=== PATIENT | male | born 1945 | race Caucasian/White ===

== ENCOUNTER 2016-12-03 14:37 | Emergency (ER) | payer MEDICARE, OTHER ==
[~2016-12-03] VITALS: Ht 170.2 cm; Wt 102.0 kg
[~2016-12-03 14:37] MED LIST: CARV25TA PO; LIPI20TA PO; LITH300 PO; LORTA5 PO; PERI8.6T PO; PROT40TA PO; PROZ40CA PO; TAMS0.4C67 PO
[2016-12-03 14:38] VITALS: BP 159/78; PULSE 75; RESP 20; TEMP 98.1; O2SAT 99
--- NOTE | 2016-12-03 15:00 | PD ---
HPI Chief Complaint: Diabetic Time Seen by Provider: 15:00 Travel History International Travel<30 days: No Contact w/Intl Traveler<30days: No Traveled to known affect area: No History of Present Illness HPI 71 YO M with PMH of HTN, bipolar presents to the ED for evaluation 2 week history of intermittent nausea and vomiting. He can identify no exacerbating or alleviating factors. Asymptomatic on presentation. He states that he had a near syncopal episode 2 weeks ago in [facility]. EMS was called to the scene and rehydrated the patient with Gatorade. Patient refused transport to the hospital. He also complains of intermittent dizziness over the same 2 weeks. Denies fevers, chills, chest pain, palpitations, shortness of breath, abdominal pain, melena, hematochezia, hematemesis, dysuria, back pain, neuro deficits. His BGL was 434 at [facility] today. He is followed by Dr. Taveras, last visit~ 6 months ago. PFSH Past Medical History Hx Anticoagulant Therapy: Yes (ASA 2X81) Arthritis: Yes (BOTH KNEE) Asthma: No Bipolar Disorder: Yes Anxiety: No Depression: Yes Heart Rhythm Problems: No Cancer: No Cardiovascular Problems: Yes (HTN) High Cholesterol: No Chest Pain: No Congestive Heart Failure: No COPD: No Diminished Hearing: No Endocrine: No GERD: Yes Genitourinary: Yes Hiatal Hernia: No Hypertension: Yes Immune Disorder: No Kidney Stones: No Musculoskeletal: Yes Neurologic: No Psychiatric: Yes Respiratory: Yes (ASTHMA) Renal Failure: No Sleep Apnea: No Ulcer: No Past Surgical History Abdominal Surgery: No Cardiac Surgery: No Ear Surgery: No Endocrine Surgery: No Eye Surgery: No Genitourinary Surgery: No Gynecologic Surgery: No Oral Surgery: No Pacemaker: No Thoracic Surgery: No Social History Alcohol Use: No Tobacco Use: No Substance Use: No Allergies-Medications (Allergen,Severity, Reaction): Coded Allergies: Codeine (Verified Allergy, Severe, MUSCULOSKELETAL ISSUES, 12/03/16) Reported Meds & Prescriptions Reported Meds & Active Scripts Active Reported Carvedilol 25 Mg Tab 25 Mg PO HS Flovent Hfa 12 GM Inh (Fluticasone Propionate) Unknown Strength Inh Unknown Dose INH DAILY PRN Atorvastatin (Atorvastatin Calcium) 20 Mg Tab 20 Mg PO HS Fluoxetine (Fluoxetine HCl) 40 Mg Cap 40 Cap PO HS Pantoprazole (Pantoprazole Sodium) 40 Mg Tab 40 Mg PO HS Flomax (Tamsulosin HCl) 0.4 Mg Cap 0.4 Mg PO HS [place] Carbonate 600 Mg Cap 600 Mg PO HS Verapamil ER (Verapamil HCl) 120 Mg Tab 120 Mg PO HS Aspir-81 (Aspirin) 81 Mg Tabdr 162 Mg PO HS Review of Systems Except as stated in HPI: all other systems reviewed are Neg Physical Exam Narrative GENERAL: Well-nourished, well-developed male in NAD. SKIN: Focused skin assessment warm/dry. HEAD: Normocephalic. EYES: No scleral icterus. No injection or drainage. NECK: Supple, trachea midline. No JVD or lymphadenopathy. CARDIOVASCULAR: Regular rate and rhythm without murmurs, gallops, or rubs. RESPIRATORY: Breath sounds clear and equal bilaterally. No accessory muscle use. GASTROINTESTINAL: Abdomen protuberant, soft, non-tender, nondistended. Active bowel sounds. MUSCULOSKELETAL: No cyanosis, or edema. NEUROLOGICAL: Awake and alert. Cranial nerves II through XII intact. Motor and sensory grossly within normal limits. 5/5 muscle strength in all muscle groups. Normal speech. BACK: Nontender without obvious deformity. No CVA tenderness. Data Data Last Documented VS Vital Signs Date Time Temp Pulse Resp B/P Pulse Ox O2 Delivery O2 Flow Rate FiO2 12/03/16 15:50 98 Room Air 12/03/16 14:38 98.1 75 20 159/78 Orders Electrocardiogram (12/03/16 15:01) Complete Blood Count With Diff (12/03/16 15:01) Comprehensive Metabolic Panel (12/03/16 15:01) Magnesium (Mg) (12/03/16 15:01) Ckmb (Isoenzyme) Profile (12/03/16 15:01) Troponin I (12/03/16 15:01) Act Partial Throm Time (Ptt) (12/03/16 15:01) Prothrombin Time / Inr (Pt) (12/03/16 15:01) Urinalysis - C+S If Indicated (12/03/16 15:01) Chest, Single Ap (12/03/16 15:01) Ct Brain W/O Iv Contrast(Rout) (12/03/16 15:01) Ecg Monitoring (12/03/16 15:01) Iv Access Insert/Monitor (12/03/16 15:01) Oximetry (12/03/16 15:01) Sodium Chloride 0.9% Flush (Ns Flush) (12/03/16 15:15) Labs Laboratory Tests Test 12/03/16 12/03/16 15:30 16:51 White Blood Count 7.0 TH/MM3 Red Blood Count 4.30 MIL/MM3 Hemoglobin 13.6 GM/DL Hematocrit 39.9 % Mean Corpuscular Volume 92.7 FL Mean Corpuscular Hemoglobin 31.6 PG Mean Corpuscular Hemoglobin 34.0 % Concent Red Cell Distribution Width 14.0 % Platelet Count 252 TH/MM3 Mean Platelet Volume 8.4 FL Neutrophils (%) (Auto) 53.6 % Lymphocytes (%) (Auto) 35.1 % Monocytes (%) (Auto) 8.6 % Eosinophils (%) (Auto) 2.0 % Basophils (%) (Auto) 0.7 % Neutrophils # (Auto) 3.8 TH/MM3 Lymphocytes # (Auto) 2.5 TH/MM3 Monocytes # (Auto) 0.6 TH/MM3 Eosinophils # (Auto) 0.1 TH/MM3 Basophils # (Auto) 0.0 TH/MM3 CBC Comment DIFF FINAL Differential Comment Prothrombin Time 10.8 SEC Prothromb Time International 1.0 RATIO Ratio Activated Partial 26.8 SEC Thromboplast Time Sodium Level 135 MEQ/L Potassium Level 4.2 MEQ/L Chloride Level 102 MEQ/L Carbon Dioxide Level 25.4 MEQ/L Anion Gap 8 MEQ/L Blood Urea Nitrogen 14 MG/DL Creatinine 1.56 MG/DL Estimat Glomerular Filtration 44 ML/MIN Rate Random Glucose 378 MG/DL Calcium Level 9.0 MG/DL Magnesium Level 1.8 MG/DL Total Bilirubin 0.8 MG/DL Aspartate Amino Transf 54 U/L (AST/SGOT) Alanine Aminotransferase 75 U/L (ALT/SGPT) Alkaline Phosphatase 110 U/L Total Creatine Kinase 95 U/L Troponin I LESS THAN 0.02 NG/ML Total Protein 6.9 GM/DL Albumin 3.2 GM/DL Urine Color YELLOW Urine Turbidity CLEAR Urine pH 5.5 Urine Specific [place] 1.031 Urine Protein NEG mg/dL Urine Glucose (UA) 1000 mg/dL Urine Ketones NEG mg/dL Urine Occult Blood NEG Urine Nitrite NEG Urine Bilirubin NEG Urine Urobilinogen LESS THAN 2.0 MG/DL Urine Leukocyte Esterase NEG Urine RBC 1 /hpf Urine WBC LESS THAN 1 /hpf Microscopic Urinalysis Comment CULT NOT INDICATED MDM Medical Decision Making Medical Screen Exam Complete: Yes Emergency Medical Condition: Yes Differential Diagnosis hyperglycemia versus DKA versus TIA versus CVA versus ACS versus anemia versus electrolyte abnormality versus other Narrative Course 71 YO M with PMH of HTN, bipolar presents to the ED for evaluation 2 week history of intermittent nausea and vomiting. He also complains of intermittent dizziness over the same 2 weeks. He can identify no exacerbating or alleviating factors. Asymptomatic on presentation. He states that he had a near syncopal episode 2 weeks ago in [facility]. EMS was called to the scene, refused transport to the hospital. His BGL was 434 at [facility] today. He is followed by Dr. Taveras, last visit~ 6 months ago. Vitals reviewed. Physical exam reveals a well-appearing male in no acute distress. Chest CTAB, abdomen soft, nontender. No CVA tenderness. No lower extremity edema. No focal neuro deficits. EKG rate 67, sinus rhythm, first-degree AV block, NE interval 231, QRS 167, QTc 460. Left bundle branch block. Changes. Reviewed by Dr. Whitlock. CXR: Mild cardiomegaly, no focal infiltrates, thoracic spinal changes. Cardiac enzymes negative 1. CMP: WBC 7.0, hemoglobin 13.6. INR 1.0. CMP: BUN 14, creatinine 1.56, glucose 378 UA: Glucose 1000 CT brain: No acute infarct, hemorrhage, mass effect or extra-axial fluid collections per radiology read. I discussed the results of the workup at length with the patient. He does not want to be admitted to the hospital. Patient's daughter is at bedside, states that she is a nurse practitioner, will help her father to set up follow-up with the primary care for evaluation of hyperglycemia. He is stable and discharged home. Diagnosis Primary Impression: Near syncope Additional Impression: Hyperglycemia Referrals: Primary Care Physician Patient Instructions: Diabetic Hyperglycemia (ED), General Instructions, Near Syncope (ED) Additional Instructions: Rest, hydrate. Reduce your sweets intake. Follow up with your primary care provider for further evaluation and Hemoglobin A1c check this week. Return to the ED for any urgent or emergent medical condition. Disposition: DISCHARGE HOME Condition: Stable Monica Mathias Dec 03, 2016 15:00
[2016-12-03] MEDS ORDERED: SODIUM CHLORIDE 0.9% FLUSH 10 ML FLUSH IVF PRN (15:15)
[2016-12-03 15:50] VITALS: O2SAT 98
[2016-12-03 16:05] LABS: AUTOMATED NEUTROPHIL # 3.8 TH/MM3 (1.8-7.7); BASOPHIL % 0.7 % (0.0-2.0); EOSINOPHIL # 0.1 TH/MM3 (0-0.4); HEMATOCRIT 39.9 % (39.0-51.0); HEMO FLAGS DIFF FINAL; LYMPH % 35.1 % (9.0-44.0); LYMPHOCYTE # 2.5 TH/MM3 (1.0-4.8); MEAN CELL VOLUME 92.7 FL (80.0-100.0); MEAN CORPUSCULAR HEMOGLOBIN 31.6 PG (27.0-34.0); MONO % 8.6 % (0.0-8.0); NEUT % 53.6 % (16.0-70.0); PLATELET COUNT 252 TH/MM3 (150-450)
--- NOTE | 2016-12-03 16:06 | RADRPT ---
EXAM DATE/TIME: 12/03/2016 15:00 [facility] COMPARISON: CHEST SINGLE AP, January 13, 2014, 17:20. INDICATIONS : Syncope. Lightheaded. MEDICAL HISTORY : Hypertension. Hyperglycemic. SURGICAL HISTORY : None. ENCOUNTER: Initial ACUITY: 2 weeks PAIN SCORE: 0/10 LOCATION: Bilateral chest FINDINGS: The heart is mildly enlarged. The pulmonary vascular pattern is normal. The lungs are clear. Degen erative changes are noted throughout the thoracic spine. CONCLUSION: 1. Mild cardiomegaly. 2. No acute focal pulmonary infiltrate or pulmonary vascular congestion. 3. Degenerative changes throughout the thoracic spine. Isacc Jamil MD on December 03, 2016 at 15:50 Board Certified Radiologist. This report was verified electronically.
[2016-12-03 16:20] LABS: APTT (PATIENT) 26.8 SEC (24.3-30.1); PROTHROMBIN TIME - PATIENT 10.8 SEC (9.8-11.6)
[2016-12-03 16:23] LABS: ALT (GPT) 75 U/L (12-78); ANION GAP 8 MEQ/L (5-15); AST (GOT) 54 U/L (15-37); BICARBONATE 25.4 MEQ/L (21.0-32.0); BLOOD UREA NITROGEN 14 MG/DL (7-18); CHLORIDE 102 MEQ/L (98-107); GLOMERULAR FILTRATION RATE 44 ML/MIN (>89); MAGNESIUM 1.8 MG/DL (1.5-2.5); POTASSIUM 4.2 MEQ/L (3.5-5.1); SODIUM (NA) 135 MEQ/L (136-145)
[2016-12-03 16:27] LABS: ALKALINE PHOSPHATASE 110 U/L (45-117); TOTAL BILIRUBIN ADULT 0.8 MG/DL (0.2-1.0)
[2016-12-03 16:28] LABS: CREATINE KINASE 95 U/L (39-308)
[2016-12-03] MEDS ORDERED: PANT40TA3 PO (16:40)
[2016-12-03] MEDS ORDERED: FLUO40CA PO (16:40)
[2016-12-03] MEDS ORDERED: VERA1TAB9 PO (16:40)
[2016-12-03] MEDS ORDERED: TAMS5CAP PO (16:40)
[2016-12-03] MEDS ORDERED: ASPI81TA81 PO (16:40)
[2016-12-03] MEDS ORDERED: LITH600C PO (16:40)
[2016-12-03] MEDS ORDERED: ATOR20TA15 PO (16:53)
[2016-12-03] MEDS ORDERED: FLUTI110I INH (16:54)
[2016-12-03] MEDS ORDERED: CARV25TA PO (16:55)
--- NOTE | 2016-12-03 17:19 | RADRPT ---
EXAM DATE/TIME: 12/03/2016 15:58 [facility] COMPARISON: No previous studies available for comparison. INDICATIONS : Syncopal episode, dizziness, nausea vomiting RADIATION DOSE: 41.68 CTDIvol (mGy) MEDICAL HISTORY : Cardiovascular disease. Hypertension. SURGICAL HISTORY : None. ENCOUNTER: Initial ACUITY: 3 days PAIN SCALE: 0/10 LOCATION: Cranial TECHNIQUE: Multiple contiguous axial images were obtained of the head. Using automated exposure control and adj ustment of the mA and/or kV according to patient size, radiation dose was kept as low as reasonably a chievable to obtain optimal diagnostic quality images. DICOM format image data is available electro nically for review and comparison. FINDINGS: Mild periventricular white matter small vessel ischemic changes are noted bilaterally. There is no acute infarct, acute hemorrhage, mass effect or extra-axial fluid collections. The ventr icles, sulci and cisterns are normal for the patient's age. CONCLUSION: 1. Mild periventricular white matter small vessel ischemic changes bilaterally. 2. No acute infarct, acute hemorrhage, mass effect or extra-axial fluid collections. Isacc Jamil MD on December 03, 2016 at 16:06 Board Certified Radiologist. This report was verified electronically.
[2016-12-03 17:22] LABS: BLOOD, URINE NEG (NEG); GLUCOSE,URINE 1000 mg/dL (NEG); KETONE, URINE NEG (NEG); NITRITE,URINE NEG (NEG); PH, URINE 5.5 (5.0-8.5); URINE COLOR YELLOW (YELLW/STRAW)
[2016-12-03 17:25] LABS: COMMENT (UR) CULT NOT INDICATED; CULTURE IF INDICATED CULT NOT INDICATED
--- NOTE | 2016-12-03 18:04 | PD ---
Physical Exam Exam Limitations: Poor Historian Narrative GENERAL: Well-nourished, well-developed patient. SKIN: Warm and dry. HEAD: Normocephalic and atraumatic. EYES: No injection or drainage. ENT: No nasal drainage noted. NECK: Supple, trachea midline. CARDIOVASCULAR: Regular rate and rhythm RESPIRATORY: no increased effort. No accessory muscle use. NEUROLOGICAL: Awake and alert. Motor and sensory grossly within normal limits. Normal speech. Data Data Last Documented VS Vital Signs Date Time Temp Pulse Resp B/P Pulse Ox O2 Delivery O2 Flow Rate FiO2 12/03/16 15:50 98 Room Air 12/03/16 14:38 98.1 75 20 159/78 Orders Electrocardiogram (12/03/16 15:01) Complete Blood Count With Diff (12/03/16 15:01) Comprehensive Metabolic Panel (12/03/16 15:01) Magnesium (Mg) (12/03/16 15:01) Ckmb (Isoenzyme) Profile (12/03/16 15:01) Troponin I (12/03/16 15:01) Act Partial Throm Time (Ptt) (12/03/16 15:01) Prothrombin Time / Inr (Pt) (12/03/16 15:01) Urinalysis - C+S If Indicated (12/03/16 15:01) Chest, Single Ap (12/03/16 15:01) Ct Brain W/O Iv Contrast(Rout) (12/03/16 15:01) Ecg Monitoring (12/03/16 15:01) Iv Access Insert/Monitor (12/03/16 15:01) Oximetry (12/03/16 15:01) Sodium Chloride 0.9% Flush (Ns Flush) (12/03/16 15:15) Labs Laboratory Tests Test 12/03/16 12/03/16 15:30 16:51 White Blood Count 7.0 TH/MM3 Red Blood Count 4.30 MIL/MM3 Hemoglobin 13.6 GM/DL Hematocrit 39.9 % Mean Corpuscular Volume 92.7 FL Mean Corpuscular Hemoglobin 31.6 PG Mean Corpuscular Hemoglobin 34.0 % Concent Red Cell Distribution Width 14.0 % Platelet Count 252 TH/MM3 Mean Platelet Volume 8.4 FL Neutrophils (%) (Auto) 53.6 % Lymphocytes (%) (Auto) 35.1 % Monocytes (%) (Auto) 8.6 % Eosinophils (%) (Auto) 2.0 % Basophils (%) (Auto) 0.7 % Neutrophils # (Auto) 3.8 TH/MM3 Lymphocytes # (Auto) 2.5 TH/MM3 Monocytes # (Auto) 0.6 TH/MM3 Eosinophils # (Auto) 0.1 TH/MM3 Basophils # (Auto) 0.0 TH/MM3 CBC Comment DIFF FINAL Differential Comment Prothrombin Time 10.8 SEC Prothromb Time International 1.0 RATIO Ratio Activated Partial 26.8 SEC Thromboplast Time Sodium Level 135 MEQ/L Potassium Level 4.2 MEQ/L Chloride Level 102 MEQ/L Carbon Dioxide Level 25.4 MEQ/L Anion Gap 8 MEQ/L Blood Urea Nitrogen 14 MG/DL Creatinine 1.56 MG/DL Estimat Glomerular Filtration 44 ML/MIN Rate Random Glucose 378 MG/DL Calcium Level 9.0 MG/DL Magnesium Level 1.8 MG/DL Total Bilirubin 0.8 MG/DL Aspartate Amino Transf 54 U/L (AST/SGOT) Alanine Aminotransferase 75 U/L (ALT/SGPT) Alkaline Phosphatase 110 U/L Total Creatine Kinase 95 U/L Troponin I LESS THAN 0.02 NG/ML Total Protein 6.9 GM/DL Albumin 3.2 GM/DL Urine Color YELLOW Urine Turbidity CLEAR Urine pH 5.5 Urine Specific [place] 1.031 Urine Protein NEG mg/dL Urine Glucose (UA) 1000 mg/dL Urine Ketones NEG mg/dL Urine Occult Blood NEG Urine Nitrite NEG Urine Bilirubin NEG Urine Urobilinogen LESS THAN 2.0 MG/DL Urine Leukocyte Esterase NEG Urine RBC 1 /hpf Urine WBC LESS THAN 1 /hpf Microscopic Urinalysis Comment CULT NOT INDICATED [facility] Supervised Visit with REYES: Yes Interpretation(s) CBC & BMP Diagram 12/03/16 15:30 Last [address] 12/03/16 1501 Signed Impressions: Service Date/Time: Saturday, December 03, 2016 15:58 - CONCLUSION: 1. Mild periventricular white matter small vessel ischemic changes bilaterally. 2. No acute infarct, acute hemorrhage, mass effect or extra-axial fluid collections. Isacc Jamil MD Chest X-Ray 12/03/16 1501 Signed Impressions: Service Date/Time: Saturday, December 03, 2016 15:00 - CONCLUSION: 1. Mild cardiomegaly. 2. No acute focal pulmonary infiltrate or pulmonary vascular congestion. 3. Degenerative changes throughout the thoracic spine. Isacc Jamil MD Narrative Course I, Dr. gupta, have reviewed the advance practice practitioner's documentation and am in agreement, met with the patient face to face, made the diagnosis, and the medical decision making was done by me. *My assessment and Findings: 71-year-old male with no onset diabetes had a near syncopal event about 3 weeks ago per his daughter who is now in town and wanted him to get checked out. Patient states he never lost consciousness and had no chest pain or shortness of breath. Labs show elevated glucose without DKA. Lengthy discussion with patient and daughter and offered observation but not wanting to stay. His daughter states that she will help him with his diabetes education and set up close follow-up Diagnosis Primary Impression: Hyperglycemia Additional Impression: Near syncope Patient Instructions: General Instructions Additional Instruction: return as needed, follow with primary this week, limit sugar intake Med/Other Pt SpecificInfo: No Change to Meds Disposition: 01 DISCHARGE HOME Condition: Stable Leslie Gupta MD Dec 03, 2016 18:04
--- NOTE | 2016-12-04 14:15 | EKG ---
Date Performed: 12/03/2016 Time Performed: 16:22:43 PTAGE: 71 years EKG: Sinus rhythm WITH FIRST DEGREE AV BLOCK LEFT BUNDLE BRANCH BLOCK ABNORMAL ECG Compared to prior tracing no signif icant change PREVIOUS TRACING : 01/13/2014 17.08 DOCTOR: Brian Malave Interpretating Date/Time 12/04/2016 14:12:34
== END 2016-12-03 18:22 | disposition home or self-care (01) ==
LOC: NEPE 14:37
DX: E11.65 Type 2 diabetes mellitus with hyperglycemia (principal); I10 Essential (primary) hypertension; Z79.899 Other long term (current) drug therapy
CPT/HCPCS: 70450; 71010; 80053; 81001; 82550; 83735; 84484; 85025; 85610; 85730; 93005

== ENCOUNTER 2017-06-29 23:45 | Observation (INO) | payer MEDICARE, OTHER ==
[~2017-06-29] VITALS: Ht 170.2 cm; Wt 96.5 kg
[~2017-06-29 23:45] MED LIST changes: +ASPI-516 CHEW; +ASPI81TA81 PO; +ATOR20TA15 PO; +CARV3.125 PO; +FLUO40CA PO; +FLUTI110I INH; -LIPI20TA PO; -LITH300 PO; +LITH300C2 PO; +LITH600C PO; -LORTA5 PO; +METF500T PO; +PANT40TA3 PO; -PERI8.6T PO; -PROT40TA PO; +PROZ20CA11 PO; -PROZ40CA PO; +TAMS0.4C4 PO; -TAMS0.4C67 PO; +TAMS5CAP PO; +VERA1TAB9 PO
[2017-06-29] MEDS ORDERED: CARV12.5 PO (23:58)
[2017-06-30] VITALS (7 sets, daily range): BP systolic 146–163; BP diastolic 69–101; PULSE 82–104; RESP 16–20; TEMP 97.4–98.4; O2SAT 95–98
[2017-06-30] MEDS ORDERED: PANTOPRAZOLE INJ 80 MG in SODIUM CHLORIDE 0.9% INJ 100 ML IV SCH (00:15)
[2017-06-30] MEDS ORDERED: PANTOPRAZOLE SODIUM 40 MG VIAL IV PUSH ONE (00:15)
[2017-06-30] MEDS ORDERED: SODIUM CHLOR 0.9% 1000 ML INJ 1,000 ML IV ONE (00:30)
[2017-06-30 00:37] LABS: AUTOMATED NEUTROPHIL # 11.2 TH/MM3 (1.8-7.7); BASOPHIL # 0.1 TH/MM3 (0-0.2); BASOPHIL % 0.7 % (0.0-2.0); EOSINOPHIL # 0.2 TH/MM3 (0-0.4); EOSINOPHIL % 1.2 % (0.0-4.0); HEMATOCRIT 37.4 % (39.0-51.0); HEMOGLOBIN 12.9 GM/DL (13.0-17.0); LYMPH % 20.7 % (9.0-44.0); LYMPHOCYTE # 3.2 TH/MM3 (1.0-4.8); MEAN CELL VOLUME 92.7 FL (80.0-100.0); MEAN CORPUSCULAR HEMOGLOBIN 31.9 PG (27.0-34.0); MEAN CORPUSCULAR HGB CONC 34.4 % (32.0-36.0); MEAN PLATELET VOLUME 7.9 FL (7.0-11.0); MONO % 5.5 % (0.0-8.0); MONOCYTE # 0.9 TH/MM3 (0-0.9); NEUT % 71.9 % (16.0-70.0); PLATELET COUNT 364 TH/MM3 (150-450); RED BLOOD COUNT 4.03 MIL/MM3 (4.50-5.90); RED CELL DISTRIBUTION WIDTH 13.8 % (11.6-17.2); WHITE BLOOD COUNT 15.6 TH/MM3 (4.0-11.0)
[2017-06-30 00:46] LABS: INTERNATIONAL NORMALIZED RATIO 1.1 RATIO; PROTHROMBIN TIME - PATIENT 10.9 SEC (9.8-11.6)
[2017-06-30 00:56] LABS: ALBUMIN 2.9 GM/DL (3.4-5.0); AST (GOT) 25 U/L (15-37); BICARBONATE 27.7 MEQ/L (21.0-32.0); BLOOD UREA NITROGEN 25 MG/DL (7-18); CALCIUM 9.3 MG/DL (8.5-10.1); CHLORIDE 106 MEQ/L (98-107); CREATININE 1.31 MG/DL (0.60-1.30); GLOMERULAR FILTRATION RATE 54 ML/MIN (>89); GLUCOSE,RANDOM 182 MG/DL (74-106); SODIUM (NA) 140 MEQ/L (136-145)
[2017-06-30 01:00] LABS: ALKALINE PHOSPHATASE 63 U/L (45-117); ALT (GPT) 31 U/L (12-78); TOTAL BILIRUBIN ADULT 1.1 MG/DL (0.2-1.0); TOTAL PROTEIN 6.9 GM/DL (6.4-8.2)
--- NOTE | 2017-06-30 01:36 | RADRPT ---
EXAM DATE/TIME: 06/30/2017 01:04 [facility] COMPARISON: No previous studies available for comparison. INDICATIONS : Hematemesis and blood loss. MEDICAL HISTORY : Diabetes mellitus type II. Hypertension SURGICAL HISTORY : None. ENCOUNTER: Initial ACUITY: 1 day PAIN SCORE: 0/10 LOCATION: abdomen FINDINGS: Supine and upright views of the abdomen were performed. The abdominal bowel gas pattern is normal. No air fluid levels are seen. No abnormal masses, calcifications, or organomegaly is seen. The visu alized lower lungs are clear. No evidence of free intraperitoneal gas. The osseous structures are u nremarkable. CONCLUSION: Benign-appearing abdomen. Harsi Pretty MD on June 30, 2017 at 1:35 Board Certified Radiologist. This report was verified electronically.
--- NOTE | 2017-06-30 01:36 | RADRPT ---
EXAM DATE/TIME: 06/30/2017 01:02 [facility] COMPARISON: CHEST SINGLE AP, May 24, 2017, 8:13. INDICATIONS : Cough and hematemesis MEDICAL HISTORY : Diabetes mellitus type II. Hypertension SURGICAL HISTORY : None. ENCOUNTER: Initial ACUITY: 1 day PAIN SCORE: 0/10 LOCATION: Bilateral chest FINDINGS: A single view of the chest demonstrates the lungs to be symmetrically aerated without evidence of mas s, infiltrate or effusion. The cardiomediastinal contours are unremarkable. Osseous structures are intact. CONCLUSION: No acute disease demonstrated. Haris Pretty MD on June 30, 2017 at 1:34 Board Certified Radiologist. This report was verified electronically.
--- NOTE | 2017-06-30 02:32 | PD ---
HPI Chief Complaint: GI Complaint Time Seen by Provider: 23:54 Travel History International Travel<30 days: No Contact w/Intl Traveler<30days: No Traveled to known affect area: No History of Present Illness HPI Patient is a 71-year-old male who has a history of GI bleed from a bleeding ulcer year ago. He had endoscopy and treatment. That was from too much NSAIDs back then. Now he said a year with no problems however tonight he reports going out eating a cheese steak and then afterwards feeling nauseous and vomiting up but she steak and then bright red blood. He denies epigastric pain denies any trauma denies any NSAID use since a year ago he is in the ER he has obvious red blood on his snyder from vomiting he is not actively bleeding here in the ER. His vitals are within normal limits he is mildly hypertensive not hypotensive and he will be treated with Protonix IV and drip and admitted for GI consult in the a.m. with endoscopy. Patient denies black stool. Denies abdominal pain PFSH Past Medical History Hx Anticoagulant Therapy: Yes (ASA [id number]) Arthritis: Yes Asthma: Yes (stress induced) Bipolar Disorder: Yes Anxiety: No Depression: Yes Heart Rhythm Problems: No Cancer: No Cardiovascular Problems: Yes High Cholesterol: No Chest Pain: No Congestive Heart Failure: No COPD: No Diabetes: Yes Patient Takes Glucophage: Yes Diminished Hearing: No Endocrine: Yes Gastrointestinal Disorders: Yes GERD: No Genitourinary: No Hiatal Hernia: No Hypertension: Yes Immune Disorder: No Implanted Vascular Access Dvce: No Kidney Stones: No Musculoskeletal: Yes Neurologic: No Psychiatric: No Reproductive: No Respiratory: Yes Renal Failure: No Sleep Apnea: No Thyroid Disease: No Ulcer: Yes Influenza Vaccination: Yes Past Surgical History Abdominal Surgery: No Cardiac Surgery: No Ear Surgery: No Endocrine Surgery: No Eye Surgery: No Genitourinary Surgery: No Gynecologic Surgery: No Neurologic Surgery: No Oral Surgery: No Pacemaker: No Thoracic Surgery: No Other Surgery: Yes Social History Alcohol Use: No Tobacco Use: No Substance Use: No Allergies-Medications (Allergen,Severity, Reaction): Coded Allergies: codeine (Unverified Allergy, Severe, MUSCULOSKELETAL ISSUES, 06/29/17) Reported Meds & Prescriptions Reported Meds & Active Scripts Active Reported Coreg (Carvedilol) 12.5 Mg Tab 12.5 Mg PO DAILY Metformin (Metformin HCl) 500 Mg Tab 500 Mg PO BIDPC Flovent Hfa 12 GM Inh (Fluticasone Propionate) Unknown Strength Inh Unknown Dose INH DAILY PRN Fluoxetine (Fluoxetine HCl) 40 Mg Cap 40 Cap PO HS Flomax (Tamsulosin HCl) 0.4 Mg Cap 0.4 Mg PO HS [place] Carbonate 600 Mg Cap 600 Mg PO HS Review of Systems Except as stated in HPI: all other systems reviewed are Neg Gastrointestinal: Positive: Hematemesis Physical Exam Narrative GENERAL: Patient has obvious red blood down his chin and lower lip SKIN: Warm and dry. HEAD: Atraumatic. Normocephalic. EYES: Pupils equal and round. No scleral icterus. No injection or drainage. ENT: No nasal bleeding or discharge. Mucous membranes pink and moist. Patient has bright red blood on his lower lip and chin from vomiting blood NECK: Trachea midline. No JVD. CARDIOVASCULAR: Regular rate and rhythm. RESPIRATORY: No accessory muscle use. Clear to auscultation. Breath sounds equal bilaterally. GASTROINTESTINAL: Abdomen patient denies abdominal pain with percussion and palpation of all quadrants , non-tender, nondistended. Hepatic and splenic margins not palpable. MUSCULOSKELETAL: Extremities without clubbing, cyanosis, or edema. No obvious deformities. NEUROLOGICAL: Awake and alert. No obvious cranial nerve deficits. Motor grossly within normal limits. Five out of 5 muscle strength in the arms and legs. Normal speech. PSYCHIATRIC: Appropriate mood and affect; insight and judgment normal. Data Data Last Documented VS Vital Signs Date Time Temp Pulse Resp B/P (MAP) Pulse Ox O2 Delivery O2 Flow Rate FiO2 06/30/17 00:00 97.4 104 16 152/101 (118) 98 Room Air Orders Orders Pantoprazole Inj (Protonix Inj) (06/30/17 00:15) Pantoprazole Inj (Protonix Inj) (06/30/17 00:15) Complete Blood Count With Diff (06/30/17 00:16) Type And Screen (06/30/17 00:16) Comprehensive Metabolic Panel (06/30/17 00:16) Prothrombin Time / Inr (Pt) (06/30/17 00:16) Lipase (06/30/17 00:16) Sodium Chlor 0.9% 1000 Ml Inj (Ns 1000 M (06/30/17 00:30) Abdomen, Flat & Upright (06/30/17 ) Chest, Single Ap (06/30/17 ) Consult Gastroenterology (06/30/17 ) Bedside Glucose PRASANTH.CSUGAR (06/30/17 02:51) Blood Glucose Goal (Criteria) (06/30/17 02:51) Hypoglycemia 70 Mg/Dl Or < (06/30/17 02:51) Notify Dr: Other (06/30/17 02:51) Dextrose 50% In Hdoa (Vial) Inj (D50w (Vi (06/30/17 03:00) Place In Observation (06/30/17 ) Vital Signs (Adult) Q4H (06/30/17 02:51) Activity Oob Ad Kamala (06/30/17 02:51) Intake + Output PRASANTH.QSHIFT (06/30/17 02:51) Diet Clear Liquid (06/30/17 Breakfast) Sodium Chlor 0.9% 1000 Ml Inj (Ns 1000 M (06/30/17 02:51) Sodium Chloride 0.9% Flush (Ns Flush) (06/30/17 03:00) Sodium Chloride 0.9% Flush (Ns Flush) (06/30/17 09:00) Ondansetron Inj (Zofran Inj) (06/30/17 03:00) Comprehensive Metabolic Panel (07/01/17 06:00) Complete Blood Count With Diff (07/01/17 06:00) Pharmacologic Contraindication (06/30/17 02:51) Acetaminophen (Tylenol) (06/30/17 03:00) Morphine Inj (Morphine Inj) (06/30/17 03:00) Docusate Sodium-Senna (Alisha-Colace) (06/30/17 09:00) Magnesium Hydroxide Liq (Milk Of Magnesi (06/30/17 03:00) Sennosides (Senokot) (06/30/17 03:00) Bisacodyl Supp (Dulcolax Supp) (06/30/17 03:00) Lactulose Liq (Lactulose Liq) (06/30/17 03:00) Hgb & Hct (06/30/17 10:00) Carvedilol (Coreg) (06/30/17 09:00) Fluoxetine (Prozac) (06/30/17 21:00) [place] Carbonate ([place] Carbonate) (06/30/17 21:00) Tamsulosin (Flomax) (06/30/17 21:00) Glucagon Inj (Glucagon Inj) (06/30/17 03:00) Insulin Aspart Supplemtl Scale (Novolog (06/30/17 08:00) Admit Order (Ed Use Only) (06/30/17 02:57) Labs Laboratory Tests Test 06/30/17 00:25 White Blood Count 15.6 TH/MM3 Red Blood Count 4.03 MIL/MM3 Hemoglobin 12.9 GM/DL Hematocrit 37.4 % Mean Corpuscular Volume 92.7 FL Mean Corpuscular Hemoglobin 31.9 PG Mean Corpuscular Hemoglobin Concent 34.4 % Red Cell Distribution Width 13.8 % Platelet Count 364 TH/MM3 Mean Platelet Volume 7.9 FL Neutrophils (%) (Auto) 71.9 % Lymphocytes (%) (Auto) 20.7 % Monocytes (%) (Auto) 5.5 % Eosinophils (%) (Auto) 1.2 % Basophils (%) (Auto) 0.7 % Neutrophils # (Auto) 11.2 TH/MM3 Lymphocytes # (Auto) 3.2 TH/MM3 Monocytes # (Auto) 0.9 TH/MM3 Eosinophils # (Auto) 0.2 TH/MM3 Basophils # (Auto) 0.1 TH/MM3 CBC Comment DIFF FINAL Differential Comment Prothrombin Time 10.9 SEC Prothromb Time International Ratio 1.1 RATIO Blood Urea Nitrogen 25 MG/DL Creatinine 1.31 MG/DL Random Glucose 182 MG/DL Total Protein 6.9 GM/DL Albumin 2.9 GM/DL Calcium Level 9.3 MG/DL Alkaline Phosphatase 63 U/L Aspartate Amino Transf (AST/SGOT) 25 U/L Alanine Aminotransferase (ALT/SGPT) 31 U/L Total Bilirubin 1.1 MG/DL Sodium Level 140 MEQ/L Potassium Level 4.0 MEQ/L Chloride Level 106 MEQ/L Carbon Dioxide Level 27.7 MEQ/L Anion Gap 6 MEQ/L Estimat Glomerular Filtration Rate 54 ML/MIN Lipase 114 U/L [facility] Medical Decision Making Medical Screen Exam Complete: Yes Emergency Medical Condition: Yes Differential Diagnosis Differential diagnosis is bleeding ulcer versus vomiting up red colored food versus esophageal bleed with varices versus portal hypertension and his varices Narrative Course Patient has Protonix drip 8 mg an hour and Protonix push 80 mg pushed and he is admitted to liters of fluid type and screen ordered and GI consult admitted to [facility] Diagnosis Primary Impression: GI hemorrhage Qualified Codes: K92.2 - Gastrointestinal hemorrhage, unspecified Admitting Information Admitting Physician Requests: Admit Scripts Pantoprazole (Protonix) 40 Mg Tab 40 MG PO DAILY for Ulcer Prevention, #90 TAB 3 Refills Prov: Alyx Finley DO 07/02/17 Micky Bernstein MD Jun 30, 2017 02:32
[2017-06-30] MEDS ORDERED: MAGNESIUM HYDROXIDE SUSP 30 ML CUP PO PRN (03:00)
[2017-06-30] MEDS ORDERED: BISACODYL 10 MG SUPP RECTAL PRN (03:00)
[2017-06-30] MEDS ORDERED: ACETAMINOPHEN 325 MG TAB PO PRN (03:00)
[2017-06-30] MEDS ORDERED: DEXTROSE 50% IN WATER 50 ML VIAL(D50) IV PUSH PRN (03:00)
[2017-06-30] MEDS ORDERED: LACTULOSE SYRUP 20 GM/30 ML CUP PO PRN (03:00)
[2017-06-30] MEDS ORDERED: SODIUM CHLORIDE 0.9% FLUSH 10 ML FLUSH IV FLUSH PRN (03:00)
[2017-06-30] MEDS ORDERED: GLUCAGON 1 MG/ML VIAL OTHER PRN (03:00)
[2017-06-30] MEDS ORDERED: MORPHINE SULFATE 2 MG/ML INJ IV PUSH PRN (03:00)
[2017-06-30] MEDS ORDERED: SENNOSIDES 8.6 MG TAB PO PRN (03:00)
--- NOTE | 2017-06-30 03:28 | HHI.HP ---
[facility]ician Haris Taveras MD Admission Diagnosis GI hemorrhage Diagnoses: (1) GI bleed Diagnosis: Principal (2) Renal insufficiency Diagnosis: Principal (3) Leukocytosis Diagnosis: Principal (4) DM (diabetes mellitus) Diagnosis: Principal Travel History International Travel<30 Days: No Contact w/Intl Traveler <30 Da: No Traveled to Known Affected Are: No History of Present Illness This is a 71-year-old male with a PMH of Bipolar Disorder, HTN, DM and h/o GI Bleed who presented to the ER w/ episode of hematemesis. States he had a cheese steak sandwich for dinner, was watching TV and had sudden onset of nausea followed by episode of hematemesis. Denies abdominal pain, fever, chills or diarrhea. Reports similar episode in 2016 however states he was told he had an ulcer from taking too much Ibuprofen for knee pain, no EGD or intervention at that time per pt. On arrival, BP 152/101, HR 104, O2 sat 98% on RA, Afebrile. WBC 15.6. Hemoglobin 12.9, previously 15.1 on 05/24/17. Creatinine 1.31, previously 1.4 701-1918. INR 1.1. CXR with no acute findings. Abdominal X-ray benign. Started on Protonix gtt in ER, no further episodes of hematemesis. Review of Systems Except as stated in HPI: all other systems reviewed are Neg ROS: 14 point review of systems otherwise negative. Past Family Social History Past Medical History PMH: Bipolar Disorder, HTN, DM and h/o GI Bleed Past Surgical History PAST SURGICAL HISTORY: None Allergies: Coded Allergies: codeine (Unverified Allergy, Severe, MUSCULOSKELETAL ISSUES, 06/29/17) Family History PAST FAMILY HISTORY: Reviewed. No h/o DM or CAD Social History PAST SOCIAL HISTORY: Negative for alcohol, tobacco or drugs. Physical Exam Vital Signs Vital Signs Date Time Temp Pulse Resp B/P (MAP) Pulse Ox O2 Delivery O2 Flow Rate FiO2 06/30/17 00:00 97.4 104 16 152/101 (118) 98 Room Air Physical Exam PE: GENERAL: Elderly male in no acute distress. HEENT: PERRLA, EOMI. No scleral icterus or conjunctival pallor. No lid lag or facial droop. Blood stained snyder CARDIOVASCULAR: Regular rate and rhythm. No obvious murmurs to auscultation. No chest tenderness to palpation. RESPIRATORY: No obvious rhonchi or wheezing. Clear to auscultation. Breath sounds equal bilaterally. GASTROINTESTINAL: Abdomen soft, non-tender, nondistended. BS normal. MUSCULOSKELETAL: Extremities without clubbing, cyanosis, or edema. No obvious deformities. NEUROLOGICAL: Awake, alert and oriented x4. No focal neurologic deficits. Moving both upper and lower extremities spontaneously. Laboratory Laboratory Tests Test 06/30/17 00:25 White Blood Count 15.6 Red Blood Count 4.03 Hemoglobin 12.9 Hematocrit 37.4 Mean Corpuscular Volume 92.7 Mean Corpuscular Hemoglobin 31.9 Mean Corpuscular Hemoglobin Concent 34.4 Red Cell Distribution Width 13.8 Platelet Count 364 Mean Platelet Volume 7.9 Neutrophils (%) (Auto) 71.9 Lymphocytes (%) (Auto) 20.7 Monocytes (%) (Auto) 5.5 Eosinophils (%) (Auto) 1.2 Basophils (%) (Auto) 0.7 Neutrophils # (Auto) 11.2 Lymphocytes # (Auto) 3.2 Monocytes # (Auto) 0.9 Eosinophils # (Auto) 0.2 Basophils # (Auto) 0.1 CBC Comment DIFF FINAL Differential Comment Prothrombin Time 10.9 Prothromb Time International Ratio 1.1 Blood Urea Nitrogen 25 Creatinine 1.31 Random Glucose 182 Total Protein 6.9 Albumin 2.9 Calcium Level 9.3 Alkaline Phosphatase 63 Aspartate Amino Transf (AST/SGOT) 25 Alanine Aminotransferase (ALT/SGPT) 31 Total Bilirubin 1.1 Sodium Level 140 Potassium Level 4.0 Chloride Level 106 Carbon Dioxide Level 27.7 Anion Gap 6 Estimat Glomerular Filtration Rate 54 Lipase 114 Result Diagram: 06/30/172406/30/1724 Caprini VTE Risk Assessment Caprini VTE Risk Assessment: No/Low Risk (score <= 1) Caprini Risk Assessment Model Point Value = 1 Point Value = 2 Point Value = 3 Point Value = 5 Age 41-60 Minor surgery BMI > 25 kg/m2 Swollen legs Varicose veins or History of unexplained or recurrent spontaneous Oral contraceptives or hormone replacement Sepsis (< 1 month) Serious lung disease, including pneumonia (< 1 month) Abnormal pulmonary function Acute myocardial infarction Congestive heart failure (< 1 month) History of inflammatory bowel disease Medical patient at bed rest Age 61-74 Arthroscopic surgery Major open surgery (> 45 min) Laparoscopic surgery (> 45 min) Malignancy Confined to bed (> 72 hours) Immobilizing plaster cast Central venous access Age >= 75 History of VTE Family history of VTE Factor V Leiden Prothrombin [id number] Lupus anticoagulant Anticardiolipin antibodies Elevated serum homocysteine Heparin-induced thrombocytopenia Other congenital or acquired thrombophilia Stroke (< 1 month) Elective arthroplasty Hip, pelvis, or leg fracture Acute spinal cord injury (< 1 month) Prophylaxis Regimen Total Risk Factor Score Risk Level Prophylaxis Regimen 0-1 Low Early ambulation 2 Moderate Order ONE of the following: *Sequential Compression Device (SCD) *Heparin 5000 units SQ BID 3-4 Higher Order ONE of the following medications: *Heparin 5000 units SQ TID *Enoxaparin/Lovenox 40 mg SQ daily (WT < 150 kg, CrCl > 30 mL/min) *Enoxaparin/Lovenox 30 mg SQ daily (WT < 150 kg, CrCl > 10-29 mL/min) *Enoxaparin/Lovenox 30 mg SQ BID (WT < 150 kg, CrCl > 30 mL/min) AND/OR *Sequential Compression Device (SCD) 5 or more Highest Order ONE of the following medications: *Heparin 5000 units SQ TID (Preferred with Epidurals) *Enoxaparin/Lovenox 40 mg SQ daily (WT < 150 kg, CrCl > 30 mL/min) *Enoxaparin/Lovenox 30 mg SQ daily (WT < 150 kg, CrCl > 10-29 mL/min) *Enoxaparin/Lovenox 30 mg SQ BID (WT < 150 kg, CrCl > 30 mL/min) AND *Sequential Compression Device (SCD) Assessment and Plan Problem List: (1) GI bleed ICD Code: K92.2 - Gastrointestinal hemorrhage, unspecified (2) Renal insufficiency ICD Code: N28.9 - Disorder of kidney and ureter, unspecified (3) Leukocytosis ICD Code: D72.829 - Elevated white blood cell count, unspecified (4) DM (diabetes mellitus) ICD Code: E11.9 - Type 2 diabetes mellitus without complications Assessment and Plan A/P: 1. GI Bleed: acute onset of nausea w/ hematemesis, h/o NSAID-Induced GI Bleed in the past, denies NSAID use at this time. Vitals stable. Hgb 12.9, previously 15.1 on 05/24/17. Monitor Hgb/Hct closely, will repeat labs in am for trend. Type & Screen, transfuse as needed for Hgb <8 or if hemodynamically unstable. Consult GI for further eval/intervention. Hold NSAIDs. Continue Protonix gtt 2. Leukocytosis: WBC 15.6, likely reactive. CXR w/ no acute findings, Abd X- ray benign, images reviewed by me. Repeat labs in am for trend. 3. Renal Insufficiency: Creatinine 1.31, previously 1.47 on 05/25/17. IVF for hydration, repeat labs in a.m. 4. DM: Sliding scale with Accu-Cheks. Hold Metformin for now. 5. DVT Prophylaxis: Pharmacologic contraindications secondary to acute GI bleed. 6. Social work for DC planning as needed. 7. Discussed at length with ER physician, lap/records/imaging reviewed by me. Kaci Genao MD Jun 30, 2017 03:28
[2017-06-30] MEDS: SODIUM CHLOR 0.9% 1000 ML INJ 1,000 ML IV SCH ×3 (03:31→22:51)
[2017-06-30] MEDS: INSULIN ASPART SUPPLEMENTAL SCALE SQ SCH ×4 (08:00→21:00)
[2017-06-30] MEDS: SODIUM CHLORIDE 0.9% FLUSH 10 ML FLUSH IV FLUSH SCH ×2 (09:00→21:48)
[2017-06-30] MEDS: DOCUSATE SODIUM 50 MG/SENNA 8.6 MG TAB PO SCH ×2 (09:19→21:49)
[2017-06-30] MEDS: CARVEDILOL 12.5 MG TAB PO SCH (09:19)
--- NOTE | 2017-06-30 10:38 | HHI.PR ---
Subjective Remarks Follow-up for GI bleed. Patient is currently doing well. No acute concerns. No fever or chills. GI evaluated him today. Objective Vitals Vital Signs Date Time Temp Pulse Resp B/P (MAP) Pulse Ox O2 Delivery O2 Flow Rate FiO2 06/30/17 08:00 98.2 99 20 153/78 (103) 96 06/30/17 04:00 97.5 101 18 149/90 (109) 97 06/30/17 03:38 100 18 163/69 (100) 97 06/30/17 00:00 97.4 104 16 152/101 (118) 98 Room Air I/O 06/29/17 06/29/17 06/29/17 06/30/17 06/30/17 06/30/17 07:00 15:00 23:00 07:00 15:00 23:00 Intake Total 200 ml Output Total 0 ml Balance 200 ml Intake Oral 200 ml Output Urine Total 0 ml Result Diagram: 06/30/17 0025 06/30/17 0025 Imaging Last Impressions Chest X-Ray 06/30/17 0000 Signed Impressions: Service Date/Time: Friday, June 30, 2017 01:02 - CONCLUSION: No acute disease demonstrated. Haris Pretty MD Abdomen X-Ray 06/30/17 0000 Signed Impressions: Service Date/Time: Friday, June 30, 2017 01:04 - CONCLUSION: Benign-appearing abdomen. Haris Pretty MD Objective Remarks GENERAL: Alert, oriented 3, NAD. SKIN: Warm and dry. HEAD: Normocephalic. EYES: No scleral icterus. No injection or drainage. NECK: Supple, trachea midline. No JVD or lymphadenopathy. CARDIOVASCULAR: Regular rate and rhythm without murmurs, gallops, or rubs. RESPIRATORY: Breath sounds equal bilaterally. No accessory muscle use. GASTROINTESTINAL: Abdomen soft, non-tender, nondistended. MUSCULOSKELETAL: No cyanosis, or edema. BACK: Nontender without obvious deformity. No CVA tenderness. Procedures None A/P Problem List: (1) GI bleed ICD Code: K92.2 - Gastrointestinal hemorrhage, unspecified (2) Renal insufficiency ICD Code: N28.9 - Disorder of kidney and ureter, unspecified (3) Leukocytosis ICD Code: D72.829 - Elevated white blood cell count, unspecified (4) DM (diabetes mellitus) ICD Code: E11.9 - Type 2 diabetes mellitus without complications Assessment and Plan This is a 71-year-old male with a PMH of Bipolar Disorder, HTN, DM and h/o GI Bleed who presented to the ER w/ episode of hematemesis. On arrival, BP 152/101 , HR 104, O2 sat 98% on RA, Afebrile. WBC 15.6. Hemoglobin 12.9, previously 15.1 on 05/24/17. Creatinine 1.31, previously 1.4 701-1918. INR 1.1. CXR with no acute findings. Abdominal X-ray benign. Started on Protonix gtt in ER, no further episodes of hematemesis. - Acute GI bleed - Acute onset of nausea and hematemesis. No further episodes. - History of NSAID induced GI bleed in the past. - Hgb 12.9 on admission --> 10.6 today. Previously, Hgb 15.6. - GI to evaluate patient. He will likely need endoscopic studies. - will continue to monitor H&H. - Continue Protonix 40 mg by mouth every 12 hours. - Diabetes mellitus - Takes metformin at home. We'll hold metformin for now. Continue sliding scale insulin. Blood glucose is well controlled in the hospital. - Bipolar disorder - Depression - Continue lithium carbonate 600 mg by mouth daily at bedtime, fluoxetine 40 mg by mouth daily at bedtime. - BPH - continue tamsulosin 0.4 mg by mouth daily at bedtime. Full code. SCDs. Pharmacological DVT prophylaxis not given due to GI bleed. Alyx Finley DO Jun 30, 2017 10:38 am
--- NOTE | 2017-06-30 11:12 | PD.CONS ---
HPI History of Present Illness This is a 71 year old obese male who was in his usual state of health up to . He was sitting on his couch eating dinner which consisted of thomas cheesesteak sandwich and had sudden onset of nausea vomiting and hematemesis. He states he had a similar episode back in 2015 but has never had any upper endoscopy done. Last colonoscopy was 5 years ago in [place] with Dr. Temple which patient states was normal. He's currently on IV fluids at 100 cc an hour , initially had Protonix drip in the ER which has been DC'd. Patient is alert oriented in a fairly good historian. He currently denies any further nausea vomiting, diarrhea or constipation. He denies any bloody stools states his last BM was brown and normal consistency. She denies any fevers, no dysphasia. According to the record patient has been taken ibuprofen for chronic knee pain. (Deisi Escalona) PFSH Past Medical History Bipolar Disorder, HTN, DM h/o GI Bleed 2015 Past Surgical History Colonoscopy 5 years ago in [place], Patient states normal exam without complications (Deisi Escalona) Coded Allergies: codeine (Unverified Allergy, Severe, MUSCULOSKELETAL ISSUES, 06/29/17) Medications Last Impressions Chest X-Ray 06/30/17 0000 Signed Impressions: Service Date/Time: Friday, June 30, 2017 01:02 - CONCLUSION: No acute disease demonstrated. Haris Pretty MD Abdomen X-Ray 06/30/17 0000 Signed Impressions: Service Date/Time: Friday, June 30, 2017 01:04 - CONCLUSION: Benign-appearing abdomen. Haris Pretty MD Family History PAST FAMILY HISTORY: Reviewed. No h/o DM or CAD Social History PAST SOCIAL HISTORY: Negative for alcohol, tobacco or drugs. Quit drinking and smoking in 1964 since 2011 and lives alone (Deisi Escalona) Review of Systems Gastrointestinal: COMPLAINS OF: Vomiting, Hematemesis (on admission now resolved) (Deisi Escalona) GI Exam Vitals I&O Vital Signs Date Time Temp Pulse Resp B/P (MAP) Pulse Ox O2 Delivery O2 Flow Rate FiO2 06/30/17 08:45 Room Air 06/30/17 08:00 98.2 99 20 153/78 (103) 96 06/30/17 04:00 97.5 101 18 149/90 (109) 97 06/30/17 03:38 100 18 163/69 (100) 97 06/30/17 00:00 97.4 104 16 152/101 (118) 98 Room Air I/O 06/29/17 06/29/17 06/29/17 06/30/17 06/30/17 06/30/17 07:00 15:00 23:00 07:00 15:00 23:00 Intake Total 200 ml Output Total 0 ml Balance 200 ml Intake Oral 200 ml Output Urine Total 0 ml Imaging Last Impressions Chest X-Ray 06/30/17 0000 Signed Impressions: Service Date/Time: Friday, June 30, 2017 01:02 - CONCLUSION: No acute disease demonstrated. Haris Pretty MD Abdomen X-Ray 06/30/17 0000 Signed Impressions: Service Date/Time: Friday, June 30, 2017 01:04 - CONCLUSION: Benign-appearing abdomen. Haris Pretty MD Laboratory Test 06/30/17 00:25 White Blood Count 15.6 TH/MM3 Red Blood Count 4.03 MIL/MM3 Hemoglobin 12.9 GM/DL Hematocrit 37.4 % Mean Corpuscular Volume 92.7 FL Mean Corpuscular Hemoglobin 31.9 PG Mean Corpuscular Hemoglobin Concent 34.4 % Red Cell Distribution Width 13.8 % Platelet Count 364 TH/MM3 Mean Platelet Volume 7.9 FL Neutrophils (%) (Auto) 71.9 % Lymphocytes (%) (Auto) 20.7 % Monocytes (%) (Auto) 5.5 % Eosinophils (%) (Auto) 1.2 % Basophils (%) (Auto) 0.7 % Neutrophils # (Auto) 11.2 TH/MM3 Lymphocytes # (Auto) 3.2 TH/MM3 Monocytes # (Auto) 0.9 TH/MM3 Eosinophils # (Auto) 0.2 TH/MM3 Basophils # (Auto) 0.1 TH/MM3 CBC Comment DIFF FINAL Differential Comment Prothrombin Time 10.9 SEC Prothromb Time International Ratio 1.1 RATIO Blood Urea Nitrogen 25 MG/DL Creatinine 1.31 MG/DL Random Glucose 182 MG/DL Total Protein 6.9 GM/DL Albumin 2.9 GM/DL Calcium Level 9.3 MG/DL Alkaline Phosphatase 63 U/L Aspartate Amino Transf (AST/SGOT) 25 U/L Alanine Aminotransferase (ALT/SGPT) 31 U/L Total Bilirubin 1.1 MG/DL Sodium Level 140 MEQ/L Potassium Level 4.0 MEQ/L Chloride Level 106 MEQ/L Carbon Dioxide Level 27.7 MEQ/L Anion Gap 6 MEQ/L Estimat Glomerular Filtration Rate 54 ML/MIN Lipase 114 U/L Physical Examination HEENT: Pupils round and reactive to light; normocephalic; atraumatic; no jaundice, oral cavity clean NECK: Neck is supple, obese, no JVD, no lymphadenopathy. CHEST: Chest is clear to auscultation and percussion. CARDIAC: Regular rate and rhythm ABDOMEN: Large, round, Soft, nondistended, nontender; no hepatosplenomegaly; bowel sounds are present in all four quadrants. EXTREMITIES: No clubbing, cyanosis, or edema. SKIN: Normal; no rash; no jaundice. 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 (Deisi Escalona) Assessment and Plan Plan Hematemesis, one episode before admission on 06/29/17 after eating Thomas cheese steak sandwich. Current hemoglobin is stable at 12.9. Had one similar episode in 2016, but has never had EGD Last colonoscopy 5 years ago in [place] with Dr. Temple. States his test results were normal. She denies any diarrhea or constipation. No obvious rectal bleeding Salma patient denies any nausea or abdominal pain Anemia, current hemoglobin 12.9. No further obvious bleeding noted Medical comorbidities such as bipolar, hypertension, managed as per attending Plan EGD Sunday a.m., consent Nothing by mouth at midnight Sunday night 07/02/17 Procedure explained to patient, he is nervous over sedation, supportive care and explanation of procedure given. Monitor labs PPI by mouth twice a day for now Bowel regimen as needed All for any acute bleeding episodes Supportive care This patient was seen by myself and , written on his behalf (Deisi Escalona) Plan patient was seen and examined, agree with above-noted, plan on doing upper endoscopy tomorrow, meanwhile continue supportive care and monitoring H&H with packed RBC if needed (Marielle Villareal MD) Deisi Escalona Jun 30, 2017 11:12 Marielle Villareal MD Jun 30, 2017 15:34
[2017-06-30 11:50] LABS: HEMATOCRIT 30.4 % (39.0-51.0); HEMOGLOBIN 10.6 GM/DL (13.0-17.0)
[2017-06-30] MEDS: FLUoxetine HCL 20 MG CAP PO SCH (21:00)
[2017-06-30] MEDS: LITHIUM CARBONATE 300 MG CAP PO SCH (21:49)
[2017-06-30] MEDS: TAMSULOSIN HCL 0.4 MG CAP PO SCH (21:49)
[2017-06-30] MEDS: PANTOPRAZOLE SOD 40 MG DELAYED RELEASE TAB PO SCH (21:49)
[2017-07-01] VITALS: BP 159/93; PULSE 90; RESP 16; TEMP 97.7; O2SAT 98
[2017-07-01 04:00] VITALS: BP 126/91; PULSE 98; RESP 18; TEMP 97.4; O2SAT 97
[2017-07-01 07:04] LABS: AUTOMATED NEUTROPHIL # 4.8 TH/MM3 (1.8-7.7); BASOPHIL # 0.1 TH/MM3 (0-0.2); BASOPHIL % 0.6 % (0.0-2.0); EOSINOPHIL # 0.2 TH/MM3 (0-0.4); EOSINOPHIL % 2.3 % (0.0-4.0); HEMATOCRIT 28.3 % (39.0-51.0); HEMOGLOBIN 9.8 GM/DL (13.0-17.0); LYMPH % 36.8 % (9.0-44.0); LYMPHOCYTE # 3.4 TH/MM3 (1.0-4.8); MEAN CELL VOLUME 93.5 FL (80.0-100.0); MEAN CORPUSCULAR HEMOGLOBIN 32.6 PG (27.0-34.0); MEAN CORPUSCULAR HGB CONC 34.8 % (32.0-36.0); MEAN PLATELET VOLUME 7.5 FL (7.0-11.0); MONO % 8.3 % (0.0-8.0); MONOCYTE # 0.8 TH/MM3 (0-0.9); PLATELET COUNT 287 TH/MM3 (150-450); RED BLOOD COUNT 3.02 MIL/MM3 (4.50-5.90); RED CELL DISTRIBUTION WIDTH 13.8 % (11.6-17.2); WHITE BLOOD COUNT 9.2 TH/MM3 (4.0-11.0)
[2017-07-01 07:25] LABS: ALBUMIN 2.8 GM/DL (3.4-5.0); AST (GOT) 17 U/L (15-37); BICARBONATE 28.4 MEQ/L (21.0-32.0); BLOOD UREA NITROGEN 17 MG/DL (7-18); CALCIUM 9.3 MG/DL (8.5-10.1); CHLORIDE 110 MEQ/L (98-107); CREATININE 1.31 MG/DL (0.60-1.30); GLOMERULAR FILTRATION RATE 54 ML/MIN (>89); GLUCOSE,RANDOM 104 MG/DL (74-106); SODIUM (NA) 143 MEQ/L (136-145)
[2017-07-01 07:26] LABS: ALT (GPT) 23 U/L (12-78)
[2017-07-01 07:29] LABS: ALKALINE PHOSPHATASE 53 U/L (45-117); TOTAL PROTEIN 5.9 GM/DL (6.4-8.2)
[2017-07-01] MEDS: INSULIN ASPART SUPPLEMENTAL SCALE SQ SCH ×4 (07:58→20:57)
[2017-07-01 08:00] VITALS: BP 140/92; PULSE 84; RESP 20; TEMP 97.6; O2SAT 95
[2017-07-01] MEDS: DOCUSATE SODIUM 50 MG/SENNA 8.6 MG TAB PO SCH ×2 (08:58→20:57)
[2017-07-01] MEDS: SODIUM CHLORIDE 0.9% FLUSH 10 ML FLUSH IV FLUSH SCH ×2 (08:58→20:55)
[2017-07-01] MEDS: CARVEDILOL 12.5 MG TAB PO SCH (08:59)
[2017-07-01] MEDS: PANTOPRAZOLE SOD 40 MG DELAYED RELEASE TAB PO SCH ×2 (08:59→20:56)
[2017-07-01 12:00] VITALS: BP 117/72; PULSE 77; RESP 20; TEMP 98.2; O2SAT 97
--- NOTE | 2017-07-01 14:16 | HHI.PR ---
Subjective Remarks Follow-up for GI bleed. Patient is doing well. no acute concerns. EGD in the AM. Objective Vitals Vital Signs Date Time Temp Pulse Resp B/P (MAP) Pulse Ox O2 Delivery O2 Flow Rate FiO2 07/01/17 08:00 97.6 84 20 140/92 (108) 95 07/01/17 04:00 97.4 98 18 126/91 (103) 97 07/01/17 04:00 Room Air 07/01/17 00:17 Room Air 07/01/17 00:00 97.7 90 16 159/93 (115) 98 06/30/17 20:00 98.2 97 18 151/87 (108) 96 06/30/17 20:00 Room Air 06/30/17 16:00 98.4 103 20 146/80 (102) 97 I/O 06/30/17 06/30/17 06/30/17 07/01/17 07/01/17 07/01/17 07:00 15:00 23:00 07:00 15:00 23:00 Intake Total 200 ml 1100 ml 840 ml 1181 ml Output Total 0 ml 575 ml Balance 200 ml 1100 ml 265 ml 1181 ml Intake Oral 200 ml 840 ml 480 ml IV Total 1100 ml 701 ml Output Urine Total 0 ml 575 ml # Voids 1 # Bowel Movements 0 0 Result Diagram: 07/01/1735 07/01/17 06 Objective Remarks GENERAL: Alert, oriented 3, NAD. SKIN: Warm and dry. HEAD: Normocephalic. EYES: No scleral icterus. No injection or drainage. NECK: Supple, trachea midline. No JVD or lymphadenopathy. CARDIOVASCULAR: Regular rate and rhythm without murmurs, gallops, or rubs. RESPIRATORY: Breath sounds equal bilaterally. No accessory muscle use. GASTROINTESTINAL: Abdomen soft, non-tender, nondistended. MUSCULOSKELETAL: No cyanosis, or edema. BACK: Nontender without obvious deformity. No CVA tenderness. Procedures None A/P Problem List: (1) GI bleed ICD Code: K92.2 - Gastrointestinal hemorrhage, unspecified (2) Renal insufficiency ICD Code: N28.9 - Disorder of kidney and ureter, unspecified (3) Leukocytosis ICD Code: D72.829 - Elevated white blood cell count, unspecified (4) DM (diabetes mellitus) ICD Code: E11.9 - Type 2 diabetes mellitus without complications Assessment and Plan This is a 71-year-old male with a PMH of Bipolar Disorder, HTN, DM and h/o GI Bleed who presented to the ER w/ episode of hematemesis. On arrival, BP 152/101 , HR 104, O2 sat 98% on RA, Afebrile. WBC 15.6. Hemoglobin 12.9, previously 15.1 on 05/24/17. Creatinine 1.31, previously 1.4 701-1918. INR 1.1. CXR with no acute findings. Abdominal X-ray benign. Started on Protonix gtt in ER, no further episodes of hematemesis. - Acute GI bleed - Acute onset of nausea and hematemesis. No further episodes. - History of NSAID induced GI bleed in the past. - Hgb 12.9 on admission --> 10.6 --> 9.8 today. Previously, Hgb 15.6. - GI to evaluate patient. He will likely need endoscopic studies. EGD is planned for tomorrow AM. - NPO midnight. - Continue Protonix 40 mg by mouth every 12 hours. - Diabetes mellitus - Takes metformin at home. We'll hold metformin for now. Continue sliding scale insulin. Blood glucose is well controlled in the hospital. - Bipolar disorder - Depression - Continue lithium carbonate 600 mg by mouth daily at bedtime, fluoxetine 40 mg by mouth daily at bedtime. - BPH - continue tamsulosin 0.4 mg by mouth daily at bedtime. Full code. SCDs. Pharmacological DVT prophylaxis not given due to GI bleed. Alyx Finley DO Jul 01, 2017 14:16
[2017-07-01 16:00] VITALS: BP 139/84; PULSE 77; RESP 19; TEMP 97.7; O2SAT 98
--- NOTE | 2017-07-01 17:55 | HHI.GIFU ---
Subjective Remarks Patient was sitting in bed, no complain, no more active bleeding apparently he ate today so we'll not able to have an endoscopy Objective Vitals I&O Vital Signs Date Time Temp Pulse Resp B/P (MAP) Pulse Ox O2 Delivery O2 Flow Rate FiO2 07/01/17 16:00 97.7 77 19 139/84 (102) 98 07/01/17 08:00 97.6 84 20 140/92 (108) 95 07/01/17 04:00 97.4 98 18 126/91 (103) 97 07/01/17 04:00 Room Air 07/01/17 00:17 Room Air 07/01/17 00:00 97.7 90 16 159/93 (115) 98 06/30/17 20:00 98.2 97 18 151/87 (108) 96 06/30/17 20:00 Room Air I/O 06/30/17 06/30/17 06/30/17 07/01/17 07/01/17 07/01/17 07:00 15:00 23:00 07:00 15:00 23:00 Intake Total 200 ml 1100 ml 840 ml 1181 ml Output Total 0 ml 575 ml Balance 200 ml 1100 ml 265 ml 1181 ml Intake Oral 200 ml 840 ml 480 ml IV Total 1100 ml 701 ml Output Urine Total 0 ml 575 ml # Voids 1 # Bowel Movements 0 0 Laboratory Laboratory Tests Test 07/01/17 06:35 White Blood Count 9.2 Red Blood Count 3.02 Hemoglobin 9.8 Hematocrit 28.3 Mean Corpuscular Volume 93.5 Mean Corpuscular Hemoglobin 32.6 Mean Corpuscular Hemoglobin Concent 34.8 Red Cell Distribution Width 13.8 Platelet Count 287 Mean Platelet Volume 7.5 Neutrophils (%) (Auto) 52.0 Lymphocytes (%) (Auto) 36.8 Monocytes (%) (Auto) 8.3 Eosinophils (%) (Auto) 2.3 Basophils (%) (Auto) 0.6 Neutrophils # (Auto) 4.8 Lymphocytes # (Auto) 3.4 Monocytes # (Auto) 0.8 Eosinophils # (Auto) 0.2 Basophils # (Auto) 0.1 CBC Comment DIFF FINAL Differential Comment Blood Urea Nitrogen 17 Creatinine 1.31 Random Glucose 104 Total Protein 5.9 Albumin 2.8 Calcium Level 9.3 Alkaline Phosphatase 53 Aspartate Amino Transf (AST/SGOT) 17 Alanine Aminotransferase (ALT/SGPT) 23 Total Bilirubin 1.0 Sodium Level 143 Potassium Level 4.0 Chloride Level 110 Carbon Dioxide Level 28.4 Anion Gap 5 Estimat Glomerular Filtration Rate 54 Physical Exam HEENT: Pupils round and reactive to light; normocephalic; atraumatic; no jaundice. Throat is clear. NECK: Neck is supple, no JVD, no lymphadenopathy. CHEST: Chest is clear to auscultation and percussion. CARDIAC: Regular rate and rhythm with no murmur gallop or rubs. ABDOMEN: Soft, nondistended, nontender; no hepatosplenomegaly; bowel sounds are present in all four quadrants. EXTREMITIES: No clubbing, cyanosis, or edema. SKIN: Normal; no rash; no jaundice. 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 Assessment and Plan Plan Patient presented with upper GI bleed, he will need upper endoscopy we'll plan on doing that tomorrow Hemoglobin stable at this time we'll continue monitoring Marielle Villareal MD Jul 01, 2017 17:55
[2017-07-01 20:00] VITALS: BP 159/77; PULSE 84; RESP 19; TEMP 98.2; O2SAT 95
[2017-07-01] MEDS: FLUoxetine HCL 20 MG CAP PO SCH (20:56)
[2017-07-01] MEDS: TAMSULOSIN HCL 0.4 MG CAP PO SCH (20:56)
[2017-07-01] MEDS: LITHIUM CARBONATE 300 MG CAP PO SCH (20:56)
[2017-07-01] MEDS: ONDANSETRON HCL 4 MG/2 ML VIAL IVP PRN (22:22)
[2017-07-02 00:08] VITALS: BP 133/66; PULSE 83; RESP 19; TEMP 98.5; O2SAT 96
[2017-07-02 04:00] VITALS: BP 114/65; PULSE 84; RESP 17; TEMP 98.1; O2SAT 94
[2017-07-02] MEDS: SODIUM CHLOR 0.9% 1000 ML INJ 1,000 ML IV SCH (06:05)
[2017-07-02] MEDS: ONDANSETRON HCL 4 MG/2 ML VIAL IVP PRN (06:24)
[2017-07-02] MEDS: INSULIN ASPART SUPPLEMENTAL SCALE SQ SCH ×2 (08:00→11:50)
[2017-07-02 08:07] VITALS: BP 136/74; PULSE 72; RESP 16; TEMP 98.7; O2SAT 98
[2017-07-02] MEDS: PANTOPRAZOLE SOD 40 MG DELAYED RELEASE TAB PO SCH (08:07)
[2017-07-02] MEDS: DOCUSATE SODIUM 50 MG/SENNA 8.6 MG TAB PO SCH (08:08)
[2017-07-02] MEDS: CARVEDILOL 12.5 MG TAB PO SCH (08:08)
[2017-07-02] MEDS: SODIUM CHLORIDE 0.9% FLUSH 10 ML FLUSH IV FLUSH SCH (08:10)
[2017-07-02] MEDS ORDERED: DO NOT ADM ANY ANTICOAGULANT DRUGS PRN (10:01)
--- NOTE | 2017-07-02 10:53 | PD.PROCEDR ---
GI Procedure PROCEDURE PERFORMED Upper endoscopy with biopsy INDICATION FOR PROCEDURE Anemia coffee-ground emesis PROCEDURE: The procedure, risks and benefits were discussed with Mr. Quezada and informed consent was obtained. Anesthesia sedated him with Diprivan. He was placed in the left lateral decubitus position. EGD: The Pentax videoscope was introduced through the oropharynx and advanced to the second portion of the duodenum under direct visualization. Retroflexion was performed in the stomach. Biopsy from the antrum from a large ulcer ESTIMATED BLOOD LOSS: None SPECIMENS REMOVED: Antrum from an ulcer COMPLICATIONS: None IMPRESSION: Gastric ulcer in the antrum most likely the source of bleeding biopsy was done PLAN: No NSAIDs Protonix 40 mg daily Follow-up biopsy Okay to feed patient diabetic diet If hemoglobin stable patient can go home with follow-up in 2-3 weeks EGD in two-month If H. pylori positive patient will need treatment Marielle Villareal MD Jul 02, 2017 10:53
--- NOTE | 2017-07-02 10:54 | HHI.GIFU ---
Subjective Remarks Patient laying in bed comfortable, no sign of active bleeding, slight drop of his hemoglobin had upper endoscopy today Objective Vitals I&O Vital Signs Date Time Temp Pulse Resp B/P (MAP) Pulse Ox O2 Delivery O2 Flow Rate FiO2 07/02/17 10:21 97.7 63 16 137/82 (100) 100 Room Air 07/02/17 10:08 97.7 69 16 136/79 (98) 100 Room Air 07/02/17 08:07 98.7 72 16 136/74 (94) 98 07/02/17 08:00 Room Air 07/02/17 04:00 98.1 84 17 114/65 (81) 94 07/02/17 00:08 98.5 83 19 133/66 (88) 96 07/01/17 20:00 Room Air 07/01/17 20:00 98.2 84 19 159/77 (104) 95 07/01/17 16:00 97.7 77 19 139/84 (102) 98 07/01/17 12:00 98.2 77 20 117/72 (87) 97 I/O 07/01/17 07/01/17 07/01/17 07/02/17 07/02/17 07/02/17 07:00 15:00 23:00 07:00 15:00 23:00 Intake Total 1181 ml 900 ml 300 ml 100 ml Output Total 150 ml Balance 1181 ml 900 ml 300 ml -50 ml Intake Oral 480 ml 900 ml 300 ml IV Total 701 ml 0 ml Other 100 ml Output Urine Total 150 ml # Voids 1 4 5 # Bowel Movements 0 Physical Exam HEENT: Pupils round and reactive to light; normocephalic; atraumatic; no jaundice. Throat is clear. Poor inpatient NECK: Neck is supple, no JVD, no lymphadenopathy. CHEST: Chest is clear to auscultation and percussion. CARDIAC: Regular rate and rhythm with no murmur gallop or rubs. ABDOMEN: Soft, nondistended, nontender; no hepatosplenomegaly; bowel sounds are present in all four quadrants. EXTREMITIES: No clubbing, cyanosis, or edema. SKIN: Normal; no rash; no jaundice. 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 Assessment and Plan Plan Patient presented with upper GI bleed, upper endoscopy was done today IMPRESSION: Gastric ulcer in the antrum most likely the source of bleeding biopsy was done PLAN: No NSAIDs Protonix 40 mg daily Follow-up biopsy Okay to feed patient diabetic diet If hemoglobin stable patient can go home with follow-up in 2-3 weeks EGD in two-month If H. pylori positive patient will need treatment Marielle Villareal MD Jul 02, 2017 10:54
[2017-07-02] MEDS ORDERED: PANTOPRAZOLE SOD 40 MG DELAYED RELEASE TAB PO SCH (11:00)
[2017-07-02] MEDS ORDERED: LIDOCAINE HCL 1% PF 5 ML SYRINGE OTHER ONE (12:00)
[2017-07-02] MEDS ORDERED: PROPOFOL 200 MG/20 ML AMP IV ONE (12:00)
[2017-07-02 12:07] VITALS: BP 144/76; PULSE 80; RESP 16; TEMP 98; O2SAT 95
[2017-07-02] MEDS ORDERED: PROT40TA PO (12:21)
[2017-07-02 13:06] LABS: HEMATOCRIT 28.2 % (39.0-51.0); HEMOGLOBIN 9.8 GM/DL (13.0-17.0)
== END 2017-07-02 15:18 | disposition home or self-care (01) ==
LOC: NEPE 23:45 → NEDA 06-30 02:59 → N04B 06-30 04:33
PROVIDERS: ADMIT Hospitalist; ATTEND Hospitalist
DX: K25.4 Chronic or unspecified gastric ulcer with hemorrhage (principal); I10 Essential (primary) hypertension; E11.9 Type 2 diabetes mellitus without complications; D64.9 Anemia, unspecified; D72.829 Elevated white blood cell count, unspecified; N28.9 Disorder of kidney and ureter, unspecified; J45.909 Unspecified asthma, uncomplicated; F31.9 Bipolar disorder, unspecified; N40.0 Benign prostatic hyperplasia without lower urinary tract symptoms; M25.569 Pain in unspecified knee; G89.29 Other chronic pain; Z79.4 Long term (current) use of insulin; Z79.899 Other long term (current) drug therapy
CPT/HCPCS: 00731; 43239; 71045; 74019; 80053; 82948; 83690; 85014; 85018; 85025; 85610; 86850; 86900; 86901; 88305; 88312; 96361; 96365; 96366; 96375; 96376; 99285; C9113; G0378; J2405; J7030

== ENCOUNTER 2017-07-09 07:41 | Emergency (ER) | payer OTHER ==
[~2017-07-09] VITALS: Ht 170.2 cm; Wt 98.0 kg
[~2017-07-09 07:41] MED LIST changes: -ASPI-516 CHEW; -ASPI81TA81 PO; -ATOR20TA15 PO; +CARV12.5 PO; -CARV25TA PO; -CARV3.125 PO; -LITH300C2 PO; -PANT40TA3 PO; +PROT40TA PO; -PROZ20CA11 PO; -TAMS0.4C4 PO; -VERA1TAB9 PO
[2017-07-09 07:47] VITALS: BP 143/85; PULSE 94; RESP 17; TEMP 97.3; O2SAT 98
--- NOTE | 2017-07-09 08:24 | PD ---
HPI Chief Complaint: Fall Time Seen by Provider: 08:04 Travel History International Travel<30 days: No Contact w/Intl Traveler<30days: No Traveled to known affect area: No History of Present Illness HPI 71-year-old male presents to the emergency department with complaint of left knee pain and abrasion and left shoulder pain after his dog pulled him down today. He reports "smacking the left side of his face" into the dirt. Denies loss of consciousness, neck pain, back pain. Has been ambulatory since after the fall. Denies lightheadedness, dizziness, headache, nausea, vomiting. Denies chest pain, shortness of breath, abdominal pain. Denies paresthesias, loss of sensation, decreased range of motion, decreased strength all extremities. Denies anticoagulant therapy. Does take baby aspirin daily. Unknown tetanus status. Has not taken any medications or try any treatments to alleviate his symptoms. Rates pain knee 310. Describes it as an aching sensation. Pain is aggravated with ambulation. Denies shoulder pain at this time. No known aggravating or relieving factors of the shoulder pain. Primary care provider is Dr. Taveras. Allergies to codeine. History of hypertension, diabetes mellitus, gastric ulcer. Has no other medical complaints. No other modifying factors or associated signs and symptoms. PFSH Past Medical History Hx Anticoagulant Therapy: Yes (ASA 2X81) Arthritis: Yes Asthma: Yes (stress induced) Bipolar Disorder: Yes Anxiety: No Depression: Yes Heart Rhythm Problems: No Cancer: No Cardiovascular Problems: Yes High Cholesterol: No Chest Pain: No Congestive Heart Failure: No COPD: No Diabetes: Yes Diminished Hearing: No Endocrine: Yes (DM II) Gastrointestinal Disorders: Yes GERD: Yes Genitourinary: No Hiatal Hernia: No Hypertension: Yes Immune Disorder: No Implanted Vascular Access Dvce: No Kidney Stones: No Musculoskeletal: Yes Neurologic: No Psychiatric: Yes (BIPOLAR) Reproductive: No Respiratory: Yes Renal Failure: No Sleep Apnea: No Thyroid Disease: No Ulcer: Yes Past Surgical History Abdominal Surgery: No Cardiac Surgery: No Ear Surgery: No Endocrine Surgery: No Eye Surgery: No Genitourinary Surgery: No Gynecologic Surgery: No Neurologic Surgery: No Oral Surgery: No Pacemaker: No Thoracic Surgery: No Other Surgery: Yes Social History Alcohol Use: No Tobacco Use: No Substance Use: No Allergies-Medications (Allergen,Severity, Reaction): Coded Allergies: codeine (Unverified Allergy, Severe, MUSCULOSKELETAL ISSUES, 07/09/17) Reported Meds & Prescriptions Reported Meds & Active Scripts Active Protonix (Pantoprazole Sodium) 40 Mg Tab 40 Mg PO DAILY Reported Coreg (Carvedilol) 12.5 Mg Tab 12.5 Mg PO DAILY Metformin (Metformin HCl) 500 Mg Tab 500 Mg PO BIDPC Fluoxetine (Fluoxetine HCl) 40 Mg Cap 40 Cap PO HS Flomax (Tamsulosin HCl) 0.4 Mg Cap 0.4 Mg PO HS [place] Carbonate 600 Mg Cap 600 Mg PO HS Review of Systems Except as stated in HPI: all other systems reviewed are Neg Physical Exam Narrative GENERAL: Well-nourished, well-developed patient, in no acute distress SKIN: Warm and dry. Abrasion noted to left knee just over the patellar; without erythema, edema, drainage. No signs of infection. HEAD: Atraumatic. Normocephalic. No facial droop noted. Tongue midline. Shoulder shrug equal. Finger to nose test normal. EYES: Pupils equal and round at 3 mm with brisk reaction. No scleral icterus. No injection or drainage. PERRLA. EOMI. ENT: Mucosa pink and moist. Airway patent. NECK: No midline tenderness on palpation of the cervical spine. Active rotation greater than 45 of the neck to the left and right. Trachea midline. No lymphadenopathy. CARDIOVASCULAR: Regular rate and rhythm. No murmur appreciated. RESPIRATORY: No accessory muscle use. Clear to auscultation. Breath sounds equal bilaterally. GASTROINTESTINAL: Abdomen soft, non-tender, nondistended. Hepatic and splenic margins not palpable. Bowel sounds are active 4 quadrants. MUSCULOSKELETAL: Left knee with full range of motion and greater than 90 flexion; without erythema, edema, ecchymosis; abrasion noted to the patellar aspect; with tenderness on palpation to the patellar aspect; joint stable with negative drawer test. Left shoulder with full range of motion and greater than 90 abduction; without erythema, edema, ecchymosis; without tenderness on palpation; joint stable. Left upper and lower extremity with 2+ pulses and sensory intact without erythema or edema. No obvious deformities. No clubbing. No cyanosis. No edema. NEUROLOGICAL: Awake and alert. Oriented 4. No obvious cranial nerve deficits. Motor grossly within normal limits. Normal speech. No ataxia. No mid -line drift. No upper or lower extremity drift. Moves all extremities. 5/5 strength to all extremities. PSYCHIATRIC: Appropriate mood and affect; insight and judgment normal. Data Data Last Documented VS Vital Signs Date Time Temp Pulse Resp B/P (MAP) Pulse Ox O2 Delivery O2 Flow Rate FiO2 07/09/17 07:47 97.3 94 17 143/85 (104) 98 Orders Orders Knee, Complete (4vws) (07/09/17 08:24) Acetaminophen (Tylenol) (07/09/17 08:30) Tetanus/Diphtheria Tox Adult (Tetanus/Di (07/09/17 08:30) Ed Discharge Order (07/09/17 09:28) [facility] Medical Decision Making Medical Screen Exam Complete: Yes Emergency Medical Condition: Yes Medical Record Reviewed: Yes Differential Diagnosis Fall, patellar fracture, knee abrasion, shoulder strain, shoulder pain, shoulder injury Narrative Course 71-year-old male with left shoulder pain and left knee pain after mechanical fall. He says he hit the side of his left face in door. Denies loss of consciousness. Denies anticoagulant therapy. The patient admits to hitting their head, but denies loss of consciousness. Denies nausea, vomiting. On physical exam the patient is without raccoon eyes, craft signs, rhinorrhea, or hemotympanum. I do not suspect open or depressed skull fracture, and the patient has no signs of basilar skull fracture. [place] CT Head Injury Rule suggests a head CT is not necessary for this patient and clears the patient for head injury without imaging. Denies neck pain. [place] C-Spine Rule suggests the C-Spine can be cleared clinically of fracture, and imaging is not required. There is no midline point tenderness on palpation of the cervical spine. The patient is able to actively rotate the neck 45 left and right. The patient is sitting up in bed at 90. The patient is ambulatory. Patient denies shoulder pain at this time and his shoulder exam is unremarkable. I do not suspect fracture, dislocation, joint separation and feel that imaging is not necessary at this time and the patient agrees. Tetanus updated in the ER. Left knee x-ray and Tylenol ordered. Left knee x-ray concludes: Knee X-Ray 07/09/17 0824 Signed Impressions: Service Date/Time: Sunday, July 09, 2017 08:37 - CONCLUSION: Degenerative changes, negative for fracture Sarbjit Owens MD FACR X-ray findings discussed with the patient. I offered the patient crutches/ walker for support and he declined. He says he can walk just fine and has no difficulty ambulating. Patient ambulated out of the emergency department on his own. Instructed patient to follow up with primary care provider. Patient verbalizes understanding and agreement with treatment plan. Patient is medically cleared and stable for discharge. Discussed reasons to return to the emergency department. Patient agrees with treatment plan. The patients vital signs are stable and the patient is stable for outpatient follow-up and treatment. Patient discharged home, stable and in no acute distress. Diagnosis Primary Impression: Fall Qualified Codes: W19.XXXA - Unspecified fall, initial encounter Additional Impressions: Abrasion of left knee Qualified Codes: S80.212A - Abrasion, left knee, initial encounter Left shoulder pain Qualified Codes: M25.512 - Pain in left shoulder Referrals: Primary Care Physician Patient Instructions: Abrasion (ED), Contusion in Adults (ED), Fall Prevention (ED), General Instructions, Knee Pain (ED), Shoulder Sprain (ED) Additional Instructions: Tylenol as directed and as needed for pain Ice to affected areas to decrease pain inflammation Avoid aggravating activity; increase activity as tolerated Walker's need for support [id number] antibiotic ointment to abrasion as directed and as needed for wound care Follow up with primary care provider Return to the emergency department immediately with worsening of symptoms Med/Other Pt SpecificInfo: No Change to Meds, No Meds Exist/No RX given Disposition: 01 DISCHARGE HOME Condition: Stable Portia Amanda Jul 09, 2017 08:24
[2017-07-09] MEDS ORDERED: TETANUS/DIPHTHERIA TOXOID ADULT 0.5 ML VIAL IM ONE (08:30)
[2017-07-09] MEDS ORDERED: ACETAMINOPHEN 325 MG TAB PO ONE (08:30)
--- NOTE | 2017-07-09 09:14 | RADRPT ---
EXAM DATE/TIME: 07/09/2017 08:37 [place] COMPARISON: No previous studies available for comparison. INDICATIONS : Patient states fell this morning, left knee abrasion. MEDICAL HISTORY : None. SURGICAL HISTORY : None. ENCOUNTER: Initial ACUITY: 1 day PAIN SCORE: 7/10 LOCATION: Left Knee FINDINGS: Four view examination of the left knee demonstrates no evidence of fracture or dislocation. Degenera tive changes are evident with loss of articular cartilage in the medial compartment. There is no naseem nt effusion. Moderate vascular calcifications are evident.. CONCLUSION: Degenerative changes, negative for fracture Sarbjit Owens MD FACR on July 09, 2017 at 9:08 Board Certified Radiologist. This report was verified electronically.
== END 2017-07-09 11:00 | disposition home or self-care (01) ==
LOC: NEPD 07:41
DX: S80.212A Abrasion, left knee, initial encounter (principal); M25.512 Pain in left shoulder; I10 Essential (primary) hypertension; E11.9 Type 2 diabetes mellitus without complications; J45.909 Unspecified asthma, uncomplicated; F31.9 Bipolar disorder, unspecified; W19.XXXA Unspecified fall, initial encounter; W22.8XXA Striking against or struck by other objects, initial encounter; Y93.K9 Activity, other involving animal care; Z23 Encounter for immunization; Z88.5 Allergy status to narcotic agent; Z79.84 Long term (current) use of oral hypoglycemic drugs; Z79.899 Other long term (current) drug therapy
CPT/HCPCS: 73564; 90471; 90714; 96372

== ENCOUNTER 2017-07-11 08:37 | Observation (INO) | payer OTHER ==
[~2017-07-11] VITALS: Ht 170.2 cm; Wt 97.5 kg
[2017-07-11] VITALS (8 sets, daily range): BP systolic 159–208; BP diastolic 76–123; PULSE 78–100; RESP 16–22; TEMP 97.9–98.8; O2SAT 94–99
[~2017-07-11 08:37] MED LIST changes: -FLUTI110I INH
[2017-07-11 09:23] LABS: AUTOMATED NEUTROPHIL # 5.4 TH/MM3 (1.8-7.7); BASOPHIL # 0.1 TH/MM3 (0-0.2); BASOPHIL % 0.6 % (0.0-2.0); EOSINOPHIL # 0.2 TH/MM3 (0-0.4); EOSINOPHIL % 2.1 % (0.0-4.0); HEMATOCRIT 31.3 % (39.0-51.0); HEMOGLOBIN 10.8 GM/DL (13.0-17.0); LYMPH % 32.2 % (9.0-44.0); MEAN CELL VOLUME 93.7 FL (80.0-100.0); MEAN CORPUSCULAR HEMOGLOBIN 32.3 PG (27.0-34.0); MEAN CORPUSCULAR HGB CONC 34.5 % (32.0-36.0); MEAN PLATELET VOLUME 6.7 FL (7.0-11.0); MONO % 7.4 % (0.0-8.0); MONOCYTE # 0.7 TH/MM3 (0-0.9); NEUT % 57.7 % (16.0-70.0); PLATELET COUNT 441 TH/MM3 (150-450); RED BLOOD COUNT 3.35 MIL/MM3 (4.50-5.90); RED CELL DISTRIBUTION WIDTH 14.4 % (11.6-17.2); WHITE BLOOD COUNT 9.4 TH/MM3 (4.0-11.0)
[2017-07-11 09:29] LABS: PROTHROMBIN TIME - PATIENT 10.2 SEC (9.8-11.6)
[2017-07-11 09:41] LABS: ALBUMIN 3.5 GM/DL (3.4-5.0); ALT (GPT) 28 U/L (12-78); AST (GOT) 21 U/L (15-37); BICARBONATE 27.2 MEQ/L (21.0-32.0); BLOOD UREA NITROGEN 8 MG/DL (7-18); CALCIUM 9.1 MG/DL (8.5-10.1); CHLORIDE 108 MEQ/L (98-107); CREATININE 1.41 MG/DL (0.60-1.30); GLOMERULAR FILTRATION RATE 49 ML/MIN (>89); GLUCOSE,RANDOM 145 MG/DL (74-106); SODIUM (NA) 142 MEQ/L (136-145)
[2017-07-11 09:44] LABS: ALKALINE PHOSPHATASE 73 U/L (45-117); TOTAL BILIRUBIN ADULT 0.6 MG/DL (0.2-1.0); TOTAL PROTEIN 7.6 GM/DL (6.4-8.2)
[2017-07-11 11:10] LABS: BILIRUBIN, URINE NEG (NEG); BLOOD, URINE NEG (NEG); GLUCOSE,URINE NEG (NEG); HYALINE CAST, URINE 6 /lpf (RARE); KETONE, URINE NEG (NEG); MUCUS URINE FEW /lpf (OCC); NITRITE,URINE NEG (NEG); URINE COLOR YELLOW (YELLW/STRAW); URINE LEUKOCYTE ESTERASE TRACE (NEG)
[2017-07-11] MEDS ORDERED: CARV3.12 PO (11:39)
[2017-07-11] MEDS ORDERED: SODIUM CHLORIDE 0.9% FLUSH 10 ML FLUSH IV FLUSH PRN ×3 (11:45→21:45)
[2017-07-11] MEDS ORDERED: ALBUAER3 INH (11:45)
--- NOTE | 2017-07-11 11:52 | PD ---
HPI Chief Complaint: Altered Mental Status Time Seen by Provider: 11:31 Travel History International Travel<30 days: No Contact w/Intl Traveler<30days: No Traveled to known affect area: No History of Present Illness HPI 71 year old male presents to the emergency department with his daughter at bedside for evaluation of increased confusion, weakness, incontinence. Patient has a PMH of Bipolar Disorder, HTN, DM and h/o GI Bleed. Patient was admitted April 29, 2018 for GI bleed. His daughter bedside states his stools are back to normal, no hematemesis. Daughter states he has had multiple close falls the past 2 days, either catching himself on a walker she is able to catch him. He did have a fall on Sunday where he did have a head injury. Patient is alert and oriented to person, place, time, has difficulty other questions like his past medical history which daughter states is unusual for him. Patient denies any headache. He denies any chest pain. He states that he has been wheezing recently complaints of shortness of breath. He denies any abdominal pain. No nausea, vomiting, diarrhea. He has no pain at this time. Past exacerbating or alleviating factors. Moderate severity. PFSH Past Medical History Hx Anticoagulant Therapy: Yes (ASA 2X81) Arthritis: Yes Asthma: Yes (stress induced) Bipolar Disorder: Yes Anxiety: No Depression: Yes Heart Rhythm Problems: No Cancer: No Cardiovascular Problems: Yes High Cholesterol: No Chest Pain: No Congestive Heart Failure: No COPD: No Diabetes: Yes Patient Takes Glucophage: No Diminished Hearing: No Endocrine: Yes (DM II) Gastrointestinal Disorders: Yes GERD: Yes Genitourinary: No Hiatal Hernia: No Hypertension: Yes Immune Disorder: No Implanted Vascular Access Dvce: No Kidney Stones: No Musculoskeletal: Yes Neurologic: No Psychiatric: Yes (BIPOLAR) Reproductive: No Respiratory: Yes Renal Failure: No Sleep Apnea: No Thyroid Disease: No Ulcer: Yes Tetanus Vaccination: < 5 Years Influenza Vaccination: Yes Past Surgical History Abdominal Surgery: No Cardiac Surgery: No Ear Surgery: No Endocrine Surgery: No Eye Surgery: No Genitourinary Surgery: No Gynecologic Surgery: No Neurologic Surgery: No Oral Surgery: No Pacemaker: No Thoracic Surgery: No Other Surgery: Yes Social History Alcohol Use: No Tobacco Use: No Substance Use: No Allergies-Medications (Allergen,Severity, Reaction): Coded Allergies: codeine (Unverified Allergy, Severe, MUSCULOSKELETAL ISSUES, 07/11/17) Reported Meds & Prescriptions Reported Meds & Active Scripts Active Protonix (Pantoprazole Sodium) 40 Mg Tab 40 Mg PO DAILY Reported Proair Hfa 8.5 GM Inh (Albuterol Sulfate) 90 Mcg/Act Aer 2 Puff INH Q4-6H PRN 108 mcg/actuation Carvedilol 3.125 Mg Tab 3.125 Mg PO DAILY Metformin (Metformin HCl) 500 Mg Tab 500 Mg PO BIDPC Fluoxetine (Fluoxetine HCl) 40 Mg Cap 40 Cap PO HS Flomax (Tamsulosin HCl) 0.4 Mg Cap 0.4 Mg PO HS [place] Carbonate 600 Mg Cap 600 Mg PO HS Review of Systems Except as stated in HPI: all other systems reviewed are Neg Physical Exam Narrative GENERAL: Well-nourished, well-developed male patient, afebrile. SKIN: Focused skin assessment warm/dry. HEAD: Normocephalic. Atraumatic. EYES: No scleral icterus. No injection or drainage. ENT: Mucosa pink and moist. No erythema or exudates. No uvular edema. No uvular , palatal, or tonsillar deviation. Airway patent. Nasal turbinates appear normal without nasal blood, purulent drainage or septal hematoma. Bilateral tympanic membranes are clear without erythema or perforation. NECK: Supple, trachea midline. No JVD or lymphadenopathy. CARDIOVASCULAR: Regular rate and rhythm without murmurs, gallops, or rubs. RESPIRATORY: Breath sounds equal bilaterally. No accessory muscle use. Lungs sounds are clear to auscultation. GASTROINTESTINAL: Abdomen soft, non-tender, nondistended. MUSCULOSKELETAL: No cyanosis, or edema. Bilateral upper and lower extremity strength 5/5. All extremities are neurovascularly intact. BACK: Nontender without obvious deformity. No CVA tenderness. NEUROLOGICAL: Awake and alert. Cranial nerves II through XII intact. Motor and sensory grossly within normal limits. Five out of 5 muscle strength in all muscle groups. Normal speech. Finger to nose is normal bilaterally. Heel-to- lemus is normal bilaterally. Data Data Last Documented VS Vital Signs Date Time Temp Pulse Resp B/P (MAP) Pulse Ox O2 Delivery O2 Flow Rate FiO2 07/11/17 13:00 78 16 159/102 (121) 98 Room Air 07/11/17 08:50 98.8 Orders Orders Blood Glucose (07/11/17 08:56) Oximetry (07/11/17 08:56) Iv Access Insert/Monitor (07/11/17 08:56) Ecg Monitoring (07/11/17 08:56) Oxygen Administration (07/11/17 08:56) Complete Blood Count With Diff (07/11/17 08:59) Comprehensive Metabolic Panel (07/11/17 08:59) Urinalysis - C+S If Indicated (07/11/17 08:59) Coag Profile (07/11/17 08:59) Ammonia (07/11/17 11:44) Creatine Kinase (Cpk) (07/11/17 11:44) Troponin I (07/11/17 11:44) Thyroid Stimulating Hormone (07/11/17 11:44) Chest, Single Ap (07/11/17 11:44) Ct Brain W/O Iv Contrast(Rout) (07/11/17 11:44) Sodium Chloride 0.9% Flush (Ns Flush) (07/11/17 11:45) [place] (Li) (07/11/17 11:44) Magnesium (Mg) (07/11/17 11:44) Mri Brain W/O Contrast (07/11/17 ) Labs Laboratory Tests Test 07/11/17 09:10 07/11/17 10:57 07/11/17 12:10 White Blood Count 9.4 TH/MM3 Red Blood Count 3.35 MIL/MM3 Hemoglobin 10.8 GM/DL Hematocrit 31.3 % Mean Corpuscular Volume 93.7 FL Mean Corpuscular Hemoglobin 32.3 PG Mean Corpuscular Hemoglobin Concent 34.5 % Red Cell Distribution Width 14.4 % Platelet Count 441 TH/MM3 Mean Platelet Volume 6.7 FL Neutrophils (%) (Auto) 57.7 % Lymphocytes (%) (Auto) 32.2 % Monocytes (%) (Auto) 7.4 % Eosinophils (%) (Auto) 2.1 % Basophils (%) (Auto) 0.6 % Neutrophils # (Auto) 5.4 TH/MM3 Lymphocytes # (Auto) 3.0 TH/MM3 Monocytes # (Auto) 0.7 TH/MM3 Eosinophils # (Auto) 0.2 TH/MM3 Basophils # (Auto) 0.1 TH/MM3 CBC Comment DIFF FINAL Differential Comment Prothrombin Time 10.2 SEC Prothromb Time International Ratio 1.0 RATIO Activated Partial Thromboplast Time 24.8 SEC Blood Urea Nitrogen 8 MG/DL Creatinine 1.41 MG/DL Random Glucose 145 MG/DL Total Protein 7.6 GM/DL Albumin 3.5 GM/DL Calcium Level 9.1 MG/DL Alkaline Phosphatase 73 U/L Aspartate Amino Transf (AST/SGOT) 21 U/L Alanine Aminotransferase (ALT/SGPT) 28 U/L Total Bilirubin 0.6 MG/DL Sodium Level 142 MEQ/L Potassium Level 3.9 MEQ/L Chloride Level 108 MEQ/L Carbon Dioxide Level 27.2 MEQ/L Anion Gap 7 MEQ/L Estimat Glomerular Filtration Rate 49 ML/MIN Urine Color YELLOW Urine Turbidity CLEAR Urine pH 6.0 Urine Specific [place] 1.021 Urine Protein 30 mg/dL Urine Glucose (UA) NEG mg/dL Urine Ketones NEG mg/dL Urine Occult Blood NEG Urine Nitrite NEG Urine Bilirubin NEG Urine Urobilinogen LESS THAN 2.0 MG/DL Urine Leukocyte Esterase TRACE Urine RBC LESS THAN 1 /hpf Urine WBC 2 /hpf Urine Hyaline Casts 6 /lpf Urine Mucus FEW /lpf Microscopic Urinalysis Comment CULT NOT INDICATED Magnesium Level 2.0 MG/DL Ammonia LESS THAN 10 MCMOL/L Total Creatine Kinase 53 U/L Troponin I LESS THAN 0.02 NG/ML Thyroid Stimulating Hormone 3rd Gen 1.470 uIU/ML [place] Level 0.5 MEQ/L [facility] Medical Decision Making Medical Screen Exam Complete: Yes Emergency Medical Condition: Yes Medical Record Reviewed: Yes Interpretation(s) chest x-ray - CONCLUSION: 1. No acute cardiopulmonary findings. CT brain - CONCLUSION: Right-sided lacunar infarcts. MRI may be warranted to evaluate acuity. Differential Diagnosis Electrolyte abnormality versus ACS versus thyroid disorder versus UTI versus dehydration versus intracranial abnormality versus pneumonia Narrative Course 77-year-old male presents to the emergency department his daughter bedside for evaluation of increased weakness, confusion, incontinence of urine for the past 2 days. Patient is alert and oriented to person, place, time, but has difficulty with other questions including his past medical history. EKG shows sinus rhythm, heart rate 86, left bundle branch block. CBC, CMP, magnesium level, CK, troponin, TSH, ammonia level, PTT, PT/INR, UA are ordered and pending. Chest x-ray and CT of the brain are ordered and pending. CBC shows slight anemia hemoglobin 10.8, hematocrit 31.3. CMP shows creatinine of 1.41. Glucose is 145. CK 63. Troponin is less than 0.02. Magnesium is 2.0. TSH is 1.470. Ammonia is less than 10. Coags are unremarkable. UA is negative for acute infection. Chest x-ray shows no acute cardiopulmonary findings. CT of the brain shows right-sided lacunar infarcts. MRI may be warranted to evaluate acuity. Hospitalist was paged for admission. Patient denies any history of CVA. Dr. Finley accepted admission. Diagnosis Primary Impression: Altered mental status, unspecified Qualified Codes: R41.82 - Altered mental status, unspecified Additional Impression: Generalized weakness Admitting Information Admitting Physician Requests: Observation Ana Watson Jul 11, 2017 11:52
--- NOTE | 2017-07-11 12:02 | RADRPT ---
EXAM DATE/TIME: 07/11/2017 11:55 [facility] COMPARISON: KNEE LEFT COMPLETE (4VWS), July 09, 2017, 8:37. INDICATIONS : Shortness of breath. MEDICAL HISTORY : Diabetes mellitus type II. Hypertension SURGICAL HISTORY : None. ENCOUNTER: Initial ACUITY: 1 day PAIN SCORE: 0/10 LOCATION: Bilateral chest FINDINGS: A single view of the chest demonstrates the lungs to be symmetrically aerated without evidence of mas s, infiltrate or effusion. The cardiomediastinal contours are unremarkable. Osseous structures are intact. CONCLUSION: 1. No acute cardiopulmonary findings. Matt Owens MD on July 11, 2017 at 12:00 Board Certified Radiologist. This report was verified electronically.
--- NOTE | 2017-07-11 12:17 | RADRPT ---
EXAM DATE/TIME: 07/11/2017 12:00 [facility] COMPARISON: CT BRAIN W/O CONTRAST, May 24, 2017, 8:35. INDICATIONS : Weakness, altered mental status RADIATION DOSE: 56.35 CTDIvol (mGy) MEDICAL HISTORY : Cardiovascular disease. Hypertension. Diabetes mellitus type 2. SURGICAL HISTORY : None. ENCOUNTER: Initial ACUITY: 1 day PAIN SCALE: 0/10 LOCATION: cranial TECHNIQUE: Multiple contiguous axial images were obtained of the head. Using automated exposure control and adj ustment of the mA and/or kV according to patient size, radiation dose was kept as low as reasonably a chievable to obtain optimal diagnostic quality images. DICOM format image data is available electro nically for review and comparison. FINDINGS: CEREBRUM: Lacunar infarct right basal ganglia. There is low-density in the periventricular white matter frontal lobe on the right. There is low-density throughout the white matter. The ventricles are normal for a ge. No evidence of midline shift, mass lesion, or hemorrhage. No extra-axial fluid collections are seen. POSTERIOR FOSSA: The cerebellum and brainstem are intact. The 4th ventricle is midline. The cerebellopontine angle i s unremarkable. EXTRACRANIAL: The visualized portion of the orbits is intact. SKULL: The calvaria is intact. No evidence of skull fracture. CONCLUSION: Right-sided lacunar infarcts. MRI may be warranted to evaluate acuity. Phil Crawford MD on July 11, 2017 at 12:12 Board Certified Radiologist. This report was verified electronically.
[2017-07-11 12:50] LABS: TROPONIN I LESS THAN 0.02 NG/ML (0.02-0.05)
[2017-07-11] MEDS ORDERED: BISACODYL 10 MG SUPP RECTAL PRN (13:30)
[2017-07-11] MEDS ORDERED: NALOXONE HCL 0.4 MG/ML AMP IV PUSH PRN (13:30)
[2017-07-11] MEDS ORDERED: LACTULOSE SYRUP 20 GM/30 ML CUP PO PRN (13:30)
[2017-07-11] MEDS ORDERED: ONDANSETRON HCL 4 MG/2 ML VIAL IVP PRN (13:30)
[2017-07-11] MEDS ORDERED: SENNOSIDES 8.6 MG TAB PO PRN (13:30)
[2017-07-11] MEDS ORDERED: ACETAMINOPHEN 325 MG TAB PO PRN (13:30)
[2017-07-11] MEDS ORDERED: MAGNESIUM HYDROXIDE SUSP 30 ML CUP PO PRN (13:30)
--- NOTE | 2017-07-11 13:33 | HHI.HP ---
HPI Service [facility] Primary Care Physician Haris Taveras MD Admission Diagnosis generalized weakness, confusion Diagnoses: Chief Complaint: Increased confusion, weakness. Travel History International Travel<30 Days: No Contact w/Intl Traveler <30 Da: No Traveled to Known Affected Are: No History of Present Illness Mr. Quezada is a 71-year-old male with a history of bipolar disorder, hypertension, diabetes mellitus and recent GI bleed who presents to the emergency department today 07/11/2017 due to increased confusion, weakness and incontinence. Patient was recently admitted to the hospital for GI bleed. He underwent EGD study during previous hospitalization. At the time of this interview, patient is resting well in bed. He reports that he has been experiencing balance issues for the last 2 weeks especially when he gets out of chair. He fell or almost fell frequently. He denies any chest pain, shortness of breath, fever or chills. He denies any speech difficulty or unilateral upper or lower extremity weakness. Denies any changes in bowel or bladder habits. ED workup indicated CT brain evidence of lacunar infarcts on the right side. Review of Systems Except as stated in HPI: all other systems reviewed are Neg Past Family Social History Past Medical History Bipolar disorder, diabetes mellitus, hypertension Past Surgical History Left hand crush injury related surgery. Reported Medications Protonix (Pantoprazole Sodium) 40 Mg Tab 40 Mg PO DAILY Reported Proair Hfa 8.5 GM Inh (Albuterol Sulfate) 90 Mcg/Act Aer 2 Puff INH Q4-6H PRN 108 mcg/actuation Carvedilol 3.125 Mg Tab 3.125 Mg PO DAILY Metformin (Metformin HCl) 500 Mg Tab 500 Mg PO BIDPC Fluoxetine (Fluoxetine HCl) 40 Mg Cap 40 Cap PO HS Flomax (Tamsulosin HCl) 0.4 Mg Cap 0.4 Mg PO HS [place] Carbonate 600 Mg Cap 600 Mg PO HS Allergies: Coded Allergies: codeine (Unverified Allergy, Severe, MUSCULOSKELETAL ISSUES, 07/11/17) Family History No family history of Alzheimer's or Parkinson's. Mother had esophageal cancer. Social History Denies using tobacco, alcohol, illicit drugs. Physical Exam Vital Signs Vital Signs Date Time Temp Pulse Resp B/P (MAP) Pulse Ox O2 Delivery O2 Flow Rate FiO2 07/11/17 13:00 78 16 159/102 (121) 98 Room Air 07/11/17 12:00 82 16 176/110 (132) 97 Room Air 07/11/17 11:40 16 99 Room Air 07/11/17 08:50 98.8 100 22 208/76 (120) 96 Physical Exam GENERAL: This is a well-nourished, well-developed patient, in no apparent distress. Right-handed. SKIN: No rashes, ecchymoses or lesions. Warm and dry. HEAD: Atraumatic. Normocephalic. No temporal or scalp tenderness. EYES: Pupils equal round and reactive. No injection or drainage. ENT: Nose without bleeding, purulent drainage or septal hematoma. Airway patent. NECK: Trachea midline. No lymphadenopathy. Supple, nontender, no meningeal signs. CARDIOVASCULAR: Regular rate and rhythm without murmurs, gallops, or rubs. No JVD. RESPIRATORY: Clear to auscultation. Breath sounds equal bilaterally. No wheezes , rales, or rhonchi. GASTROINTESTINAL: Abdomen soft, non-tender, nondistended. No guarding. MUSCULOSKELETAL: Extremities without clubbing, cyanosis, or edema. NEUROLOGICAL: Awake and alert. Cranial nerves II through XII intact. No focal neurological deficits. I could not appreciate any strength asymmetry. Normal speech similar to his speech pattern in the previous hospitalization. Laboratory Laboratory Tests Test 07/11/17 09:10 07/11/17 10:57 07/11/17 12:10 White Blood Count 9.4 Red Blood Count 3.35 Hemoglobin 10.8 Hematocrit 31.3 Mean Corpuscular Volume 93.7 Mean Corpuscular Hemoglobin 32.3 Mean Corpuscular Hemoglobin Concent 34.5 Red Cell Distribution Width 14.4 Platelet Count 441 Mean Platelet Volume 6.7 Neutrophils (%) (Auto) 57.7 Lymphocytes (%) (Auto) 32.2 Monocytes (%) (Auto) 7.4 Eosinophils (%) (Auto) 2.1 Basophils (%) (Auto) 0.6 Neutrophils # (Auto) 5.4 Lymphocytes # (Auto) 3.0 Monocytes # (Auto) 0.7 Eosinophils # (Auto) 0.2 Basophils # (Auto) 0.1 CBC Comment DIFF FINAL Differential Comment Prothrombin Time 10.2 Prothromb Time International Ratio 1.0 Activated Partial Thromboplast Time 24.8 Blood Urea Nitrogen 8 Creatinine 1.41 Random Glucose 145 Total Protein 7.6 Albumin 3.5 Calcium Level 9.1 Alkaline Phosphatase 73 Aspartate Amino Transf (AST/SGOT) 21 Alanine Aminotransferase (ALT/SGPT) 28 Total Bilirubin 0.6 Sodium Level 142 Potassium Level 3.9 Chloride Level 108 Carbon Dioxide Level 27.2 Anion Gap 7 Estimat Glomerular Filtration Rate 49 Urine Color YELLOW Urine Turbidity CLEAR Urine pH 6.0 Urine Specific [place] 1.021 Urine Protein 30 Urine Glucose (UA) NEG Urine Ketones NEG Urine Occult Blood NEG Urine Nitrite NEG Urine Bilirubin NEG Urine Urobilinogen LESS THAN 2.0 Urine Leukocyte Esterase TRACE Urine RBC LESS THAN 1 Urine WBC 2 Urine Hyaline Casts 6 Urine Mucus FEW Microscopic Urinalysis Comment CULT NOT INDICATED Magnesium Level 2.0 Ammonia LESS THAN 10 Total Creatine Kinase 53 Troponin I LESS THAN 0.02 Thyroid Stimulating Hormone 3rd Gen 1.470 [place] Level 0.5 Result Diagram: 07/11/17 0910 07/11/17 09 Imaging Last Impressions Head CT [id number]/11/[id number] Signed Impressions: Service Date/Time: Tuesday, July 11, 2017 12:00 - CONCLUSION: Right-sided lacunar infarcts. MRI may be warranted to evaluate acuity. Phil Crawford MD Chest X-Ray [id number]/11/171143 Signed Impressions: Service Date/Time: Tuesday, July 11, 2017 11:55 - CONCLUSION: 1. No acute cardiopulmonary findings. Matt Owens MD Caprini VTE Risk Assessment Caprini VTE Risk Assessment: Mod/High Risk (score >= 2) Caprini Risk Assessment Model Point Value = 1 Point Value = 2 Point Value = 3 Point Value = 5 Age 41-60 Minor surgery BMI > 25 kg/m2 Swollen legs Varicose veins or History of unexplained or recurrent spontaneous Oral contraceptives or hormone replacement Sepsis (< 1 month) Serious lung disease, including pneumonia (< 1 month) Abnormal pulmonary function Acute myocardial infarction Congestive heart failure (< 1 month) History of inflammatory bowel disease Medical patient at bed rest Age 61-74 Arthroscopic surgery Major open surgery (> 45 min) Laparoscopic surgery (> 45 min) Malignancy Confined to bed (> 72 hours) Immobilizing plaster cast Central venous access Age >= 75 History of VTE Family history of VTE Factor V Leiden Prothrombin [id number] Lupus anticoagulant Anticardiolipin antibodies Elevated serum homocysteine Heparin-induced thrombocytopenia Other congenital or acquired thrombophilia Stroke (< 1 month) Elective arthroplasty Hip, pelvis, or leg fracture Acute spinal cord injury (< 1 month) Prophylaxis Regimen Total Risk Factor Score Risk Level Prophylaxis Regimen 0-1 Low Early ambulation 2 Moderate Order ONE of the following: *Sequential Compression Device (SCD) *Heparin 5000 units SQ BID 3-4 Higher Order ONE of the following medications: *Heparin 5000 units SQ TID *Enoxaparin/Lovenox 40 mg SQ daily (WT < 150 kg, CrCl > 30 mL/min) *Enoxaparin/Lovenox 30 mg SQ daily (WT < 150 kg, CrCl > 10-29 mL/min) *Enoxaparin/Lovenox 30 mg SQ BID (WT < 150 kg, CrCl > 30 mL/min) AND/OR *Sequential Compression Device (SCD) 5 or more Highest Order ONE of the following medications: *Heparin 5000 units SQ TID (Preferred with Epidurals) *Enoxaparin/Lovenox 40 mg SQ daily (WT < 150 kg, CrCl > 30 mL/min) *Enoxaparin/Lovenox 30 mg SQ daily (WT < 150 kg, CrCl > 10-29 mL/min) *Enoxaparin/Lovenox 30 mg SQ BID (WT < 150 kg, CrCl > 30 mL/min) AND *Sequential Compression Device (SCD) Assessment and Plan Problem List: (1) Lacunar infarct, acute ICD Code: I63.9 - Cerebral infarction, unspecified (2) DM (diabetes mellitus) ICD Code: E11.9 - Type 2 diabetes mellitus without complications Assessment and Plan Mr. Quezada is a 71-year-old male with a history of hypertension, diabetes mellitus, bipolar disorder who presents to the emergency department due to increased confusion and weakness. CT head indicates lacunar infarction. Patient's symptoms started 2 days prior to this admission apparently her family members. However patient reports 2 week duration of balance issues. -Acute lacunar infarction -CT indicates acute lacunar infarcts. Images reviewed by me. No hemorrhage. -We will obtain MRI of the brain. -Patient underwent carotid ultrasound on 05/24/2017 -shows no hemodynamically significant carotid artery disease. -Start aspirin 81 mg daily as well as Lipitor 40mg QHS. -We will request a neurology evaluation. - Hypertension - Patient's symptoms started two days ago. Since his symptoms started at least 2 days ago possibly 2 weeks ago, we will initiate blood pressure control to keep blood pressure below 160/90. - Start nifedipine 30 mg daily. - Diabetes mellitus - Takes metformin at home. Hold for now - Sliding scale insulin. If needed, we will consider Levemir. -Gastroesophageal ulcer -H pylori negative on biopsy. Continue Protonix. Full code. SCDs. Alyx Finley DO Jul 11, 2017 1:33 pm
[2017-07-11] MEDS ORDERED: ASPIRIN 81 MG CHEW TAB CHEW ONE (13:45)
[2017-07-11] MEDS ORDERED: NIFEdipine 30 MG SUSTAINED RELEASE TAB PO ONE (13:45)
[2017-07-11] MEDS ORDERED: DEXTROSE 50% IN WATER 50 ML VIAL(D50) IV PUSH PRN ×2 (14:30→21:45)
[2017-07-11] MEDS ORDERED: GLUCAGON 1 MG/ML VIAL OTHER PRN ×2 (14:30→21:45)
--- NOTE | 2017-07-11 15:35 | RADRPT ---
EXAM DATE/TIME: 07/11/2017 14:51 [facility] COMPARISON: No previous studies available for comparison. INDICATIONS : Confusion. Weakness. CVA. MEDICAL HISTORY : Hypertension. Diabetes mellitus type 2. Gastroesophageal reflux disease. SURGICAL HISTORY : Hand surgery. ENCOUNTER: Subsequent ACUITY: 1 day PAIN SCORE: 0/10 LOCATION: head. TECHNIQUE: Multiplanar, multisequence MRI of the brain was performed without contrast. FINDINGS: The diffusion restriction images demonstrate a band of abnormal signal extending along the brain pare nchyma just superior to the right lateral ventricle suggesting an anterior cerebral artery infarct on the right. There is involvement of both the anterior and posterior horn of the corpus callosum. Ther e is no evidence of hemorrhage within this. The ventricles are normal in size and configuration. No abnormal extra-axial fluid collections are se en. No mass lesion is identified. There are scattered areas of increased T2 signal in the white matter most consistent with moderate mi crovascular ischemic demyelinative change. The appearance of the posterior fossa is unremarkable. The visualized portion of orbit and sinus are intact. CONCLUSION: 1. Abnormal restricted diffusion signal involving the right anterior cerebral distribution. This is s een involving both the anterior and posterior horn of the corpus callosum as well as the pericallosal white matter. Findings would be consistent with acute cortical infarction. 2. Scattered areas of increased T2 signal in the white matter most consistent with moderate microvasc ular ischemic demyelinative change. Matt Owens MD on July 11, 2017 at 15:31 Board Certified Radiologist. This report was verified electronically.
[2017-07-11] MEDS: INSULIN ASPART SUPPLEMENTAL SCALE SQ SCH ×2 (17:00→21:00)
[2017-07-11] MEDS: SODIUM CHLORIDE 0.9% FLUSH 10 ML FLUSH IV FLUSH SCH (20:55)
[2017-07-11] MEDS: ATORVASTATIN 40 MG TAB PO SCH (20:56)
[2017-07-11] MEDS: TAMSULOSIN HCL 0.4 MG CAP PO SCH (20:56)
[2017-07-11] MEDS: FLUoxetine HCL 20 MG CAP PO SCH (20:56)
[2017-07-11] MEDS ORDERED: RESP: ALBUTEROL 2.5 MG/3 ML NEB (PRN) NEB (21:45)
[2017-07-11] MEDS ORDERED: cloNIDine HCL 0.1 MG TAB PO ONE (21:45)
[2017-07-11] MEDS: LITHIUM CARBONATE 300 MG CAP PO SCH (22:23)
--- NOTE | 2017-07-11 22:50 | MB ---
cc: Adolfo Lord MD, PhD DATE OF CONSULT: REASON FOR CONSULTATION: Balance difficulty. HISTORY OF PRESENT ILLNESS: Mr. Quezada is a 71-year-old man who has developed over the past several days, increasing confusion and difficulty with his balance. His significant other states he has done inappropriate things as well. Denies any focal weakness or headaches. PAST MEDICAL HISTORY: History of GI bleed. He had a recent GI bleed a week ago due to peptic ulcer disease but no recent GI bleed. History of bipolar disorder, hypertension, diabetes. MEDICATIONS: Currently are aspirin 81 mg daily, Protonix 40 mg daily, Coreg 3.125 mg daily, nifedipine XL 30 mg daily, Prozac 40 mg daily, lithium 600 mg daily, Flomax 0.4 mg at bedtime, Lipitor 40 mg daily. NEUROLOGICAL EXAMINATION: VITAL SIGNS: Blood pressure 179/87, pulse 95, respiratory rate is 20, temperature 98 degrees. HIGH ____ FUNCTION: Alert oriented x 3, speech is slightly dysarthric. He follows commands well. Cranial nerves: Pupils equal and reactive. Extraocular movements intact. There is a mild left facial weakness. On motor exam he has 5/5 strength in all major groups in the upper extremities. He does appear weak in the left leg at 4/5. He has a pronator drift left hand and mild decreased fine skills left hand. Reflexes are symmetric. MRI of the brain shows restricted diffusion abnormality in the right anterior cerebral artery distribution. No hemorrhage is identified. CT brain old lacunar infarctions on the right. LABORATORY DATA: White count 9400, hemoglobin 10.8, hematocrit 31%, platelet count 441,000. PT 10.6, INR 1, APPT 24.8. Sodium is 142, potassium 3.9, chloride 108, CO2 27.2, BUN is 8, creatinine 1.41, GFR is 49, glucose 145. AST 21, ALT is 28. Tox screen lithium level 0.5. Urinalysis the pH is 6, specific gravity 1.021, protein 30. EKG sinus rhythm, left bundle branch block. IMPRESSION: Right anterior cerebral artery distribution stroke. RECOMMENDATIONS: Continue low dose aspirin. Will obtain an echocardiogram, carotid ultrasound, physical therapy consult. Also recommend lipid panel. Monitor cardiac telemetry, rule out atrial fibrillation. Adolfo Lord MD, PhD KUSUM/ , 09:36 PM , 10:48 PM
[2017-07-12] VITALS (10 sets, daily range): BP systolic 128–182; BP diastolic 77–88; PULSE 71–98; RESP 16–20; TEMP 97.4–98.2; O2SAT 95–99
[2017-07-12 07:11] LABS: AUTOMATED NEUTROPHIL # 5.7 TH/MM3 (1.8-7.7); BASOPHIL # 0.1 TH/MM3 (0-0.2); BASOPHIL % 0.7 % (0.0-2.0); EOSINOPHIL # 0.2 TH/MM3 (0-0.4); EOSINOPHIL % 2.3 % (0.0-4.0); HEMATOCRIT 29.7 % (39.0-51.0); HEMOGLOBIN 10.2 GM/DL (13.0-17.0); LYMPH % 29.1 % (9.0-44.0); LYMPHOCYTE # 2.8 TH/MM3 (1.0-4.8); MEAN CELL VOLUME 93.5 FL (80.0-100.0); MEAN CORPUSCULAR HGB CONC 34.3 % (32.0-36.0); MEAN PLATELET VOLUME 7.1 FL (7.0-11.0); MONO % 8.3 % (0.0-8.0); MONOCYTE # 0.8 TH/MM3 (0-0.9); NEUT % 59.6 % (16.0-70.0); PLATELET COUNT 390 TH/MM3 (150-450); RED BLOOD COUNT 3.17 MIL/MM3 (4.50-5.90); RED CELL DISTRIBUTION WIDTH 14.8 % (11.6-17.2); WHITE BLOOD COUNT 9.6 TH/MM3 (4.0-11.0)
[2017-07-12 07:36] LABS: CHOLESTEROL 164 MG/DL (120-200)
[2017-07-12 07:39] LABS: CHOLESTEROL/ HDL RATIO 4.38 RATIO; HDL CHOLESTEROL 37.4 MG/DL (40.0-60.0); LDL CHOLESTEROL 102 MG/DL (0-99); TRIGLYCERIDES 122 MG/DL (42-150)
[2017-07-12 07:49] LABS: BICARBONATE 27.9 MEQ/L (21.0-32.0); BLOOD UREA NITROGEN 9 MG/DL (7-18); CALCIUM 9.4 MG/DL (8.5-10.1); CHLORIDE 106 MEQ/L (98-107); CREATININE 1.29 MG/DL (0.60-1.30); GLOMERULAR FILTRATION RATE 55 ML/MIN (>89); GLUCOSE,RANDOM 108 MG/DL (74-106); SODIUM (NA) 141 MEQ/L (136-145)
[2017-07-12] MEDS: INSULIN ASPART SUPPLEMENTAL SCALE SQ SCH ×4 (08:00→21:00)
[2017-07-12] MEDS: NIFEdipine 30 MG SUSTAINED RELEASE TAB PO SCH (08:49)
[2017-07-12] MEDS: PANTOPRAZOLE SOD 40 MG DELAYED RELEASE TAB PO SCH (08:49)
[2017-07-12] MEDS: CARVEDILOL 3.125 MG TAB PO SCH (08:50)
[2017-07-12] MEDS: SODIUM CHLORIDE 0.9% FLUSH 10 ML FLUSH IV FLUSH SCH ×2 (08:52→21:20)
[2017-07-12] MEDS ORDERED: ASPIRIN 81 MG CHEW TAB CHEW SCH (09:00)
[2017-07-12] MEDS ORDERED: SODIUM CHLORIDE 0.9% FLUSH 10 ML FLUSH IV FLUSH SCH (09:00)
[2017-07-12] MEDS ORDERED: PLAV75TA29 PO (10:16)
[2017-07-12] MEDS ORDERED: ATOR40TA16 PO (10:19)
--- NOTE | 2017-07-12 12:06 | ECHRPT ---
Indication: ef assessment CONCLUSIONS Moderately dilated left ventricle. Mild concentric left ventricular hypertrophy. The left ventricular systolic function is evznybhf-qw-hxwknxx reduced with an estimated ejection fra ction in the range of 35-40%. There is global left ventricular dysfunction. There is abnormal septal motion consistent with an intraventricular conduction delay. The left atrial size is jieq-ps-yfgirzjirk dilated. The pulmonary valve is not well visualized. BP: 182 / 88 HR: 72 Rhythm: Sinus MEASUREMENTS (Male / Female) Normal Values Technical Quality:Fair 2D ECHO LV Diastolic Diameter PLAX 5.6 cm 4.2 - 5.9 / 3.9 - 5.3 cm LV Systolic Diameter PLAX 4.0 cm IVS Diastolic Thickness 1.2 cm 0.6 - 1.0 / 0.6 - 0.9 cm LVPW Diastolic Thickness 1.2 cm 0.6 - 1.0 / 0.6 - 0.9 cm LV Relative Wall Thickness 0.4 LA Systolic Diameter LX 4.0 cm 3.0 - 4.0 / 2.7 - 3.8 cm LV Ejection Fraction MOD 4C 61.9 % LV Cardiac Index MOD 4C 4728.4 cm/minm LV Ejection Fraction 4C AL 62.9 % LV Cardiac Index 4C AL 5073.6 cm/minm M-MODE LV Diastolic Diameter MM 5.4 cm 4.2 - 5.9 / 3.9 - 5.3 cm LV Systolic Diameter MM 3.9 cm LV Ejection Fraction MM Teich 55.0 % LV Cardiac Index MM Teich 2613.2 cm/minm IVS Diastolic Thickness MM 1.2 cm 0.6 - 1.0 / 0.6 - 0.9 cm LVPW Diastolic Thickness MM 1.2 cm 0.6 - 1.0 / 0.6 - 0.9 cm LV Relative Wall Thickness MM 0.4 0.24 - 0.42 / 0.22 - 0.42 LV Mass Index MM 126.4 g/m 49 - 115 / 43 - 95 g/m FINDINGS LEFT VENTRICLE Moderately dilated left ventricle. Mild concentric left ventricular hypertrophy. The left ventricular systolic function is aehzmnby-oq-hputjgw reduced with an estimated ejection fra ction in the range of 35-40%. There is global left ventricular dysfunction. There is abnormal septal motion consistent with an intraventricular conduction delay. RIGHT VENTRICLE Normal right ventricular size and systolic function. LEFT ATRIUM The left atrial size is xxuq-ao-tuptfdgikt dilated. RIGHT ATRIUM The right atrial size is normal. ATRIAL SEPTUM Normal atrial septal thickness without atrial level shunting by limited color doppler interrogation. AORTA The aortic root and proximal ascending aorta are normal in size on limited imaging. MITRAL VALVE Structurally normal mitral valve. No mitral valve stenosis or regurgitation. AORTIC VALVE Trileaflet aortic valve. No aortic valve stenosis or regurgitation. TRICUSPID VALVE Structurally normal tricuspid valve. No tricuspid valve stenosis or regurgitation. PULMONARY VALVE The pulmonary valve is not well visualized. VESSELS The inferior vena cava is normal in size. PERICARDIUM No pericardial effusion. Jarrett Emerson MD, FACC (Electronically Signed) Final Date:12 July 2017 12:05
--- NOTE | 2017-07-12 20:37 | HHI.PR ---
Review/Management Diagnosis right AMARA stroke Plan continue plavix cardiology consult regarding abnormal echo---? need for anticoagulation if is risk of cardioembolic source. 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 Diagnosis/Plan: Subjective Subjective Comments No acute events reported Left hand clumsiness and left leg weakness stable Active Medications Current Medications Medications (Trade) Dose Ordered Sig/[place] Route Start Time Stop Time Status Last Admin (NS Flush) 2 ml UNSCH PRN IV FLUSH 07/11/17 13:30 (NS Flush) 2 ml BID IV FLUSH 07/11/17 21:00 07/12/17 08:52 (Tylenol) 650 mg Q4H PRN PO 07/11/17 13:30 (Zofran Inj) 4 mg Q6H PRN IVP 07/11/17 13:30 (Narcan Inj) 0.4 mg UNSCH PRN IV PUSH 07/11/17 13:30 (Milk Of Magnesia Liq) 30 ml Q12H PRN PO 07/11/17 13:30 (Senokot) 17.2 mg Q12H PRN PO 07/11/17 13:30 (Dulcolax Supp) 10 mg DAILY PRN RECTAL 07/11/17 13:30 (Lactulose Liq) 30 ml DAILY PRN PO 07/11/17 13:30 (Coreg) 3.125 mg DAILY PO 07/12/17 09:00 07/12/17 08:50 (PROzac) 40 mg HS PO 07/11/17 21:00 07/11/17 20:56 ([place] Carbonate) 600 mg HS PO 07/11/17 21:00 07/11/17 22:23 (Protonix) 40 mg DAILY PO 07/12/17 09:00 07/12/17 08:49 (Flomax) 0.4 mg HS PO 07/11/17 21:00 07/11/17 20:56 (Procardia Xl) 30 mg DAILY PO 07/12/17 09:00 07/12/17 08:49 (Lipitor) 40 mg HS PO 07/11/17 21:00 07/11/17 20:56 (NovoLOG SUPPLEMENTAL SCALE) 1 ACHS SQ 07/12/17 08:00 (D50w (Vial) Inj) 50 ml UNSCH PRN IV PUSH 07/11/17 21:45 (Glucagon Inj) 1 mg UNSCH PRN OTHER 07/11/17 21:45 (Albuterol Neb) 2.5 mg Q4HR NEB PRN NEB 07/11/17 21:45 07/11/17 22:25 (Plavix) 75 mg DAILY PO 07/13/17 09:00 Allergies Allergies Coded Allergies codeine (Unverified Allergy, Severe, MUSCULOSKELETAL ISSUES, 07/11/17) insulin,pork (Verified Allergy, Severe, Anaphylaxis, 07/12/17) Exam I&O / VS 07/12/17 07/12/17 07/13/17 15:00 23:00 07:00 Intake Total 275 ml 825 ml Balance 275 ml 825 ml Intake Oral 275 ml 825 ml # Voids 2 6 Vital Signs Date Time Temp Pulse Resp B/P (MAP) Pulse Ox O2 Delivery O2 Flow Rate FiO2 07/12/17 15:14 97.5 84 18 128/81 (97) 99 07/12/17 12:01 97.4 71 20 148/80 (102) 95 07/12/17 08:00 71 07/12/17 07:43 97.8 72 18 182/88 (119) 97 07/12/17 03:56 98.0 74 16 165/79 (107) 96 07/12/17 00:12 97.6 98 16 138/84 (102) 96 07/11/17 22:28 94 21 07/11/17 20:47 98.0 95 20 179/87 (117) 95 Manual Cuff/Auscultation Exam Comments alert, speech normal CN intact MOTOR 5/5 RUE , 4+/5 LUE 5/5 RLE, 4/5 LLE Objective Micro and Labs Laboratory Tests Test 07/12/17 06:05 07/12/17 06:25 White Blood Count 9.6 Red Blood Count 3.17 Hemoglobin 10.2 Hematocrit 29.7 Mean Corpuscular Volume 93.5 Mean Corpuscular Hemoglobin 32.0 Mean Corpuscular Hemoglobin Concent 34.3 Red Cell Distribution Width 14.8 Platelet Count 390 Mean Platelet Volume 7.1 Neutrophils (%) (Auto) 59.6 Lymphocytes (%) (Auto) 29.1 Monocytes (%) (Auto) 8.3 Eosinophils (%) (Auto) 2.3 Basophils (%) (Auto) 0.7 Neutrophils # (Auto) 5.7 Lymphocytes # (Auto) 2.8 Monocytes # (Auto) 0.8 Eosinophils # (Auto) 0.2 Basophils # (Auto) 0.1 CBC Comment DIFF FINAL Differential Comment Blood Urea Nitrogen 9 Creatinine 1.29 Random Glucose 108 Calcium Level 9.4 Sodium Level 141 Potassium Level 4.2 Chloride Level 106 Carbon Dioxide Level 27.9 Anion Gap 7 Estimat Glomerular Filtration Rate 55 Hemoglobin A1c 6.0 Triglycerides Level 122 Cholesterol Level 164 LDL Cholesterol 102 HDL Cholesterol 37.4 Cholesterol/HDL Ratio 4.38 Diagnostic Tests ECHO--dilated LV. EF 35-40% Adolfo Lord MD PhD Jul 12, 2017 20:37
[2017-07-12] MEDS: LITHIUM CARBONATE 300 MG CAP PO SCH (21:20)
[2017-07-12] MEDS: ATORVASTATIN 40 MG TAB PO SCH (21:21)
[2017-07-12] MEDS: TAMSULOSIN HCL 0.4 MG CAP PO SCH (21:21)
[2017-07-12] MEDS: FLUoxetine HCL 20 MG CAP PO SCH (21:24)
--- NOTE | 2017-07-12 21:52 | EKG ---
Date Performed: 07/11/2017 Time Performed: 10:07:54 PTAGE: 71 years EKG: Sinus rhythm LEFT BUNDLE BRANCH BLOCK ABNORMAL ECG NO PREVIOUS TRACING DOCTOR: Issac Jackson Interpretating Date/Time 07/12/2017 21:51:45
--- NOTE | 2017-07-12 22:38 | HHI.PR ---
Subjective Remarks Patient was seen around 10:00 this morning. Follow-up for acute stroke. Patient is currently doing well. No acute concerns. No fever or chills. Objective Vitals Vital Signs Date Time Temp Pulse Resp B/P (MAP) Pulse Ox O2 Delivery O2 Flow Rate FiO2 07/12/17 22:13 96 07/12/17 20:56 98.2 92 18 137/77 (97) 96 07/12/17 15:14 97.5 84 18 128/81 (97) 99 07/12/17 12:01 97.4 71 20 148/80 (102) 95 07/12/17 08:00 71 07/12/17 07:43 97.8 72 18 182/88 (119) 97 07/12/17 03:56 98.0 74 16 165/79 (107) 96 07/12/17 00:12 97.6 98 16 138/84 (102) 96 I/O 07/11/17 07/11/17 07/11/17 07/12/17 07/12/17 07/12/17 07:00 15:00 23:00 07:00 15:00 23:00 Intake Total 275 ml 825 ml Balance 275 ml 825 ml Intake Oral 275 ml 825 ml # Voids 2 2 6 Result Diagram: 07/12/17 0605 07/12/17 0625 Imaging Last Impressions Head CT 07/11/17 114 Signed Impressions: Service Date/Time: Tuesday, July 11, 2017 12:00 - CONCLUSION: Right-sided lacunar infarcts. MRI may be warranted to evaluate acuity. Phil Crawford MD Chest X-Ray 07/11/17 114 Signed Impressions: Service Date/Time: Tuesday, July 11, 2017 11:55 - CONCLUSION: 1. No acute cardiopulmonary findings. Matt Owens MD Brain MRI 07/11/17 0000 Signed Impressions: Service Date/Time: Tuesday, July 11, 2017 14:51 - CONCLUSION: 1. Abnormal restricted diffusion signal involving the right anterior cerebral distribution. This is seen involving both the anterior and posterior horn of the corpus callosum as well as the pericallosal white matter. Findings would be consistent with acute cortical infarction. 2. Scattered areas of increased T2 signal in the white matter most consistent with moderate microvascular ischemic demyelinative change. Matt Owens MD Objective Remarks GENERAL: Alert, oriented 3, NAD. SKIN: Warm and dry. HEAD: Normocephalic. EYES: No scleral icterus. No injection or drainage. NECK: Supple, trachea midline. No JVD or lymphadenopathy. CARDIOVASCULAR: Regular rate and rhythm without murmurs, gallops, or rubs. RESPIRATORY: Breath sounds equal bilaterally. No accessory muscle use. GASTROINTESTINAL: Abdomen soft, non-tender, nondistended. MUSCULOSKELETAL: No cyanosis, or edema. BACK: Nontender without obvious deformity. No CVA tenderness. Procedures Echo 07/12/2017 Moderately dilated left ventricle. Mild concentric left ventricular hypertrophy. The left ventricular systolic function is sbsxsprg-lt-nrrhysp reduced with an estimated ejection fraction in the range of 35-40%. There is global left ventricular dysfunction. There is abnormal septal motion consistent with an intraventricular conduction delay. The left atrial size is uosu-mt-ctmknxjexs dilated. The pulmonary valve is not well visualized. A/P Problem List: (1) Lacunar infarct, acute ICD Code: I63.9 - Cerebral infarction, unspecified (2) DM (diabetes mellitus) ICD Code: E11.9 - Type 2 diabetes mellitus without complications Assessment and Plan Mr. Quezada is a 71-year-old male with a history of hypertension, diabetes mellitus, bipolar disorder who presents to the emergency department due to increased confusion and weakness. CT head indicates lacunar infarction. Patient's symptoms started 2 days prior to this admission apparently her family members. However patient reports 2 week duration of balance issues. -Acute lacunar infarction -CT indicates acute lacunar infarcts. Images reviewed by me. No hemorrhage. -MRI of the brain confirms acute stroke. -Patient underwent carotid ultrasound on 05/24/2017 -shows no hemodynamically significant carotid artery disease. -After discussing with neurology, we stopped aspirin and started patient on Plavix 75 mg daily. -Continue Lipitor 40 mg nightly -May need a loop recorder to detect atrial fibrillation -Cardiomyopathy -Echo from 07/12/2017 shows ejection fraction 35-40% -Given this episode of acute stroke, patient may benefit from anticoagulation. -Neurology requested a cardiology consult. Will wait for further cardiology input -IF we start apixaban, will DC Plavix - Hypertension -Continue nifedipine 30 mg daily. - Diabetes mellitus - Takes metformin at home. Hold for now - Sliding scale insulin. If needed, we will consider Levemir. -Gastroesophageal ulcer -H pylori negative on biopsy. Continue Protonix. Full code. SCDs. lAyx Finley DO Jul 12, 2017 22:38
[2017-07-13] VITALS (11 sets, daily range): BP systolic 136–175; BP diastolic 70–86; PULSE 66–97; RESP 18–20; TEMP 97.9–99; O2SAT 95–98
[2017-07-13] MEDS: INSULIN ASPART SUPPLEMENTAL SCALE SQ SCH ×3 (08:00→21:00)
[2017-07-13] MEDS: CLOPIDOGREL 75 MG TAB PO SCH (08:13)
[2017-07-13] MEDS: NIFEdipine 30 MG SUSTAINED RELEASE TAB PO SCH (08:13)
[2017-07-13] MEDS: CARVEDILOL 3.125 MG TAB PO SCH (08:13)
[2017-07-13] MEDS: SODIUM CHLORIDE 0.9% FLUSH 10 ML FLUSH IV FLUSH SCH ×2 (08:13→21:37)
[2017-07-13] MEDS: PANTOPRAZOLE SOD 40 MG DELAYED RELEASE TAB PO SCH (08:13)
--- NOTE | 2017-07-13 09:53 | HHI.PR ---
Subjective Remarks Follow-up for acute stroke. Patient is currently doing well. No acute concerns. No chest pain, SOB, fever, chills. Objective Vitals Vital Signs Date Time Temp Pulse Resp B/P (MAP) Pulse Ox O2 Delivery O2 Flow Rate FiO2 07/13/17 08:17 97.9 70 18 175/86 (115) 98 07/13/17 06:05 98.3 74 18 141/76 (97) 98 07/13/17 05:10 66 07/13/17 00:41 98.7 84 18 157/84 (108) 97 07/13/17 00:30 90 07/12/17 22:13 96 07/12/17 20:56 98.2 92 18 137/77 (97) 96 07/12/17 18:35 80 07/12/17 15:14 97.5 84 18 128/81 (97) 99 07/12/17 12:01 97.4 71 20 148/80 (102) 95 I/O 07/12/17 07/12/17 07/12/17 07/13/17 07/13/17 07/13/17 07:00 15:00 23:00 07:00 15:00 23:00 Intake Total 275 ml 825 ml Balance 275 ml 825 ml Intake Oral 275 ml 825 ml # Voids 2 6 Result Diagram: 07/12/1760407/12/17 0625 Imaging Last Impressions Head CT 07/11/17 114 Signed Impressions: Service Date/Time: Tuesday, July 11, 2017 12:00 - CONCLUSION: Right-sided lacunar infarcts. MRI may be warranted to evaluate acuity. Phil Crawford MD Chest X-Ray 07/11/17 1144 Signed Impressions: Service Date/Time: Tuesday, July 11, 2017 11:55 - CONCLUSION: 1. No acute cardiopulmonary findings. Matt Owens MD Brain MRI 07/11/17 0000 Signed Impressions: Service Date/Time: Tuesday, July 11, 2017 14:51 - CONCLUSION: 1. Abnormal restricted diffusion signal involving the right anterior cerebral distribution. This is seen involving both the anterior and posterior horn of the corpus callosum as well as the pericallosal white matter. Findings would be consistent with acute cortical infarction. 2. Scattered areas of increased T2 signal in the white matter most consistent with moderate microvascular ischemic demyelinative change. Matt Owens MD Objective Remarks GENERAL: Alert, oriented 3, NAD. SKIN: Warm and dry. HEAD: Normocephalic. EYES: No scleral icterus. No injection or drainage. NECK: Supple, trachea midline. No JVD or lymphadenopathy. CARDIOVASCULAR: Regular rate and rhythm without murmurs, gallops, or rubs. RESPIRATORY: Breath sounds equal bilaterally. No accessory muscle use. GASTROINTESTINAL: Abdomen soft, non-tender, nondistended. MUSCULOSKELETAL: No cyanosis, or edema. BACK: Nontender without obvious deformity. No CVA tenderness. Procedures Echo 07/12/2017 Moderately dilated left ventricle. Mild concentric left ventricular hypertrophy. The left ventricular systolic function is tvwnpaud-we-tzhbkhm reduced with an estimated ejection fraction in the range of 35-40%. There is global left ventricular dysfunction. There is abnormal septal motion consistent with an intraventricular conduction delay. The left atrial size is pwmt-ec-nordxkntiw dilated. The pulmonary valve is not well visualized. A/P Problem List: (1) Lacunar infarct, acute ICD Code: I63.9 - Cerebral infarction, unspecified (2) DM (diabetes mellitus) ICD Code: E11.9 - Type 2 diabetes mellitus without complications Assessment and Plan Mr. Quezada is a 71-year-old male with a history of hypertension, diabetes mellitus, bipolar disorder who presents to the emergency department due to increased confusion and weakness. CT head indicates lacunar infarction. Patient's symptoms started 2 days prior to this admission apparently her family members. However patient reports 2 week duration of balance issues. -Acute lacunar infarction -CT indicates acute lacunar infarcts. Images reviewed by me. No hemorrhage. -MRI of the brain confirms acute stroke. -Patient underwent carotid ultrasound on 05/24/2017 -shows no hemodynamically significant carotid artery disease. -After discussing with neurology, we stopped aspirin and started patient on Plavix 75 mg daily. -Continue Lipitor 40 mg nightly -May need a loop recorder to detect atrial fibrillation -Cardiomyopathy -Echo from 07/12/2017 shows ejection fraction 35-40% -Neurology requested a Cardiology consult. I discussed with Dr. Summers ( Cardiology). Dr. Summers recommended that we continue Plavix for now. -Dr. Summers will follow this patient in the office for future need for anti- coagulation and also for loop recorder. - Hypertension -Continue nifedipine 30 mg daily. - Diabetes mellitus - Takes metformin at home. Hold for now - Sliding scale insulin. If needed, we will consider Levemir. -Gastroesophageal ulcer -H pylori negative on biopsy. Continue Protonix. Full code. SCDs. Will discharge patient today. Alyx Finley DO Jul 13, 2017 9:53 am
--- NOTE | 2017-07-13 13:07 | HHI.PR ---
Review/Management Diagnosis right AMARA stroke Plan continue plavix I agree with Dr Summers recommendation He had carotid US recently and it showed no significant stenosis Ok to dc from neuro standpoint and follow up with me in office in 3 weeks Diagnosis/Plan: Subjective Subjective Comments No acute events reported I reviewed notes and discussion and recommendation of Dr Summers to continue plavix at this time and arrange outpatient follow up to consider loop recorder Active Medications Current Medications Medications (Trade) Dose Ordered Sig/[place] Route Start Time Stop Time Status Last Admin (NS Flush) 2 ml UNSCH PRN IV FLUSH 07/11/17 13:30 (NS Flush) 2 ml BID IV FLUSH 07/11/17 21:00 07/13/17 08:13 (Tylenol) 650 mg Q4H PRN PO 07/11/17 13:30 (Zofran Inj) 4 mg Q6H PRN IVP 07/11/17 13:30 (Narcan Inj) 0.4 mg UNSCH PRN IV PUSH 07/11/17 13:30 (Milk Of Magnesia Liq) 30 ml Q12H PRN PO 07/11/17 13:30 (Senokot) 17.2 mg Q12H PRN PO 07/11/17 13:30 (Dulcolax Supp) 10 mg DAILY PRN RECTAL 07/11/17 13:30 (Lactulose Liq) 30 ml DAILY PRN PO 07/11/17 13:30 (Coreg) 3.125 mg DAILY PO 07/12/17 09:00 07/13/17 08:13 (PROzac) 40 mg HS PO 07/11/17 21:00 07/12/17 21:24 ([place] Carbonate) 600 mg HS PO 07/11/17 21:00 07/12/17 21:20 (Protonix) 40 mg DAILY PO 07/12/17 09:00 07/13/17 08:13 (Flomax) 0.4 mg HS PO 07/11/17 21:00 07/12/17 21:21 (Lipitor) 40 mg HS PO 07/11/17 21:00 07/12/17 21:21 (NovoLOG SUPPLEMENTAL SCALE) 1 ACHS SQ 07/12/17 08:00 (D50w (Vial) Inj) 50 ml UNSCH PRN IV PUSH 07/11/17 21:45 (Glucagon Inj) 1 mg UNSCH PRN OTHER 07/11/17 21:45 (Albuterol Neb) 2.5 mg Q4HR NEB PRN NEB 07/11/17 21:45 07/11/17 22:25 (Plavix) 75 mg DAILY PO 07/13/17 09:00 07/13/17 08:13 (Procardia Xl) 60 mg DAILY PO 07/13/17 09:00 (Prinivil) 10 mg DAILY PO 07/13/17 09:00 Allergies Allergies Coded Allergies codeine (Unverified Allergy, Severe, MUSCULOSKELETAL ISSUES, 07/11/17) insulin,pork (Verified Allergy, Severe, Anaphylaxis, 07/12/17) Exam I&O / VS Vital Signs Date Time Temp Pulse Resp B/P (MAP) Pulse Ox O2 Delivery O2 Flow Rate FiO2 07/13/17 08:17 97.9 70 18 175/86 (115) 98 07/13/17 06:05 98.3 74 18 141/76 (97) 98 07/13/17 05:10 66 07/13/17 00:41 98.7 84 18 157/84 (108) 97 07/13/17 00:30 90 07/12/17 22:13 96 07/12/17 20:56 98.2 92 18 137/77 (97) 96 07/12/17 18:35 80 07/12/17 15:14 97.5 84 18 128/81 (97) 99 Exam Comments alert, speech normal CN intact MOTOR 5/5 RUE , 4+/5 LUE 5/5 RLE, 4/5 LLE Adolfo Lord MD PhD Jul 13, 2017 13:07
[2017-07-13] MEDS: FLUoxetine HCL 20 MG CAP PO SCH (21:36)
[2017-07-13] MEDS: ATORVASTATIN 40 MG TAB PO SCH (21:36)
[2017-07-13] MEDS: TAMSULOSIN HCL 0.4 MG CAP PO SCH (21:36)
[2017-07-13] MEDS: LITHIUM CARBONATE 300 MG CAP PO SCH (21:37)
[2017-07-14] VITALS (8 sets, daily range): BP systolic 124–154; BP diastolic 64–84; PULSE 72–103; RESP 18–20; TEMP 97.3–98.6; O2SAT 90–98
--- NOTE | 2017-07-14 07:54 | HHI.PR ---
Subjective Remarks F/U CVA and cardiomyopathy. Patient has no complaints awaiting placement discussed with nursing and case management. Objective Vitals Vital Signs Date Time Temp Pulse Resp B/P (MAP) Pulse Ox O2 Delivery O2 Flow Rate FiO2 07/14/17 03:01 98.4 87 18 135/82 (99) 94 07/14/17 00:00 84 07/13/17 23:55 98.0 92 18 136/80 (98) 96 07/13/17 20:44 99.0 97 18 141/82 (101) 95 07/13/17 16:56 91 07/13/17 16:30 98.2 68 20 152/70 (97) 96 07/13/17 12:00 76 07/13/17 08:17 97.9 70 18 175/86 (115) 98 07/13/17 08:15 70 I/O 07/13/17 07/13/17 07/13/17 07/14/17 07/14/17 07/14/17 07:00 15:00 23:00 07:00 15:00 23:00 Intake Total 960 ml Output Total 300 ml Balance 660 ml Intake Oral 960 ml Output Urine Total 300 ml # Voids 2 Result Diagram: 07/12/17 0605 07/12/17 0625 Imaging Last Impressions Head CT 07/11/17 1144 Signed Impressions: Service Date/Time: Tuesday, July 11, 2017 12:00 - CONCLUSION: Right-sided lacunar infarcts. MRI may be warranted to evaluate acuity. Phil Crawford MD Chest X-Ray 07/11/17 1144 Signed Impressions: Service Date/Time: Tuesday, July 11, 2017 11:55 - CONCLUSION: 1. No acute cardiopulmonary findings. Matt Owens MD Brain MRI 07/11/17 0000 Signed Impressions: Service Date/Time: Tuesday, July 11, 2017 14:51 - CONCLUSION: 1. Abnormal restricted diffusion signal involving the right anterior cerebral distribution. This is seen involving both the anterior and posterior horn of the corpus callosum as well as the pericallosal white matter. Findings would be consistent with acute cortical infarction. 2. Scattered areas of increased T2 signal in the white matter most consistent with moderate microvascular ischemic demyelinative change. Matt Owens MD Objective Remarks GENERAL: Alert, oriented 3, NAD. SKIN: Warm and dry. CARDIOVASCULAR: Regular rate and rhythm without murmurs, gallops, or rubs. RESPIRATORY: Breath sounds equal bilaterally. No accessory muscle use. GASTROINTESTINAL: Abdomen soft, non-tender, nondistended. MUSCULOSKELETAL: No cyanosis, or edema. BACK: Nontender without obvious deformity. No CVA tenderness. Procedures Echo 07/12/2017 Moderately dilated left ventricle. Mild concentric left ventricular hypertrophy. The left ventricular systolic function is dgvgdjnc-nz-zyipigs reduced with an estimated ejection fraction in the range of 35-40%. There is global left ventricular dysfunction. There is abnormal septal motion consistent with an intraventricular conduction delay. The left atrial size is upmh-xe-uevldhwfqt dilated. The pulmonary valve is not well visualized. A/P Problem List: (1) Lacunar infarct, acute ICD Code: I63.9 - Cerebral infarction, unspecified (2) DM (diabetes mellitus) ICD Code: E11.9 - Type 2 diabetes mellitus without complications Assessment and Plan Mr. Quezada is a 71-year-old male with a history of hypertension, diabetes mellitus, bipolar disorder who presents to the emergency department due to increased confusion and weakness. CT head indicates lacunar infarction. Patient's symptoms started 2 days prior to this admission apparently her family members. However patient reports 2 week duration of balance issues. -Acute lacunar infarction -CT indicates acute lacunar infarcts. Images reviewed by me. No hemorrhage. -MRI of the brain confirms acute stroke. -Patient underwent carotid ultrasound on 05/24/2017 -shows no hemodynamically significant carotid artery disease. -After discussing with neurology, we stopped aspirin and started patient on Plavix 75 mg daily. -Continue Lipitor 40 mg nightly -May need a loop recorder to detect atrial fibrillation -Cardiomyopathy -Echo from 07/12/2017 shows ejection fraction 35-40%. Uptitrate MCKAY and BB if tolerated -Neurology requested a Cardiology consult. I discussed with Dr. Summers ( Cardiology). Dr. Summers recommended that we continue Plavix for now. -Dr. Summers will follow this patient in the office for future need for anti- coagulation and also for loop recorder. May need AICD - Hypertension -Continue nifedipine 60 mg daily. - Diabetes mellitus - Takes metformin at home. Hold for now - Sliding scale insulin. If needed, we will consider Levemir. - Gastroesophageal ulcer -H pylori negative on biopsy. Continue Protonix. - Chronic anemia. Op F/u Full code. SCDs. Discharge Planning Discharge when SNF arranged Herb Galvan MD Jul 14, 2017 07:54
[2017-07-14] MEDS: INSULIN ASPART SUPPLEMENTAL SCALE SQ SCH ×4 (08:00→21:00)
[2017-07-14] MEDS: CLOPIDOGREL 75 MG TAB PO SCH (08:56)
[2017-07-14] MEDS: LISINOPRIL 10 MG TAB PO SCH ×2 (08:56→09:00)
[2017-07-14] MEDS: PANTOPRAZOLE SOD 40 MG DELAYED RELEASE TAB PO SCH (08:56)
[2017-07-14] MEDS: CARVEDILOL 3.125 MG TAB PO SCH (08:56)
[2017-07-14] MEDS: SODIUM CHLORIDE 0.9% FLUSH 10 ML FLUSH IV FLUSH SCH ×2 (08:56→21:19)
[2017-07-14] MEDS: NIFEdipine 30 MG SUSTAINED RELEASE TAB PO SCH ×2 (08:56→09:00)
[2017-07-14] MEDS: ATORVASTATIN 40 MG TAB PO SCH (21:17)
[2017-07-14] MEDS: TAMSULOSIN HCL 0.4 MG CAP PO SCH (21:17)
[2017-07-14] MEDS: LITHIUM CARBONATE 300 MG CAP PO SCH (21:18)
[2017-07-14] MEDS: FLUoxetine HCL 20 MG CAP PO SCH (21:18)
[2017-07-15] VITALS (7 sets, daily range): BP systolic 90–138; BP diastolic 65–95; PULSE 78–102; RESP 16–18; TEMP 96.1–98; O2SAT 91–97
--- NOTE | 2017-07-15 07:22 | HHI.PR ---
Subjective Remarks Follow-up CVA and cardiomyopathy. Patient has no complaints. Single episode of low BP asymptomatic. Discussed with nursing Objective Vitals Vital Signs Date Time Temp Pulse Resp B/P (MAP) Pulse Ox O2 Delivery O2 Flow Rate FiO2 07/15/17 04:17 96.1 78 18 115/69 (84) 92 07/15/17 04:00 86 07/15/17 00:13 96.9 101 18 90/65 (73) 95 07/14/17 20:01 97.8 103 18 124/84 (97) 97 07/14/17 16:30 97.3 89 20 128/66 (86) 91 07/14/17 16:16 90 07/14/17 11:00 98.0 85 18 138/64 (88) 90 07/14/17 08:31 98.1 87 18 154/71 (98) 93 I/O 07/14/17 07/14/17 07/14/17 07/15/17 07/15/17 07/15/17 07:00 15:00 23:00 07:00 15:00 23:00 Intake Total 960 ml Output Total 300 ml 800 ml Balance 660 ml -800 ml Intake Oral 960 ml Output Urine Total 300 ml 800 ml # Voids 2 # Bowel Movements 0 Result Diagram: 07/12/17 0605 07/12/17 0625 Imaging Last Impressions Head CT 07/11/17 1144 Signed Impressions: Service Date/Time: Tuesday, July 11, 2017 12:00 - CONCLUSION: Right-sided lacunar infarcts. MRI may be warranted to evaluate acuity. Phil Crawford MD Chest X-Ray 07/11/17 1144 Signed Impressions: Service Date/Time: Tuesday, July 11, 2017 11:55 - CONCLUSION: 1. No acute cardiopulmonary findings. Matt Owens MD Brain MRI 07/11/17 0000 Signed Impressions: Service Date/Time: Tuesday, July 11, 2017 14:51 - CONCLUSION: 1. Abnormal restricted diffusion signal involving the right anterior cerebral distribution. This is seen involving both the anterior and posterior horn of the corpus callosum as well as the pericallosal white matter. Findings would be consistent with acute cortical infarction. 2. Scattered areas of increased T2 signal in the white matter most consistent with moderate microvascular ischemic demyelinative change. Matt Owens MD Objective Remarks GENERAL: Alert, oriented 3, NAD. SKIN: Warm and dry. CARDIOVASCULAR: Regular rate and rhythm without murmurs, gallops, or rubs. RESPIRATORY: Breath sounds equal bilaterally. No accessory muscle use. GASTROINTESTINAL: Abdomen soft, non-tender, nondistended. MUSCULOSKELETAL: No cyanosis, or edema. BACK: Nontender without obvious deformity. No CVA tenderness. Procedures Echo 07/12/2017 Moderately dilated left ventricle. Mild concentric left ventricular hypertrophy. The left ventricular systolic function is wuzdvfsq-yc-cixwurp reduced with an estimated ejection fraction in the range of 35-40%. There is global left ventricular dysfunction. There is abnormal septal motion consistent with an intraventricular conduction delay. The left atrial size is szes-ox-ausopthhom dilated. The pulmonary valve is not well visualized. A/P Problem List: (1) Lacunar infarct, acute ICD Code: I63.9 - Cerebral infarction, unspecified (2) DM (diabetes mellitus) ICD Code: E11.9 - Type 2 diabetes mellitus without complications Assessment and Plan Mr. Quezada is a 71-year-old male with a history of hypertension, diabetes mellitus, bipolar disorder who presents to the emergency department due to increased confusion and weakness. CT head indicates lacunar infarction. Patient's symptoms started 2 days prior to this admission apparently her family members. However patient reports 2 week duration of balance issues. -Acute lacunar infarction -CT indicates acute lacunar infarcts. Images reviewed by me. No hemorrhage. -MRI of the brain confirms acute stroke. -Patient underwent carotid ultrasound on 05/24/2017 -shows no hemodynamically significant carotid artery disease. -After discussing with neurology, we stopped aspirin and started patient on Plavix 75 mg daily. -Continue Lipitor 40 mg nightly -May need a loop recorder to detect atrial fibrillation -Cardiomyopathy -Echo from 07/12/2017 shows ejection fraction 35-40%. Uptitrate MCKAY and BB if tolerated with hold parameter -Neurology requested a Cardiology consult. I discussed with Dr. Summers ( Cardiology). Dr. Summers recommended that we continue Plavix for now. -Dr. Summers will follow this patient in the office for future need for anti- coagulation and also for loop recorder. May need AICD - Hypertension -BP was low currently improved discontinue nifedipine. Patient started on MCKAY and beta-dulce - Diabetes mellitus - Takes metformin at home. Hold for now. A1c 6 - Sliding scale insulin. - Gastroesophageal ulcer -H pylori negative on biopsy. Continue Protonix. - Chronic anemia. Op F/u Full code. SCDs. Discharge Planning Discharge when SNF arranged. Several SNF declined secondary to psychiatry history Herb Galvan MD Jul 15, 2017 07:22
[2017-07-15] MEDS: INSULIN ASPART SUPPLEMENTAL SCALE SQ SCH ×4 (07:55→21:29)
[2017-07-15] MEDS: SODIUM CHLORIDE 0.9% FLUSH 10 ML FLUSH IV FLUSH SCH ×2 (08:29→20:38)
[2017-07-15] MEDS: CARVEDILOL 3.125 MG TAB PO SCH (09:00)
[2017-07-15] MEDS: PANTOPRAZOLE SOD 40 MG DELAYED RELEASE TAB PO SCH (09:00)
[2017-07-15] MEDS: CLOPIDOGREL 75 MG TAB PO SCH (09:00)
[2017-07-15] MEDS: LISINOPRIL 10 MG TAB PO SCH (09:00)
[2017-07-15] MEDS: LITHIUM CARBONATE 300 MG CAP PO SCH (20:37)
[2017-07-15] MEDS: ATORVASTATIN 40 MG TAB PO SCH (20:37)
[2017-07-15] MEDS: TAMSULOSIN HCL 0.4 MG CAP PO SCH (20:37)
[2017-07-15] MEDS: FLUoxetine HCL 20 MG CAP PO SCH (20:38)
[2017-07-16 01:51] VITALS: BP 108/61; PULSE 93; RESP 17; TEMP 98.1; O2SAT 93
[2017-07-16 04:00] VITALS: PULSE 77
[2017-07-16 04:46] VITALS: BP 120/73; PULSE 81; RESP 15; TEMP 97.9; O2SAT 94
[2017-07-16] MEDS: INSULIN ASPART SUPPLEMENTAL SCALE SQ SCH ×2 (08:00→12:36)
[2017-07-16 08:47] VITALS: BP 127/69; PULSE 85; RESP 16; TEMP 97.7; O2SAT 95
[2017-07-16] MEDS: CLOPIDOGREL 75 MG TAB PO SCH (09:16)
[2017-07-16] MEDS: CARVEDILOL 3.125 MG TAB PO SCH (09:16)
[2017-07-16] MEDS: SODIUM CHLORIDE 0.9% FLUSH 10 ML FLUSH IV FLUSH SCH (09:16)
[2017-07-16] MEDS: PANTOPRAZOLE SOD 40 MG DELAYED RELEASE TAB PO SCH (09:16)
[2017-07-16] MEDS: LISINOPRIL 10 MG TAB PO SCH (09:17)
--- NOTE | 2017-07-16 11:17 | HHI.DS ---
Discharge Summary Admission Date Jul 11, 2017 at 13:21 Discharge Date: Jul 16, 2017 Admitting Diagnosis generalized weakness, confusion (1) Lacunar infarct, acute ICD Code: I63.9 - Cerebral infarction, unspecified (2) DM (diabetes mellitus) ICD Code: E11.9 - Type 2 diabetes mellitus without complications Procedures Echo 07/12/2017 Moderately dilated left ventricle. Mild concentric left ventricular hypertrophy. The left ventricular systolic function is kiytbitn-bh-evdwsli reduced with an estimated ejection fraction in the range of 35-40%. There is global left ventricular dysfunction. There is abnormal septal motion consistent with an intraventricular conduction delay. The left atrial size is nwng-oo-eroajzavfj dilated. The pulmonary valve is not well visualized. Brief History - From Admission Mr. Quezada is a 71-year-old male with a history of bipolar disorder, hypertension, diabetes mellitus and recent GI bleed who presents to the emergency department today 07/11/2017 due to increased confusion, weakness and incontinence. Patient was recently admitted to the hospital for GI bleed. He underwent EGD study during previous hospitalization. At the time of this interview, patient is resting well in bed. He reports that he has been experiencing balance issues for the last 2 weeks especially when he gets out of chair. He fell or almost fell frequently. He denies any chest pain, shortness of breath, fever or chills. He denies any speech difficulty or unilateral upper or lower extremity weakness. Denies any changes in bowel or bladder habits. ED workup indicated CT brain evidence of lacunar infarcts on the right side. CBC/BMP: 07/12/17 0605 07/12/17 0625 Imaging Last Impressions Head CT 07/11/17 114 Signed Impressions: Service Date/Time: Tuesday, July 11, 2017 12:00 - CONCLUSION: Right-sided lacunar infarcts. MRI may be warranted to evaluate acuity. Phil Crawford MD Chest X-Ray 07/11/17 114 Signed Impressions: Service Date/Time: Tuesday, July 11, 2017 11:55 - CONCLUSION: 1. No acute cardiopulmonary findings. Matt Owens MD Brain MRI 07/11/17 0000 Signed Impressions: Service Date/Time: Tuesday, July 11, 2017 14:51 - CONCLUSION: 1. Abnormal restricted diffusion signal involving the right anterior cerebral distribution. This is seen involving both the anterior and posterior horn of the corpus callosum as well as the pericallosal white matter. Findings would be consistent with acute cortical infarction. 2. Scattered areas of increased T2 signal in the white matter most consistent with moderate microvascular ischemic demyelinative change. Matt Owens MD PE at Discharge GENERAL: Alert, oriented 3, NAD. SKIN: Warm and dry. CARDIOVASCULAR: Regular rate and rhythm without murmurs, gallops, or rubs. RESPIRATORY: Breath sounds equal bilaterally. No accessory muscle use. GASTROINTESTINAL: Abdomen soft, non-tender, nondistended. MUSCULOSKELETAL: No cyanosis, or edema. BACK: Nontender without obvious deformity. No CVA tenderness. Pt update on day of discharge In bed. Does not appear in distress. No new motor deficit. No chest pain or shortness of breath nausea or vomiting. No complaints at this time. Hospital Course Mr. Quezada is a 71-year-old male with a history of hypertension, diabetes mellitus, bipolar disorder who presents to the emergency department due to increased confusion and weakness. CT head indicates lacunar infarction. Patient's symptoms started 2 days prior to this admission apparently her family members. However patient reports 2 week duration of balance issues. -Acute lacunar infarction -CT indicates acute lacunar infarcts. Images reviewed by me. No hemorrhage. -MRI of the brain confirms acute stroke. -Patient underwent carotid ultrasound on 05/24/2017 -shows no hemodynamically significant carotid artery disease. -After discussing with neurology, we stopped aspirin and started patient on Plavix 75 mg daily. -Continue Lipitor 40 mg nightly -May need a loop recorder to detect atrial fibrillation -Cardiomyopathy -Echo from 07/12/2017 shows ejection fraction 35-40%. Uptitrate MCKAY and BB if tolerated with hold parameter -Neurology requested a Cardiology consult. I discussed with Dr. Summers ( Cardiology). Dr. Summers recommended that we continue Plavix for now. -Dr. Summers will follow this patient in the office for future need for anti- coagulation and also for loop recorder. May need AICD - Hypertension -BP was low currently improved discontinue nifedipine. Patient started on MCKAY and beta-dulce - Diabetes mellitus - Takes metformin at home. Hold for now. A1c 6 - Sliding scale insulin. - Gastroesophageal ulcer -H pylori negative on biopsy. Continue Protonix. - Chronic anemia. Op F/u Full code. SCDs. Discharge Planning Discharge when SNF arranged. Several SNF declined secondary to psychiatry history Pt Condition on Discharge: Good Discharge Disposition: Discharge to SNF Discharge Time: > 30 minutes Discharge Instructions DIET: Follow Instructions for: Diabetic Diet Activities you can perform: Regular-No Restrictions Follow up Referrals: Cardiology - 1 Week with Chevy Summers MD Neurology - 3 Weeks with Adolfo Lord MD PhD PCP Follow-up - 2 Weeks New Medications: Clopidogrel (Plavix) 75 Mg Tab 75 MG PO DAILY for Blood Clot Prevention, #30 TAB 11 Refills Atorvastatin (Atorvastatin) 40 Mg Tab 40 MG PO HS for Cholesterol Management, #90 TAB 3 Refills Continued Medications: Albuterol 8.5 GM Inh (Proair Hfa 8.5 GM Inh) 90 Mcg/Act Aer 2 PUFF INH Q4-6H PRN for SHORTNESS OF BREATH, #1 INHALER 0 Refills 108 mcg/actuation Carvedilol (Carvedilol) 3.125 Mg Tab 3.125 MG PO DAILY, #60 TAB 0 Refills Fluoxetine (Fluoxetine) 40 Mg Cap 40 CAP PO HS, #30 CAP 0 Refills [place] Carbonate ([place] Carbonate) 600 Mg Cap 600 MG PO HS, CAP 0 Refills Metformin (Metformin) 500 Mg Tab 500 MG PO BIDPC for Blood Sugar Management, #60 TAB 0 Refills Pantoprazole (Protonix) 40 Mg Tab 40 MG PO DAILY for Ulcer Prevention, #90 TAB 3 Refills Tamsulosin (Flomax) 0.4 Mg Cap 0.4 MG PO HS for Manage Prostate Problems, #30 CAP 0 Refills Sonal Ruiz MD Jul 16, 2017 11:17
[2017-07-16 11:46] VITALS: BP 125/67; PULSE 85; RESP 24; TEMP 98.1; O2SAT 95
[2017-07-16 16:28] VITALS: BP 137/83; PULSE 90; RESP 16; TEMP 98.5; O2SAT 94
== END 2017-07-16 17:32 ==
LOC: NEPC 08:37 → NEDH 13:21 → NEPHCDU 15:35
PROVIDERS: ADMIT Hospitalist; ATTEND Hospitalist
DX: I63.521 Cerebral infarction due to unspecified occlusion or stenosis of right anterior cerebral artery (principal); R06.02 Shortness of breath; R06.2 Wheezing; I44.7 Left bundle-branch block, unspecified; R94.31 Abnormal electrocardiogram [ECG] [EKG]; I10 Essential (primary) hypertension; E11.9 Type 2 diabetes mellitus without complications; J45.909 Unspecified asthma, uncomplicated; D64.9 Anemia, unspecified; K21.9 Gastro-esophageal reflux disease without esophagitis; F31.9 Bipolar disorder, unspecified; R32 Unspecified urinary incontinence; M19.90 Unspecified osteoarthritis, unspecified site; Z79.899 Other long term (current) drug therapy; Z79.84 Long term (current) use of oral hypoglycemic drugs; Z79.02 Long term (current) use of antithrombotics/antiplatelets
CPT/HCPCS: 70450; 70551; 71045; 80048; 80053; 80061; 80178; 81001; 82140; 82550; 82948; 83036; 83735; 84443; 84484; 85025; 85610; 85730; 93005; 93308; 94664; 97162; 99285; G0378; G8987; G8988; J1815; J7613

== ENCOUNTER 2017-07-20 17:48 | Inpatient (IN) | payer OTHER, MEDICARE ==
[~2017-07-20] VITALS: Ht 182.9 cm; Wt 91.0 kg
[2017-07-20] VITALS (7 sets, daily range): BP systolic 121–181; BP diastolic 79–91; PULSE 79–110; RESP 16–18; TEMP 97.7–99.6; O2SAT 91–99
[~2017-07-20 17:48] MED LIST changes: +ALBUAER3 INH; +ATOR40TA16 PO; -CARV12.5 PO; +CARV3.12 PO; +PLAV75TA29 PO
[2017-07-20 19:55] LABS: AUTOMATED NEUTROPHIL # 20.5 TH/MM3 (1.8-7.7); BASOPHIL # 0.1 TH/MM3 (0-0.2); BASOPHIL % 0.3 % (0.0-2.0); HEMATOCRIT 37.9 % (39.0-51.0); HEMOGLOBIN 12.5 GM/DL (13.0-17.0); LYMPH % 9.2 % (9.0-44.0); LYMPHOCYTE # 2.3 TH/MM3 (1.0-4.8); MEAN CELL VOLUME 93.9 FL (80.0-100.0); MEAN CORPUSCULAR HEMOGLOBIN 30.9 PG (27.0-34.0); MEAN CORPUSCULAR HGB CONC 32.9 % (32.0-36.0); MEAN PLATELET VOLUME 7.4 FL (7.0-11.0); MONO % 7.9 % (0.0-8.0); NEUT % 82.6 % (16.0-70.0); PLATELET COUNT 411 TH/MM3 (150-450); RED BLOOD COUNT 4.03 MIL/MM3 (4.50-5.90); RED CELL DISTRIBUTION WIDTH 14.4 % (11.6-17.2); WHITE BLOOD COUNT 24.9 TH/MM3 (4.0-11.0)
[2017-07-20] MEDS ORDERED: VANCOMYCIN INJ 1,250 MG in SODIUM CHLOR 0.9% 250 ML INJ 250 ML IV ONE (20:00)
[2017-07-20] MEDS ORDERED: SODIUM CHLOR 0.9% 1000 ML INJ 1,000 ML IV ONE (20:00)
[2017-07-20] MEDS ORDERED: PIPERACIL-TAZO 3.375 GM PREMIX 50 ML IV ONE (20:00)
[2017-07-20 20:01] LABS: BACTERIA, URINE MOD /hpf; BILIRUBIN, URINE NEG (NEG); BLOOD, URINE MOD (NEG); GLUCOSE,URINE NEG (NEG); HYALINE CAST, URINE 3 /lpf (RARE); KETONE, URINE NEG (NEG); MUCUS URINE FEW /lpf (OCC); NITRITE,URINE NEG (NEG); PH, URINE 5.5 (5.0-8.5); SQUAMOUS EPITHELIAL CELL URINE 1 /hpf (0-5); TRANSITIONAL EPI CELLS, URINE 1 /hpf; URINE COLOR YELLOW (YELLW/STRAW); URINE LEUKOCYTE ESTERASE LARGE (NEG); WHITE BLOOD CELL CLUMPS OCC
[2017-07-20 20:09] LABS: ALT (GPT) 34 U/L (12-78)
[2017-07-20 20:12] LABS: ALKALINE PHOSPHATASE 77 U/L (45-117); TOTAL PROTEIN 8.2 GM/DL (6.4-8.2); TROPONIN I LESS THAN 0.02 NG/ML (0.02-0.05)
[2017-07-20 20:19] LABS: INTERNATIONAL NORMALIZED RATIO 1.1 RATIO; PROTHROMBIN TIME - PATIENT 10.8 SEC (9.8-11.6)
[2017-07-20 20:27] LABS: ALBUMIN 3.6 GM/DL (3.4-5.0); AST (GOT) 31 U/L (15-37); BICARBONATE 26.5 MEQ/L (21.0-32.0); BLOOD UREA NITROGEN 29 MG/DL (7-18); CALCIUM 11.1 MG/DL (8.5-10.1); CHLORIDE 106 MEQ/L (98-107); CREATININE 1.81 MG/DL (0.60-1.30); GLOMERULAR FILTRATION RATE 37 ML/MIN (>89); GLUCOSE,RANDOM 151 MG/DL (74-106); SODIUM (NA) 138 MEQ/L (136-145)
--- NOTE | 2017-07-20 20:28 | RADRPT ---
EXAM DATE/TIME: 07/20/2017 19:56 [facility] COMPARISON: MRI BRAIN W/O CONTRAST, July 11, 2017, 14:51. CT BRAIN W/O CONTRAST, July 11, 2017, 12:00. INDICATIONS : Altered mental status. RADIATION DOSE: 39.93 CTDIvol (mGy) MEDICAL HISTORY : Stroke. Cardiovascular disease Hypertension. SURGICAL HISTORY : None. ENCOUNTER: Initial ACUITY: 1 day PAIN SCALE: Non-responsive LOCATION: cranial TECHNIQUE: Multiple contiguous axial images were obtained of the head. Using automated exposure control and adj ustment of the mA and/or kV according to patient size, radiation dose was kept as low as reasonably a chievable to obtain optimal diagnostic quality images. DICOM format image data is available electro nically for review and comparison. FINDINGS: CEREBRUM: The ventricles are normal for age. No evidence of midline shift, mass lesion, hemorrhage or acute in farction. No extra-axial fluid collections are seen. Chronic low attenuation seen in the periventric ular white matter. There are old lacunar infarcts of the right basal ganglia again seen. There is an evolving pericallosal subacute infarct on the right. POSTERIOR FOSSA: The cerebellum and brainstem are intact. The 4th ventricle is midline. The cerebellopontine angle i s unremarkable. EXTRACRANIAL: The visualized portion of the orbits is intact. SKULL: The calvaria is intact. No evidence of skull fracture. CONCLUSION: No acute abnormality demonstrated. Atrophy and chronic white matter changes are again seen. Evolving right pericallosal subacute infarct. No evidence of a large ischemic event. Haris Pretty MD on July 20, 2017 at 20:24 Board Certified Radiologist. This report was verified electronically.
--- NOTE | 2017-07-20 20:34 | RADRPT ---
EXAM DATE/TIME: 07/20/2017 20:02 [facility] COMPARISON: CHEST SINGLE AP, July 11, 2017, 11:55. INDICATIONS : Cough and shortness of breath. MEDICAL HISTORY : Diabetes mellitus type II. Hypertension SURGICAL HISTORY : None. ENCOUNTER: Initial ACUITY: 1 day PAIN SCORE: Non-responsive. LOCATION: Bilateral chest FINDINGS: Trace left base atelectasis. No large effusion seen. No pneumothorax. Heart size stable, upper limits of normal. CONCLUSION: Mild left base atelectasis. Haris Pretty MD on July 20, 2017 at 20:32 Board Certified Radiologist. This report was verified electronically.
--- NOTE | 2017-07-20 20:45 | PD ---
HPI Chief Complaint: Altered Mental Status Time Seen by Provider: 19:21 Travel History International Travel<30 days: No Contact w/Intl Traveler<30days: No Traveled to known affect area: No History of Present Illness HPI Patient is a 71-year-old male sent from altered mental status. Per paperwork, patient usually has a GCS of 14, however now he is not able to answer any questions. He was here in the past for CVA. He is unable to provide any history. PFSH Past Medical History Hx Anticoagulant Therapy: Yes (ASA 2X81) Arthritis: Yes Asthma: Yes (stress induced) Bipolar Disorder: Yes Anxiety: No Depression: Yes Heart Rhythm Problems: No Cancer: No Cardiovascular Problems: Yes High Cholesterol: No Chest Pain: No Congestive Heart Failure: No COPD: No Cerebrovascular Accident: Yes Diabetes: Yes Patient Takes Glucophage: No Diminished Hearing: No Endocrine: Yes (DM II) Gastrointestinal Disorders: Yes (GERD) GERD: Yes Genitourinary: Yes (BPH) Hiatal Hernia: No Hypertension: Yes Immune Disorder: No Implanted Vascular Access Dvce: No Kidney Stones: No Musculoskeletal: Yes (BALANCE IS OFF) Neurologic: Yes (CURRENT ADMISSION WITH CONFUSION POSSIBLE CVA) Psychiatric: Yes (BIPOLAR) Reproductive: No Respiratory: Yes Renal Failure: No Sleep Apnea: No Thyroid Disease: No Ulcer: Yes Tetanus Vaccination: < 5 Years Past Surgical History Abdominal Surgery: No Cardiac Surgery: No Ear Surgery: No Endocrine Surgery: No Eye Surgery: No Genitourinary Surgery: No Gynecologic Surgery: No Neurologic Surgery: No Oral Surgery: No Pacemaker: No Thoracic Surgery: No Social History Alcohol Use: No Tobacco Use: No Substance Use: No Allergies-Medications (Allergen,Severity, Reaction): Coded Allergies: codeine (Unverified Allergy, Severe, MUSCULOSKELETAL ISSUES, 07/11/17) insulin,pork (Verified Allergy, Severe, Anaphylaxis, 07/12/17) Reported Meds & Prescriptions Reported Meds & Active Scripts Active Atorvastatin (Atorvastatin Calcium) 40 Mg Tab 40 Mg PO HS Plavix (Clopidogrel Bisulfate) 75 Mg Tab 75 Mg PO DAILY Protonix (Pantoprazole Sodium) 40 Mg Tab 40 Mg PO DAILY Reported Proair Hfa 8.5 GM Inh (Albuterol Sulfate) 90 Mcg/Act Aer 2 Puff INH Q4-6H PRN 108 mcg/actuation Carvedilol 3.125 Mg Tab 3.125 Mg PO DAILY Metformin (Metformin HCl) 500 Mg Tab 500 Mg PO BIDPC Fluoxetine (Fluoxetine HCl) 40 Mg Cap 40 Cap PO HS Flomax (Tamsulosin HCl) 0.4 Mg Cap 0.4 Mg PO HS [place] Carbonate 600 Mg Cap 600 Mg PO HS Review of Systems ROS Limitations: Altered Mental Status Physical Exam Narrative GENERAL: Awake, but confused. He does respond to verbal stimuli, but does not converse. SKIN: Focused skin assessment warm/dry. No wounds or signs of infection. HEAD: Atraumatic. Normocephalic. EYES: Pupils equal and round and reactive. No scleral icterus. Extraocular movements intact. ENT: Mucous membranes pink and moist. NECK: Trachea midline. No JVD. CARDIOVASCULAR: Regular rate and rhythm. No murmur appreciated. RESPIRATORY: No accessory muscle use. Clear to auscultation. Breath sounds equal bilaterally. GASTROINTESTINAL: Abdomen soft, non-tender, nondistended. MUSCULOSKELETAL: No obvious deformities. No clubbing. No cyanosis. No edema. NEUROLOGICAL: Awake and alert, but confused. No obvious cranial nerve deficits. Does not seem to want to move his left arm or leg. It is unclear if this is new or old. Data Data Last Documented VS Vital Signs Date Time Temp Pulse Resp B/P (MAP) Pulse Ox O2 Delivery O2 Flow Rate FiO2 07/20/17 20:22 103 16 181/91 (121) 98 Room Air 07/20/17 18:45 2.00 07/20/17 18:26 99.6 Orders Orders Sepsis Workup Initiated (07/20/17 ) Complete Blood Count With Diff (07/20/17 19:16) Comprehensive Metabolic Panel (07/20/17 19:16) Urinalysis - C+S If Indicated (07/20/17 19:16) Lactic Acid Sepsis Protocol (07/20/17 19:16) Blood Culture (07/20/17 19:16) Iv Access Insert/Monitor (07/20/17 19:16) Oxygen Administration (07/20/17 19:16) Oximetry (07/20/17 19:16) Blood Glucose (07/20/17 19:16) Electrocardiogram (07/20/17 ) Ct Brain W/O Iv Contrast(Rout) (07/20/17 ) Urinary Catheter Insert/Apply (07/20/17 19:22) Chest, Single Ap (07/20/17 ) Prothrombin Time / Inr (Pt) (07/20/17 19:42) Act Partial Throm Time (Ptt) (07/20/17 19:42) Troponin I (07/20/17 19:35) Sodium Chlor 0.9% 1000 Ml Inj (Ns 1000 M (07/20/17 20:00) Piperacil-Tazo 3.375 Gm Premix (Zosyn 3. (07/20/17 20:00) Vancomycin Inj (Vancomycin Inj) (07/20/17 20:00) Urine Culture (07/20/17 19:15) Us Abdomen Gallbladder (07/20/17 ) Labs Laboratory Tests Test 07/20/17 19:15 07/20/17 19:35 Urine Color YELLOW Urine Turbidity HAZY Urine pH 5.5 Urine Specific [place] 1.025 Urine Protein 30 mg/dL Urine Glucose (UA) NEG mg/dL Urine Ketones NEG mg/dL Urine Occult Blood MOD Urine Nitrite NEG Urine Bilirubin NEG Urine Urobilinogen LESS THAN 2.0 MG/DL Urine Leukocyte Esterase LARGE Urine RBC 11 /hpf Urine WBC 45 /hpf Urine WBC Clumps OCC Urine Squamous Epithelial Cells 1 /hpf Urine Transitional Epithelial Cells 1 /hpf Urine Bacteria MOD /hpf Urine Hyaline Casts 3 /lpf Urine Mucus FEW /lpf Microscopic Urinalysis Comment CATH-CULTURE IND White Blood Count 24.9 TH/MM3 Red Blood Count 4.03 MIL/MM3 Hemoglobin 12.5 GM/DL Hematocrit 37.9 % Mean Corpuscular Volume 93.9 FL Mean Corpuscular Hemoglobin 30.9 PG Mean Corpuscular Hemoglobin Concent 32.9 % Red Cell Distribution Width 14.4 % Platelet Count 411 TH/MM3 Mean Platelet Volume 7.4 FL Neutrophils (%) (Auto) 82.6 % Lymphocytes (%) (Auto) 9.2 % Monocytes (%) (Auto) 7.9 % Eosinophils (%) (Auto) 0.0 % Basophils (%) (Auto) 0.3 % Neutrophils # (Auto) 20.5 TH/MM3 Lymphocytes # (Auto) 2.3 TH/MM3 Monocytes # (Auto) 2.0 TH/MM3 Eosinophils # (Auto) 0.0 TH/MM3 Basophils # (Auto) 0.1 TH/MM3 CBC Comment DIFF FINAL Differential Comment Prothrombin Time 10.8 SEC Prothromb Time International Ratio 1.1 RATIO Activated Partial Thromboplast Time 26.3 SEC Blood Urea Nitrogen 29 MG/DL Creatinine 1.81 MG/DL Random Glucose 151 MG/DL Total Protein 8.2 GM/DL Albumin 3.6 GM/DL Calcium Level 11.1 MG/DL Alkaline Phosphatase 77 U/L Aspartate Amino Transf (AST/SGOT) 31 U/L Alanine Aminotransferase (ALT/SGPT) 34 U/L Total Bilirubin 2.0 MG/DL Sodium Level 138 MEQ/L Potassium Level 4.7 MEQ/L Chloride Level 106 MEQ/L Carbon Dioxide Level 26.5 MEQ/L Anion Gap 6 MEQ/L Estimat Glomerular Filtration Rate 37 ML/MIN Lactic Acid Level 1.7 mmol/L Troponin I LESS THAN 0.02 NG/ML MDM Medical Decision Making Medical Screen Exam Complete: Yes Emergency Medical Condition: Yes Medical Record Reviewed: Yes Interpretation(s) ECG shows sinus tachycardia with a left bundle branch block. Left bundle branch block is old. Differential Diagnosis Sepsis versus dehydration versus ICH versus electrolyte abnormality versus pneumonia versus UTI Narrative Course Patient is a 71-year-old male who comes in from the long term due to altered mental status. Patient is awake, but is unable to answer questions or provide any history. IV established, labs sent. Labs concerning for a white blood cell count of 25. BUN and creatinine are elevated, likely dehydration. Urinalysis is positive for UTI. CT head performed shows no acute abnormalities. Chest x-ray shows no acute abnormalities. Last [address] 07/20/17 0000 Signed Impressions: Service Date/Time: Thursday, July 20, 2017 19:56 - CONCLUSION: No acute abnormality demonstrated. Atrophy and chronic white matter changes are again seen. Evolving right pericallosal subacute infarct. No evidence of a large ischemic event. Haris Pretty MD Patient given IV fluids, vancomycin and Zosyn. He will be admitted for further management. Diagnosis Primary Impression: Renal insufficiency Additional Impressions: Sepsis Qualified Codes: A41.9 - Sepsis, unspecified organism UTI (urinary tract infection) Qualified Codes: N30.00 - Acute cystitis without hematuria Admitting Information Admitting Physician Requests: Admit Ladi Perez MD Jul 20, 2017 20:45
--- NOTE | 2017-07-20 21:00 | RADRPT ---
EXAM DATE/TIME: 07/20/2017 20:36 [facility] COMPARISON: No previous studies available for comparison. INDICATIONS : Right upper quadrant pain. MEDICAL HISTORY : Benign prostatic hyperplasia, (BPH) Hypertension. Dilopia. Blurred vision. Tinnitis. Diabetes. SURGICAL HISTORY : None. ENCOUNTER: Initial ACUITY: 1 day PAIN SCORE: 3/10 LOCATION: Right upper quadrant MEASUREMENTS: LIVER: 16.7 cm length COMMON DUCT: 7 mm RIGHT KIDNEY: 11.4 x 4.5 x 4.1 cm FINDINGS: LIVER: Diffuse increased echotexture without focal lesion or ductal dilatation. Normal flow velocity and dir ection in the main portal vein. COMMON DUCT: No intraluminal mass or stone visualized. GALLBLADDER: Contains no stones, demonstrates no wall thickening or pericholecystic fluid. PANCREAS: The visualized portions are within normal limits. RIGHT KIDNEY: 4 mm mid zone stone without hydronephrosis. CONCLUSION: Fatty liver and a tiny nonobstructing right renal stone. Otherwise negative. Haris Pretty MD on July 20, 2017 at 20:57 Board Certified Radiologist. This report was verified electronically.
[2017-07-20] MEDS ORDERED: Vancomycin Consult Pharmacy 1 EA OTHER SCH (21:45)
[2017-07-20] MEDS ORDERED: NALOXONE HCL 0.4 MG/ML AMP IV PUSH PRN (21:45)
[2017-07-20] MEDS ORDERED: SODIUM CHLORIDE 0.9% FLUSH 10 ML FLUSH IV FLUSH PRN (21:45)
[2017-07-20] MEDS ORDERED: VANCOMYCIN 1,000 MG/NS 250 ML IV ONE ×2 (22:00)
[2017-07-20] MEDS: SODIUM CHLOR 0.9% 1000 ML INJ 1,000 ML IV SCH (22:00)
[2017-07-20] MEDS ORDERED: RESP: ALBUTEROL 2.5 MG/IPRATROPIUM 0.5 MG NEB (PRN) NEB (22:15)
--- NOTE | 2017-07-20 22:34 | HHI.HP ---
[facility] Unknown Admission Diagnosis UTI, sepsis, dehydration, JADEN Diagnoses: Travel History International Travel<30 Days: No Contact w/Intl Traveler <30 Da: No Traveled to Known Affected Are: No History of Present Illness 71-year-old male with a past medical history significant for bipolar disorder, hypertension, diabetes mellitus, history of GI bleed and recent CVA presents to the emergency department from his rehabilitation facility for altered mental status. Per ED documentation, the patient usually has a GCS of 14. At the time of her interview the patient is able to answer some questions with yes or no however he is unable to provide any detail. The daughter is bedside and states that usually her father is able to speak in complete sentences. She states his speech is slower than prior to his stroke. The patient denies being in any pain. He states that he needs to urinate. He denies fever/chills. Has residual left-sided weakness although moves both upper and lower left extremities spontaneously. Denies chest pain/shortness of breath. No nausea/ vomiting/diarrhea. Review of Systems ROS Limitations: Clinical Condition Except as stated in HPI: all other systems reviewed are Neg Past Family Social History Past Medical History Bipolar disorder Hypertension Diabetes mellitus History of GI bleed History of recent CVA Past Surgical History Left hand crush injury related surgery Reported Medications Reported Meds & Active Scripts Active Atorvastatin (Atorvastatin Calcium) 40 Mg Tab 40 Mg PO HS Plavix (Clopidogrel Bisulfate) 75 Mg Tab 75 Mg PO DAILY Protonix (Pantoprazole Sodium) 40 Mg Tab 40 Mg PO DAILY Reported Proair Hfa 8.5 GM Inh (Albuterol Sulfate) 90 Mcg/Act Aer 2 Puff INH Q4-6H PRN 108 mcg/actuation Carvedilol 3.125 Mg Tab 3.125 Mg PO DAILY Metformin (Metformin HCl) 500 Mg Tab 500 Mg PO BIDPC Fluoxetine (Fluoxetine HCl) 40 Mg Cap 40 Cap PO HS Flomax (Tamsulosin HCl) 0.4 Mg Cap 0.4 Mg PO HS Hershey Carbonate 600 Mg Cap 600 Mg PO HS Allergies: Coded Allergies: codeine (Unverified Allergy, Severe, MUSCULOSKELETAL ISSUES, 07/11/17) insulin,pork (Verified Allergy, Severe, Anaphylaxis, 07/12/17) Family History No family history of CAD/DM. Mother with esophageal cancer Social History Denies alcohol, tobacco and illicit drugs Physical Exam Vital Signs Vital Signs Date Time Temp Pulse Resp B/P (MAP) Pulse Ox O2 Delivery O2 Flow Rate FiO2 07/20/17 20:40 110 16 174/91 (118) 99 Room Air 07/20/17 20:22 103 16 181/91 (121) 98 Room Air 07/20/17 19:53 98 Room Air 07/20/17 18:45 100 18 99 Nasal Cannula 2.00 07/20/17 18:45 100 18 144/80 (101) 99 Nasal Cannula 2.00 07/20/17 18:26 99.6 79 16 157/79 (105) 95 Physical Exam GENERAL: male lying in bed SKIN: No rashes, ecchymoses or lesions. Cool and dry. HEAD: Atraumatic. Normocephalic. No temporal or scalp tenderness. EYES: Pupils equal round and reactive. Extraocular motions intact. No scleral icterus. No injection or drainage. ENT: Nose without bleeding, purulent drainage or septal hematoma. Throat without erythema, tonsillar hypertrophy or exudate. Uvula midline. Airway patent. NECK: Trachea midline. No JVD or lymphadenopathy. Supple, nontender, no meningeal signs. CARDIOVASCULAR: Regular rate and rhythm without murmurs, gallops, or rubs. RESPIRATORY: Clear to auscultation. Breath sounds equal bilaterally. No wheezes , rales, or rhonchi. GASTROINTESTINAL: Abdomen soft, non-tender, nondistended. No hepato-splenomegaly , or palpable masses. No guarding. MUSCULOSKELETAL: Extremities without clubbing, cyanosis, or edema. No joint tenderness, effusion, or edema noted. No calf tenderness. Negative Homans sign bilaterally. NEUROLOGICAL: Awake and alert. Cranial nerves II through XII intact. Moves all 4 extremities spontaneously. Dysarthric. 3/5 hand supervisor dehydrogenation and left upper extremity strength. 3/5 lower extremity strength. Laboratory Laboratory Tests Test 07/20/17 19:15 07/20/17 19:35 Urine Color YELLOW Urine Turbidity HAZY Urine pH 5.5 Urine Specific [place] 1.025 Urine Protein 30 Urine Glucose (UA) NEG Urine Ketones NEG Urine Occult Blood MOD Urine Nitrite NEG Urine Bilirubin NEG Urine Urobilinogen LESS THAN 2.0 Urine Leukocyte Esterase LARGE Urine RBC 11 Urine WBC 45 Urine WBC Clumps OCC Urine Squamous Epithelial Cells 1 Urine Transitional Epithelial Cells 1 Urine Bacteria MOD Urine Hyaline Casts 3 Urine Mucus FEW Microscopic Urinalysis Comment CATH-CULTURE IND White Blood Count 24.9 Red Blood Count 4.03 Hemoglobin 12.5 Hematocrit 37.9 Mean Corpuscular Volume 93.9 Mean Corpuscular Hemoglobin 30.9 Mean Corpuscular Hemoglobin Concent 32.9 Red Cell Distribution Width 14.4 Platelet Count 411 Mean Platelet Volume 7.4 Neutrophils (%) (Auto) 82.6 Lymphocytes (%) (Auto) 9.2 Monocytes (%) (Auto) 7.9 Eosinophils (%) (Auto) 0.0 Basophils (%) (Auto) 0.3 Neutrophils # (Auto) 20.5 Lymphocytes # (Auto) 2.3 Monocytes # (Auto) 2.0 Eosinophils # (Auto) 0.0 Basophils # (Auto) 0.1 CBC Comment DIFF FINAL Differential Comment Prothrombin Time 10.8 Prothromb Time International Ratio 1.1 Activated Partial Thromboplast Time 26.3 Blood Urea Nitrogen 29 Creatinine 1.81 Random Glucose 151 Total Protein 8.2 Albumin 3.6 Calcium Level 11.1 Alkaline Phosphatase 77 Aspartate Amino Transf (AST/SGOT) 31 Alanine Aminotransferase (ALT/SGPT) 34 Total Bilirubin 2.0 Sodium Level 138 Potassium Level 4.7 Chloride Level 106 Carbon Dioxide Level 26.5 Anion Gap 6 Estimat Glomerular Filtration Rate 37 Lactic Acid Level 1.7 Troponin I LESS THAN 0.02 Date/Time Source Procedure Growth Status 07/20/17 19:35 Blood Peripheral Aerobic Blood Culture Pending Received 07/20/17 19:35 Blood Peripheral Anaerobic Blood Culture Pending Received 07/20/17 19:15 Urine Catheterized Urine Urine Culture Pending Received Result Diagram: 07/20/17193407/20/171934 Caprini VTE Risk Assessment Caprini VTE Risk Assessment: Mod/High Risk (score >= 2) Caprini Risk Assessment Model Point Value = 1 Point Value = 2 Point Value = 3 Point Value = 5 Age 41-60 Minor surgery BMI > 25 kg/m2 Swollen legs Varicose veins or History of unexplained or recurrent spontaneous Oral contraceptives or hormone replacement Sepsis (< 1 month) Serious lung disease, including pneumonia (< 1 month) Abnormal pulmonary function Acute myocardial infarction Congestive heart failure (< 1 month) History of inflammatory bowel disease Medical patient at bed rest Age 61-74 Arthroscopic surgery Major open surgery (> 45 min) Laparoscopic surgery (> 45 min) Malignancy Confined to bed (> 72 hours) Immobilizing plaster cast Central venous access Age >= 75 History of VTE Family history of VTE Factor V Leiden Prothrombin [id number] Lupus anticoagulant Anticardiolipin antibodies Elevated serum homocysteine Heparin-induced thrombocytopenia Other congenital or acquired thrombophilia Stroke (< 1 month) Elective arthroplasty Hip, pelvis, or leg fracture Acute spinal cord injury (< 1 month) Prophylaxis Regimen Total Risk Factor Score Risk Level Prophylaxis Regimen 0-1 Low Early ambulation 2 Moderate Order ONE of the following: *Sequential Compression Device (SCD) *Heparin 5000 units SQ BID 3-4 Higher Order ONE of the following medications: *Heparin 5000 units SQ TID *Enoxaparin/Lovenox 40 mg SQ daily (WT < 150 kg, CrCl > 30 mL/min) *Enoxaparin/Lovenox 30 mg SQ daily (WT < 150 kg, CrCl > 10-29 mL/min) *Enoxaparin/Lovenox 30 mg SQ BID (WT < 150 kg, CrCl > 30 mL/min) AND/OR *Sequential Compression Device (SCD) 5 or more Highest Order ONE of the following medications: *Heparin 5000 units SQ TID (Preferred with Epidurals) *Enoxaparin/Lovenox 40 mg SQ daily (WT < 150 kg, CrCl > 30 mL/min) *Enoxaparin/Lovenox 30 mg SQ daily (WT < 150 kg, CrCl > 10-29 mL/min) *Enoxaparin/Lovenox 30 mg SQ BID (WT < 150 kg, CrCl > 30 mL/min) AND *Sequential Compression Device (SCD) Assessment and Plan Assessment and Plan Assessment/plan: 1. Urosepsis Leukocytosis, tachycardia UA consistent with UTI Urine culture pending Blood culture pending Zosyn 2. Altered mental status Likely secondary to above Head CT negative for acute abnormality with evolving right pericallosal subacute infarct Monitor If mental status does not improve with treatment, consider repeat MRI and neurology consult 2. Elevated bilirubin Gallbladder ultrasound significant for fatty liver No obvious source of elevated bilirubin Continue to monitor 3. History of recent CVA Head CT as above Continue Plavix/statin 4. Hypertension/bipolar/GERD Continue home medications 5. Diabetes mellitus Sliding scale insulin Holding home metformin Monitor blood glucose 6. JADEN Creatinine 1.81, baseline 1.2 IV fluid hydration Monitor renal function FEN NPO pending swallow eval - speech therapy consulted Electrolytes: Monitor during sleep when necessary NS at 100 cc/hr Heparin Physician Certification 2 Midnight Certification Type: Admission for Inpatient Services Order for Inpatient Services The services are ordered in accordance with Medicare regulations or non- Medicare payer requirements, as applicable. In the case of services not specified as inpatient-only, they are appropriately provided as inpatient services in accordance with the 2-midnight benchmark. Estimated LOS (days): 2 2 days is the estimated time the patient will need to remain in the hospital, assuming treatment plan goals are met and no additional complications. Post-Hospital Plan: Not yet determined Siria Aaron MD Jul 20, 2017 22:34
[2017-07-20] MEDS: HEPARIN SODIUM - SQ 10,000 UNITS/ML VIAL SQ SCH (23:11)
[2017-07-21] VITALS (9 sets, daily range): BP systolic 136–176; BP diastolic 73–91; PULSE 67–106; RESP 16–20; TEMP 96.6–97.8; O2SAT 94–98
[2017-07-21] MEDS ORDERED: DEXTROSE 50% IN WATER 50 ML VIAL(D50) IV PUSH PRN (00:15)
[2017-07-21] MEDS ORDERED: GLUCAGON 1 MG/ML VIAL OTHER PRN (00:15)
[2017-07-21] MEDS: PIPERACIL-TAZO 3.375 GM PREMIX 50 ML IV SCH ×4 (03:30→20:14)
[2017-07-21] MEDS: HEPARIN SODIUM - SQ 10,000 UNITS/ML VIAL SQ SCH ×3 (05:33→20:25)
[2017-07-21 07:33] LABS: AUTOMATED NEUTROPHIL # 18.6 TH/MM3 (1.8-7.7); BASOPHIL % 0.2 % (0.0-2.0); EOSINOPHIL % 0.1 % (0.0-4.0); HEMATOCRIT 33.2 % (39.0-51.0); LYMPH % 8.9 % (9.0-44.0); MEAN CELL VOLUME 94.9 FL (80.0-100.0); MEAN CORPUSCULAR HEMOGLOBIN 31.4 PG (27.0-34.0); MEAN CORPUSCULAR HGB CONC 33.1 % (32.0-36.0); MEAN PLATELET VOLUME 7.7 FL (7.0-11.0); MONO % 6.8 % (0.0-8.0); MONOCYTE # 1.5 TH/MM3 (0-0.9); PLATELET COUNT 334 TH/MM3 (150-450); WHITE BLOOD COUNT 22.1 TH/MM3 (4.0-11.0)
[2017-07-21] MEDS ORDERED: INSULIN ASPART SUPPLEMENTAL SCALE SQ SCH (08:00)
[2017-07-21 08:02] LABS: ALBUMIN 2.9 GM/DL (3.4-5.0); ALKALINE PHOSPHATASE 83 U/L (45-117); ALT (GPT) 24 U/L (12-78); AST (GOT) 16 U/L (15-37); BICARBONATE 26.5 MEQ/L (21.0-32.0); BLOOD UREA NITROGEN 23 MG/DL (7-18); CALCIUM 10.3 MG/DL (8.5-10.1); CHLORIDE 109 MEQ/L (98-107); CREATININE 1.58 MG/DL (0.60-1.30); GLOMERULAR FILTRATION RATE 43 ML/MIN (>89); GLUCOSE,RANDOM 128 MG/DL (74-106); SODIUM (NA) 142 MEQ/L (136-145); TOTAL BILIRUBIN ADULT 1.6 MG/DL (0.2-1.0)
[2017-07-21] MEDS: CARVEDILOL 3.125 MG TAB PO SCH ×2 (08:22→10:06)
[2017-07-21] MEDS: SODIUM CHLORIDE 0.9% FLUSH 10 ML FLUSH IV FLUSH SCH ×2 (08:22→20:29)
[2017-07-21] MEDS: SODIUM CHLOR 0.9% 1000 ML INJ 1,000 ML IV SCH ×3 (08:22→20:25)
[2017-07-21] MEDS: CLOPIDOGREL 75 MG TAB PO SCH ×2 (08:23→10:06)
[2017-07-21] MEDS: PANTOPRAZOLE SOD 40 MG DELAYED RELEASE TAB PO SCH ×2 (08:23→10:07)
--- NOTE | 2017-07-21 15:01 | HHI.PR ---
Subjective Remarks Follow-up sepsis and UTI. Improving mental status uncertain questions and following commands. Denies abdominal pain seen with nursing Objective Vitals Vital Signs Date Time Temp Pulse Resp B/P (MAP) Pulse Ox O2 Delivery O2 Flow Rate FiO2 07/21/17 12:00 96.6 72 16 148/77 (100) 95 07/21/17 08:00 97.5 90 17 176/91 (119) 96 07/21/17 05:00 96.6 102 18 136/80 (98) 94 07/21/17 04:07 90 07/21/17 00:14 105 07/21/17 00:00 97.8 106 18 152/88 (109) 95 07/20/17 22:31 97.7 106 18 121/79 (93) 91 07/20/17 22:30 99 07/20/17 20:40 110 16 174/91 (118) 99 Room Air 07/20/17 20:22 103 16 181/91 (121) 98 Room Air 07/20/17 19:53 98 Room Air 07/20/17 18:45 100 18 99 Nasal Cannula 2.00 07/20/17 18:45 100 18 144/80 (101) 99 Nasal Cannula 2.00 07/20/17 18:26 99.6 79 16 157/79 (105) 95 I/O 07/20/17 07/20/17 07/20/17 07/21/17 07/21/17 07/21/17 07:00 15:00 23:00 07:00 15:00 23:00 Intake Total 1312.5 ml 290 ml 1050 ml Balance 1312.5 ml 290 ml 1050 ml Intake Oral 240 ml IV Total 1312.5 ml 50 ml 1050 ml # Voids 3 Result Diagram: 07/21/17 0608 07/21/17 0608 Imaging Last Impressions Head CT 07/20/17 0000 Signed Impressions: Service Date/Time: Thursday, July 20, 2017 19:56 - CONCLUSION: No acute abnormality demonstrated. Atrophy and chronic white matter changes are again seen. Evolving right pericallosal subacute infarct. No evidence of a large ischemic event. Haris Pretty MD Gall Bladder Ultrasound 07/20/17 0000 Signed Impressions: Service Date/Time: Thursday, July 20, 2017 20:36 - CONCLUSION: Fatty liver and a tiny nonobstructing right renal stone. Otherwise negative. Haris Pretty MD Chest X-Ray 07/20/17 0000 Signed Impressions: Service Date/Time: Thursday, July 20, 2017 20:02 - CONCLUSION: Mild left base atelectasis. Haris Pretty MD Objective Remarks GENERAL: male lying in bed SKIN: No rashes, ecchymoses or lesions. Cool and dry. CARDIOVASCULAR: Regular rate and rhythm without murmurs, gallops, or rubs. RESPIRATORY: Clear to auscultation. Breath sounds equal bilaterally. No wheezes , rales, or rhonchi. GASTROINTESTINAL: Abdomen soft, non-tender, nondistended. No guarding. MUSCULOSKELETAL: Extremities without clubbing, cyanosis, or edema. No joint tenderness, effusion, or edema noted. No calf tenderness. Negative Homans sign bilaterally. NEUROLOGICAL: Awake and alert. Left facial droop. Dysarthric. Generalized weakness weaker on the left side Procedures none A/P Problem List: (1) Sepsis ICD Code: A41.9 - Sepsis, unspecified organism Status: Acute (2) UTI (urinary tract infection) ICD Code: N39.0 - Urinary tract infection, site not specified Status: Acute Assessment and Plan 1. Sepsis secondary to UTI Leukocytosis, tachycardia UA consistent with UTI Urine culture pending Blood culture pending Zosyn 2. Encephalopathy Likely secondary to above Head CT negative for acute abnormality with evolving right pericallosal subacute infarct Monitor If mental status does not improve with treatment, consider repeat MRI and neurology consult 2. Elevated bilirubin Gallbladder ultrasound significant for fatty liver No obvious source of elevated bilirubin Continue to monitor 3. History of recent CVA Head CT as above Continue Plavix/statin 4. Hypertension/bipolar/GERD Continue home medications 5. Diabetes mellitus Sliding scale insulin Holding home metformin Monitor blood glucose 6. JADEN. CK within normal limits. Improving. Creatinine 1.81, baseline 1.2 IV fluid hydration Monitor renal function avoid nephrotoxins FEN Heart healthy Electrolytes: Monitor during sleep when necessary NS at 100 cc/hr Heparin Problem Qualifiers (1) Sepsis: Qualified Codes: A41.9 - Sepsis, unspecified organism (2) UTI (urinary tract infection): Qualified Codes: N30.00 - Acute cystitis without hematuria Herb Galvan MD Jul 21, 2017 15:01
--- NOTE | 2017-07-21 16:44 | EKG ---
Date Performed: 07/20/2017 Time Performed: 19:13:22 PTAGE: 71 years EKG: SINUS TACHYCARDIA MARKED LEFT AXIS DEVIATION LEFT BUNDLE BRANCH BLOCK ABNORMAL ECG Since PREVIOUS TRACING , no significant change noted PREVIOUS TRACIN07/11/2017 10.07 DOCTOR: Roberto Cagle Interpretating Date/Time 07/21/2017 16:42:58
[2017-07-21] MEDS: LITHIUM CARBONATE 300 MG CAP PO SCH (20:14)
[2017-07-21] MEDS: FLUoxetine HCL 20 MG CAP PO SCH (20:14)
[2017-07-21] MEDS: ATORVASTATIN 40 MG TAB PO SCH (20:15)
[2017-07-21] MEDS: TAMSULOSIN HCL 0.4 MG CAP PO SCH (20:15)
[2017-07-22] VITALS (13 sets, daily range): BP systolic 64–186; BP diastolic 58–90; PULSE 62–117; RESP 15–21; TEMP 95.3–99.1; O2SAT 96–100
[2017-07-22] MEDS: PIPERACIL-TAZO 3.375 GM PREMIX 50 ML IV SCH ×3 (03:04→14:15)
[2017-07-22] MEDS: HEPARIN SODIUM - SQ 10,000 UNITS/ML VIAL SQ SCH ×2 (05:02→14:15)
[2017-07-22] MEDS: SODIUM CHLOR 0.9% 1000 ML INJ 1,000 ML IV SCH ×2 (06:39→17:45)
[2017-07-22] MEDS: CLOPIDOGREL 75 MG TAB PO SCH (07:46)
[2017-07-22] MEDS: PANTOPRAZOLE SOD 40 MG DELAYED RELEASE TAB PO SCH (07:46)
[2017-07-22] MEDS: CARVEDILOL 3.125 MG TAB PO SCH (07:46)
[2017-07-22] MEDS: SODIUM CHLORIDE 0.9% FLUSH 10 ML FLUSH IV FLUSH SCH ×2 (07:46→22:27)
[2017-07-22 09:33] LABS: AUTOMATED NEUTROPHIL # 11.1 TH/MM3 (1.8-7.7); BASOPHIL # 0.1 TH/MM3 (0-0.2); BASOPHIL % 0.4 % (0.0-2.0); EOSINOPHIL # 0.1 TH/MM3 (0-0.4); EOSINOPHIL % 0.8 % (0.0-4.0); HEMATOCRIT 30.9 % (39.0-51.0); HEMOGLOBIN 10.3 GM/DL (13.0-17.0); LYMPHOCYTE # 1.8 TH/MM3 (1.0-4.8); MEAN CORPUSCULAR HEMOGLOBIN 31.6 PG (27.0-34.0); MEAN CORPUSCULAR HGB CONC 33.3 % (32.0-36.0); MEAN PLATELET VOLUME 7.8 FL (7.0-11.0); MONO % 6.8 % (0.0-8.0); PLATELET COUNT 331 TH/MM3 (150-450); RED BLOOD COUNT 3.25 MIL/MM3 (4.50-5.90); RED CELL DISTRIBUTION WIDTH 14.6 % (11.6-17.2)
[2017-07-22 10:01] LABS: BICARBONATE 24.2 MEQ/L (21.0-32.0); CALCIUM 10.2 MG/DL (8.5-10.1); CREATININE 1.28 MG/DL (0.60-1.30); MAGNESIUM 2.1 MG/DL (1.5-2.5)
--- NOTE | 2017-07-22 15:01 | HHI.PR ---
Subjective Remarks F/U UTI and encephalopathy. MS back to baseline no complaints dw RN , stable for dc Objective Vitals Vital Signs Date Time Temp Pulse Resp B/P (MAP) Pulse Ox O2 Delivery O2 Flow Rate FiO2 07/22/17 12:00 97.0 70 17 152/71 (98) 97 07/22/17 08:00 97.9 83 19 181/89 (119) 98 07/22/17 04:56 96.8 68 17 132/64 (86) 96 07/22/17 04:30 62 07/22/17 00:00 98.7 79 20 140/68 (92) 96 07/22/17 00:00 75 07/21/17 20:00 97.4 80 17 158/73 (101) 98 07/21/17 19:20 67 07/21/17 16:00 97.0 94 20 137/77 (97) 97 I/O 07/21/17 07/21/17 07/21/17 07/22/17 07/22/17 07/22/17 07:00 15:00 23:00 07:00 15:00 23:00 Intake Total 290 ml 1050 ml 50 ml 380 ml Balance 290 ml 1050 ml 50 ml 380 ml Intake Oral 240 ml 380 ml IV Total 50 ml 1050 ml 50 ml # Voids 3 4 8 # Bowel Movements 4 Result Diagram: 07/22/17 0830 07/22/17 0830 Imaging Last Impressions Head CT 07/20/17 0000 Signed Impressions: Service Date/Time: Thursday, July 20, 2017 19:56 - CONCLUSION: No acute abnormality demonstrated. Atrophy and chronic white matter changes are again seen. Evolving right pericallosal subacute infarct. No evidence of a large ischemic event. Haris Pretty MD Gall Bladder Ultrasound 07/20/17 0000 Signed Impressions: Service Date/Time: Thursday, July 20, 2017 20:36 - CONCLUSION: Fatty liver and a tiny nonobstructing right renal stone. Otherwise negative. Haris Pretty MD Chest X-Ray 07/20/17 0000 Signed Impressions: Service Date/Time: Thursday, July 20, 2017 20:02 - CONCLUSION: Mild left base atelectasis. Haris Pretty MD Objective Remarks GENERAL: male lying in bed SKIN: No rashes, ecchymoses or lesions. Cool and dry. CARDIOVASCULAR: Regular rate and rhythm without murmurs, gallops, or rubs. RESPIRATORY: Clear to auscultation. Breath sounds equal bilaterally. No wheezes , rales, or rhonchi. GASTROINTESTINAL: Abdomen soft, non-tender, nondistended. No guarding. MUSCULOSKELETAL: Extremities without clubbing, cyanosis, or edema. No joint tenderness, effusion, or edema noted. No calf tenderness. Negative Homans sign bilaterally. NEUROLOGICAL: Awake and alert. Left facial droop. Dysarthric. Generalized weakness weaker on the left side Procedures none A/P Problem List: (1) Sepsis ICD Code: A41.9 - Sepsis, unspecified organism Status: Acute (2) UTI (urinary tract infection) ICD Code: N39.0 - Urinary tract infection, site not specified Status: Acute Assessment and Plan 1. Sepsis secondary to UTI Cx E coli. Improved blood cultures negative to date 2. Encephalopathy secondary to sepsis. Resolved. 2. Elevated bilirubin. Gallbladder ultrasound significant for fatty liver. Continue to monitor 3. History of recent CVA. Stable continue Plavix/statin 4. Hypertension/bipolar/GERD. Continue home medications 5. Diabetes mellitus. Stable 6. JADEN. CK within normal limits. Improved discontinue IV fluids FEN Heart healthy Electrolytes: Monitor during sleep when necessary Heparin Discharge Planning Discharge patient to rehab Condition on discharge: Improved Regular Diet as tolerated Ad Kamala activity no driving Rx written: Ceftin Follow-up with primary care physician Problem Qualifiers (1) Sepsis: Qualified Codes: A41.9 - Sepsis, unspecified organism (2) UTI (urinary tract infection): Qualified Codes: N30.00 - Acute cystitis without hematuria Herb Galvan MD Jul 22, 2017 15:01
--- NOTE | 2017-07-22 15:08 | HHI.DCPOC ---
Discharge Care Plan Diagnosis: (1) Sepsis (2) UTI (urinary tract infection) Your Health Problems Are: Difficulty with ADL Exercise Tolerance Goals to Promote Your Health * To prevent worsening of your condition and complications * To maintain your health at the optimal level Directions to Meet Your Goals Take your medications as prescribed Follow your dietary instruction Follow activity as directed Keep your appointments as scheduled Take your immunizations and boosters as scheduled If your symptoms worsen call your PCP, if no PCP go to Urgent Care Center or Emergency Room Smoking is Dangerous to Your Health. Avoid second hand smoke Call the 24-hour hour crisis hotline for domestic abuse at Herb Galvan MD Jul 22, 2017 15:08
[2017-07-22] MEDS: PANTOPRAZOLE INJ 80 MG in SODIUM CHLORIDE 0.9% INJ 100 ML IV SCH (18:40)
[2017-07-22 19:08] LABS: HEMATOCRIT 30.3 % (39.0-51.0)
[2017-07-22] MEDS ORDERED: SODIUM CHLORID 0.9% 500 ML INJ 500 ML IV ONE ×2 (19:30→20:00)
--- NOTE | 2017-07-22 19:44 | HHI.PR ---
Addendum to Inpatient Note Addendum Reason: Additional Documentation Additional Information S: Residents paged to bedside for Nhanicat. Patient with change in mental status after two episodes of hematemesis of bright red blood and clots. Patient denies any pain, shortness of breath, light-headedness or dizziness. He endorses significant fatigue. O: Vitals: BP: 100/66, HR: 122, O2 sat 97% on 4L NC GENERAL: Well-nourished, well-developed male patient who appears fatigued and pale. Responds to questions but is otherwise sleeping. SKIN: Warm and dry. Pallor. ENT: Dried blood around mouth. GI: About 200mL of bright red blood and several bright red clots present on clothing. CARDIOVASCULAR: Tachycardic rate and regular rhythm without murmurs, gallops, or rubs. CHEST: Symmetric chest expansion with respiration. RESPIRATORY: Breath sounds clear to auscultation bilaterally. No accessory muscle use. No wheezes, rhonchi or rales. A/P: Acute blood loss secondary to hematemesis with acute change in mental status. GI already consulted and recommends Protonix drip and transfer to critical care. Will continue to monitor. Will obtain stat CBC and transfuse if indicated. Will give 1L NS bolus. Currently protecting airway, however concern that his altered mental status could worsen and he may require further respiratory assistance. Case discussed with special systems technician. Julissa Soriano MD, R3 Jul 22, 2017 19:44
[2017-07-22 20:37] LABS: BASOPHIL # 0.1 TH/MM3 (0-0.2); BASOPHIL % 0.5 % (0.0-2.0); EOSINOPHIL # 0.2 TH/MM3 (0-0.4); EOSINOPHIL % 1.4 % (0.0-4.0); HEMATOCRIT 30.1 % (39.0-51.0); HEMOGLOBIN 9.9 GM/DL (13.0-17.0); LYMPH % 17.6 % (9.0-44.0); LYMPHOCYTE # 2.4 TH/MM3 (1.0-4.8); MEAN CELL VOLUME 95.1 FL (80.0-100.0); MEAN CORPUSCULAR HEMOGLOBIN 31.3 PG (27.0-34.0); MEAN CORPUSCULAR HGB CONC 32.9 % (32.0-36.0); MONO % 7.1 % (0.0-8.0); NEUT % 73.4 % (16.0-70.0); PLATELET COUNT 415 TH/MM3 (150-450); RED BLOOD COUNT 3.17 MIL/MM3 (4.50-5.90); RED CELL DISTRIBUTION WIDTH 14.6 % (11.6-17.2); WHITE BLOOD COUNT 13.7 TH/MM3 (4.0-11.0)
[2017-07-22] MEDS: FLUoxetine HCL 20 MG CAP PO SCH (21:00)
[2017-07-22] MEDS: ATORVASTATIN 40 MG TAB PO SCH (21:00)
[2017-07-22] MEDS: LITHIUM CARBONATE 300 MG CAP PO SCH (21:00)
[2017-07-22] MEDS: TAMSULOSIN HCL 0.4 MG CAP PO SCH (21:00)
[2017-07-22] MEDS: CEFUROXIME AXETIL 250 MG TAB PO SCH (21:00)
[2017-07-22 21:51] LABS: HEMOGLOBIN 8.1 GM/DL (13.0-17.0)
[2017-07-22] MEDS ORDERED: SODIUM CHLOR 0.9% 1000 ML INJ 1,000 ML IV ONE (22:15)
[2017-07-22] MEDS ORDERED: SODIUM CHLOR 0.9% 250 ML INJ 250 ML IV ONE (22:15)
[2017-07-23] VITALS: BP 149/84; PULSE 105; RESP 21; TEMP 98.7; O2SAT 100
[2017-07-23] MEDS: SODIUM CHLOR 0.9% 1000 ML INJ 1,000 ML IV SCH ×2 (03:45→09:03)
[2017-07-23 04:00] VITALS: BP 142/81; PULSE 93; RESP 19; TEMP 98; O2SAT 100
[2017-07-23 04:37] LABS: AUTOMATED NEUTROPHIL # 9.5 TH/MM3 (1.8-7.7); BASOPHIL # 0.1 TH/MM3 (0-0.2); BASOPHIL % 0.5 % (0.0-2.0); EOSINOPHIL % 0.3 % (0.0-4.0); HEMATOCRIT 26.5 % (39.0-51.0); LYMPH % 16.1 % (9.0-44.0); LYMPHOCYTE # 2.1 TH/MM3 (1.0-4.8); MEAN CELL VOLUME 91.7 FL (80.0-100.0); MEAN CORPUSCULAR HEMOGLOBIN 30.9 PG (27.0-34.0); MEAN CORPUSCULAR HGB CONC 33.7 % (32.0-36.0); MEAN PLATELET VOLUME 7.5 FL (7.0-11.0); MONO % 8.4 % (0.0-8.0); MONOCYTE # 1.1 TH/MM3 (0-0.9); NEUT % 74.7 % (16.0-70.0); PLATELET COUNT 329 TH/MM3 (150-450); RED BLOOD COUNT 2.89 MIL/MM3 (4.50-5.90); RED CELL DISTRIBUTION WIDTH 16.4 % (11.6-17.2); WHITE BLOOD COUNT 12.8 TH/MM3 (4.0-11.0)
[2017-07-23] MEDS: PANTOPRAZOLE INJ 80 MG in SODIUM CHLORIDE 0.9% INJ 100 ML IV SCH ×2 (04:57→14:19)
[2017-07-23 04:59] LABS: CALCIUM 9.4 MG/DL (8.5-10.1); CREATININE 1.24 MG/DL (0.60-1.30); MAGNESIUM 1.9 MG/DL (1.5-2.5)
[2017-07-23 08:00] VITALS: BP 150/68; PULSE 78; RESP 18; TEMP 98.8; O2SAT 100
--- NOTE | 2017-07-23 08:56 | PD.CONS ---
HPI History of Present Illness This is a 71 year old male with recent hx CVA and gastric ulcer who presented with AMS from rehab facility. GI has been consulted for GIB. Yesterday josé was called after he had multiple episodes bright red hematemesis, per EMR. Today he has had multiple large melanotic stools. No vomiting today. He was on plavix, which is held and he last had yesterday. He denies abd pain. He had EGD by Dr Paulino 07/02/17 with finding of gastric ulcer that was likely source of bleeding at that time. Pt relatively noncontributory as he is lethargic. Hx obtained from EMR. (Umm Weber) PFSH Past Medical History Bipolar disorder Hypertension Diabetes mellitus History of GI bleed History of recent CVA Past Surgical History Left hand crush injury related surgery (Umm Weber) Coded Allergies: codeine (Unverified Allergy, Severe, MUSCULOSKELETAL ISSUES, 07/11/17) insulin,pork (Verified Allergy, Severe, Anaphylaxis, 07/12/17) Family History No family history of CAD/DM. Mother with esophageal cancer Social History Denies alcohol, tobacco and illicit drugs (Umm Weber) Review of Systems Gastrointestinal: DENIES: Abdominal pain otherwise noncontributory (Umm Weber) GI Exam Vitals I&O Vital Signs Date Time Temp Pulse Resp B/P (MAP) Pulse Ox O2 Delivery O2 Flow Rate FiO2 07/23/17 04:00 98.0 93 19 142/81 (101) 100 07/23/17 00:00 98.7 105 21 149/84 (105) 100 07/22/17 22:53 98.2 105 21 136/76 100 07/22/17 21:15 98.2 116 19 98/58 (71) 100 07/22/17 20:48 95.3 117 15 109/74 (86) 100 07/22/17 20:00 96.2 111 16 109/73 (85) 100 07/22/17 19:08 100 4.00 07/22/17 17:45 99.1 88 19 168/89 (115) 96 07/22/17 16:30 176/83 (114) 07/22/17 16:00 96.6 72 19 186/90 (122) 97 07/22/17 12:00 97.0 70 17 152/71 (98) 97 I/O 07/22/17 07/22/17 07/22/17 07/23/17 07/23/17 07/23/17 07:00 15:00 23:00 07:00 15:00 23:00 Intake Total 380 ml 2310 ml 1000 ml Output Total 600 ml 100 ml Balance 380 ml 1710 ml 900 ml Intake Oral 380 ml 300 ml IV Total 2000 ml 250 ml Packed Cells 250 ml Blood Product IV Normal Saline Flush 10 ml 500 ml Output Urine Total 600 ml 100 ml # Voids 8 1 3 # Bowel Movements 4 2 2 Imaging Last Impressions Head CT 07/20/17 0000 Signed Impressions: Service Date/Time: Thursday, July 20, 2017 19:56 - CONCLUSION: No acute abnormality demonstrated. Atrophy and chronic white matter changes are again seen. Evolving right pericallosal subacute infarct. No evidence of a large ischemic event. Haris Pretty MD Gall Bladder Ultrasound 07/20/17 0000 Signed Impressions: Service Date/Time: Thursday, July 20, 2017 20:36 - CONCLUSION: Fatty liver and a tiny nonobstructing right renal stone. Otherwise negative. Haris Pretty MD Chest X-Ray 07/20/17 0000 Signed Impressions: Service Date/Time: Thursday, July 20, 2017 20:02 - CONCLUSION: Mild left base atelectasis. Haris Pretty MD Laboratory Test 07/22/17 18:23 07/22/17 21:30 07/23/17 04:18 White Blood Count 13.7 TH/MM3 12.8 TH/MM3 Red Blood Count 3.17 MIL/MM3 2.89 MIL/MM3 Hemoglobin 9.9 GM/DL 8.1 GM/DL 9.0 GM/DL Hematocrit 30.1 % 25.0 % 26.5 % Mean Corpuscular Volume 95.1 FL 91.7 FL Mean Corpuscular Hemoglobin 31.3 PG 30.9 PG Mean Corpuscular Hemoglobin Concent 32.9 % 33.7 % Red Cell Distribution Width 14.6 % 16.4 % Platelet Count 415 TH/MM3 329 TH/MM3 Mean Platelet Volume 8.0 FL 7.5 FL Neutrophils (%) (Auto) 73.4 % 74.7 % Lymphocytes (%) (Auto) 17.6 % 16.1 % Monocytes (%) (Auto) 7.1 % 8.4 % Eosinophils (%) (Auto) 1.4 % 0.3 % Basophils (%) (Auto) 0.5 % 0.5 % Neutrophils # (Auto) 10.0 TH/MM3 9.5 TH/MM3 Lymphocytes # (Auto) 2.4 TH/MM3 2.1 TH/MM3 Monocytes # (Auto) 1.0 TH/MM3 1.1 TH/MM3 Eosinophils # (Auto) 0.2 TH/MM3 0.0 TH/MM3 Basophils # (Auto) 0.1 TH/MM3 0.1 TH/MM3 CBC Comment DIFF FINAL DIFF FINAL Differential Comment Nasal Screen MRSA (PCR) MRSA NOT DETECTED Blood Urea Nitrogen 25 MG/DL Creatinine 1.24 MG/DL Random Glucose 139 MG/DL Calcium Level 9.4 MG/DL Magnesium Level 1.9 MG/DL Sodium Level 149 MEQ/L Potassium Level 4.5 MEQ/L Chloride Level 118 MEQ/L Carbon Dioxide Level 23.0 MEQ/L Anion Gap 8 MEQ/L Estimat Glomerular Filtration Rate 57 ML/MIN Date/Time Source Procedure Growth Status 07/20/17 19:35 Blood Peripheral Aerobic Blood Culture - Preliminary NO GROWTH IN 2 DAYS Resulted 07/20/17 19:35 Blood Peripheral Anaerobic Blood Culture - Preliminary NO GROWTH IN 2 DAYS Resulted 07/20/17 19:15 Urine Catheterized Urine Urine Culture - Final Escherichia Coli Complete Physical Examination HEENT: normocephalic; atraumatic; no jaundice. CHEST: CTA CARDIAC: RRR ABDOMEN: Soft, nondistended, nontender; no hepatosplenomegaly; bowel sounds are present in all four quadrants. EXTREMITIES: No clubbing, cyanosis, or edema. SKIN: Normal; no rash; no jaundice. 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 has prior hx gastric ulcer seen on EGD 07/02/17. was on plavix, this is held. denies abd pain. PLAN - EGD today - obtain consent - NPO - PPI - further recs to follow seen by myself and dr Flores and this note is on her behalf (Umm Weber) Physician Comments seen, examined agree with above (Shahrzad Flores MD) Umm Weber Jul 23, 2017 08:56 Shahrzad Flores MD Jul 23, 2017 12:46
[2017-07-23] MEDS: SODIUM CHLORIDE 0.9% FLUSH 10 ML FLUSH IV FLUSH SCH ×2 (09:00→21:09)
[2017-07-23] MEDS: CARVEDILOL 3.125 MG TAB PO SCH (09:02)
[2017-07-23] MEDS: CEFUROXIME AXETIL 250 MG TAB PO SCH ×2 (09:02→21:10)
--- NOTE | 2017-07-23 10:12 | HHI.PR ---
Subjective Remarks Follow-up GI bleed. No further bleeding awaiting endoscopy. Patient was transferred to ICU secondary to altered mental status. At this time he is awake and oriented with baseline left facial, upper and lower extremity weakness. States he is doing better. He wants to be a DNR, discussed with daughter who will talk to the patient to clarify CODE STATUS. Objective Vitals Vital Signs Date Time Temp Pulse Resp B/P (MAP) Pulse Ox O2 Delivery O2 Flow Rate FiO2 07/23/17 04:00 98.0 93 19 142/81 (101) 100 07/23/17 00:00 98.7 105 21 149/84 (105) 100 07/22/17 22:53 98.2 105 21 136/76 100 07/22/17 21:15 98.2 116 19 98/58 (71) 100 07/22/17 20:48 95.3 117 15 109/74 (86) 100 07/22/17 20:00 96.2 111 16 109/73 (85) 100 07/22/17 19:08 100 4.00 07/22/17 17:45 99.1 88 19 168/89 (115) 96 07/22/17 16:30 176/83 (114) 07/22/17 16:00 96.6 72 19 186/90 (122) 97 07/22/17 12:00 97.0 70 17 152/71 (98) 97 I/O 07/22/17 07/22/17 07/22/17 07/23/17 07/23/17 07/23/17 07:00 15:00 23:00 07:00 15:00 23:00 Intake Total 380 ml 2310 ml 1000 ml Output Total 600 ml 100 ml Balance 380 ml 1710 ml 900 ml Intake Oral 380 ml 300 ml IV Total 2000 ml 250 ml Packed Cells 250 ml Blood Product IV Normal Saline Flush 10 ml 500 ml Output Urine Total 600 ml 100 ml # Voids 8 1 3 # Bowel Movements 4 2 2 Result Diagram: 07/23/17 0418 07/23/17 0418 Imaging Last Impressions Head CT 07/20/17 0000 Signed Impressions: Service Date/Time: Thursday, July 20, 2017 19:56 - CONCLUSION: No acute abnormality demonstrated. Atrophy and chronic white matter changes are again seen. Evolving right pericallosal subacute infarct. No evidence of a large ischemic event. Haris Pretty MD Gall Bladder Ultrasound 07/20/17 0000 Signed Impressions: Service Date/Time: Thursday, July 20, 2017 20:36 - CONCLUSION: Fatty liver and a tiny nonobstructing right renal stone. Otherwise negative. Haris Pretty MD Chest X-Ray 07/20/17 0000 Signed Impressions: Service Date/Time: Thursday, July 20, 2017 20:02 - CONCLUSION: Mild left base atelectasis. Haris Pretty MD Objective Remarks GENERAL: male lying in bed SKIN: No rashes, ecchymoses or lesions. Cool and dry. Pupils reactive to light right slightly larger than left 2 mm versus 1 mm which according to patient is chronic CARDIOVASCULAR: Regular rate and rhythm without murmurs, gallops, or rubs. RESPIRATORY: Clear to auscultation. Breath sounds equal bilaterally. No wheezes , rales, or rhonchi. GASTROINTESTINAL: Abdomen soft, non-tender, nondistended. No guarding. MUSCULOSKELETAL: Extremities without clubbing, cyanosis, or edema. No joint tenderness, effusion, or edema noted. No calf tenderness. Negative Homans sign bilaterally. NEUROLOGICAL: Awake and alert. Left facial droop. Dysarthric. Generalized weakness weak on the left side Procedures none A/P Problem List: (1) Sepsis ICD Code: A41.9 - Sepsis, unspecified organism Status: Acute (2) UTI (urinary tract infection) ICD Code: N39.0 - Urinary tract infection, site not specified Status: Acute Assessment and Plan 1. Sepsis secondary to UTI Cx E coli. Improved blood cultures negative to date 2. Encephalopathy secondary to sepsis. Improved 2. Elevated bilirubin. Gallbladder ultrasound significant for fatty liver. Continue to monitor 3. History of recent CVA. Stable continue statin. Restart Plavix when cleared by GI 4. Hypertension/bipolar/GERD. Continue home medications with hold parameters 5. Diabetes mellitus. Stable 6. JADEN. CK within normal limits. Improved on IV fluids 7. UGI bleed. Hemodynamically stable. History of gastric ulcer in June 2017. N.p.o., IV hydration, Protonix drip and blood counts to keep hemoglobin at least 8. GI for endoscopy 8. Anemia secondary to acute blood loss status post blood transfusion. Keep hemoglobin at least 8 FEN Heart healthy but currently n.p.o. Electrolytes: Monitor during sleep when necessary Heparin has been discontinued Discharge Planning Not ready for discharge secondary to GI bleed Problem Qualifiers (1) Sepsis: Qualified Codes: A41.9 - Sepsis, unspecified organism (2) UTI (urinary tract infection): Qualified Codes: N30.00 - Acute cystitis without hematuria Herb Galvan MD Jul 23, 2017 10:12
[2017-07-23] MEDS ORDERED: PROPOFOL 200 MG/20 ML AMP IV ONE (12:00)
[2017-07-23] MEDS ORDERED: ONDANSETRON HCL 4 MG/2 ML VIAL IV ONE (12:00)
[2017-07-23] MEDS ORDERED: PHENYLEPH/NS 1000 MCG/10 ML SYR IV ONE (12:00)
[2017-07-23] MEDS ORDERED: LIDOCAINE HCL 1% PF 5 ML SYRINGE OTHER ONE (12:00)
[2017-07-23] MEDS ORDERED: ePHEDrine/NS 25 MG/5 ML SYRINGE IV ONE (12:00)
[2017-07-23] MEDS ORDERED: DEXAMETHASONE SOD PHOS 4 MG/ML VIAL IV ONE (12:00)
[2017-07-23] MEDS ORDERED: EPINEPHrine HCL (1:10,000) 1 MG/10 ML SYRINGE SQ ONE (12:30)
--- NOTE | 2017-07-23 12:43 | GIPROC ---
[facility] [address] [facility], [address] EGD PROCEDURE REPORT EXAM DATE: 07/23/2017 PATIENT NAME: Ryan Quezada MR #: [id number] BIRTHDATE: 1945 ATTENDING: Shahrzad Flores MD ORDER #: [id number] RUCHING MACHINE OPERATOR: Catherine Massey and Dae Weldon STATUS: inpatient INDICATIONS: The patient is a 71 yr old male here for an EGD due to gi bleeding, history of gastric ulcer PROCEDURE PERFORMED: EGD w/ directed submucosal injection(s), any substance EGD w/ ablation egd with clips MEDICATIONS: None and Per Anesthesia. TOPICAL ANESTHETIC: none CONSENT: The patient understands the risks and benefits of the procedure and understands that these risks include, but are not limited to: sedation, allergic reaction, infection, perforation and/or bleeding. Alternative means of evaluation and treatment include, among others: physical exam, x-rays, and/or surgical intervention. The patient elects to proceed with this endoscopic procedure. medical equipment was checked for proper function. Hand hygiene and appropriate measures for infection prevention was taken. After the risks, benefits and alternatives of the procedure were thoroughly explained, Informed consent was verified, confirmed and timeout was successfully executed by the treatment team. The patient was anesthetized with topical anesthesia and the Pentax EG-[id number] endoscope was introduced through the mouth and advanced to the second portion of the duodenum. Retroflexed views revealed a hiatal hernia The gastroscope was then slowly withdrawn and removed. Ulcer antrum-8 mm , vissible vessel-s/p epinephrine 1:10, 000 -4 cc, cautery /gold probe , 3 clips applied NGT trauma. ADVERSE EVENTS: There were no complications. IMPRESSIONS: 1. Ulcer antrum-8 mm , vissible vessel-s/p epinephrine 1:10, 000 -4 cc, cautery /gold probe , 3 clips applied NGT trauma 2. Retroflexed views revealed a hiatal hernia RECOMMENDATIONS: 1. Anti-reflux regimen 2. Continue PPI 3. Avoid NSAIDS 4. Clear liquid, speech eval first carafate 1 gm pot bid transfuse prn if further bleeding -consult IR for angiogram PATIENT CONDITION: stable DISPOSITION: Inpatient REPEAT EXAM: Return 8 weeks EGD Shahrzad Flores MD eSigned: Shahrzad Flores MD 07/23/2017 12:43 PM cc: PATIENT NAME: Ryan Quezada MR#: [id number]
[2017-07-23] MEDS ORDERED: DO NOT ADM ANY ANTICOAGULANT DRUGS PRN (12:50)
[2017-07-23 14:00] VITALS: BP 179/83; PULSE 88; RESP 19; TEMP 98.6; O2SAT 100
[2017-07-23 16:00] VITALS: BP 148/80; PULSE 82; RESP 19; TEMP 98; O2SAT 100
[2017-07-23 16:25] LABS: HEMATOCRIT 25.3 % (39.0-51.0); HEMOGLOBIN 8.4 GM/DL (13.0-17.0)
[2017-07-23 20:00] VITALS: BP 178/80; PULSE 80; RESP 17; TEMP 98.6; O2SAT 98
[2017-07-23] MEDS: ENALAPRILAT 1.25 MG/ML VIAL IV PUSH PRN (20:31)
[2017-07-23] MEDS: TAMSULOSIN HCL 0.4 MG CAP PO SCH (21:00)
[2017-07-23] MEDS: LITHIUM CARBONATE 300 MG CAP PO SCH (21:09)
[2017-07-23] MEDS: FLUoxetine HCL 20 MG CAP PO SCH (21:09)
[2017-07-23] MEDS: ATORVASTATIN 40 MG TAB PO SCH (21:10)
--- NOTE | 2017-07-23 21:24 | EKG ---
Date Performed: 07/22/2017 Time Performed: 21:38:42 PTAGE: 71 years EKG: Sinus tachycardia with PVC(s). Left axis deviation IV conduction defect Extensive infarct - age undetermined Since previous tracing, no significant change noted Abnormal ECG PREVIOUS TRACING : 07/20/2017 19.13 DOCTOR: Sherlyn Busch Interpretating Date/Time 07/23/2017 21:23:24
[2017-07-24] VITALS (8 sets, daily range): BP systolic 133–189; BP diastolic 70–93; PULSE 62–90; RESP 12–21; TEMP 97.4–99; O2SAT 95–100
[2017-07-24] MEDS: PANTOPRAZOLE INJ 80 MG in SODIUM CHLORIDE 0.9% INJ 100 ML IV SCH (01:10)
[2017-07-24] MEDS: ENALAPRILAT 1.25 MG/ML VIAL IV PUSH PRN ×3 (02:15→16:15)
[2017-07-24] MEDS: SODIUM CHLOR 0.9% 1000 ML INJ 1,000 ML IV SCH ×3 (04:19→22:55)
[2017-07-24 05:37] LABS: AUTOMATED NEUTROPHIL # 7.7 TH/MM3 (1.8-7.7); BASOPHIL # 0.1 TH/MM3 (0-0.2); BASOPHIL % 0.5 % (0.0-2.0); EOSINOPHIL % 0.2 % (0.0-4.0); HEMATOCRIT 23.8 % (39.0-51.0); HEMOGLOBIN 7.9 GM/DL (13.0-17.0); LYMPH % 18.6 % (9.0-44.0); MEAN CELL VOLUME 91.9 FL (80.0-100.0); MEAN CORPUSCULAR HEMOGLOBIN 30.6 PG (27.0-34.0); MEAN CORPUSCULAR HGB CONC 33.3 % (32.0-36.0); MEAN PLATELET VOLUME 7.7 FL (7.0-11.0); MONO % 8.2 % (0.0-8.0); MONOCYTE # 0.9 TH/MM3 (0-0.9); NEUT % 72.5 % (16.0-70.0); PLATELET COUNT 331 TH/MM3 (150-450); RED BLOOD COUNT 2.59 MIL/MM3 (4.50-5.90); WHITE BLOOD COUNT 10.6 TH/MM3 (4.0-11.0)
[2017-07-24 05:55] LABS: CALCIUM 10.1 MG/DL (8.5-10.1); CREATININE 1.07 MG/DL (0.60-1.30); MAGNESIUM 1.8 MG/DL (1.5-2.5)
[2017-07-24] MEDS ORDERED: SODIUM CHLOR 0.9% 250 ML INJ 250 ML IV ONE (07:45)
[2017-07-24] MEDS: SUCRALFATE 1 GM TAB PO SCH ×2 (07:45→16:00)
[2017-07-24] MEDS: CEFUROXIME AXETIL 250 MG TAB PO SCH ×2 (08:17→20:35)
[2017-07-24] MEDS: CARVEDILOL 3.125 MG TAB PO SCH (08:17)
[2017-07-24] MEDS: PANTOPRAZOLE SODIUM 40 MG VIAL IV PUSH SCH ×2 (08:18→20:35)
[2017-07-24] MEDS: SODIUM CHLORIDE 0.9% FLUSH 10 ML FLUSH IV FLUSH SCH ×2 (09:00→20:37)
--- NOTE | 2017-07-24 10:30 | HHI.PR ---
Subjective Remarks F/u GIB. No further bleeding states hes ok. Admits being depressed but wants to get better dw RN and daughter, depressed for some time. He is a full code at this time Objective Vitals Vital Signs Date Time Temp Pulse Resp B/P (MAP) Pulse Ox O2 Delivery O2 Flow Rate FiO2 07/24/17 09:37 97.4 74 12 148/70 95 07/24/17 09:15 98.4 62 18 154/71 100 07/24/17 08:00 98.7 68 12 181/85 (117) 100 07/24/17 04:00 98.7 78 16 188/80 (116) 100 07/24/17 00:00 98.8 70 17 175/89 (117) 99 07/23/17 20:00 98.6 80 17 178/80 (112) 98 07/23/17 16:00 98.0 82 19 148/80 (102) 100 07/23/17 14:00 98.6 88 19 179/83 (115) 100 07/23/17 13:30 98.0 97 16 148/76 (100) 96 Nasal Cannula 2 07/23/17 13:15 96 16 146/74 (98) 96 Nasal Cannula 2 07/23/17 13:00 109 16 148/78 (101) 97 Nasal Cannula 2 07/23/17 12:51 98.0 109 16 134/65 (88) 100 Nasal Cannula 2 07/23/17 11:35 83 10 170/82 (111) 100 I/O 07/23/17 07/23/17 07/23/17 07/24/17 07/24/17 07/24/17 07:00 15:00 23:00 07:00 15:00 23:00 Intake Total 1000 ml 1650 ml 1000 ml 156 ml Output Total 100 ml 1250 ml Balance 900 ml 1650 ml -1250 ml 1000 ml 156 ml IV Total 250 ml 1100 ml 1000 ml 126 ml Packed Cells 250 ml Blood Product IV Normal Saline Flush 500 ml 30 ml Other 550 ml Output Urine Total 100 ml 1250 ml # Voids 3 3 # Bowel Movements 2 1 1 Result Diagram: 07/24/17 0446 07/24/17 0446 Imaging Last Impressions Head CT 07/20/17 0000 Signed Impressions: Service Date/Time: Thursday, July 20, 2017 19:56 - CONCLUSION: No acute abnormality demonstrated. Atrophy and chronic white matter changes are again seen. Evolving right pericallosal subacute infarct. No evidence of a large ischemic event. Haris Pretty MD Gall Bladder Ultrasound 07/20/17 0000 Signed Impressions: Service Date/Time: Thursday, July 20, 2017 20:36 - CONCLUSION: Fatty liver and a tiny nonobstructing right renal stone. Otherwise negative. Haris Pretty MD Chest X-Ray 07/20/17 0000 Signed Impressions: Service Date/Time: Thursday, July 20, 2017 20:02 - CONCLUSION: Mild left base atelectasis. Haris Pretty MD Objective Remarks GENERAL: male lying in bed SKIN: No rashes, ecchymoses or lesions. Cool and dry. Pupils reactive to light right slightly larger than left 2 mm versus 1 mm which according to patient is chronic CARDIOVASCULAR: Regular rate and rhythm without murmurs, gallops, or rubs. RESPIRATORY: Clear to auscultation. Breath sounds equal bilaterally. No wheezes , rales, or rhonchi. GASTROINTESTINAL: Abdomen soft, non-tender, nondistended. No guarding. MUSCULOSKELETAL: Extremities without clubbing, cyanosis, or edema. No joint tenderness, effusion, or edema noted. No calf tenderness. Negative Homans sign bilaterally. NEUROLOGICAL: Awake and alert. Left facial droop. Dysarthric. Generalized weakness weak on the left side Procedures none A/P Problem List: (1) Sepsis ICD Code: A41.9 - Sepsis, unspecified organism Status: Acute (2) UTI (urinary tract infection) ICD Code: N39.0 - Urinary tract infection, site not specified Status: Acute Assessment and Plan 1. Sepsis secondary to UTI Cx E coli. Improved blood cultures negative to date dc ceftin in am 2. Encephalopathy secondary to sepsis. Improved 2. Elevated bilirubin. Gallbladder ultrasound significant for fatty liver. Continue to monitor 3. History of recent CVA. Stable continue statin. Restart Plavix when cleared by GI 4. Hypertension/bipolar/GERD. Continue home medications with hold parameters 5. Diabetes mellitus. Stable 6. JADEN. CK within normal limits. Improved on IV fluids 7. UGI bleed. History of gastric ulcer in June 2017. 07/24/17 s/p EGD found ulcer with visible vessel, s/p epi inj, cautery, clips x 3. Ct clear liquids, PPI, carafate, EGD 2 months. If bleeds again, IR consult for embolization 8. Anemia secondary to acute blood loss status post blood transfusion. Keep hemoglobin at least 8 Hb 7.9 will transfuse one unit PRBC today FEN Heart healthy liquid diet Electrolytes: Monitor during sleep when necessary Heparin has been discontinued Discharge Planning 1500 BP uncontrolled SBP > 170 despite Norvasc and prn IV Vasotec and Hydralazine. Increase Norvasc 5 mg BID , hydralazine to 20 mg IV prn and cardene drip if all else fails. Hold transfer out of ICU Problem Qualifiers (1) Sepsis: Qualified Codes: A41.9 - Sepsis, unspecified organism (2) UTI (urinary tract infection): Qualified Codes: N30.00 - Acute cystitis without hematuria Herb Galvan MD Jul 24, 2017 10:30
[2017-07-24] MEDS ORDERED: hydrALAZINE HCL 20 MG/ML VIAL IV PUSH PRN ×2 (11:15→17:15)
[2017-07-24] MEDS ORDERED: amLODIPine BESYLATE 5 MG TAB PO SCH (12:00)
--- NOTE | 2017-07-24 13:36 | HHI.GIFU ---
Subjective Remarks Pt resting in bed in NAD. No obvious bleeding. Denies pain. (Umm Weber) Objective Vitals I&O Vital Signs Date Time Temp Pulse Resp B/P (MAP) Pulse Ox O2 Delivery O2 Flow Rate FiO2 07/24/17 09:37 97.4 74 12 148/70 95 07/24/17 09:15 98.4 62 18 154/71 100 07/24/17 08:00 98.7 68 12 181/85 (117) 100 07/24/17 04:00 98.7 78 16 188/80 (116) 100 07/24/17 00:00 98.8 70 17 175/89 (117) 99 07/23/17 20:00 98.6 80 17 178/80 (112) 98 07/23/17 16:00 98.0 82 19 148/80 (102) 100 07/23/17 14:00 98.6 88 19 179/83 (115) 100 I/O 07/23/17 07/23/17 07/23/17 07/24/17 07/24/17 07/24/17 07:00 15:00 23:00 07:00 15:00 23:00 Intake Total 1000 ml 1650 ml 1000 ml 156 ml Output Total 100 ml 1250 ml Balance 900 ml 1650 ml -1250 ml 1000 ml 156 ml IV Total 250 ml 1100 ml 1000 ml 126 ml Packed Cells 250 ml Blood Product IV Normal Saline Flush 500 ml 30 ml Other 550 ml Output Urine Total 100 ml 1250 ml # Voids 3 3 # Bowel Movements 2 1 1 Laboratory Laboratory Tests Test 07/23/17 16:09 07/24/17 04:46 Hemoglobin 8.4 7.9 Hematocrit 25.3 23.8 White Blood Count 10.6 Red Blood Count 2.59 Mean Corpuscular Volume 91.9 Mean Corpuscular Hemoglobin 30.6 Mean Corpuscular Hemoglobin Concent 33.3 Red Cell Distribution Width 16.0 Platelet Count 331 Mean Platelet Volume 7.7 Neutrophils (%) (Auto) 72.5 Lymphocytes (%) (Auto) 18.6 Monocytes (%) (Auto) 8.2 Eosinophils (%) (Auto) 0.2 Basophils (%) (Auto) 0.5 Neutrophils # (Auto) 7.7 Lymphocytes # (Auto) 2.0 Monocytes # (Auto) 0.9 Eosinophils # (Auto) 0.0 Basophils # (Auto) 0.1 CBC Comment DIFF FINAL Differential Comment Blood Urea Nitrogen 16 Creatinine 1.07 Random Glucose 126 Calcium Level 10.1 Magnesium Level 1.8 Sodium Level 148 Potassium Level 4.4 Chloride Level 116 Carbon Dioxide Level 24.0 Anion Gap 8 Estimat Glomerular Filtration Rate 68 Date/Time Source Procedure Growth Status 07/20/17 19:35 Blood Peripheral Aerobic Blood Culture - Preliminary NO GROWTH IN 4 DAYS Resulted 07/20/17 19:35 Blood Peripheral Anaerobic Blood Culture - Preliminary NO GROWTH IN 4 DAYS Resulted 07/20/17 19:15 Urine Catheterized Urine Urine Culture - Final Escherichia Coli Complete Imaging Last Impressions Head CT 07/20/17 0000 Signed Impressions: Service Date/Time: Thursday, July 20, 2017 19:56 - CONCLUSION: No acute abnormality demonstrated. Atrophy and chronic white matter changes are again seen. Evolving right pericallosal subacute infarct. No evidence of a large ischemic event. Haris Pretty MD Gall Bladder Ultrasound 07/20/17 0000 Signed Impressions: Service Date/Time: Thursday, July 20, 2017 20:36 - CONCLUSION: Fatty liver and a tiny nonobstructing right renal stone. Otherwise negative. Haris Pretty MD Chest X-Ray 07/20/17 0000 Signed Impressions: Service Date/Time: Thursday, July 20, 2017 20:02 - CONCLUSION: Mild left base atelectasis. Haris Pretty MD Physical Exam HEENT: PERRL; normocephalic; atraumatic; no jaundice. CHEST: diminished CARDIAC: RRR ABDOMEN: Soft, mildly distended, nontender; bowel sounds are present in all four quadrants. EXTREMITIES: No clubbing, cyanosis, or edema. SKIN: Normal; no rash; no jaundice. 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 has prior hx gastric ulcer seen on EGD 07/02/17. was on plavix, this is held. denies abd pain. 07/24/17 s/p EGD found ulcer with visible vessel, s/p epi inj, cautery, clips x 3. mild decrease HH. PLAN - clear liquids - PPI - carafate - EGD 2 months - if bleeds again, IR consult for embolization - monitor labs - supportive care seen by myself and dr Flores and this note is on her behalf (Umm Weber) Physician Comments ok to restart anticoagulation from gi point gi will sign off call us as needed (Shahrzad Flores MD) Umm Weber Jul 24, 2017 13:36 Shahrzad Flores MD Jul 24, 2017 16:19
[2017-07-24] MEDS ORDERED: niCARdipine INJ 25 MG in SODIUM CHLOR 0.9% 250 ML INJ 240 ML IV PRN (15:00)
[2017-07-24] MEDS ORDERED: FUROSEMIDE 40 MG/4 ML VIAL IV PUSH ONE (15:30)
[2017-07-24] MEDS: ATORVASTATIN 40 MG TAB PO SCH (20:36)
[2017-07-24] MEDS: amLODIPine BESYLATE 5 MG TAB PO SCH (20:36)
[2017-07-24] MEDS: FLUoxetine HCL 20 MG CAP PO SCH (20:36)
[2017-07-24] MEDS: TAMSULOSIN HCL 0.4 MG CAP PO SCH (20:36)
[2017-07-24] MEDS: LITHIUM CARBONATE 300 MG CAP PO SCH (20:37)
[2017-07-24] MEDS: ONDANSETRON HCL 4 MG/2 ML VIAL IVP PRN (23:00)
[2017-07-25] VITALS: BP 95/52; PULSE 104; RESP 21; TEMP 98.1; O2SAT 98
[2017-07-25 04:00] VITALS: BP 122/64; PULSE 78; RESP 18; TEMP 98.4; O2SAT 99
[2017-07-25 06:03] LABS: AUTOMATED NEUTROPHIL # 8.9 TH/MM3 (1.8-7.7); BASOPHIL # 0.1 TH/MM3 (0-0.2); BASOPHIL % 0.4 % (0.0-2.0); EOSINOPHIL # 0.1 TH/MM3 (0-0.4); EOSINOPHIL % 0.9 % (0.0-4.0); HEMATOCRIT 29.2 % (39.0-51.0); LYMPH % 22.3 % (9.0-44.0); MEAN CELL VOLUME 90.3 FL (80.0-100.0); MEAN CORPUSCULAR HGB CONC 34.3 % (32.0-36.0); MEAN PLATELET VOLUME 7.5 FL (7.0-11.0); MONO % 10.3 % (0.0-8.0); MONOCYTE # 1.4 TH/MM3 (0-0.9); NEUT % 66.1 % (16.0-70.0); PLATELET COUNT 339 TH/MM3 (150-450); RED BLOOD COUNT 3.23 MIL/MM3 (4.50-5.90); RED CELL DISTRIBUTION WIDTH 15.5 % (11.6-17.2); WHITE BLOOD COUNT 13.5 TH/MM3 (4.0-11.0)
[2017-07-25] MEDS: SUCRALFATE 1 GM TAB PO SCH ×2 (06:31→16:00)
[2017-07-25 06:39] LABS: BICARBONATE 26.9 MEQ/L (21.0-32.0); CALCIUM 9.9 MG/DL (8.5-10.1); CREATININE 1.23 MG/DL (0.60-1.30); MAGNESIUM 1.8 MG/DL (1.5-2.5)
[2017-07-25 08:00] VITALS: BP 158/74; PULSE 82; RESP 19; TEMP 98; O2SAT 99
[2017-07-25] MEDS: PANTOPRAZOLE SODIUM 40 MG VIAL IV PUSH SCH (09:54)
[2017-07-25] MEDS: SODIUM CHLORIDE 0.9% FLUSH 10 ML FLUSH IV FLUSH SCH ×2 (09:54→20:24)
[2017-07-25] MEDS: CLOPIDOGREL 75 MG TAB PO SCH (09:55)
[2017-07-25] MEDS: HEPARIN SODIUM - SQ 10,000 UNITS/ML VIAL SQ SCH ×2 (09:55→20:22)
[2017-07-25] MEDS: CEFUROXIME AXETIL 250 MG TAB PO SCH (09:55)
[2017-07-25] MEDS: amLODIPine BESYLATE 5 MG TAB PO SCH ×2 (09:55→20:23)
[2017-07-25] MEDS: CARVEDILOL 3.125 MG TAB PO SCH (09:56)
[2017-07-25 12:00] VITALS: BP 157/72; PULSE 65; RESP 19; TEMP 98.3; O2SAT 100
--- NOTE | 2017-07-25 14:52 | HHI.GIFU ---
Subjective Remarks Resting in the bed, random conversation Currently denies any abdominal pain Afebrile Hemoglobin 10. Objective Vitals I&O Vital Signs Date Time Temp Pulse Resp B/P (MAP) Pulse Ox O2 Delivery O2 Flow Rate FiO2 07/25/17 12:00 98.3 65 19 157/72 (100) 100 07/25/17 08:00 98.0 82 19 158/74 (102) 99 07/25/17 04:00 98.4 78 18 122/64 (83) 99 07/25/17 00:00 98.1 104 21 95/52 (66) 98 07/24/17 20:00 97.9 90 13 133/71 (91) 97 07/24/17 16:28 103 197/88 07/24/17 16:00 99.0 74 21 189/93 (125) 99 I/O 07/24/17 07/24/17 07/24/17 07/25/17 07/25/17 07/25/17 07:00 15:00 23:00 07:00 15:00 23:00 Intake Total 1000 ml 156 ml 2600 ml 480 ml Output Total 1500 ml 1750 ml Balance 1000 ml 156 ml 1100 ml -1270 ml Intake Oral 240 ml 480 ml IV Total 1000 ml 126 ml 2360 ml Blood Product IV Normal Saline Flush 30 ml Output Urine Total 1500 ml 1750 ml # Voids 3 5 # Bowel Movements 1 0 0 Laboratory Laboratory Tests Test 07/25/17 04:48 White Blood Count 13.5 Red Blood Count 3.23 Hemoglobin 10.0 Hematocrit 29.2 Mean Corpuscular Volume 90.3 Mean Corpuscular Hemoglobin 31.0 Mean Corpuscular Hemoglobin Concent 34.3 Red Cell Distribution Width 15.5 Platelet Count 339 Mean Platelet Volume 7.5 Neutrophils (%) (Auto) 66.1 Lymphocytes (%) (Auto) 22.3 Monocytes (%) (Auto) 10.3 Eosinophils (%) (Auto) 0.9 Basophils (%) (Auto) 0.4 Neutrophils # (Auto) 8.9 Lymphocytes # (Auto) 3.0 Monocytes # (Auto) 1.4 Eosinophils # (Auto) 0.1 Basophils # (Auto) 0.1 CBC Comment DIFF FINAL Differential Comment Blood Urea Nitrogen 17 Creatinine 1.23 Random Glucose 114 Calcium Level 9.9 Magnesium Level 1.8 Sodium Level 146 Potassium Level 3.6 Chloride Level 111 Carbon Dioxide Level 26.9 Anion Gap 8 Estimat Glomerular Filtration Rate 58 Date/Time Source Procedure Growth Status 07/20/17 19:35 Blood Peripheral Aerobic Blood Culture - Final NO GROWTH IN 5 DAYS Complete 07/20/17 19:35 Blood Peripheral Anaerobic Blood Culture - Final NO GROWTH IN 5 DAYS Complete 07/20/17 19:15 Urine Catheterized Urine Urine Culture - Final Escherichia Coli Complete Imaging Last Impressions Head CT 07/20/17 0000 Signed Impressions: Service Date/Time: Thursday, July 20, 2017 19:56 - CONCLUSION: No acute abnormality demonstrated. Atrophy and chronic white matter changes are again seen. Evolving right pericallosal subacute infarct. No evidence of a large ischemic event. Haris Pretty MD Gall Bladder Ultrasound 07/20/17 0000 Signed Impressions: Service Date/Time: Thursday, July 20, 2017 20:36 - CONCLUSION: Fatty liver and a tiny nonobstructing right renal stone. Otherwise negative. Haris Pretty MD Chest X-Ray 07/20/17 0000 Signed Impressions: Service Date/Time: Thursday, July 20, 2017 20:02 - CONCLUSION: Mild left base atelectasis. Haris Pretty MD Physical Exam HEENT: PERRL; normocephalic; atraumatic; no jaundice. CHEST: No audible rhonchi or wheezing, no shortness of breath CARDIAC: RRR ABDOMEN: Large, soft, positive bowel sounds noted mildly distended, nontender EXTREMITIES: No clubbing, cyanosis, or edema. SKIN: Pale, Normal; no rash; no jaundice. 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 has prior hx gastric ulcer seen on EGD 07/02/17. was on plavix, this is held. denies abd pain. 07/24/17 s/p EGD found ulcer with visible vessel, s/p epi inj, cautery, clips x 3. mild decrease HH. 07/25/17 fatty liver noted on 07/20/17 gallbladder ultrasound, nonobstructing stone. Patient randomly talking, altered mental status. Currently denies any abdominal pain. Tolerating pured and thin liquids. PLAN - Diet change , Pured and thin liquids recommended per speech therapy. - PPI - carafate - EGD 2 months - if bleeds again, IR consult for embolization - monitor labs - supportive care - G I will sign off for now please call if any further needs seen by myself and dr Flores and this note is on her behalf Deisi Escalona Jul 25, 2017 14:52
[2017-07-25] MEDS: SODIUM CHLOR 0.9% 1000 ML INJ 1,000 ML IV SCH (15:35)
[2017-07-25 16:00] VITALS: BP 189/86; PULSE 78; RESP 18; TEMP 97.9; O2SAT 99
--- NOTE | 2017-07-25 17:02 | HHI.PR ---
Subjective Remarks Follow-up GI bleed and hypertension. No further GI bleed. BP much improved. Cardene drip off all day today. Discussed with nursing. Objective Vitals Vital Signs Date Time Temp Pulse Resp B/P (MAP) Pulse Ox O2 Delivery O2 Flow Rate FiO2 07/25/17 12:00 98.3 65 19 157/72 (100) 100 07/25/17 08:00 98.0 82 19 158/74 (102) 99 07/25/17 04:00 98.4 78 18 122/64 (83) 99 07/25/17 00:00 98.1 104 21 95/52 (66) 98 07/24/17 20:00 97.9 90 13 133/71 (91) 97 I/O 07/24/17 07/24/17 07/24/17 07/25/17 07/25/17 07/25/17 07:00 15:00 23:00 07:00 15:00 23:00 Intake Total 1000 ml 156 ml 2600 ml 480 ml Output Total 1500 ml 1750 ml Balance 1000 ml 156 ml 1100 ml -1270 ml Intake Oral 240 ml 480 ml IV Total 1000 ml 126 ml 2360 ml Blood Product IV Normal Saline Flush 30 ml Output Urine Total 1500 ml 1750 ml # Voids 3 5 # Bowel Movements 1 0 0 Result Diagram: 07/25/178 07/25/178 Imaging Last Impressions Head CT 07/20/17 0000 Signed Impressions: Service Date/Time: Thursday, July 20, 2017 19:56 - CONCLUSION: No acute abnormality demonstrated. Atrophy and chronic white matter changes are again seen. Evolving right pericallosal subacute infarct. No evidence of a large ischemic event. Haris Pretty MD Gall Bladder Ultrasound 07/20/17 0000 Signed Impressions: Service Date/Time: Thursday, July 20, 2017 20:36 - CONCLUSION: Fatty liver and a tiny nonobstructing right renal stone. Otherwise negative. Haris Pretty MD Chest X-Ray 07/20/17 0000 Signed Impressions: Service Date/Time: Thursday, July 20, 2017 20:02 - CONCLUSION: Mild left base atelectasis. Haris Pretty MD Objective Remarks GENERAL: male lying in bed SKIN: No rashes, ecchymoses or lesions. Cool and dry. Pupils reactive to light right slightly larger than left 2 mm versus 1 mm which according to patient is chronic CARDIOVASCULAR: Regular rate and rhythm without murmurs, gallops, or rubs. RESPIRATORY: Clear to auscultation. Breath sounds equal bilaterally. No wheezes , rales, or rhonchi. GASTROINTESTINAL: Abdomen soft, non-tender, nondistended. No guarding. MUSCULOSKELETAL: Extremities without clubbing, cyanosis, or edema. No joint tenderness, effusion, or edema noted. No calf tenderness. Negative Homans sign bilaterally. NEUROLOGICAL: Awake and alert. Left facial droop. Dysarthric. Generalized weakness weak on the left side Procedures none A/P Problem List: (1) Sepsis ICD Code: A41.9 - Sepsis, unspecified organism Status: Acute (2) UTI (urinary tract infection) ICD Code: N39.0 - Urinary tract infection, site not specified Status: Acute Assessment and Plan 1. Sepsis secondary to UTI Cx E coli. Blood cultures negative to date status post Ceftin however leukocytosis noted today. No fever and patient has no new complaints. Will repeat CBC in the morning 2. Encephalopathy secondary to sepsis. Improved 2. Elevated bilirubin. Gallbladder ultrasound significant for fatty liver. Continue to monitor 3. History of recent CVA. Stable continue statin. Restart Plavix cleared by GI 4. Hypertension/bipolar/GERD. BP much improved status post Cardene drip and IV Lasix. Norvasc has been increased to 5 minutes twice a day continue Coreg and Flomax and IV as needed Vasotec and hydralazine continue to monitor. 5. Diabetes mellitus. Fingersticks stable 6. JADEN. CK within normal limits. Improved on IV fluids 7. UGI bleed. History of gastric ulcer in June 2017. 07/24/17 s/p EGD found ulcer with visible vessel, s/p epi inj, cautery, clips x 3. Diet advanced to heart healthy. Ct PPI, carafate, EGD 2 months. If bleeds again, IR consult for embolization. Upper GI okay to restart antiplatelets/ anticoagulation 8. Anemia secondary to acute blood loss status post blood transfusion. Improved after 1 unit packed RBC transfusion keep hemoglobin at least 8 FEN Heart healthy Electrolytes: Monitor during sleep when necessary Heparin has been restarted Discharge Planning We will transfer patient to the floor and discharge to rehab tomorrow Problem Qualifiers (1) Sepsis: Qualified Codes: A41.9 - Sepsis, unspecified organism (2) UTI (urinary tract infection): Qualified Codes: N30.00 - Acute cystitis without hematuria Herb Galvan MD Jul 25, 2017 17:02
[2017-07-25] MEDS ORDERED: PROT40TA PO (17:34)
[2017-07-25] MEDS ORDERED: AMLO5 PO (17:34)
[2017-07-25] MEDS ORDERED: CARA1TAB6 PO (17:34)
[2017-07-25 20:00] VITALS: BP 165/82; PULSE 98; RESP 20; TEMP 98.2; O2SAT 100
[2017-07-25] MEDS: ONDANSETRON HCL 4 MG/2 ML VIAL IVP PRN (20:22)
[2017-07-25] MEDS: ATORVASTATIN 40 MG TAB PO SCH (20:23)
[2017-07-25] MEDS: FLUoxetine HCL 20 MG CAP PO SCH (20:23)
[2017-07-25] MEDS: TAMSULOSIN HCL 0.4 MG CAP PO SCH (20:23)
[2017-07-25] MEDS: PANTOPRAZOLE SOD 40 MG DELAYED RELEASE TAB PO SCH (20:23)
[2017-07-25] MEDS: LITHIUM CARBONATE 300 MG CAP PO SCH (20:23)
--- NOTE | 2017-07-25 20:38 | EKG ---
Date Performed: 07/24/2017 Time Performed: 19:26:08 PTAGE: 71 years EKG: Sinus tachycardia. Left bundle branch block Possible lateral infarct - age undetermined Abn ormal ECG PREVIOUS TRACING : 07/22/2017 21.38 Since the previous tracing, no significant change noted DOCTOR: Enzo Arevalo Interpretating Date/Time 07/25/2017 20:37:25
[2017-07-26] VITALS: BP 131/63; PULSE 92; RESP 19; TEMP 98.3; O2SAT 96
[2017-07-26 04:00] VITALS: BP 122/62; PULSE 95; RESP 18; TEMP 98.2; O2SAT 96
[2017-07-26] MEDS: SUCRALFATE 1 GM TAB PO SCH ×2 (05:59→18:22)
[2017-07-26 06:32] LABS: BASOPHIL # 0.1 TH/MM3 (0-0.2); BASOPHIL % 0.6 % (0.0-2.0); EOSINOPHIL # 0.4 TH/MM3 (0-0.4); EOSINOPHIL % 3.2 % (0.0-4.0); HEMATOCRIT 27.2 % (39.0-51.0); HEMOGLOBIN 9.4 GM/DL (13.0-17.0); LYMPH % 13.2 % (9.0-44.0); LYMPHOCYTE # 1.6 TH/MM3 (1.0-4.8); MEAN CORPUSCULAR HGB CONC 34.5 % (32.0-36.0); MEAN PLATELET VOLUME 7.5 FL (7.0-11.0); MONO % 8.5 % (0.0-8.0); NEUT % 74.5 % (16.0-70.0); PLATELET COUNT 382 TH/MM3 (150-450); RED BLOOD COUNT 3.02 MIL/MM3 (4.50-5.90); RED CELL DISTRIBUTION WIDTH 15.3 % (11.6-17.2); WHITE BLOOD COUNT 12.1 TH/MM3 (4.0-11.0)
[2017-07-26 06:46] LABS: CALCIUM 9.8 MG/DL (8.5-10.1); CREATININE 1.3 MG/DL (0.60-1.30); MAGNESIUM 1.7 MG/DL (1.5-2.5)
[2017-07-26 08:00] VITALS: BP 112/61; PULSE 92; RESP 20; TEMP 99.6; O2SAT 95
[2017-07-26] MEDS: amLODIPine BESYLATE 5 MG TAB PO SCH ×2 (10:20→20:11)
[2017-07-26] MEDS: PANTOPRAZOLE SOD 40 MG DELAYED RELEASE TAB PO SCH ×2 (10:21→20:11)
[2017-07-26] MEDS: HEPARIN SODIUM - SQ 10,000 UNITS/ML VIAL SQ SCH ×2 (10:21→20:12)
[2017-07-26] MEDS: CLOPIDOGREL 75 MG TAB PO SCH (10:21)
[2017-07-26] MEDS: SODIUM CHLORIDE 0.9% FLUSH 10 ML FLUSH IV FLUSH SCH ×2 (10:21→20:12)
[2017-07-26] MEDS: CARVEDILOL 3.125 MG TAB PO SCH (10:21)
--- NOTE | 2017-07-26 11:18 | HHI.PR ---
Subjective Remarks Follow-up hypertension. BP much improved. He does not have any complaints except he is not happy because his missed breakfast. Patient already discharge pending SNF authorization. Discussed with nursing Objective Vitals Vital Signs Date Time Temp Pulse Resp B/P (MAP) Pulse Ox O2 Delivery O2 Flow Rate FiO2 07/26/17 08:00 99.6 92 20 112/61 (78) 95 07/26/17 04:00 98.2 95 18 122/62 (82) 96 07/26/17 00:00 98.3 92 19 131/63 (85) 96 07/25/17 20:00 98.2 98 20 165/82 (109) 100 07/25/17 16:00 97.9 78 18 189/86 (120) 99 07/25/17 12:00 98.3 65 19 157/72 (100) 100 I/O 07/25/17 07/25/17 07/25/17 07/26/17 07/26/17 07/26/17 07:00 15:00 23:00 07:00 15:00 23:00 Intake Total 480 ml 360 ml 480 ml Output Total 1750 ml 1200 ml Balance -1270 ml 360 ml -720 ml Intake Oral 480 ml 360 ml 480 ml Output Urine Total 1750 ml 1200 ml # Voids 4 # Bowel Movements 0 0 Result Diagram: 07/26/17 0521 07/26/17 0521 Imaging Last Impressions Head CT 07/20/17 0000 Signed Impressions: Service Date/Time: Thursday, July 20, 2017 19:56 - CONCLUSION: No acute abnormality demonstrated. Atrophy and chronic white matter changes are again seen. Evolving right pericallosal subacute infarct. No evidence of a large ischemic event. Haris Pretty MD Gall Bladder Ultrasound 07/20/17 0000 Signed Impressions: Service Date/Time: Thursday, July 20, 2017 20:36 - CONCLUSION: Fatty liver and a tiny nonobstructing right renal stone. Otherwise negative. Haris Pretty MD Chest X-Ray 07/20/17 0000 Signed Impressions: Service Date/Time: Thursday, July 20, 2017 20:02 - CONCLUSION: Mild left base atelectasis. Haris Pretty MD Objective Remarks GENERAL: male lying in bed SKIN: No rashes, ecchymoses or lesions. Cool and dry. Pupils reactive to light right slightly larger than left 2 mm versus 1 mm which according to patient is chronic CARDIOVASCULAR: Regular rate and rhythm without murmurs, gallops, or rubs. RESPIRATORY: Clear to auscultation. Breath sounds equal bilaterally. No wheezes , rales, or rhonchi. GASTROINTESTINAL: Abdomen soft, non-tender, nondistended. No guarding. MUSCULOSKELETAL: Extremities without clubbing, cyanosis, or edema. No joint tenderness, effusion, or edema noted. No calf tenderness. Negative Homans sign bilaterally. NEUROLOGICAL: Awake and alert. Left facial droop. Dysarthric. Generalized weakness weak on the left side Procedures none A/P Problem List: (1) Sepsis ICD Code: A41.9 - Sepsis, unspecified organism Status: Acute (2) UTI (urinary tract infection) ICD Code: N39.0 - Urinary tract infection, site not specified Status: Acute Assessment and Plan 1. Sepsis secondary to UTI Cx E coli. Blood cultures negative to date status post Ceftin. Clinically stable. No fever and patient has no new complaints. Improved leukocytosis 2. Encephalopathy secondary to sepsis. Improved 2. Elevated bilirubin. Gallbladder ultrasound significant for fatty liver. Continue to monitor 3. History of recent CVA. Stable continue statin. Restart Plavix cleared by GI 4. Hypertension/bipolar/GERD. BP much improved status post Cardene drip and IV Lasix. Norvasc has been increased to 5 minutes twice a day continue Coreg and Flomax and IV as needed Vasotec and hydralazine continue to monitor. 5. Diabetes mellitus. Fingersticks stable 6. JADEN. CK within normal limits. Improved on IV fluids 7. UGI bleed. History of gastric ulcer in June 2017. 07/24/17 s/p EGD found ulcer with visible vessel, s/p epi inj, cautery, clips x 3. Diet advanced to heart healthy. Ct PPI, carafate, EGD 2 months. If bleeds again, IR consult for embolization. Upper GI okay to restart antiplatelets/ anticoagulation 8. Anemia secondary to acute blood loss status post blood transfusion. Improved after 1 unit packed RBC transfusion keep hemoglobin at least 8 FEN Heart healthy Electrolytes: Monitor during sleep when necessary Heparin has been restarted Discharge Planning Discharge to rehab when authorized. Problem Qualifiers (1) Sepsis: Qualified Codes: A41.9 - Sepsis, unspecified organism (2) UTI (urinary tract infection): Qualified Codes: N30.00 - Acute cystitis without hematuria Herb Galvan MD Jul 26, 2017 11:18
[2017-07-26 12:00] VITALS: BP 111/59; PULSE 71; RESP 20; TEMP 98.7; O2SAT 93
[2017-07-26] MEDS ORDERED: POTASSIUM CHLORIDE 10 MEQ CAP PO ONE (15:45)
--- NOTE | 2017-07-26 15:48 | MB ---
cc: Saeid López MD DATE: 07/26/2017 REQUESTING PHYSICIAN: Dr. Galvan. REASON FOR CONSULTATION: Pulmonary management. HISTORY OF PRESENT ILLNESS: Mr. Qeuzada is a pleasant 71-year-old male with a history of hypertension, bipolar disorder. He recently was admitted to the hospital with a GI bleed, also had a syncopal episode, which were attributed to heart block secondary to blood pressure medication. Then, a few weeks ago he was admitted with CVA and left-sided weakness. The patient was discharged to custodial. He was brought from the custodial with altered mental status. He was found to be in urosepsis, treated with antibiotic and feels significantly better. The patient's daughter is at the bedside who provided most of the information. The patient before this acute event a few weeks ago, he was on his own, living in his own apartment. LABORATORY DATA: WBC count 12.1, hemoglobin 9.4, hematocrit 27.2, MCV 90, platelet count 382. Sodium 145, potassium 3.4, chloride 111, CO2 28, BUN 15, creatinine 1.30. INR is 1.1. His chest x-ray shows basal atelectasis. Urine culture shows E coli. PAST MEDICAL HISTORY: Significant for history of hypertension, GI bleed, cerebrovascular accident with left-sided weakness, history of left hand surgery. MEDICATIONS: He is currently taking Protonix 40 mg a day, Plavix 75 mg a day, heparin 5000 q. 12 hour, amlodipine 5 mg twice a day, hydralazine 20 mg p.r.n., Carafate 1 gram twice a day, lithium carbonate 600 mg at nighttime, Prozac 40 mg a day, Lipitor 40 mg a day, Coreg 3.125 mg twice a day. ALLERGIES: LISTED TO CODEINE, INSULIN, PORK. SOCIAL HISTORY: He is a . He was living alone until his recent stroke. 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 No history of smoking or alcohol abuse. FAMILY HISTORY: He has 1 daughter who lives in [facility]. REVIEW OF SYSTEMS: The patient is now in the bed, able to talk, sometimes he has coughing spells when he eats. Prior to this episode, he did not have any seizure, stroke, DVT, pulmonary embolism, no malignancy. PHYSICAL EXAMINATION: GENERAL: Well-built, well-nourished, not in acute distress. VITAL SIGNS: Blood pressure 111/59, heart rate 71, respirations 20, temperature 98.7. HEENT: Pupils are equal and reactive to light. Oral mucosa and nasal mucosa normal. NECK: Supple. JVP not raised. CHEST: Equal bilateral air entry. No rhonchi. CARDIOVASCULAR: S1, S2 normal. ABDOMEN: Benign. EXTREMITIES: No edema. CENTRAL NERVOUS SYSTEM: He is alert, oriented x 3. He has left-sided weakness. IMPRESSION: 1. History of bronchial asthma. 2. Coughing spells, possible aspiration. 3. CVA with left-sided weakness. 4. Hypertension. 5. History of gastrointestinal bleed. 6. Bipolar disorder. PLAN: I discussed with the patient and his daughter, will give him aerosol treatment as needed. He is stable on room air. Speech therapy is evaluating the patient. Continue Plavix and heparin. Further treatment plan will depend on his course in the hospital. Thank you Dr. Galvan for this consult. MD MARIMAR Hitchcock/CHRIS , 03:00 PM , 03:46 PM
[2017-07-26 16:00] VITALS: BP 133/65; PULSE 90; RESP 20; TEMP 99.8; O2SAT 95
[2017-07-26] MEDS: ONDANSETRON HCL 4 MG/2 ML VIAL IVP PRN (18:27)
[2017-07-26 20:00] VITALS: BP 148/71; PULSE 98; RESP 18; TEMP 97.8; O2SAT 92
[2017-07-26] MEDS: FLUoxetine HCL 20 MG CAP PO SCH (20:10)
[2017-07-26] MEDS: ATORVASTATIN 40 MG TAB PO SCH (20:11)
[2017-07-26] MEDS: TAMSULOSIN HCL 0.4 MG CAP PO SCH (20:11)
[2017-07-26] MEDS: LITHIUM CARBONATE 300 MG CAP PO SCH (20:12)
[2017-07-27 00:22] VITALS: BP 157/74; PULSE 92; RESP 18; TEMP 96.8; O2SAT 97
[2017-07-27 04:00] VITALS: BP 164/85; PULSE 95; RESP 18; TEMP 98.6; O2SAT 94
[2017-07-27] MEDS: SUCRALFATE 1 GM TAB PO SCH ×2 (06:16→16:33)
[2017-07-27 06:19] LABS: AUTOMATED NEUTROPHIL # 7.4 TH/MM3 (1.8-7.7); BASOPHIL # 0.1 TH/MM3 (0-0.2); BASOPHIL % 0.4 % (0.0-2.0); EOSINOPHIL # 0.5 TH/MM3 (0-0.4); EOSINOPHIL % 4.6 % (0.0-4.0); HEMATOCRIT 25.3 % (39.0-51.0); HEMOGLOBIN 8.5 GM/DL (13.0-17.0); LYMPH % 19.6 % (9.0-44.0); LYMPHOCYTE # 2.2 TH/MM3 (1.0-4.8); MEAN CELL VOLUME 90.5 FL (80.0-100.0); MEAN CORPUSCULAR HEMOGLOBIN 30.5 PG (27.0-34.0); MEAN CORPUSCULAR HGB CONC 33.7 % (32.0-36.0); MEAN PLATELET VOLUME 7.6 FL (7.0-11.0); MONO % 9.3 % (0.0-8.0); NEUT % 66.1 % (16.0-70.0); PLATELET COUNT 353 TH/MM3 (150-450); RED CELL DISTRIBUTION WIDTH 15.3 % (11.6-17.2); WHITE BLOOD COUNT 11.2 TH/MM3 (4.0-11.0)
[2017-07-27 06:47] LABS: CALCIUM 9.6 MG/DL (8.5-10.1); CREATININE 1.39 MG/DL (0.60-1.30); MAGNESIUM 1.8 MG/DL (1.5-2.5)
[2017-07-27 08:00] VITALS: BP 166/76; PULSE 80; RESP 17; TEMP 98; O2SAT 93
[2017-07-27] MEDS: amLODIPine BESYLATE 5 MG TAB PO SCH ×2 (09:54→20:39)
[2017-07-27] MEDS: CLOPIDOGREL 75 MG TAB PO SCH (09:54)
[2017-07-27] MEDS: PANTOPRAZOLE SOD 40 MG DELAYED RELEASE TAB PO SCH ×2 (09:54→20:38)
[2017-07-27] MEDS: CARVEDILOL 3.125 MG TAB PO SCH (09:54)
[2017-07-27] MEDS: HEPARIN SODIUM - SQ 10,000 UNITS/ML VIAL SQ SCH ×2 (09:54→20:43)
[2017-07-27] MEDS: SODIUM CHLORIDE 0.9% FLUSH 10 ML FLUSH IV FLUSH SCH ×2 (09:55→20:43)
--- NOTE | 2017-07-27 10:20 | HHI.PR ---
Subjective Remarks f/u for sepsis and UTI Per patient nurse at baseline patient has expressive aphasia. patient has no complaints. He follows [facility]. no fevers overnight. Objective Vitals Vital Signs Date Time Temp Pulse Resp B/P (MAP) Pulse Ox O2 Delivery O2 Flow Rate FiO2 07/27/17 08:00 98.0 80 17 166/76 (106) 93 07/27/17 04:00 98.6 95 18 164/85 (111) 94 07/27/17 00:22 96.8 92 18 157/74 (101) 97 07/26/17 20:00 97.8 98 18 148/71 (96) 92 07/26/17 16:00 99.8 90 20 133/65 (87) 95 07/26/17 12:00 98.7 71 20 111/59 (76) 93 I/O 07/26/17 07/26/17 07/26/17 07/27/17 07/27/17 07/27/17 06:59 14:59 22:59 06:59 14:59 22:59 Intake Total 480 ml 1640 ml 760 ml Output Total 1200 ml 250 ml 1200 ml Balance -720 ml 1390 ml -440 ml Intake Oral 480 ml 1640 ml 760 ml Output Urine Total 1200 ml 250 ml 1200 ml # Bowel Movements 0 0 1 Result Diagram: 07/27/1734407/27/17344 Objective Remarks GENERAL: male lying in bed SKIN: No rashes, ecchymoses or lesions. Cool and dry. CARDIOVASCULAR: Regular rate and rhythm without murmurs, gallops, or rubs. RESPIRATORY: Clear to auscultation. Breath sounds equal bilaterally. No wheezes , rales, or rhonchi. GASTROINTESTINAL: Abdomen soft, non-tender, nondistended. No guarding. MUSCULOSKELETAL: Extremities without clubbing, cyanosis, or edema. No joint tenderness, effusion, or edema noted. No calf tenderness. Negative Homans sign bilaterally. NEUROLOGICAL: Awake and alert. Left facial droop. Dysarthric. Generalized weakness weak on the left side. This has been his baseline. Procedures none A/P Problem List: (1) Sepsis ICD Code: A41.9 - Sepsis, unspecified organism Status: Acute (2) UTI (urinary tract infection) ICD Code: N39.0 - Urinary tract infection, site not specified Status: Acute Assessment and Plan 71 y/o F with hx of CVA with expressive aphasia 1. Sepsis secondary to UTI Cx E coli. Blood cultures negative to date status post Ceftin. Clinically stable. No fever and patient has no new complaints. Improved leukocytosis 2. Encephalopathy secondary to sepsis. Improved at baseline with expressive aphasia. 2. Elevated bilirubin. Gallbladder ultrasound significant for fatty liver. Continue to monitor 3. History of recent CVA. Stable continue statin. Restart Plavix cleared by GI 4. Hypertension/bipolar/GERD. BP much improved status post Cardene drip and IV Lasix. on norvasc, Coreg and Flomax and IV as needed Vasotec and hydralazine continue to monitor. 5. Diabetes mellitus. Fingersticks stable 6. JADEN. CK within normal limits. Improved on IV fluids 7. UGI bleed. History of gastric ulcer in June 2017. 07/24/17 s/p EGD found ulcer with visible vessel, s/p epi inj, cautery, clips x 3. Diet advanced to heart healthy. Ct PPI, carafate, EGD 2 months. If bleeds again, IR consult for embolization. Upper GI okay to restart antiplatelets/ anticoagulation 8. Anemia secondary to acute blood loss status post blood transfusion. Improved after 1 unit packed RBC transfusion keep hemoglobin at least 8 FEN Heart healthy Electrolytes: Monitor during sleep when necessary Heparin has been restarted Discharge Planning patient was cleared for discharge yesterday. pending placement. Problem Qualifiers (1) Sepsis: Qualified Codes: A41.9 - Sepsis, unspecified organism (2) UTI (urinary tract infection): Qualified Codes: N30.00 - Acute cystitis without hematuria Jocelyn Nj MD Jul 27, 2017 10:20
[2017-07-27] MEDS: DOCUSATE SODIUM 50 MG/SENNA 8.6 MG TAB PO SCH ×2 (10:40→20:43)
[2017-07-27] MEDS ORDERED: SOD PHOSPHATE/SOD BIPHOSPHATE (ADULT) ENEMA 133ML RECTAL ONE (11:00)
[2017-07-27 12:00] VITALS: BP 183/86; PULSE 84; RESP 17; TEMP 98.7; O2SAT 96
[2017-07-27] MEDS: ENALAPRILAT 1.25 MG/ML VIAL IV PUSH PRN (12:08)
[2017-07-27 16:00] VITALS: BP 135/67; PULSE 76; RESP 18; TEMP 98.3; O2SAT 96
--- NOTE | 2017-07-27 18:28 | HHI.PR ---
Subjective Remarks 71 YO male with Br asthma, Bipolar disorder, CVA Breathing well on RA No SOB Feels tired Objective Vital Signs Vital Signs Date Time Temp Pulse Resp B/P (MAP) Pulse Ox O2 Delivery O2 Flow Rate FiO2 07/27/17 16:00 98.3 76 18 135/67 (89) 96 07/27/17 12:00 98.7 84 17 183/86 (118) 96 07/27/17 08:00 98.0 80 17 166/76 (106) 93 07/27/17 04:00 98.6 95 18 164/85 (111) 94 07/27/17 00:22 96.8 92 18 157/74 (101) 97 07/26/17 20:00 97.8 98 18 148/71 (96) 92 I/O 07/26/17 07/26/17 07/26/17 07/27/17 07/27/17 07/27/17 07:00 15:00 23:00 07:00 15:00 23:00 Intake Total 480 ml 1640 ml 760 ml Output Total 1200 ml 250 ml 1200 ml Balance -720 ml 1390 ml -440 ml Intake Oral 480 ml 1640 ml 760 ml Output Urine Total 1200 ml 250 ml 1200 ml # Bowel Movements 0 0 1 Result Diagram: 07/27/17 0345 07/27/17 034 Objective Remarks GENERAL: MBMN male,NAD SKIN: Warm and dry. HEAD: Normocephalic. EYES: No scleral icterus. No injection or drainage. NECK: Supple, trachea midline. No JVD or lymphadenopathy. CARDIOVASCULAR: Regular rate and rhythm without murmurs, gallops, or rubs. RESPIRATORY: Breath sounds equal bilaterally. No accessory muscle use. GASTROINTESTINAL: Abdomen soft, non-tender, nondistended. MUSCULOSKELETAL: No cyanosis, or edema. Left sided weakness BACK: Nontender without obvious deformity. No CVA tenderness. A/P Assessment and Plan IMPRESSION: 1. History of bronchial asthma. 2. Coughing spells, possible aspiration. 3. CVA with left-sided weakness. 4. Hypertension. 5. History of gastrointestinal bleed. 6. Bipolar disorder. PLAN: Aerosol nebs Cont Other meds Stable on RA Saeid López MD Jul 27, 2017 18:28
[2017-07-27 20:00] VITALS: BP 142/59; PULSE 79; RESP 20; TEMP 99; O2SAT 96
[2017-07-27] MEDS: FLUoxetine HCL 20 MG CAP PO SCH (20:39)
[2017-07-27] MEDS: ATORVASTATIN 40 MG TAB PO SCH (20:39)
[2017-07-27] MEDS: TAMSULOSIN HCL 0.4 MG CAP PO SCH (20:40)
[2017-07-27] MEDS: LITHIUM CARBONATE 300 MG CAP PO SCH (20:40)
[2017-07-28] VITALS: BP 135/65; PULSE 75; RESP 20; TEMP 98.1; O2SAT 96
[2017-07-28] MEDS: SUCRALFATE 1 GM TAB PO SCH ×2 (06:12→16:00)
[2017-07-28 08:00] VITALS: BP 157/72; PULSE 70; RESP 18; TEMP 98.4; O2SAT 97
[2017-07-28] MEDS: CARVEDILOL 3.125 MG TAB PO SCH (08:51)
[2017-07-28] MEDS: PANTOPRAZOLE SOD 40 MG DELAYED RELEASE TAB PO SCH ×2 (08:51→19:56)
[2017-07-28] MEDS: amLODIPine BESYLATE 5 MG TAB PO SCH ×2 (08:51→19:56)
[2017-07-28] MEDS: DOCUSATE SODIUM 50 MG/SENNA 8.6 MG TAB PO SCH ×2 (08:51→19:56)
[2017-07-28] MEDS: CLOPIDOGREL 75 MG TAB PO SCH (08:51)
[2017-07-28] MEDS: SODIUM CHLORIDE 0.9% FLUSH 10 ML FLUSH IV FLUSH SCH ×2 (08:52→19:57)
[2017-07-28] MEDS: HEPARIN SODIUM - SQ 10,000 UNITS/ML VIAL SQ SCH ×2 (08:52→19:57)
--- NOTE | 2017-07-28 09:54 | HHI.PR ---
Subjective Remarks Follow-up for sepsis Patient much more alert and talkative today. He was able to answer questions appropriately. He had a lot of questions for me because I was at the knees and he was in the [place]. He shared his story is with me. He denies any shortness of breathing or pain. He felt like his left-sided weakness is improving. He has no other complaints. Patient stated he had a bowel movement yesterday. Objective Vitals Vital Signs Date Time Temp Pulse Resp B/P (MAP) Pulse Ox O2 Delivery O2 Flow Rate FiO2 07/28/17 08:00 98.4 70 18 157/72 (100) 97 07/28/17 00:00 98.1 75 20 135/65 (88) 96 07/27/17 20:00 99.0 79 20 142/59 (86) 96 07/27/17 16:00 98.3 76 18 135/67 (89) 96 07/27/17 12:00 98.7 84 17 183/86 (118) 96 I/O 07/27/17 07/27/17 07/27/17 07/28/17 07/28/17 07/28/17 07:00 15:00 23:00 07:00 15:00 23:00 Intake Total 760 ml 1360 ml 780 ml Output Total 1200 ml 500 ml 1000 ml Balance -440 ml 860 ml -220 ml Intake Oral 760 ml 960 ml 780 ml Packed Cells 400 ml Output Urine Total 1200 ml 500 ml 1000 ml # Voids 3 # Bowel Movements 1 2 3 Result Diagram: 07/27/17 0345 07/27/17 0345 Objective Remarks GENERAL: male lying in bed SKIN: No rashes, ecchymoses or lesions. Cool and dry. CARDIOVASCULAR: Regular rate and rhythm without murmurs, gallops, or rubs. RESPIRATORY: Clear to auscultation. Breath sounds equal bilaterally. No wheezes , rales, or rhonchi. GASTROINTESTINAL: Abdomen soft, non-tender, nondistended. No guarding. MUSCULOSKELETAL: Extremities without clubbing, cyanosis, or edema. No joint tenderness, effusion, or edema noted. No calf tenderness. Negative Homans sign bilaterally. NEUROLOGICAL: Awake and alert. Left facial droop. Dysarthric. Generalized weakness weak on the left side. This has been his baseline. Procedures none Medications and IVs Current Medications Sodium Chloride 1,000 ml @ 999 mls/hr BOLUS ONCE IV Last administered on 07/20at 20:10; Start 07/20/17 at 20:00; Stop 07/20/17 at 21:00; Status DC Piperacillin Sod/ Tazobactam Sod 50 ml @ 100 mls/hr ONCE ONCE IV Last administered on 07/20/17at 20:10; Start 07/20/17 at 20:00; Stop 07/20/17 at 20:29 ; Status DC Vancomycin HCl 1250 mg/Sodium Chloride 262.5 ml @ 250 mls/hr ONCE ONCE IV Last administered on 07/20/17at 20:42; Start 07/20/17 at 20:00; Stop 07/20/17 at 21:02; Status DC Sodium Chloride 1,000 ml @ 100 mls/hr Q10H IV Last administered on 07/22/17at 06:39; Start 07/20/17 at 21:32; Stop 07/22/17 at 15:06; Status DC Sodium Chloride (NS Flush) 2 ml UNSCH PRN IV FLUSH FLUSH AFTER USING IV ACCESS ; Start 07/20/17 at 21:45 Sodium Chloride (NS Flush) 2 ml BID IV FLUSH Last administered on 07/28/17at 08: 52; Start 07/21/17 at 09:00 Ondansetron HCl (Zofran Inj) 4 mg Q6H PRN IVP NAUSEA OR VOMITING Last administered on 07/26/17at 18:27; Start 07/20/17 at 21:45 Heparin Sodium (Porcine) (Heparin Inj) 5,000 units Q8H SQ Last administered on 07/22/17at 14:15; Start 07/20/17 at 22:00; Stop 07/22/17 at 17:46; Status DC Naloxone HCl (Narcan Inj) 0.4 mg UNSCH PRN IV PUSH SEE LABEL COMMENTS; Start at 21:45 Pharmacy Profile Note 0 ml @ 0 mls/hr UNSCH OTHER ; Start 07/20/17 at 21:45; Stop 07/20/17 at 22:28; Status DC Piperacillin Sod/ Tazobactam Sod 50 ml @ 100 mls/hr Q6H IV Last administered on 07/22/17at 14:15; Start 07/21/17 at 03:00; Stop 07/22/17 at 15:06; Status DC Vancomycin HCl 1000 mg/Sodium Chloride 250 ml @ 250 mls/hr ONCE ONCE IV ; Start 07/20/17 at 22:00; Stop 07/20/17 at 22:28; Status DC Albuterol/ Ipratropium (Duoneb Neb) 1 ampule Q4HR NEB PRN NEB SOB/wheezing; Start 07/20/17 at 22:15 Atorvastatin Calcium (Lipitor) 40 mg HS PO Last administered on 07/27/17at 20:39 ; Start 07/21/17 at 21:00 Carvedilol (Coreg) 3.125 mg DAILY PO Last administered on 07/28/17at 08:51; Start 07/21/17 at 09:00 Clopidogrel Bisulfate (Plavix) 75 mg DAILY PO Last administered on 07/22/17at 07 :46; Start 07/21/17 at 09:00; Stop 07/22/17 at 17:46; Status DC Fluoxetine HCl (PROzac) 40 mg HS PO Last administered on 07/27/17at 20:39; Start 07/21/17 at 21:00 [place] Carbonate ([place] Carbonate) 600 mg HS PO Last administered on at 20:40; Start 07/21/17 at 21:00 Pantoprazole Sodium (Protonix) 40 mg DAILY PO Last administered on 07/22/17at 07 :46; Start 07/21/17 at 09:00; Stop 07/22/17 at 17:46; Status DC Tamsulosin HCl (Flomax) 0.4 mg HS PO Last administered on 07/27/17at 20:40; Start 07/21/17 at 21:00 Dextrose (D50w (Vial) Inj) 50 ml UNSCH PRN IV PUSH HYPOGLYCEMIA-SEE COMMENTS; Start 07/21/17 at 00:15 Glucagon (Glucagon Inj) 1 mg UNSCH PRN OTHER HYPOGLYCEMIA-SEE COMMENTS; Start 07/21/17 at 00:15 Insulin Aspart (NovoLOG SUPPLEMENTAL SCALE) 1 ACHS SLIDING SCALE SQ ; Start at 08:00; Stop 07/21/17 at 10:27; Status DC Cefuroxime Axetil (Ceftin) 250 mg Q12HR PO Last administered on 07/25/17at 09:55 ; Start 07/22/17 at 21:00; Stop 07/25/17 at 09:00; Status DC Enalaprilat (Vasotec Inj) 1.25 mg Q6H PRN IV PUSH SBP> OR = 180, DBP> OR = 100 Last administered on 07/27/17at 12:08; Start 07/22/17 at 17:00 Pantoprazole Sodium 80 mg/ Sodium Chloride 100 ml @ 10 mls/hr Q10H IV Last administered on 07/24/17at 01:10; Start 07/22/17 at 18:38; Stop 07/24/17 at 07:36 ; Status DC Sodium Chloride 1,000 ml @ 60 mls/hr [id number] IV Last administered on at 15:35; Start 07/22/17 at 17:45; Stop 07/25/17 at 17:35; Status DC Sodium Chloride 500 ml @ 2,000 mls/hr Q15M ONCE IV Last administered on at 19:30; Start 07/22/17 at 19:30; Stop 07/22/17 at 19:44; Status DC Sodium Chloride 500 ml @ 500 mls/hr BOLUS ONCE IV Last administered on at 22:28; Start 07/22/17 at 20:00; Stop 07/22/17 at 20:59; Status DC Sodium Chloride 250 ml @ 15 mls/hr ONCE ONCE IV Last administered on at 23:02; Start 07/22/17 at 22:15; Stop 07/23/17 at 14:54; Status DC Sodium Chloride 1,000 ml @ 999 mls/hr BOLUS ONCE IV Last administered on 07/22at 22:27; Start 07/22/17 at 22:15; Stop 07/22/17 at 23:15; Status DC Epinephrine HCl (EPINEPHrine (1:10,000) INJ) 0.04 mg ONCE ONCE SQ Last administered on 07/23/17at 12:40; Start 07/23/17 at 12:30; Stop 07/23/17 at 12:40 ; Status DC Miscellaneous Information ALL NURSING DEPARTME... UNSCH PRN .XX SEE LABEL COMMENTS; Start 07/23/17 at 12:50; Stop 07/24/17 at 12:49; Status DC Pantoprazole Sodium (Protonix Inj) 40 mg Q12HR IV PUSH Last administered on at 09:54; Start 07/24/17 at 09:00; Stop 07/25/17 at 17:35; Status DC Sucralfate (Carafate) 1 gm BIDAC PO Last administered on 07/28/17at 06:12; Start 07/24/17 at 07:45 Sodium Chloride 250 ml @ 15 mls/hr ONCE ONCE IV Last administered on at 07:45; Start 07/24/17 at 07:45; Stop 07/25/17 at 00:24; Status DC Lidocaine HCl (Xylocaine-Mpf 1% Inj) 5 ml STK-MED ONCE OTHER ; Start 07/23/17 at 12:00; Stop 07/24/17 at 07:52; Status DC Phenylephrine HCl (Neosynephrine/ NS 1000 Mcg/10ml Syr) 1,000 mcg STK-MED ONCE IV ; Start 07/23/17 at 12:00; Stop 07/24/17 at 07:52; Status DC Ephedrine Sulfate (ePHEDrine/NS 25 MG/5 ML SYR) 25 mg STK-MED ONCE IV ; Start at 12:00; Stop 07/24/17 at 07:52; Status DC Dexamethasone Sodium Phosphate (Decadron Inj) 4 mg STK-MED ONCE IV ; Start 07/23 at 12:00; Stop 07/24/17 at 07:52; Status DC Ondansetron HCl (Zofran Inj) 4 mg STK-MED ONCE IV ; Start 07/23/17 at 12:00; Stop 07/24/17 at 07:52; Status DC Propofol (Diprivan 200 Mg/20 ml Inj) 200 mg STK-MED ONCE IV ; Start 07/23/17 at 12:00; Stop 07/24/17 at 07:52; Status DC Amlodipine Besylate (Norvasc) 5 mg DAILY PO Last administered on 07/24/17at 12: 00; Start 07/24/17 at 12:00; Stop 07/24/17 at 15:00; Status DC Hydralazine HCl (Apresoline Inj) 10 mg Q6H PRN IV PUSH SBP> OR = 180, DBP> OR = 100 Last administered on 07/24/17 13:46; Start 07/24/17 at 11:15; Stop at 15:00; Status DC Amlodipine Besylate (Norvasc) 5 mg BID PO Last administered on 07/28/17 08:51 ; Start 07/24/17 at 21:00 Hydralazine HCl (Apresoline Inj) 20 mg Q6H PRN IV PUSH SBP> OR = 180, DBP> OR = 100; Start 07/24/17 at 17:15 Furosemide (Lasix Inj) 40 mg ONCE ONCE IV PUSH Last administered on 07/24/17 16:11; Start 07/24/17 at 15:30; Stop 07/24/17 at 15:31; Status DC Nicardipine HCl 25 mg/Sodium Chloride 250 ml @ 50 mls/hr TITRATE PRN IV BP > 200/100 Last administered on 07/24/17 16:28; Start 07/24/17 at 15:00 Clopidogrel Bisulfate (Plavix) 75 mg DAILY PO Last administered on 07/28/17 08 :51; Start 07/25/17 at 09:00 Heparin Sodium (Porcine) (Heparin Inj) 5,000 units Q12HR SQ Last administered on 07/28/17 08:52; Start 07/25/17 at 09:00 Pantoprazole Sodium (Protonix) 40 mg Q12HR PO Last administered on 07/28/17 08 :51; Start 07/25/17 at 21:00 Potassium Chloride (KCl) 20 meq ONCE ONCE PO Last administered on 07/26/17 18 :22; Start 07/26/17 at 15:45; Stop 07/26/17 at 15:46; Status DC Sodium Biphosphate/ Sodium Phosphate (Fleets Enema (Adult)) 133 ml ONCE ONCE RECTAL Last administered on 07/27/17at 10:40; Start 07/27/17 at 11:00; Stop at 11:01; Status DC Senna/Docusate Sodium (Alisha-Colace) 2 tab BID PO Last administered on 08:51; Start 07/27/17 at 11:00 A/P Problem List: (1) Sepsis ICD Code: A41.9 - Sepsis, unspecified organism Status: Acute (2) UTI (urinary tract infection) ICD Code: N39.0 - Urinary tract infection, site not specified Status: Acute Assessment and Plan 71 y/o F with hx of CVA 1. Sepsis secondary to UTI Cx E coli. Blood cultures negative to date status post Ceftin. Clinically stable. No fever and patient has no new complaints. Improved leukocytosis 2. Encephalopathy secondary to sepsis. Improved at baseline with expressive aphasia. 2. Elevated bilirubin. Gallbladder ultrasound significant for fatty liver. Continue to monitor 3. History of recent CVA. Stable continue statin. Restart Plavix cleared by GI 4. Hypertension/bipolar/GERD. BP much improved status post Cardene drip and IV Lasix. on norvasc, Coreg and Flomax and IV as needed Vasotec and hydralazine continue to monitor. 5. Diabetes mellitus. Fingersticks stable 6. JADEN. CK within normal limits. Improved on IV fluids 7. UGI bleed. History of gastric ulcer in June 2017. 07/24/17 s/p EGD found ulcer with visible vessel, s/p epi inj, cautery, clips x 3. Diet advanced to heart healthy. Ct PPI, carafate, EGD 2 months. If bleeds again, IR consult for embolization. Upper GI okay to restart antiplatelets/ anticoagulation 8. Anemia secondary to acute blood loss status post blood transfusion. Improved after 1 unit packed RBC transfusion keep hemoglobin at least 8 FEN Heart healthy Electrolytes: Monitor during sleep when necessary Heparin has been restarted Discharge Planning Pending placement. Problem Qualifiers (1) Sepsis: Qualified Codes: A41.9 - Sepsis, unspecified organism (2) UTI (urinary tract infection): Qualified Codes: N30.00 - Acute cystitis without hematuria Jocelyn Nj MD Jul 28, 2017 09:54
[2017-07-28 12:00] VITALS: BP 119/61; PULSE 80; RESP 18; TEMP 98.1; O2SAT 97
--- NOTE | 2017-07-28 14:56 | HHI.PR ---
Subjective Remarks 71 YO male with Br asthma, Bipolar disorder, CVA Breathing well on RA No SOB Aid feeding him lunch Objective Vital Signs Vital Signs Date Time Temp Pulse Resp B/P (MAP) Pulse Ox O2 Delivery O2 Flow Rate FiO2 07/28/17 12:00 98.1 80 18 119/61 (80) 97 07/28/17 08:00 98.4 70 18 157/72 (100) 97 07/28/17 00:00 98.1 75 20 135/65 (88) 96 07/27/17 20:00 99.0 79 20 142/59 (86) 96 07/27/17 16:00 98.3 76 18 135/67 (89) 96 I/O 07/27/17 07/27/17 07/27/17 07/28/17 07/28/17 07/28/17 07:00 15:00 23:00 07:00 15:00 23:00 Intake Total 760 ml 1360 ml 780 ml Output Total 1200 ml 500 ml 1000 ml Balance -440 ml 860 ml -220 ml Intake Oral 760 ml 960 ml 780 ml Packed Cells 400 ml Output Urine Total 1200 ml 500 ml 1000 ml # Voids 3 # Bowel Movements 1 2 3 Result Diagram: 07/27/17 0345 07/27/17 0345 Objective Remarks GENERAL: MBMN male,NAD SKIN: Warm and dry. HEAD: Normocephalic. EYES: No scleral icterus. No injection or drainage. NECK: Supple, trachea midline. No JVD or lymphadenopathy. CARDIOVASCULAR: Regular rate and rhythm without murmurs, gallops, or rubs. RESPIRATORY: Breath sounds equal bilaterally. No accessory muscle use. GASTROINTESTINAL: Abdomen soft, non-tender, nondistended. MUSCULOSKELETAL: No cyanosis, or edema. Left sided weakness BACK: Nontender without obvious deformity. No CVA tenderness. A/P Assessment and Plan IMPRESSION: 1. History of bronchial asthma. 2. Coughing spells, possible aspiration. 3. CVA with left-sided weakness. 4. Hypertension. 5. History of gastrointestinal bleed. 6. Bipolar disorder. PLAN: Aerosol nebs Cont Other meds Stable on RA Stable from Pulm standpoint. Saeid López MD Jul 28, 2017 14:56
[2017-07-28 16:00] VITALS: BP 133/58; PULSE 78; RESP 18; TEMP 98.6; O2SAT 97
[2017-07-28 16:30] LABS: BICARBONATE 31.3 MEQ/L (21.0-32.0); CALCIUM 9.4 MG/DL (8.5-10.1); CREATININE 1.34 MG/DL (0.60-1.30)
[2017-07-28] MEDS: FLUoxetine HCL 20 MG CAP PO SCH (19:56)
[2017-07-28] MEDS: ATORVASTATIN 40 MG TAB PO SCH (19:56)
[2017-07-28] MEDS: TAMSULOSIN HCL 0.4 MG CAP PO SCH (19:56)
[2017-07-28 20:00] VITALS: BP 152/73; PULSE 88; RESP 17; TEMP 97.7; O2SAT 96
[2017-07-28] MEDS: LITHIUM CARBONATE 300 MG CAP PO SCH (20:01)
[2017-07-29] VITALS: BP 139/82; PULSE 105; RESP 18; TEMP 97.8; O2SAT 92
[2017-07-29] MEDS: SUCRALFATE 1 GM TAB PO SCH (06:13)
[2017-07-29 08:00] VITALS: BP 152/74; PULSE 97; RESP 18; TEMP 98.6; O2SAT 97
[2017-07-29] MEDS: CARVEDILOL 3.125 MG TAB PO SCH (08:00)
[2017-07-29] MEDS: amLODIPine BESYLATE 5 MG TAB PO SCH (08:00)
[2017-07-29] MEDS: DOCUSATE SODIUM 50 MG/SENNA 8.6 MG TAB PO SCH (08:00)
[2017-07-29] MEDS: CLOPIDOGREL 75 MG TAB PO SCH (08:00)
[2017-07-29] MEDS: HEPARIN SODIUM - SQ 10,000 UNITS/ML VIAL SQ SCH (08:00)
[2017-07-29] MEDS: PANTOPRAZOLE SOD 40 MG DELAYED RELEASE TAB PO SCH (08:00)
[2017-07-29] MEDS: SODIUM CHLORIDE 0.9% FLUSH 10 ML FLUSH IV FLUSH SCH (08:03)
[2017-07-29 12:00] VITALS: BP 160/77; PULSE 81; RESP 18; TEMP 97.1; O2SAT 97
--- NOTE | 2017-07-29 15:14 | HHI.DS ---
Discharge Summary Admission Date Jul 20, 2017 at 20:51 Discharge Date: Jul 29, 2017 Admitting Diagnosis UTI, sepsis, dehydration, JADEN (1) Sepsis ICD Code: A41.9 - Sepsis, unspecified organism Diagnosis: Principal Status: Acute (2) UTI (urinary tract infection) ICD Code: N39.0 - Urinary tract infection, site not specified Diagnosis: Principal Status: Acute Procedures none Brief History - From Admission 71-year-old male with a past medical history significant for bipolar disorder, hypertension, diabetes mellitus, history of GI bleed and recent CVA presents to the emergency department from his rehabilitation facility for altered mental status. Per ED documentation, the patient usually has a GCS of 14. At the time of her interview the patient is able to answer some questions with yes or no however he is unable to provide any detail. The daughter is bedside and states that usually her father is able to speak in complete sentences. She states his speech is slower than prior to his stroke. The patient denies being in any pain. He states that he needs to urinate. He denies fever/chills. Has residual left-sided weakness although moves both upper and lower left extremities spontaneously. Denies chest pain/shortness of breath. No nausea/ vomiting/diarrhea. CBC/BMP: 07/27/17 0345 07/28/17 1542 Significant Findings Laboratory Tests Test 07/27/17 03:45 07/28/17 15:42 White Blood Count 11.2 TH/MM3 (4.0-11.0) Red Blood Count 2.80 MIL/MM3 (4.50-5.90) Hemoglobin 8.5 GM/DL (13.0-17.0) Hematocrit 25.3 % (39.0-51.0) Monocytes (%) (Auto) 9.3 % (0.0-8.0) Eosinophils (%) (Auto) 4.6 % (0.0-4.0) Monocytes # (Auto) 1.0 TH/MM3 (0-0.9) Eosinophils # (Auto) 0.5 TH/MM3 (0-0.4) Creatinine 1.39 MG/DL (0.60-1.30) 1.34 MG/DL (0.60-1.30) Potassium Level 3.4 MEQ/L (3.5-5.1) Chloride Level 108 MEQ/L (98-107) Estimat Glomerular Filtration Rate 50 ML/MIN (>89) 52 ML/MIN (>89) Random Glucose 118 MG/DL (74-106) Imaging Last Impressions Head CT 07/20/17 0000 Signed Impressions: Service Date/Time: Thursday, July 20, 2017 19:56 - CONCLUSION: No acute abnormality demonstrated. Atrophy and chronic white matter changes are again seen. Evolving right pericallosal subacute infarct. No evidence of a large ischemic event. Haris Pretty MD Gall Bladder Ultrasound 07/20/17 0000 Signed Impressions: Service Date/Time: Thursday, July 20, 2017 20:36 - CONCLUSION: Fatty liver and a tiny nonobstructing right renal stone. Otherwise negative. Haris Pretty MD Chest X-Ray 07/20/17 0000 Signed Impressions: Service Date/Time: Thursday, July 20, 2017 20:02 - CONCLUSION: Mild left base atelectasis. Haris Pretty MD PE at Discharge GENERAL: male lying in bed SKIN: No rashes, ecchymoses or lesions. Cool and dry. CARDIOVASCULAR: Regular rate and rhythm without murmurs, gallops, or rubs. RESPIRATORY: Clear to auscultation. Breath sounds equal bilaterally. No wheezes , rales, or rhonchi. GASTROINTESTINAL: Abdomen soft, non-tender, nondistended. No guarding. MUSCULOSKELETAL: Extremities without clubbing, cyanosis, or edema. No joint tenderness, effusion, or edema noted. No calf tenderness. Negative Homans sign bilaterally. NEUROLOGICAL: Awake and alert. Left facial droop. Dysarthric. Generalized weakness weak on the left side. This has been his baseline. Pt update on day of discharge Patient stated that 2 days ago he had episode of emesis. He stated that he has not had any episodes sort of emesis since then. He wanted me to ask his nurse about this. I spoke to patient's nurse and patient stated that there was no witnessed of emesis. Otherwise patient has no complaints. No acute events. Hospital Course 71 y/o F with hx of CVA who presented with sepsis secondary to UTI. Cx E coli. Blood cultures negative to date status post Ceftin. Clinically stable. No fever and patient has no new complaints. During his hospital course symptoms continue to improve. Also during sepsis patient had encephalopathy that improved throughout hospital course. Encephalopathy most likely secondary to sepsis. He was found to have elevated bilirubin so a Gallbladder ultrasound significant for fatty liver. Patient also presented with UGI bleed. History of gastric ulcer in June 2017. 07/24/17 s/p EGD found ulcer with visible vessel, s/p epi inj, cautery, clips x 3. Diet advanced to heart healthy. Ct PPI, carafate, EGD 2 months. If bleeds again, IR consult for embolization. Initially his antiplatelets was held but after he had his procedure and hemoglobin is stable medication was restarted. Due to the GI bleed and anemia he was transfused with 1 unit of packed red blood cells in which he responded appropriately. Throughout his hospitalization after the episode. No episode of GI bleed. Pt Condition on Discharge: Stable Discharge Disposition: Discharge to SNF Discharge Time: <= 30 minutes Discharge Instructions DIET: Follow Instructions for: Heart Healthy Diet Speech Therapy-Diet Recommends: Pureed Activities you can perform: Regular-No Restrictions Activities to Avoid: Driving Follow up Referrals: PCP Follow-up - 1 Week New Medications: Amlodipine (Norvasc) 5 Mg Tab 5 MG PO BID for Blood Pressure Management, #60 TAB Sucralfate (Carafate) 1 Gram Tab 1 GM PO BIDAC for GIB, #60 TAB Changed Medications: Pantoprazole (Protonix) 40 Mg Tab 40 MG PO BID for Ulcer Prevention, #60 TAB 3 Refills (Changed from: DAILY; 90) Continued Medications: Albuterol 8.5 GM Inh (Proair Hfa 8.5 GM Inh) 90 Mcg/Act Aer 2 PUFF INH Q4-6H PRN for SHORTNESS OF BREATH, #1 INHALER 0 Refills 108 mcg/actuation Atorvastatin (Atorvastatin) 40 Mg Tab 40 MG PO HS for Cholesterol Management, #90 TAB 3 Refills Carvedilol (Carvedilol) 3.125 Mg Tab 3.125 MG PO DAILY, #60 TAB 0 Refills Clopidogrel (Plavix) 75 Mg Tab 75 MG PO DAILY for Blood Clot Prevention, #30 TAB 11 Refills Fluoxetine (Fluoxetine) 40 Mg Cap 40 CAP PO HS, #30 CAP 0 Refills [place] Carbonate ([place] Carbonate) 600 Mg Cap 600 MG PO HS, CAP 0 Refills Metformin (Metformin) 500 Mg Tab 500 MG PO BIDPC for Blood Sugar Management, #60 TAB 0 Refills Tamsulosin (Flomax) 0.4 Mg Cap 0.4 MG PO HS for Manage Prostate Problems, #30 CAP 0 Refills Jocelyn Nj MD Jul 29, 2017 15:14
== END 2017-07-29 14:58 | DRG 871 ==
LOC: NEPC 17:48 → NEDA 20:51 → N07B 22:20 → N03A 07-22 20:59 → N07A 07-26 05:48
PROVIDERS: ADMIT Family Medicine; ATTEND Family Medicine
PROC: 30233N1 Transfusion of Nonautologous Red Blood Cells into Peripheral Vein, Percutaneous Approach (ICD-10-PCS; principal; 2017-07-22)
PROC: 3E0G8GC Introduction of Other Therapeutic Substance into Upper GI, Via Natural or Artificial Opening Endoscopic (ICD-10-PCS; 2017-07-23)
PROC: 0W3P8ZZ Control Bleeding in Gastrointestinal Tract, Via Natural or Artificial Opening Endoscopic (ICD-10-PCS; 2017-07-23)
DX: A41.51 Sepsis due to Escherichia coli [E. coli] (principal); G93.41 Metabolic encephalopathy; N17.9 Acute kidney failure, unspecified; K92.0 Hematemesis; K25.4 Chronic or unspecified gastric ulcer with hemorrhage; N30.00 Acute cystitis without hematuria; I69.354 Hemiplegia and hemiparesis following cerebral infarction affecting left non-dominant side; K92.1 Melena; D62 Acute posthemorrhagic anemia; E86.0 Dehydration; I69.320 Aphasia following cerebral infarction; E11.9 Type 2 diabetes mellitus without complications; K76.0 Fatty (change of) liver, not elsewhere classified; F31.9 Bipolar disorder, unspecified; R65.20 Severe sepsis without septic shock; I10 Essential (primary) hypertension; R00.0 Tachycardia, unspecified; K21.9 Gastro-esophageal reflux disease without esophagitis; K44.9 Diaphragmatic hernia without obstruction or gangrene; J45.909 Unspecified asthma, uncomplicated; M19.90 Unspecified osteoarthritis, unspecified site; K80.20 Calculus of gallbladder without cholecystitis without obstruction; B96.20 Unspecified Escherichia coli [E. coli] as the cause of diseases classified elsewhere; N40.0 Benign prostatic hyperplasia without lower urinary tract symptoms; Z79.02 Long term (current) use of antithrombotics/antiplatelets; Z79.84 Long term (current) use of oral hypoglycemic drugs; Z87.11 Personal history of peptic ulcer disease
CPT/HCPCS: 36430; 70450; 71045; 76705; 80048; 80053; 81001; 82550; 82948; 83605; 83735; 84484; 85014; 85018; 85025; 85610; 85730; 86850; 86900; 86901; 86920; 87040; 87077; 87086; 87186; 87641; 93005; 96365; 96375; C9113; J0171; J0360; J1100; J1644; J1940; J2370; J2405; J2543; J3370; J7030; J7040; J7050; P9016

== ENCOUNTER 2017-08-02 17:20 | Inpatient (IN) | payer OTHER, MEDICARE ==
[~2017-08-02] VITALS: Ht 171.4 cm; Wt 86.1 kg
[2017-08-02] VITALS (19 sets, daily range): BP systolic 69–141; BP diastolic 47–85; PULSE 83–108; RESP 13–28; TEMP 98–98.6; O2SAT 96–100
[~2017-08-02 17:20] MED LIST changes: +AMLO5 PO; +CARA1TAB6 PO
[2017-08-02] MEDS ORDERED: PANTOPRAZOLE SODIUM 40 MG VIAL IVP ONE (18:00)
[2017-08-02] MEDS ORDERED: SODIUM CHLORIDE 0.9% FLUSH 10 ML FLUSH IVF PRN (18:00)
[2017-08-02] MEDS ORDERED: ONDANSETRON HCL 4 MG/2 ML VIAL IVP ONE (18:00)
[2017-08-02 18:32] LABS: AUTOMATED NEUTROPHIL # 15.7 TH/MM3 (1.8-7.7); BASOPHIL # 0.1 TH/MM3 (0-0.2); BASOPHIL % 0.4 % (0.0-2.0); EOSINOPHIL # 0.2 TH/MM3 (0-0.4); EOSINOPHIL % 1.2 % (0.0-4.0); HEMATOCRIT 31.2 % (39.0-51.0); HEMOGLOBIN 10.3 GM/DL (13.0-17.0); LYMPH % 10.2 % (9.0-44.0); LYMPHOCYTE # 1.9 TH/MM3 (1.0-4.8); MEAN CELL VOLUME 91.4 FL (80.0-100.0); MEAN CORPUSCULAR HEMOGLOBIN 30.1 PG (27.0-34.0); MEAN PLATELET VOLUME 7.5 FL (7.0-11.0); MONO % 6.3 % (0.0-8.0); MONOCYTE # 1.2 TH/MM3 (0-0.9); NEUT % 81.9 % (16.0-70.0); PLATELET COUNT 739 TH/MM3 (150-450); RED BLOOD COUNT 3.41 MIL/MM3 (4.50-5.90); RED CELL DISTRIBUTION WIDTH 15.6 % (11.6-17.2); WHITE BLOOD COUNT 19.1 TH/MM3 (4.0-11.0)
--- NOTE | 2017-08-02 18:34 | RADRPT ---
EXAM DATE/TIME: 08/02/2017 17:59 [facility] COMPARISON: CHEST SINGLE AP, July 20, 2017, 20:02. INDICATIONS : Evaluate for free air. MEDICAL HISTORY : Stroke. Cardiovascular disease Hypertension. SURGICAL HISTORY : None. ENCOUNTER: Initial ACUITY: 1 day PAIN SCORE: 10/10 LOCATION: Bilateral chest FINDINGS: A single view of the chest demonstrates the lungs to be symmetrically aerated without evidence of mas s, infiltrate or effusion. The cardiomediastinal contours are unremarkable. Osseous structures are intact. CONCLUSION: No acute disease. No free air is seen. Haris Gonzalez MD on August 02, 2017 at 18:32 Board Certified Radiologist. This report was verified electronically.
--- NOTE | 2017-08-02 18:38 | PD ---
HPI Chief Complaint: Hematemesis Time Seen by Provider: 17:49 Travel History International Travel<30 days: No Contact w/Intl Traveler<30days: No History of Present Illness HPI 71-year-old male patient from the senior living with previous history of gastric ulcers and GI bleeding, here because he had hematemesis and was nauseous and throwing up at the facility today. He denies any chest pains, shortness of breath, abdominal pains, diarrhea, or any other symptoms. Modifying Factors: None Associated Signs & Symptoms: Vomiting, blood in the vomit Risk Factors: History of GI ulcer and GI bleeding PFSH Past Medical History Hx Anticoagulant Therapy: Yes (ASA 2X81) Arthritis: Yes Asthma: Yes (stress induced) Bipolar Disorder: Yes Anxiety: No Depression: Yes Heart Rhythm Problems: No Cancer: No Cardiovascular Problems: Yes High Cholesterol: No Chest Pain: No Congestive Heart Failure: No COPD: No Cerebrovascular Accident: Yes Diabetes: Yes Diminished Hearing: No Endocrine: Yes (DM II) Gastrointestinal Disorders: Yes (GERD) GERD: Yes Genitourinary: Yes (BPH) Hiatal Hernia: No Hypertension: Yes Immune Disorder: No Implanted Vascular Access Dvce: No Kidney Stones: No Musculoskeletal: Yes (BALANCE IS OFF) Neurologic: Yes (CURRENT ADMISSION WITH CONFUSION POSSIBLE CVA) Psychiatric: Yes (BIPOLAR) Reproductive: No Respiratory: Yes Renal Failure: No Sleep Apnea: No Thyroid Disease: No Ulcer: Yes Past Surgical History Abdominal Surgery: No Cardiac Surgery: No Ear Surgery: No Endocrine Surgery: No Eye Surgery: No Genitourinary Surgery: No Gynecologic Surgery: No Neurologic Surgery: No Oral Surgery: No Pacemaker: No Thoracic Surgery: No Social History Alcohol Use: No Tobacco Use: No Substance Use: No Allergies-Medications (Allergen,Severity, Reaction): Coded Allergies: codeine (Verified Allergy, Severe, MUSCULOSKELETAL ISSUES, 08/02/17) insulin,pork (Verified Allergy, Severe, Anaphylaxis, 08/02/17) insulin aspart (Verified Allergy, Intermediate, 08/02/17) lactose (Verified Allergy, Intermediate, 08/02/17) LACTOSE INTOLERANT Reported Meds & Prescriptions Reported Meds & Active Scripts Active Carafate (Sucralfate) 1 Gram Tab 1 Gm PO BIDAC Norvasc (Amlodipine Besylate) 5 Mg Tab 5 Mg PO BID Protonix (Pantoprazole Sodium) 40 Mg Tab 40 Mg PO BID Atorvastatin (Atorvastatin Calcium) 40 Mg Tab 40 Mg PO HS Plavix (Clopidogrel Bisulfate) 75 Mg Tab 75 Mg PO DAILY Reported Proair Hfa 8.5 GM Inh (Albuterol Sulfate) 90 Mcg/Act Aer 2 Puff INH Q4-6H PRN 108 mcg/actuation Carvedilol 3.125 Mg Tab 3.125 Mg PO DAILY Metformin (Metformin HCl) 500 Mg Tab 500 Mg PO BIDPC Fluoxetine (Fluoxetine HCl) 40 Mg Cap 40 Cap PO HS Flomax (Tamsulosin HCl) 0.4 Mg Cap 0.4 Mg PO HS [place] Carbonate 600 Mg Cap 600 Mg PO HS Review of Systems Except as stated in HPI: all other systems reviewed are Neg Physical Exam Narrative GENERAL: Well-developed elderly male patient currently in mild distress. Awake and alert. SKIN: Focused skin assessment warm/dry. HEAD: Atraumatic. Normocephalic. EYES: Pupils equal and round. No scleral icterus. No injection or drainage. ENT: No nasal bleeding or discharge. Mucous membranes pink and moist. NECK: Trachea midline. No JVD. Supple. CARDIOVASCULAR: Regular rate and rhythm. No murmur appreciated. RESPIRATORY: No accessory muscle use. Clear to auscultation. Breath sounds equal bilaterally. GASTROINTESTINAL: Abdomen soft, non-tender, nondistended. Hepatic and splenic margins not palpable. MUSCULOSKELETAL: No obvious deformities. No clubbing. No cyanosis. No edema. NEUROLOGICAL: Awake and alert. No obvious cranial nerve deficits. Motor grossly within normal limits. Normal speech. PSYCHIATRIC: Appropriate mood and affect; insight and judgment poor. Data Data Last Documented VS Vital Signs Date Time Temp Pulse Resp B/P (MAP) Pulse Ox O2 Delivery O2 Flow Rate FiO2 08/02/17 18:40 98.6 85 16 141/85 (103) 96 Room Air Orders Orders Complete Blood Count With Diff (08/02/17 17:49) Comprehensive Metabolic Panel (08/02/17 17:49) Lipase (08/02/17 17:49) Prothrombin Time / Inr (Pt) (08/02/17 17:49) Act Partial Throm Time (Ptt) (08/02/17 17:49) Type And Screen (08/02/17 17:49) Chest, Single Ap (08/02/17 17:49) Ecg Monitoring (08/02/17 17:49) Iv Access Insert/Monitor (08/02/17 17:49) Oximetry (08/02/17 17:49) Ondansetron Inj (Zofran Inj) (08/02/17 18:00) Pantoprazole Inj (Protonix Inj) (08/02/17 18:00) Sodium Chloride 0.9% Flush (Ns Flush) (08/02/17 18:00) Ct Abd/Pel W/O Iv Contrast (08/02/17 18:51) Urinalysis - C+S If Indicated (08/02/17 18:54) Labs Laboratory Tests Test 08/02/17 18:00 White Blood Count 19.1 TH/MM3 Red Blood Count 3.41 MIL/MM3 Hemoglobin 10.3 GM/DL Hematocrit 31.2 % Mean Corpuscular Volume 91.4 FL Mean Corpuscular Hemoglobin 30.1 PG Mean Corpuscular Hemoglobin Concent 33.0 % Red Cell Distribution Width 15.6 % Platelet Count 739 TH/MM3 Mean Platelet Volume 7.5 FL Neutrophils (%) (Auto) 81.9 % Lymphocytes (%) (Auto) 10.2 % Monocytes (%) (Auto) 6.3 % Eosinophils (%) (Auto) 1.2 % Basophils (%) (Auto) 0.4 % Neutrophils # (Auto) 15.7 TH/MM3 Lymphocytes # (Auto) 1.9 TH/MM3 Monocytes # (Auto) 1.2 TH/MM3 Eosinophils # (Auto) 0.2 TH/MM3 Basophils # (Auto) 0.1 TH/MM3 CBC Comment DIFF FINAL Differential Comment Prothrombin Time 10.5 SEC Prothromb Time International Ratio 1.0 RATIO Activated Partial Thromboplast Time 24.8 SEC Blood Urea Nitrogen 35 MG/DL Creatinine 2.21 MG/DL Random Glucose 94 MG/DL Total Protein 7.7 GM/DL Albumin 3.3 GM/DL Calcium Level 10.6 MG/DL Alkaline Phosphatase 71 U/L Aspartate Amino Transf (AST/SGOT) 33 U/L Alanine Aminotransferase (ALT/SGPT) 34 U/L Total Bilirubin 0.9 MG/DL Sodium Level 140 MEQ/L Potassium Level 4.5 MEQ/L Chloride Level 102 MEQ/L Carbon Dioxide Level 29.9 MEQ/L Anion Gap 8 MEQ/L Estimat Glomerular Filtration Rate 29 ML/MIN Lipase 170 U/L [facility] Medical Decision Making Medical Screen Exam Complete: Yes Emergency Medical Condition: Yes Medical Record Reviewed: Yes Interpretation(s) Laboratory Tests Test 08/02/17 18:00 White Blood Count 19.1 TH/MM3 (4.0-11.0) Red Blood Count 3.41 MIL/MM3 (4.50-5.90) Hemoglobin 10.3 GM/DL (13.0-17.0) Hematocrit 31.2 % (39.0-51.0) Platelet Count 739 TH/MM3 (150-450) Neutrophils (%) (Auto) 81.9 % (16.0-70.0) Neutrophils # (Auto) 15.7 TH/MM3 (1.8-7.7) Monocytes # (Auto) 1.2 TH/MM3 (0-0.9) Blood Urea Nitrogen 35 MG/DL (7-18) Creatinine 2.21 MG/DL (0.60-1.30) Albumin 3.3 GM/DL (3.4-5.0) Calcium Level 10.6 MG/DL (8.5-10.1) Estimat Glomerular Filtration Rate 29 ML/MIN (>89) Differential Diagnosis Gastritis versus GI bleeding versus coagulopathy Narrative Course Chest x-ray did not show any signs of free air. He was given IV Protonix, Zofran, and IV fluids. Lab work shows leukocytosis and BUN and creatinine is elevated, CAT scan without contrast was ordered for further evaluation. Physician Communication Physician Communication Case is discussed with Dr. Bernstein awaiting CAT scan for final disposition. Planning to admit as an observation for GI bleed. Diagnosis Primary Impression: GI bleed Admitting Information Admitting Physician Requests: Admit Lise Martinez MD Aug 02, 2017 18:38
[2017-08-02 18:49] LABS: ALBUMIN 3.3 GM/DL (3.4-5.0); AST (GOT) 33 U/L (15-37); BICARBONATE 29.9 MEQ/L (21.0-32.0); BLOOD UREA NITROGEN 35 MG/DL (7-18); CALCIUM 10.6 MG/DL (8.5-10.1); CHLORIDE 102 MEQ/L (98-107); CREATININE 2.21 MG/DL (0.60-1.30); GLOMERULAR FILTRATION RATE 29 ML/MIN (>89); GLUCOSE,RANDOM 94 MG/DL (74-106); SODIUM (NA) 140 MEQ/L (136-145)
[2017-08-02 18:50] LABS: ALT (GPT) 34 U/L (12-78)
[2017-08-02 18:52] LABS: ALKALINE PHOSPHATASE 71 U/L (45-117); TOTAL BILIRUBIN ADULT 0.9 MG/DL (0.2-1.0); TOTAL PROTEIN 7.7 GM/DL (6.4-8.2)
[2017-08-02 19:00] LABS: PROTHROMBIN TIME - PATIENT 10.5 SEC (9.8-11.6)
[2017-08-02] MEDS ORDERED: SODIUM CHLOR 0.9% 250 ML INJ 250 ML IV ONE ×3 (19:30→20:00)
[2017-08-02] MEDS ORDERED: PANTOPRAZOLE SODIUM 40 MG VIAL IV PUSH ONE (19:30)
[2017-08-02] MEDS ORDERED: PANTOPRAZOLE INJ 80 MG in SODIUM CHLORIDE 0.9% INJ 100 ML IV SCH (19:30)
[2017-08-02] MEDS ORDERED: OCTREOTIDE INJ 50 MCG/ML AMP IV PUSH SCH (19:30)
[2017-08-02] MEDS ORDERED: SODIUM CHLOR 0.9% 1000 ML INJ 1,000 ML IV ONE (19:30)
--- NOTE | 2017-08-02 19:36 | HHI.HP ---
[facility] Service Critical Care Medicine Primary Care Physician Haris Taveras MD Admission Diagnosis Diagnosis: Travel History International Travel<30 Days: No Contact w/Intl Traveler <30 Da: No Traveled to Known Affected Are: No History of Present Illness 71-year-old male patient from the senior care with previous history of gastric ulcers and GI bleeding and the last endoscopy 2 weeks ago, presents today because he had hematemesis and was nauseous and throwing up at the senior care facility. He denies any chest pains, shortness of breath, abdominal pains, diarrhea, or any other symptoms. Review of Systems Constitutional: COMPLAINS OF: Dizziness, DENIES: Diaphoretic episodes, Fatigue , Fever, Weight gain, Weight loss, Chills, Change in appetite, Night Sweats Endocrine: DENIES: Heat/cold intolerance, Polydipsia, Polyuria, Polyphagia Eyes: DENIES: Blurred vision, Diplopia, Eye inflammation, Eye pain, Vision loss , Photosensitivity, Double Vision Ears, nose, mouth, throat: DENIES: Tinnitus, Hearing loss, Vertigo, Nasal discharge, Oral lesions, Throat pain, Hoarseness, Ear Pain, Running Nose, Epistaxis, Sinus Pain, Toothache, Odynophagia Respiratory: DENIES: Apneas, Cough, Snoring, Wheezing, Hemoptysis, Sputum production, Shortness of breath Cardiovascular: DENIES: Chest pain, Palpitations, Syncope, Dyspnea on Exertion , PND, Lower Extremity Edema, Orthopnea, Claudication Gastrointestinal: COMPLAINS OF: Abdominal pain, Nausea, Vomiting, DENIES: Black stools, Bloody stools, Constipation, Diarrhea, Difficulty Swallowing, Anorexia Genitourinary: DENIES: Sexual dysfunction, Urinary frequency, Urinary incontinence, Urgency, Hematuria, Dysuria, Nocturia, Penile Discharge, Testicular Pain, Testicular Swelling Musculoskeletal: DENIES: Joint pain, Muscle aches, Stiffness, Joint Swelling, Back pain, Neck pain Integumentary: DENIES: Abnormal pigmentation, Nail changes, Pruritus, Rash Hematologic/lymphatic: DENIES: Bruising, Lymphadenopathy Immunologic/allergic: DENIES: Eczema, Urticaria Neurologic: COMPLAINS OF: Abnormal gait, Poor Balance, DENIES: Headache, Localized weakness, Paresthesias, Seizures, Speech Problems, Tremor Psychiatric: DENIES: Anxiety, Confusion, Mood changes, Depression, Hallucinations, Agitation, Suicidal Ideation, Homicidal Ideation, Delusions Past Family Social History Allergies: Coded Allergies: codeine (Verified Allergy, Severe, MUSCULOSKELETAL ISSUES, 08/02/17) insulin,pork (Verified Allergy, Severe, Anaphylaxis, 08/02/17) insulin aspart (Verified Allergy, Intermediate, 08/02/17) lactose (Verified Allergy, Intermediate, 08/02/17) LACTOSE INTOLERANT Past Medical History Bipolar disorder Hypertension Diabetes mellitus History of GI bleed History of recent CVA Past Surgical History Left hand crush injury related surgery Reported Medications Reported Meds & Active Scripts Active Carafate (Sucralfate) 1 Gram Tab 1 Gm PO BIDAC Norvasc (Amlodipine Besylate) 5 Mg Tab 5 Mg PO BID Protonix (Pantoprazole Sodium) 40 Mg Tab 40 Mg PO BID Atorvastatin (Atorvastatin Calcium) 40 Mg Tab 40 Mg PO HS Plavix (Clopidogrel Bisulfate) 75 Mg Tab 75 Mg PO DAILY Reported Proair Hfa 8.5 GM Inh (Albuterol Sulfate) 90 Mcg/Act Aer 2 Puff INH Q4-6H PRN 108 mcg/actuation Carvedilol 3.125 Mg Tab 3.125 Mg PO DAILY Metformin (Metformin HCl) 500 Mg Tab 500 Mg PO BIDPC Fluoxetine (Fluoxetine HCl) 40 Mg Cap 40 Cap PO HS Flomax (Tamsulosin HCl) 0.4 Mg Cap 0.4 Mg PO HS [place] Carbonate 600 Mg Cap 600 Mg PO HS Active Ordered Medications Current Medications Medications (Trade) Dose Ordered Sig/[place] Route PRN Reason Start Time Stop Time Status Last Admin Dose Admin Sodium Chloride (NS Flush) 2 ml UNSCH PRN IVF FLUSH AFTER USING IV ACCESS 08/02/17 18:00 Octreotide Acetate (SandoSTATIN INJ) 50 mcg ONCE IV PUSH 08/02/17 19:30 08/02/17 20:23 Sodium Chloride 1,000 ml @ 999 mls/hr BOLUS ONCE IV 08/02/17 19:30 08/02/17 20:30 08/02/17 19:58 Sodium Chloride 250 ml @ 15 mls/hr ONCE ONCE IV 08/02/17 19:30 08/03/17 12:09 Atorvastatin Calcium (Lipitor) 40 mg HS PO 08/02/17 21:00 Fluoxetine HCl (PROzac) 40 mg HS PO 08/02/17 21:00 [place] Carbonate ([place] Carbonate) 600 mg HS PO 08/02/17 21:00 Sucralfate (Carafate) 1 gm BIDAC PO 08/03/17 07:00 UNV Tamsulosin HCl (Flomax) 0.4 mg HS PO 08/02/17 21:00 UNV Dextrose (D50w (Vial) Inj) 50 ml UNSCH PRN IV PUSH HYPOGLYCEMIA-SEE COMMENTS 08/02/17 19:45 Glucagon (Glucagon Inj) 1 mg UNSCH PRN OTHER HYPOGLYCEMIA-SEE COMMENTS 08/02/17 19:45 Insulin Aspart (NovoLOG SUPPLEMENTAL SCALE) 1 ACHS SLIDING SCALE SQ 08/02/17 21:00 Sodium Chloride 1,000 ml @ 124 mls/hr Q8H4M IV 08/02/17 19:33 08/02/17 20:23 Sodium Chloride (NS Flush) 2 ml UNSCH PRN IV FLUSH FLUSH AFTER USING IV ACCESS 08/02/17 19:45 UNV Sodium Chloride (NS Flush) 2 ml BID IV FLUSH 08/02/17 21:00 UNV Acetaminophen (Tylenol) 650 mg Q6H PRN PO PAIN 1-5 AND/OR FEVER >101F 08/02/17 19:45 Pantoprazole Sodium (Protonix Inj) 40 mg Q12H IV PUSH 08/02/17 20:00 Ondansetron HCl (Zofran Inj) 4 mg Q6H PRN IV PUSH NAUSEA OR VOMITING 08/02/17 19:45 Albuterol/ Ipratropium (Duoneb Neb) 1 ampule Q6HR NEB INH 08/02/17 22:00 UNV Albuterol/ Ipratropium (Duoneb Neb) 1 ampule Q2HR NEB PRN INH WHEEZING 08/02/17 19:45 UNV Miscellaneous Information 1 Q361D XX 08/02/17 19:45 Chlorhexidine Gluconate (Chlorhexidine 2% Cloth) 3 pack Taper DAILY@04 TOP 08/03/17 04:00 07/30/18 03:59 Chlorhexidine Gluconate (Chlorhexidine 2% Cloth) 3 pack UNSCH PRN TOP HYGIENIC CARE 08/02/17 19:45 Senna/Docusate Sodium (Alisha-Colace) 1 tab BID PO 08/02/17 21:00 Magnesium Hydroxide (Milk Of Magnesia Liq) 30 ml Q12H PRN PO Mild constipation 08/02/17 19:45 Sennosides (Senokot) 17.2 mg Q12H PRN PO Moderate constipation 08/02/17 19:45 UNV Bisacodyl (Dulcolax Supp) 10 mg DAILY PRN RECTAL SEVERE CONSITIPATION 08/02/17 19:45 Lactulose (Lactulose Liq) 30 ml DAILY PRN PO SEVERE CONSITIPATION 08/02/17 19:45 Pantoprazole Sodium 80 mg/ Sodium Chloride 100 ml @ 10 mls/hr Q10H IV 08/02/17 20:00 08/02/17 20:20 Sodium Chloride 250 ml @ 15 mls/hr ONCE ONCE IV 08/02/17 20:00 08/03/17 12:39 Sodium Chloride 250 ml @ 15 mls/hr ONCE ONCE IV 08/02/17 20:00 08/03/17 12:39 Family History No family history of CAD/DM. Mother with esophageal cancer Social History Denies alcohol, tobacco and illicit drugs Physical Exam Vital Signs Vital Signs Date Time Temp Pulse Resp B/P (MAP) Pulse Ox O2 Delivery O2 Flow Rate FiO2 08/02/17 19:11 105 16 102/67 (79) 100 Nasal Cannula 2.00 08/02/17 18:40 98.6 85 16 141/85 (103) 96 Room Air 08/02/17 18:20 98.6 85 16 141/85 (103) 96 Physical Exam GENERAL: Well-developed elderly male patient currently in mild distress. Awake and alert. Left-sided residual weakness SKIN: Focused skin assessment warm/dry. HEAD: Atraumatic. Normocephalic. EYES: Pupils equal and round. No scleral icterus. No injection or drainage. ENT: No nasal bleeding or discharge. Mucous membranes pink and moist. NECK: Trachea midline. No JVD. Supple. CARDIOVASCULAR: Regular rate and rhythm. No murmur appreciated. RESPIRATORY: No accessory muscle use. Clear to auscultation. Breath sounds equal bilaterally. GASTROINTESTINAL: Abdomen soft, non-tender, nondistended. Hepatic and splenic margins not palpable. MUSCULOSKELETAL: No obvious deformities. No clubbing. No cyanosis. No edema. NEUROLOGICAL: Awake and alert. No obvious cranial nerve deficits. Motor with left-sided residual weakness Laboratory Laboratory Tests Test 08/02/17 18:00 White Blood Count 19.1 Red Blood Count 3.41 Hemoglobin 10.3 Hematocrit 31.2 Mean Corpuscular Volume 91.4 Mean Corpuscular Hemoglobin 30.1 Mean Corpuscular Hemoglobin Concent 33.0 Red Cell Distribution Width 15.6 Platelet Count 739 Mean Platelet Volume 7.5 Neutrophils (%) (Auto) 81.9 Lymphocytes (%) (Auto) 10.2 Monocytes (%) (Auto) 6.3 Eosinophils (%) (Auto) 1.2 Basophils (%) (Auto) 0.4 Neutrophils # (Auto) 15.7 Lymphocytes # (Auto) 1.9 Monocytes # (Auto) 1.2 Eosinophils # (Auto) 0.2 Basophils # (Auto) 0.1 CBC Comment DIFF FINAL Differential Comment Prothrombin Time 10.5 Prothromb Time International Ratio 1.0 Activated Partial Thromboplast Time 24.8 Blood Urea Nitrogen 35 Creatinine 2.21 Random Glucose 94 Total Protein 7.7 Albumin 3.3 Calcium Level 10.6 Alkaline Phosphatase 71 Aspartate Amino Transf (AST/SGOT) 33 Alanine Aminotransferase (ALT/SGPT) 34 Total Bilirubin 0.9 Sodium Level 140 Potassium Level 4.5 Chloride Level 102 Carbon Dioxide Level 29.9 Anion Gap 8 Estimat Glomerular Filtration Rate 29 Lipase 170 Result Diagram: 08/02/17 1800 08/02/17 1800 Imaging Last 24 hours Impressions Chest X-Ray 08/02/17 1749 Signed Impressions: Service Date/Time: July 17:59 - CONCLUSION: No acute disease. No free air is seen. Haris Gonzalez MD Septic Shock Reassessment Septic shock perfusion: reassessment completed Caprini VTE Risk Assessment Caprini VTE Risk Assessment: Mod/High Risk (score >= 2) VTE Pharm Contraindication: Hemorrhage Caprini Risk Assessment Model Point Value = 1 Point Value = 2 Point Value = 3 Point Value = 5 Age 41-60 Minor surgery BMI > 25 kg/m2 Swollen legs Varicose veins or History of unexplained or recurrent spontaneous Oral contraceptives or hormone replacement Sepsis (< 1 month) Serious lung disease, including pneumonia (< 1 month) Abnormal pulmonary function Acute myocardial infarction Congestive heart failure (< 1 month) History of inflammatory bowel disease Medical patient at bed rest Age 61-74 Arthroscopic surgery Major open surgery (> 45 min) Laparoscopic surgery (> 45 min) Malignancy Confined to bed (> 72 hours) Immobilizing plaster cast Central venous access Age >= 75 History of VTE Family history of VTE Factor V Leiden Prothrombin [id number] Lupus anticoagulant Anticardiolipin antibodies Elevated serum homocysteine Heparin-induced thrombocytopenia Other congenital or acquired thrombophilia Stroke (< 1 month) Elective arthroplasty Hip, pelvis, or leg fracture Acute spinal cord injury (< 1 month) Prophylaxis Regimen Total Risk Factor Score Risk Level Prophylaxis Regimen 0-1 Low Early ambulation 2 Moderate Order ONE of the following: *Sequential Compression Device (SCD) *Heparin 5000 units SQ BID 3-4 Higher Order ONE of the following medications: *Heparin 5000 units SQ TID *Enoxaparin/Lovenox 40 mg SQ daily (WT < 150 kg, CrCl > 30 mL/min) *Enoxaparin/Lovenox 30 mg SQ daily (WT < 150 kg, CrCl > 10-29 mL/min) *Enoxaparin/Lovenox 30 mg SQ BID (WT < 150 kg, CrCl > 30 mL/min) AND/OR *Sequential Compression Device (SCD) 5 or more Highest Order ONE of the following medications: *Heparin 5000 units SQ TID (Preferred with Epidurals) *Enoxaparin/Lovenox 40 mg SQ daily (WT < 150 kg, CrCl > 30 mL/min) *Enoxaparin/Lovenox 30 mg SQ daily (WT < 150 kg, CrCl > 10-29 mL/min) *Enoxaparin/Lovenox 30 mg SQ BID (WT < 150 kg, CrCl > 30 mL/min) AND *Sequential Compression Device (SCD) Assessment and Plan Assessment and Plan Hematemesis -Protonix drip initiated in the ED -Continue Protonix IV twice daily -Admit to ICU -Further management per gastroenterology Diabetes mellitus -Hold metformin while in the ICU -Insulin sliding scale Hypertension -Hold antihypertensive meds due to acute GI bleed -Resume when indicated Bipolar disorder -Continue Flomax and lithium DVT GI prophylaxis -Rajinder's and SCDs -No pharmacological DVT prophylaxis due to acute GI bleed -Protonix IV twice daily Critical Care: The total critical care time was 35 minutes. Time to perform other separately billable procedures was not included in the critical care time. Elroy Pike MD Aug 02, 2017 7:36 pm
--- NOTE | 2017-08-02 19:37 | PD ---
Physical Exam Date Seen by Provider: Aug 02, 2017 Time Seen by Provider: 19:00 Narrative 71-year-old male with a past medical history significant for bipolar disorder, hypertension, diabetes mellitus, history of GI bleed 2weeks ago had clips cauderization and now return Bright red blood per vomitus in NH and another episide in ER Data Data Last Documented VS Vital Signs Date Time Temp Pulse Resp B/P (MAP) Pulse Ox O2 Delivery O2 Flow Rate FiO2 08/02/17 19:11 105 16 102/67 (79) 100 Nasal Cannula 2.00 08/02/17 18:40 98.6 Orders Orders Complete Blood Count With Diff (08/02/17 17:49) Comprehensive Metabolic Panel (08/02/17 17:49) Lipase (08/02/17 17:49) Prothrombin Time / Inr (Pt) (08/02/17 17:49) Act Partial Throm Time (Ptt) (08/02/17 17:49) Type And Screen (08/02/17 17:49) Chest, Single Ap (08/02/17 17:49) Ecg Monitoring (08/02/17 17:49) Iv Access Insert/Monitor (08/02/17 17:49) Oximetry (08/02/17 17:49) Ondansetron Inj (Zofran Inj) (08/02/17 18:00) Pantoprazole Inj (Protonix Inj) (08/02/17 18:00) Sodium Chloride 0.9% Flush (Ns Flush) (08/02/17 18:00) Ct Abd/Pel W/O Iv Contrast (08/02/17 18:51) Urinalysis - C+S If Indicated (08/02/17 18:54) Pantoprazole Inj (Protonix Inj) (08/02/17 19:30) Pantoprazole Inj (Protonix Inj) (08/02/17 19:30) Octreotide Inj (Sandostatin Inj) (08/02/17 19:30) Sodium Chlor 0.9% 1000 Ml Inj (Ns 1000 M (08/02/17 19:30) Blood Product Administration (08/02/17 19:27) Sodium Chlor 0.9% 250 Ml Inj (Ns 250 Ml (08/02/17 19:30) Atorvastatin (Lipitor) (08/02/17 21:00) Fluoxetine (Prozac) (08/02/17 21:00) Galax Carbonate (Galax Carbonate) (08/02/17 21:00) Sucralfate (Carafate) (08/03/17 07:00) Tamsulosin (Flomax) (08/02/17 21:00) Blood Glucose Goal (Criteria) (08/02/17 19:32) Hypoglycemia 70 Mg/Dl Or < (08/02/17 19:32) Notify Dr: Other (08/02/17 19:32) Dextrose 50% In Hoda (Vial) Inj (D50w (Vi (08/02/17 19:45) Glucagon Inj (Glucagon Inj) (08/02/17 19:45) Insulin Aspart Supplemtl Scale (Novolog (08/02/17 21:00) Admit To Inpatient (08/02/17 ) Code Status (08/02/17 19:33) Vital Signs (Adult) PRASANTH.Q1H (08/02/17 19:33) Intake + Output Q1H (08/02/17 19:33) Diet Npo (08/03/17 Breakfast) Sodium Chlor 0.9% 1000 Ml Inj (Ns 1000 M (08/02/17 19:33) Sodium Chloride 0.9% Flush (Ns Flush) (08/02/17 19:45) Sodium Chloride 0.9% Flush (Ns Flush) (08/02/17 21:00) Acetaminophen (Tylenol) (08/02/17 19:45) Pantoprazole Inj (Protonix Inj) (08/02/17 20:00) Ondansetron Inj (Zofran Inj) (08/02/17 19:45) Albuterol-Ipratropium Neb (Duoneb Neb) (08/02/17 22:00) Albuterol-Ipratropium Neb (Duoneb Neb) (08/02/17 19:45) Complete Blood Count With Diff (08/03/17 04:00) Comprehensive Metabolic Panel (08/03/17 04:00) Act Partial Throm Time (Ptt) (08/03/17 04:00) Prothrombin Time / Inr (Pt) (08/03/17 04:00) Magnesium (Mg) (08/03/17 04:00) Phosphorus (Po4) (08/03/17 04:00) Lactic Acid (08/03/17 04:00) Hgb & Hct (08/02/17 19:33) Pt Request For Service (08/02/17 19:33) Consult Gastroenterology (08/02/17 ) Raw Stock 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 Machine 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 / Telemetry PRASANTH.Q8H (08/02/17 19:33) Scd Bilateral/Knee High PRASANTH.BID (08/02/17 19:33) Rajinder Bilateral/Knee High PRASANTH.QSHIFT (08/02/17 19:33) Pharmacologic Contraindication (08/02/17 19:33) ^ Initiate Protocol (08/02/17 19:33) Instruction (08/02/17 19:33) Misc Nursing Information (08/02/17 19:45) Chlorhexidine 2% Cloth (Chlorhexidine 2% (08/03/17 04:00) Chlorhexidine 2% Cloth (Chlorhexidine 2% (08/02/17 19:45) Mrsa Pcr Surveillance (08/02/17 19:33) Docusate Sodium-Senna (Alisha-Colace) (08/02/17 21:00) Magnesium Hydroxide Liq (Milk Of Magnesi (08/02/17 19:45) Sennosides (Senokot) (08/02/17 19:45) Bisacodyl Supp (Dulcolax Supp) (08/02/17 19:45) Lactulose Liq (Lactulose Liq) (08/02/17 19:45) Inpatient Certification (08/02/17 ) Admit Order (Ed Use Only) (08/02/17 19:42) Labs Laboratory Tests Test 08/02/17 18:00 White Blood Count 19.1 TH/MM3 Red Blood Count 3.41 MIL/MM3 Hemoglobin 10.3 GM/DL Hematocrit 31.2 % Mean Corpuscular Volume 91.4 FL Mean Corpuscular Hemoglobin 30.1 PG Mean Corpuscular Hemoglobin Concent 33.0 % Red Cell Distribution Width 15.6 % Platelet Count 739 TH/MM3 Mean Platelet Volume 7.5 FL Neutrophils (%) (Auto) 81.9 % Lymphocytes (%) (Auto) 10.2 % Monocytes (%) (Auto) 6.3 % Eosinophils (%) (Auto) 1.2 % Basophils (%) (Auto) 0.4 % Neutrophils # (Auto) 15.7 TH/MM3 Lymphocytes # (Auto) 1.9 TH/MM3 Monocytes # (Auto) 1.2 TH/MM3 Eosinophils # (Auto) 0.2 TH/MM3 Basophils # (Auto) 0.1 TH/MM3 CBC Comment DIFF FINAL Differential Comment Prothrombin Time 10.5 SEC Prothromb Time International Ratio 1.0 RATIO Activated Partial Thromboplast Time 24.8 SEC Blood Urea Nitrogen 35 MG/DL Creatinine 2.21 MG/DL Random Glucose 94 MG/DL Total Protein 7.7 GM/DL Albumin 3.3 GM/DL Calcium Level 10.6 MG/DL Alkaline Phosphatase 71 U/L Aspartate Amino Transf (AST/SGOT) 33 U/L Alanine Aminotransferase (ALT/SGPT) 34 U/L Total Bilirubin 0.9 MG/DL Sodium Level 140 MEQ/L Potassium Level 4.5 MEQ/L Chloride Level 102 MEQ/L Carbon Dioxide Level 29.9 MEQ/L Anion Gap 8 MEQ/L Estimat Glomerular Filtration Rate 29 ML/MIN Lipase 170 U/L MDM Medical Record Reviewed: Yes Supervised Visit with REYES: No Narrative Course pt is signed out to me at 730 PM . I see pt and then pt vomits a large amount of blood onto the floor and bed, It is full of clots and blood and pt needs immediate intervention with Protonix drip and push and PRBC transfusion . I call GI attending and ICU attnding and admit for tranfusion stablilization and GI EGD and re-cauderization , I talk to GI and tell of prior EGD 10 days earlier. Pt repeat CBC is drawn and I see significant drop in HCT to 24 . ICU aware and pt is resusitated with NS and blood in ER . GI will scope in AM from the UNIT I am informed by GI oncall Critical Care Narrative 30 mns crit care time from this MD Physician Communication Physician Communication ICU VODA and GI attending Elaine Diagnosis Primary Impression: GI bleed Qualified Codes: K92.0 - Hematemesis Admitting Information Admitting Physician Requests: Admit Micky Bernstein MD Aug 02, 2017 19:37
[2017-08-02] MEDS ORDERED: BISACODYL 10 MG SUPP RECTAL PRN (19:45)
[2017-08-02] MEDS ORDERED: MAGNESIUM HYDROXIDE SUSP 30 ML CUP PO PRN (19:45)
[2017-08-02] MEDS ORDERED: MISCELLANEOUS NURSING INFORMATION XX SCH (19:45)
[2017-08-02] MEDS ORDERED: SENNOSIDES 8.6 MG TAB PO PRN (19:45)
[2017-08-02] MEDS ORDERED: CHLORHEXIDINE GLUCONATE 2 % 1 PACK (2 CLOTHS) TOP PRN (19:45)
[2017-08-02] MEDS ORDERED: DEXTROSE 50% IN WATER 50 ML VIAL(D50) IV PUSH PRN (19:45)
[2017-08-02] MEDS ORDERED: LACTULOSE SYRUP 20 GM/30 ML CUP PO PRN (19:45)
[2017-08-02] MEDS ORDERED: ACETAMINOPHEN 325 MG TAB PO PRN (19:45)
[2017-08-02] MEDS ORDERED: RESP: ALBUTEROL 2.5 MG/IPRATROPIUM 0.5 MG NEB (PRN) INH (19:45)
[2017-08-02] MEDS ORDERED: SODIUM CHLORIDE 0.9% FLUSH 10 ML FLUSH IV FLUSH PRN (19:45)
[2017-08-02] MEDS ORDERED: GLUCAGON 1 MG/ML VIAL OTHER PRN (19:45)
[2017-08-02] MEDS: PANTOPRAZOLE SODIUM 40 MG VIAL IV PUSH SCH (20:00)
[2017-08-02 20:15] LABS: HEMATOCRIT 24.5 % (39.0-51.0)
[2017-08-02] MEDS: PANTOPRAZOLE INJ 80 MG in SODIUM CHLORIDE 0.9% INJ 100 ML IV SCH (20:20)
[2017-08-02] MEDS: SODIUM CHLOR 0.9% 1000 ML INJ 1,000 ML IV SCH (20:23)
[2017-08-02] MEDS: DOCUSATE SODIUM 50 MG/SENNA 8.6 MG TAB PO SCH (21:00)
[2017-08-02] MEDS: LITHIUM CARBONATE 300 MG CAP PO SCH (21:00)
[2017-08-02] MEDS: INSULIN ASPART SUPPLEMENTAL SCALE SQ SCH (21:00)
[2017-08-02 21:11] LABS: BACTERIA, URINE FEW /hpf; BILIRUBIN, URINE NEG (NEG); BLOOD, URINE MOD (NEG); GLUCOSE,URINE TRACE mg/dL (NEG); HYALINE CAST, URINE 20 /lpf (RARE); KETONE, URINE NEG (NEG); MUCUS URINE FEW /lpf (OCC); NITRITE,URINE NEG (NEG); PH, URINE 5.5 (5.0-8.5); SQUAMOUS EPITHELIAL CELL URINE 2 /hpf (0-5); URINE COLOR YELLOW (YELLW/STRAW); URINE LEUKOCYTE ESTERASE LARGE (NEG); WHITE BLOOD CELL CLUMPS MANY
[2017-08-02] MEDS: CHLORHEXIDINE GLUCONATE 2 % 1 PACK (2 CLOTHS) TOP SCH (21:30)
--- NOTE | 2017-08-02 21:38 | RADRPT ---
EXAM DATE/TIME: 08/02/2017 20:54 [facility] COMPARISON: No previous studies available for comparison. INDICATIONS : Vomiting, post bleeding ulcer scope. ORAL CONTRAST: No oral contrast ingested. RADIATION DOSE: 15.40 CTDIvol (mGy) MEDICAL HISTORY : Stroke. Cardiovascular disease Gastroesophageal reflux disease.BPH. Diabetes. SURGICAL HISTORY : None. ENCOUNTER: Initial ACUITY: 1 day PAIN SCALE: 0/10 LOCATION: abdomen TECHNIQUE: Volumetric scanning of the abdomen and pelvis was performed. Using automated exposure control and ad justment of the mA and/or kV according to patient size, radiation dose was kept as low as reasonably achievable to obtain optimal diagnostic quality images. DICOM format image data is available electro nically for review and comparison. FINDINGS: LOWER LUNGS: The visualized lower lungs are clear. LIVER: Homogeneous density without lesion. There is no dilation of the biliary tree. No calcified gallston es. SPLEEN: Normal size without lesion. PANCREAS: Within normal limits. KIDNEYS: Normal in size and shape. There is no mass, stone, or hydronephrosis. ADRENAL GLANDS: Within normal limits. VASCULAR: There is no aortic aneurysm. Arterial calcifications are seen. BOWEL/MESENTERY: The stomach, small bowel, and colon demonstrate no acute abnormality. There is no free intraperitone al air or fluid. The appendix is normal. There are scattered colonic diverticula. There is a moderate amount stool in the rectum. ABDOMINAL WALL: Within normal limits. RETROPERITONEUM: There is no lymphadenopathy. BLADDER: No wall thickening or mass. REPRODUCTIVE: Within normal limits. INGUINAL: There is no lymphadenopathy or hernia. MUSCULOSKELETAL: Degenerative changes seen in the lumbar spine. CONCLUSION: 1. No acute abnormality seen. 2. Scattered colonic diverticula without inflammatory change. Haris Gonzalez MD on August 02, 2017 at 21:33 Board Certified Radiologist. This report was verified electronically.
[2017-08-02] MEDS: RESP: ALBUTEROL 2.5 MG/IPRATROPIUM 0.5 MG NEB (SCH) INH (21:44)
[2017-08-02] MEDS: SODIUM CHLORIDE 0.9% FLUSH 10 ML FLUSH IV FLUSH SCH (22:10)
[2017-08-02] MEDS: ATORVASTATIN 40 MG TAB PO SCH (22:47)
[2017-08-02] MEDS: TAMSULOSIN HCL 0.4 MG CAP PO SCH (22:47)
[2017-08-02] MEDS: FLUoxetine HCL 20 MG CAP PO SCH (22:47)
[2017-08-03] VITALS (18 sets, daily range): BP systolic 98–152; BP diastolic 53–81; PULSE 66–92; RESP 12–20; TEMP 97.7–98.8; O2SAT 99–100
[2017-08-03] MEDS: SODIUM CHLOR 0.9% 1000 ML INJ 1,000 ML IV SCH ×3 (01:47→22:06)
[2017-08-03 03:23] LABS: AUTOMATED NEUTROPHIL # 9.7 TH/MM3 (1.8-7.7); BASOPHIL % 0.3 % (0.0-2.0); EOSINOPHIL # 0.1 TH/MM3 (0-0.4); EOSINOPHIL % 0.9 % (0.0-4.0); HEMOGLOBIN 9.1 GM/DL (13.0-17.0); LYMPH % 20.6 % (9.0-44.0); LYMPHOCYTE # 2.9 TH/MM3 (1.0-4.8); MEAN CELL VOLUME 89.8 FL (80.0-100.0); MEAN CORPUSCULAR HEMOGLOBIN 30.3 PG (27.0-34.0); MEAN CORPUSCULAR HGB CONC 33.7 % (32.0-36.0); MEAN PLATELET VOLUME 7.1 FL (7.0-11.0); MONO % 8.5 % (0.0-8.0); MONOCYTE # 1.2 TH/MM3 (0-0.9); NEUT % 69.7 % (16.0-70.0); PLATELET COUNT 460 TH/MM3 (150-450); RED BLOOD COUNT 3.01 MIL/MM3 (4.50-5.90); RED CELL DISTRIBUTION WIDTH 15.8 % (11.6-17.2); WHITE BLOOD COUNT 13.9 TH/MM3 (4.0-11.0)
[2017-08-03 03:33] LABS: INTERNATIONAL NORMALIZED RATIO 1.1 RATIO; PROTHROMBIN TIME - PATIENT 11.2 SEC (9.8-11.6)
[2017-08-03] MEDS: RESP: ALBUTEROL 2.5 MG/IPRATROPIUM 0.5 MG NEB (SCH) INH ×3 (03:49→20:29)
[2017-08-03 03:52] LABS: ALBUMIN 2.3 GM/DL (3.4-5.0); ALKALINE PHOSPHATASE 48 U/L (45-117); ALT (GPT) 21 U/L (12-78); AST (GOT) 16 U/L (15-37); BICARBONATE 29.3 MEQ/L (21.0-32.0); BLOOD UREA NITROGEN 40 MG/DL (7-18); CALCIUM 9.1 MG/DL (8.5-10.1); CHLORIDE 110 MEQ/L (98-107); CREATININE 1.99 MG/DL (0.60-1.30); GLOMERULAR FILTRATION RATE 33 ML/MIN (>89); GLUCOSE,RANDOM 115 MG/DL (74-106); PHOSPHORUS 3.4 MG/DL (2.5-4.9); SODIUM (NA) 143 MEQ/L (136-145); TOTAL BILIRUBIN ADULT 1.1 MG/DL (0.2-1.0); TOTAL PROTEIN 5.5 GM/DL (6.4-8.2)
[2017-08-03] MEDS: PANTOPRAZOLE INJ 80 MG in SODIUM CHLORIDE 0.9% INJ 100 ML IV SCH ×2 (04:55→15:03)
[2017-08-03] MEDS: SUCRALFATE 1 GM TAB PO SCH ×2 (07:00→17:02)
[2017-08-03] MEDS: PANTOPRAZOLE SODIUM 40 MG VIAL IV PUSH SCH ×2 (08:00→20:48)
[2017-08-03] MEDS: INSULIN ASPART SUPPLEMENTAL SCALE SQ SCH ×4 (08:00→21:00)
[2017-08-03] MEDS: DOCUSATE SODIUM 50 MG/SENNA 8.6 MG TAB PO SCH ×2 (09:00→21:00)
[2017-08-03] MEDS: SODIUM CHLORIDE 0.9% FLUSH 10 ML FLUSH IV FLUSH SCH ×2 (09:00→20:48)
[2017-08-03] MEDS ORDERED: EPINEPHrine HCL (1:10,000) 1 MG/10 ML SYRINGE OTHER ONE (09:42)
--- NOTE | 2017-08-03 10:28 | PD.PROCEDR ---
GI Procedure PROCEDURE PERFORMED EGD with epinephrine injection and cautery INDICATION FOR PROCEDURE Upper GI bleed PROCEDURE: The procedure, risks and benefits were discussed with Mr. Quezada and informed consent was obtained. Anesthesia sedated him with Diprivan. He was placed in the left lateral decubitus position. EGD: The Pentax videoscope was introduced through the oropharynx and advanced to the second portion of the duodenum under direct visualization. Retroflexion was performed in the stomach. FINDINGS: The esophagus this was normal The stomach this was normal The duodenum in the bulb was a large duodenal ulcer with a visible vessel this was injected with 8 cc of epinephrine and cauterized also noted in this area was a clip from the prior endoscopy the rest of the duodenum was unremarkable ESTIMATED BLOOD LOSS: None SPECIMENS REMOVED: None COMPLICATIONS: None IMPRESSION: Duodenal ulcer with stigmata showing a visible vessel PLAN: Supportive care Continue with Protonix 40 mg twice daily Monitor lab and transfuse as needed EGD in 2 months If any active bleeding patient will need interventional radiology for embolization Shoaib Harris MD Aug 03, 2017 10:28
[2017-08-03] MEDS ORDERED: DO NOT ADM ANY ANTICOAGULANT DRUGS PRN ×2 (11:00→11:15)
[2017-08-03] MEDS ORDERED: PROPOFOL 200 MG/20 ML AMP IV ONE (12:00)
[2017-08-03] MEDS ORDERED: PHENYLEPH/NS 1000 MCG/10 ML SYR IV ONE (12:00)
[2017-08-03] MEDS ORDERED: LIDOCAINE HCL 1% PF 5 ML SYRINGE OTHER ONE (12:00)
--- NOTE | 2017-08-03 13:10 | PD.CONS ---
HPI History of Present Illness This is a 71 year old male with hx CVA on plavix, GIB, gastric ulcer who presented from his NH for hematemesis. Yesterday he was having blood in emesis and black tarry stools. He had EGD 08/02/17 with finding ulcer with visible vessel, s/p epi inj, cautery, clips x 3. Pt is limited historian, just had repeat EGD. (Umm Weber) PFSH Past Medical History Bipolar disorder Hypertension Diabetes mellitus History of GI bleed History of recent CVA Past Surgical History Left hand crush injury related surgery (Umm Weber) Coded Allergies: codeine (Verified Allergy, Severe, MUSCULOSKELETAL ISSUES, 08/02/17) insulin,pork (Verified Allergy, Severe, Anaphylaxis, 08/02/17) insulin aspart (Verified Allergy, Intermediate, 08/02/17) lactose (Verified Allergy, Intermediate, 08/02/17) LACTOSE INTOLERANT Family History No family history of CAD/DM. Mother with esophageal cancer Social History Denies alcohol, tobacco and illicit drugs (Umm Weber) Review of Systems Gastrointestinal: COMPLAINS OF: Black stools, Hematemesis, DENIES: Abdominal pain otherwise noncontributory (Umm Weber) GI Exam Vitals I&O Vital Signs Date Time Temp Pulse Resp B/P (MAP) Pulse Ox O2 Delivery O2 Flow Rate FiO2 08/03/17 10:45 91 18 125/68 (87) 99 Nasal Cannula 3 08/03/17 10:30 99 18 138/65 (89) 99 Nasal Cannula 3 08/03/17 10:10 98.0 106 18 122/64 (83) 97 Nasal Cannula 3 08/03/17 08:00 86 08/03/17 08:00 98.2 86 13 115/60 (78) 100 08/03/17 08:00 100 Nasal Cannula 2.00 08/03/17 07:00 99 Nasal Cannula 3.00 08/03/17 06:00 69 08/03/17 04:00 98.1 90 13 143/72 (95) 100 08/03/17 04:00 75 08/03/17 03:02 89 12 126/67 (86) 100 08/03/17 02:00 79 19 118/66 (83) 100 08/03/17 02:00 79 08/03/17 01:00 81 16 98/53 (68) 100 08/03/17 00:45 84 17 124/65 (84) 100 08/03/17 00:30 85 20 118/65 (82) 100 08/03/17 00:15 84 16 121/67 (85) 100 08/03/17 00:00 80 08/03/17 00:00 98 Nasal Cannula 3.00 08/03/17 00:00 98.0 92 20 117/68 (84) 100 08/02/17 23:45 98.1 89 20 110/64 (79) 100 08/02/17 23:30 98.0 83 25 110/63 (79) 100 08/02/17 23:15 85 13 110/61 (77) 100 08/02/17 23:00 85 17 114/58 (76) 100 08/02/17 22:45 88 20 116/60 (78) 100 08/02/17 22:30 94 28 107/60 (76) 100 08/02/17 22:15 89 18 104/60 (75) 100 08/02/17 22:11 91 16 97/61 (73) 100 08/02/17 22:05 87 17 69/47 (54) 100 08/02/17 22:00 83 08/02/17 22:00 88 17 77/51 (60) 100 08/02/17 21:30 96 Nasal Cannula 3.00 08/02/17 21:30 100 Nasal Cannula 3.00 08/02/17 21:30 98.2 97 20 115/75 (88) 98 08/02/17 21:30 86 08/02/17 21:15 98.1 91 19 91/56 (68) 100 08/02/17 21:02 98.2 97 16 115/75 (88) 98 Nasal Cannula 2.00 08/02/17 20:45 106 16 118/67 (84) 99 Nasal Cannula 2.00 08/02/17 20:30 100 16 128/69 (88) 99 Nasal Cannula 2.00 08/02/17 20:00 108 16 96/56 (69) 99 Nasal Cannula 2.00 08/02/17 19:11 105 16 102/67 (79) 100 Nasal Cannula 2.00 08/02/17 18:40 98.6 85 16 141/85 (103) 96 Room Air 08/02/17 18:20 98.6 85 16 141/85 (103) 96 I/O 08/02/17 08/02/17 08/02/17 08/03/17 08/03/17 08/03/17 07:00 15:00 23:00 07:00 15:00 23:00 Intake Total 1050 ml 3396 ml 200 ml Output Total 3000 ml Balance -1950 ml 3396 ml 200 ml Intake Oral 0 ml IV Total 1000 ml 1646 ml Packed Cells 1600 ml Blood Product IV Normal Saline Flush 50 ml 150 ml Other 200 ml Output Emesis 3000 ml # Voids 3 # Bowel Movements 0 Imaging Last Impressions Abdomen/Pelvis CT 08/02/17 1851 Signed Impressions: Service Date/Time: July 20:54 - CONCLUSION: 1. No acute abnormality seen. 2. Scattered colonic diverticula without inflammatory change. Haris Gonzalez MD Chest X-Ray 08/02/17 9402 Signed Impressions: Service Date/Time: July 17:59 - CONCLUSION: No acute disease. No free air is seen. Haris Gonzalez MD Laboratory Test 08/02/17 18:00 08/02/17 20:00 08/02/17 20:40 08/02/17 21:25 White Blood Count 19.1 TH/MM3 Red Blood Count 3.41 MIL/MM3 Hemoglobin 10.3 GM/DL 8.0 GM/DL Hematocrit 31.2 % 24.5 % Mean Corpuscular Volume 91.4 FL Mean Corpuscular Hemoglobin 30.1 PG Mean Corpuscular Hemoglobin Concent 33.0 % Red Cell Distribution Width 15.6 % Platelet Count 739 TH/MM3 Mean Platelet Volume 7.5 FL Neutrophils (%) (Auto) 81.9 % Lymphocytes (%) (Auto) 10.2 % Monocytes (%) (Auto) 6.3 % Eosinophils (%) (Auto) 1.2 % Basophils (%) (Auto) 0.4 % Neutrophils # (Auto) 15.7 TH/MM3 Lymphocytes # (Auto) 1.9 TH/MM3 Monocytes # (Auto) 1.2 TH/MM3 Eosinophils # (Auto) 0.2 TH/MM3 Basophils # (Auto) 0.1 TH/MM3 CBC Comment DIFF FINAL Differential Comment Prothrombin Time 10.5 SEC Prothromb Time International Ratio 1.0 RATIO Activated Partial Thromboplast Time 24.8 SEC Blood Urea Nitrogen 35 MG/DL Creatinine 2.21 MG/DL Random Glucose 94 MG/DL Total Protein 7.7 GM/DL Albumin 3.3 GM/DL Calcium Level 10.6 MG/DL Alkaline Phosphatase 71 U/L Aspartate Amino Transf (AST/SGOT) 33 U/L Alanine Aminotransferase (ALT/SGPT) 34 U/L Total Bilirubin 0.9 MG/DL Sodium Level 140 MEQ/L Potassium Level 4.5 MEQ/L Chloride Level 102 MEQ/L Carbon Dioxide Level 29.9 MEQ/L Anion Gap 8 MEQ/L Estimat Glomerular Filtration Rate 29 ML/MIN Lipase 170 U/L Urine Color YELLOW Urine Turbidity CLOUDY Urine pH 5.5 Urine Specific [place] 1.016 Urine Protein 30 mg/dL Urine Glucose (UA) TRACE mg/dL Urine Ketones NEG mg/dL Urine Occult Blood MOD Urine Nitrite NEG Urine Bilirubin NEG Urine Urobilinogen LESS THAN 2.0 MG/DL Urine Leukocyte Esterase LARGE Urine RBC 17 /hpf Urine WBC /hpf Urine WBC Clumps MANY Urine Squamous Epithelial Cells 2 /hpf Urine Bacteria FEW /hpf Urine Hyaline Casts 20 /lpf Urine Mucus FEW /lpf Microscopic Urinalysis Comment CULTURE INDICATED Nasal Screen MRSA (PCR) MRSA NOT DETECTED Test 08/03/17 03:02 White Blood Count 13.9 TH/MM3 Red Blood Count 3.01 MIL/MM3 Hemoglobin 9.1 GM/DL Hematocrit 27.0 % Mean Corpuscular Volume 89.8 FL Mean Corpuscular Hemoglobin 30.3 PG Mean Corpuscular Hemoglobin Concent 33.7 % Red Cell Distribution Width 15.8 % Platelet Count 460 TH/MM3 Mean Platelet Volume 7.1 FL Neutrophils (%) (Auto) 69.7 % Lymphocytes (%) (Auto) 20.6 % Monocytes (%) (Auto) 8.5 % Eosinophils (%) (Auto) 0.9 % Basophils (%) (Auto) 0.3 % Neutrophils # (Auto) 9.7 TH/MM3 Lymphocytes # (Auto) 2.9 TH/MM3 Monocytes # (Auto) 1.2 TH/MM3 Eosinophils # (Auto) 0.1 TH/MM3 Basophils # (Auto) 0.0 TH/MM3 CBC Comment DIFF FINAL Differential Comment Prothrombin Time 11.2 SEC Prothromb Time International Ratio 1.1 RATIO Activated Partial Thromboplast Time 22.2 SEC Blood Urea Nitrogen 40 MG/DL Creatinine 1.99 MG/DL Random Glucose 115 MG/DL Total Protein 5.5 GM/DL Albumin 2.3 GM/DL Calcium Level 9.1 MG/DL Phosphorus Level 3.4 MG/DL Magnesium Level 2.0 MG/DL Alkaline Phosphatase 48 U/L Aspartate Amino Transf (AST/SGOT) 16 U/L Alanine Aminotransferase (ALT/SGPT) 21 U/L Total Bilirubin 1.1 MG/DL Sodium Level 143 MEQ/L Potassium Level 4.3 MEQ/L Chloride Level 110 MEQ/L Carbon Dioxide Level 29.3 MEQ/L Anion Gap 4 MEQ/L Estimat Glomerular Filtration Rate 33 ML/MIN Lactic Acid Level 0.9 mmol/L Date/Time Source Procedure Growth Status 08/02/17 20:40 Urine Clean Catch Urine Culture Pending Received Physical Examination HEENT: PERRL; normocephalic; atraumatic; no jaundice. poor dentition CHEST: CTA CARDIAC: RRR + murmur ABDOMEN: Soft, nondistended, nontender; no hepatosplenomegaly; bowel sounds are present in all four quadrants. EXTREMITIES: No clubbing, cyanosis, or edema. SKIN: Normal; no rash; no jaundice. 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 prior hx GIB. EGD 07/24/17 showed ulcer with visible vessel, s/p cautery, clips x 3 and epi inj. had EGD today 08/03/17 showed large duodenal ulcer with visible vessel, s/p cautery, epi inj. - anemia with drop in HH - hgb dropped from 10 to 8. now s/p PRBC x 2 PLAN - clear liquids - BID protonix - if further bleeding, IR consult for embolization - EGD 2m - monitor HH - supportive care pt seen by myself and Dr Harris and this note is on his behalf (Umm Weber) Physician Comments Patient seen and examined Agree with above Continue with current supportive care Monitor labs EGD done showing an ulcer of the duodenum with stigmata of recent bleed (Shoaib Harris MD) Umm Weber Aug 03, 2017 13:10 Shoaib Harris MD Aug 03, 2017 23:50
[2017-08-03 16:23] LABS: BASOPHIL # 0.1 TH/MM3 (0-0.2); BASOPHIL % 0.5 % (0.0-2.0); EOSINOPHIL # 0.1 TH/MM3 (0-0.4); EOSINOPHIL % 0.5 % (0.0-4.0); HEMATOCRIT 26.8 % (39.0-51.0); HEMOGLOBIN 9.1 GM/DL (13.0-17.0); LYMPH % 23.7 % (9.0-44.0); LYMPHOCYTE # 3.6 TH/MM3 (1.0-4.8); MEAN CELL VOLUME 89.5 FL (80.0-100.0); MEAN CORPUSCULAR HEMOGLOBIN 30.2 PG (27.0-34.0); MEAN CORPUSCULAR HGB CONC 33.8 % (32.0-36.0); MEAN PLATELET VOLUME 7.3 FL (7.0-11.0); MONO % 9.1 % (0.0-8.0); MONOCYTE # 1.4 TH/MM3 (0-0.9); NEUT % 66.2 % (16.0-70.0); PLATELET COUNT 498 TH/MM3 (150-450); RED CELL DISTRIBUTION WIDTH 15.5 % (11.6-17.2); WHITE BLOOD COUNT 15.1 TH/MM3 (4.0-11.0)
--- NOTE | 2017-08-03 16:48 | HHI.CCPN ---
Subjective Remarks/Hospital Course 08/02: 71-year-old male patient from the half-way with previous history of gastric ulcers and GI bleeding and the last endoscopy 2 weeks ago, presents today because he had hematemesis and was nauseous and throwing up at the half-way facility. He denies any chest pains, shortness of breath, abdominal pains, diarrhea, or any other symptoms. 08/03: Underwent EGD with findings of large duodenal ulcer with visible vessel which was injected with epinephrine and clipped by GI. Hemoglobin remained stable. Received 2 units PRBCs last night. Drowsy following EGD at the time of my evaluation earlier today. 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 Objective Vital Signs Date Time Temp Pulse Resp B/P (MAP) Pulse Ox O2 Delivery O2 Flow Rate FiO2 08/03/17 14:00 66 08/03/17 12:00 98.8 17 140/71 (94) 99 08/03/17 10:45 Nasal Cannula 3 Intake and Output 08/03/17 08/03/17 08/04/17 08:00 16:00 00:00 Intake Total 2396 ml 200 ml Balance 2396 ml 200 ml Result Diagram: 08/03/17 1519 08/03/17 0302 Imaging Last 24 hours Impressions Chest X-Ray 08/02/17 1749 Signed Impressions: Service Date/Time: July 17:59 - CONCLUSION: No acute disease. No free air is seen. Haris Gonzalez MD Objective Remarks GENERAL: Well-developed elderly male patient laying in bed in no acute distress , drowsy, arousable.. Left-sided residual weakness SKIN: Focused skin assessment warm/dry. HEAD: Atraumatic. Normocephalic. EYES: Pupils equal and round. No scleral icterus. No injection or drainage. ENT: No nasal bleeding or discharge. Mucous membranes pink and moist. NECK: Trachea midline. No JVD. Supple. CARDIOVASCULAR: Regular rate and rhythm. No murmur appreciated. RESPIRATORY: No accessory muscle use. Clear to auscultation. Breath sounds equal bilaterally. GASTROINTESTINAL: Abdomen soft, non-tender, nondistended. Hepatic and splenic margins not palpable. MUSCULOSKELETAL: No obvious deformities. No clubbing. No cyanosis. No edema. NEUROLOGICAL: Awake and alert. No obvious cranial nerve deficits. Motor with left-sided residual weakness A/P Assessment and Plan Hematemesis -Protonix drip -Status post EGD with injection and clipping of large vessel in duodenal ulcer. -Received 2 units PRBCs last night. Follow serial H&H and transfuse if needed to keep hemoglobin greater than 8 g percent -Further management per gastroenterology Diabetes mellitus -Hold metformin while in the ICU -Insulin sliding scale Hypertension -Hold antihypertensive meds due to acute GI bleed -Resume when indicated Bipolar disorder -Continue Flomax and lithium DVT GI prophylaxis -Rajinder's and SCDs -No pharmacological DVT prophylaxis due to acute GI bleed -Protonix IV twice daily Consult and transfer to hospitalist service for further medical management. Transfer out of ICU. Critical care will be signing off, please reconsult if needed. Andrew Larios MD Aug 03, 2017 16:48
[2017-08-03] MEDS: LITHIUM CARBONATE 300 MG CAP PO SCH (20:47)
[2017-08-03] MEDS: ATORVASTATIN 40 MG TAB PO SCH (20:47)
[2017-08-03] MEDS: TAMSULOSIN HCL 0.4 MG CAP PO SCH (20:47)
[2017-08-03] MEDS: FLUoxetine HCL 20 MG CAP PO SCH (20:48)
[2017-08-04] VITALS (7 sets, daily range): BP systolic 121–152; BP diastolic 60–97; PULSE 65–104; RESP 17–20; TEMP 97.4–98.2; O2SAT 94–100
[2017-08-04] MEDS: PANTOPRAZOLE INJ 80 MG in SODIUM CHLORIDE 0.9% INJ 100 ML IV SCH ×3 (01:34→21:51)
[2017-08-04] MEDS: CHLORHEXIDINE GLUCONATE 2 % 1 PACK (2 CLOTHS) TOP SCH ×2 (04:00→21:51)
[2017-08-04] MEDS: RESP: ALBUTEROL 2.5 MG/IPRATROPIUM 0.5 MG NEB (SCH) INH ×3 (04:57→16:00)
[2017-08-04] MEDS: SODIUM CHLOR 0.9% 1000 ML INJ 1,000 ML IV SCH ×3 (05:36→21:48)
[2017-08-04] MEDS: SUCRALFATE 1 GM TAB PO SCH ×2 (05:36→16:00)
[2017-08-04] MEDS: INSULIN ASPART SUPPLEMENTAL SCALE SQ SCH ×4 (08:00→21:00)
[2017-08-04 08:21] LABS: HEMATOCRIT 24.4 % (39.0-51.0); HEMOGLOBIN 8.2 GM/DL (13.0-17.0); MEAN CELL VOLUME 91.6 FL (80.0-100.0); MEAN CORPUSCULAR HEMOGLOBIN 30.9 PG (27.0-34.0); MEAN CORPUSCULAR HGB CONC 33.7 % (32.0-36.0); MEAN PLATELET VOLUME 7.4 FL (7.0-11.0); PLATELET COUNT 428 TH/MM3 (150-450); RED BLOOD COUNT 2.66 MIL/MM3 (4.50-5.90); RED CELL DISTRIBUTION WIDTH 15.5 % (11.6-17.2); WHITE BLOOD COUNT 9.3 TH/MM3 (4.0-11.0)
[2017-08-04] MEDS: SODIUM CHLORIDE 0.9% FLUSH 10 ML FLUSH IV FLUSH SCH ×2 (09:00→20:35)
[2017-08-04] MEDS: DOCUSATE SODIUM 50 MG/SENNA 8.6 MG TAB PO SCH ×2 (09:30→20:36)
[2017-08-04] MEDS: PANTOPRAZOLE SODIUM 40 MG VIAL IV PUSH SCH ×2 (09:30→20:35)
--- NOTE | 2017-08-04 09:55 | HHI.PR ---
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 He denies any chest pains, shortness of breath, abdominal pains, diarrhea, or any other symptoms. 08/03: Underwent EGD with findings of large duodenal ulcer with visible vessel which was injected with epinephrine and clipped by GI. Hemoglobin remained stable. Received 2 units PRBCs last night. Drowsy following EGD at the time of my evaluation earlier today. 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 Hospitalist notes: 08/04: Stable seen in his bedroom, with consult of GI bleed, hematemesis, EGD showed ulcer with visible vessel, status post cautery, clip x 3 epi injection had EGD 08/03/17 showed large duodenal ulcer with visible vessel, status post cautery, epi injection. Anemia wit status post PRBC x 2, Endoscopy done on 08/03/17. Findings include normal esophagus, normal stomach, duodenum in the bulb was a large duodenal ulcer with a visible vessel, injected and cauterized, clip was there from the previous endoscopy. Otherwise unremarkable. Noted scattered diverticula on CT scan. 08/02/17 advanced diet by GI specialist, switch to Protonix 40 mg BID, EGD in 2 months, Objective Vital Signs Date Time Temp Pulse Resp B/P (MAP) Pulse Ox O2 Delivery O2 Flow Rate FiO2 08/04/17 09:34 98 Nasal Cannula 2.00 08/04/17 03:58 65 08/03/17 23:58 74 08/03/17 22:37 97.7 87 18 123/61 (81) 100 08/03/17 21:49 100 Nasal Cannula 2.00 08/03/17 20:31 99 Nasal Cannula 2.00 08/03/17 20:00 98.3 88 17 136/81 (99) 99 08/03/17 20:00 88 08/03/17 19:00 100 Nasal Cannula 3.00 08/03/17 18:00 68 08/03/17 16:00 68 08/03/17 16:00 98.4 68 17 152/74 (100) 99 08/03/17 14:00 66 08/03/17 12:00 71 08/03/17 12:00 98.8 71 17 140/71 (94) 99 08/03/17 10:45 91 18 125/68 (87) 99 Nasal Cannula 3 08/03/17 10:30 99 18 138/65 (89) 99 Nasal Cannula 3 08/03/17 10:10 98.0 106 18 122/64 (83) 97 Nasal Cannula 3 I/O 08/03/17 08/03/17 08/03/17 08/04/17 08/04/17 08/04/17 07:00 15:00 23:00 07:00 15:00 23:00 Intake Total 3396 ml 200 ml 1060 ml 1252 ml Balance 3396 ml 200 ml 1060 ml 1252 ml Intake Oral 0 ml 0 ml 480 ml IV Total 1646 ml 1060 ml 772 ml Packed Cells 1600 ml Blood Product IV Normal Saline Flush 150 ml Other 200 ml # Voids 3 5 3 # Bowel Movements 0 0 0 Result Diagram: 08/04/17 0632 08/03/17 0302 Imaging Last Impressions Abdomen/Pelvis CT 08/02/17 1851 Signed Impressions: Service Date/Time: July 20:54 - CONCLUSION: 1. No acute abnormality seen. 2. Scattered colonic diverticula without inflammatory change. Haris Gonzalez MD Chest X-Ray 08/02/17 6980 Signed Impressions: Service Date/Time: July 17:59 - CONCLUSION: No acute disease. No free air is seen. Haris Gonzalez MD Procedures EGD Other Results Laboratory Tests Test 08/02/17 18:00 08/02/17 20:40 08/02/17 21:25 08/03/17 03:02 Lipase 170 U/L Urine Color YELLOW Urine Turbidity CLOUDY Urine pH 5.5 Urine Specific [place] 1.016 Urine Protein 30 mg/dL Urine Glucose (UA) TRACE mg/dL Urine Ketones NEG mg/dL Urine Occult Blood MOD Urine Nitrite NEG Urine Bilirubin NEG Urine Urobilinogen LESS THAN 2.0 MG/DL Urine Leukocyte Esterase LARGE Urine RBC 17 /hpf Urine WBC /hpf Urine WBC Clumps MANY Urine Squamous Epithelial Cells 2 /hpf Urine Bacteria FEW /hpf Urine Hyaline Casts 20 /lpf Urine Mucus FEW /lpf Microscopic Urinalysis Comment CULTURE INDICATED Nasal Screen MRSA (PCR) MRSA NOT DETECTED Prothrombin Time 11.2 SEC Prothromb Time International Ratio 1.1 RATIO Activated Partial Thromboplast Time 22.2 SEC Blood Urea Nitrogen 40 MG/DL Creatinine 1.99 MG/DL Random Glucose 115 MG/DL Total Protein 5.5 GM/DL Albumin 2.3 GM/DL Calcium Level 9.1 MG/DL Phosphorus Level 3.4 MG/DL Magnesium Level 2.0 MG/DL Alkaline Phosphatase 48 U/L Aspartate Amino Transf (AST/SGOT) 16 U/L Alanine Aminotransferase (ALT/SGPT) 21 U/L Total Bilirubin 1.1 MG/DL Sodium Level 143 MEQ/L Potassium Level 4.3 MEQ/L Chloride Level 110 MEQ/L Carbon Dioxide Level 29.3 MEQ/L Anion Gap 4 MEQ/L Estimat Glomerular Filtration Rate 33 ML/MIN Lactic Acid Level 0.9 mmol/L Test 08/03/17 15:19 08/04/17 06:32 Neutrophils (%) (Auto) 66.2 % Lymphocytes (%) (Auto) 23.7 % Monocytes (%) (Auto) 9.1 % Eosinophils (%) (Auto) 0.5 % Basophils (%) (Auto) 0.5 % Neutrophils # (Auto) 10.0 TH/MM3 Lymphocytes # (Auto) 3.6 TH/MM3 Monocytes # (Auto) 1.4 TH/MM3 Eosinophils # (Auto) 0.1 TH/MM3 Basophils # (Auto) 0.1 TH/MM3 CBC Comment DIFF FINAL Differential Comment White Blood Count 9.3 TH/MM3 Red Blood Count 2.66 MIL/MM3 Hemoglobin 8.2 GM/DL Hematocrit 24.4 % Mean Corpuscular Volume 91.6 FL Mean Corpuscular Hemoglobin 30.9 PG Mean Corpuscular Hemoglobin Concent 33.7 % Red Cell Distribution Width 15.5 % Platelet Count 428 TH/MM3 Mean Platelet Volume 7.4 FL Objective Remarks GENERAL: No acute distress SKIN: Focused skin assessment warm/dry. HEAD: Atraumatic. Normocephalic. EYES: Pupils equal and round. No scleral icterus. No injection or drainage. ENT: No nasal bleeding or discharge. Mucous membranes pink and moist. NECK: Trachea midline. No JVD. Supple. CARDIOVASCULAR: Regular rate and rhythm. No murmur appreciated. RESPIRATORY: No accessory muscle use. Clear to auscultation. Breath sounds equal bilaterally. GASTROINTESTINAL: Abdomen soft, non-tender, nondistended. Hepatic and splenic margins not palpable. MUSCULOSKELETAL: No obvious deformities. No clubbing. No cyanosis. No edema. NEUROLOGICAL: Awake and alert. No obvious cranial nerve deficits. Motor with left-sided residual weakness Medications and IVs Current Medications Medications (Trade) Dose Ordered Sig/[place]ton Route Start Time Stop Time Status Last Admin (NS Flush) 2 ml UNSCH PRN IVF 08/02/17 18:00 (SandoSTATIN INJ) 50 mcg ONCE IV PUSH 08/02/17 19:30 08/02/17 20:23 (Lipitor) 40 mg HS PO 08/02/17 21:00 08/03/17 20:47 (PROzac) 40 mg HS PO 08/02/17 21:00 08/03/17 20:48 ([place] Carbonate) 600 mg HS PO 08/02/17 21:00 08/03/17 20:47 (Carafate) 1 gm BIDAC PO 08/03/17 07:00 08/04/17 05:36 (Flomax) 0.4 mg HS PO 08/02/17 21:00 08/03/17 20:47 (D50w (Vial) Inj) 50 ml UNSCH PRN IV PUSH 08/02/17 19:45 (Glucagon Inj) 1 mg UNSCH PRN OTHER 08/02/17 19:45 (NovoLOG SUPPLEMENTAL SCALE) 1 ACHS SLIDING SCALE SQ 08/02/17 21:00 Sodium Chloride 1,000 ml @ 124 mls/hr Q8H4M IV 08/02/17 19:33 08/04/17 05:36 (NS Flush) 2 ml UNSCH PRN IV FLUSH 08/02/17 19:45 (NS Flush) 2 ml BID IV FLUSH 08/02/17 21:00 08/03/17 20:48 (Tylenol) 650 mg Q6H PRN PO 08/02/17 19:45 (Protonix Inj) 40 mg Q12H IV PUSH 08/02/17 20:00 08/04/17 09:30 (Zofran Inj) 4 mg Q6H PRN IV PUSH 08/02/17 19:45 (Duoneb Neb) 1 ampule Q6HR NEB INH 08/02/17 22:00 08/04/17 09:32 (Duoneb Neb) 1 ampule Q2HR NEB PRN INH 08/02/17 19:45 Miscellaneous Information 1 Q361D XX 08/02/17 19:45 08/02/17 21:15 (Chlorhexidine 2% Cloth) 3 pack Taper DAILY@04 TOP 08/03/17 04:00 07/30/18 03:59 08/02/17 21:30 (Chlorhexidine 2% Cloth) 3 pack UNSCH PRN TOP 08/02/17 19:45 (Alisha-Colace) 1 tab BID PO 08/02/17 21:00 08/04/17 09:30 (Milk Of Magnesia Liq) 30 ml Q12H PRN PO 08/02/17 19:45 (Senokot) 17.2 mg Q12H PRN PO 08/02/17 19:45 (Dulcolax Supp) 10 mg DAILY PRN RECTAL 08/02/17 19:45 (Lactulose Liq) 30 ml DAILY PRN PO 08/02/17 19:45 Pantoprazole Sodium 80 mg/ Sodium Chloride 100 ml @ 10 mls/hr Q10H IV 08/02/17 20:00 08/04/17 01:34 Miscellaneous Information ALL NURSING DEPARTME... UNSCH PRN .XX 08/03/17 11:00 08/04/17 10:59 Miscellaneous Information ALL NURSING DEPARTME... UNSCH PRN .XX 08/03/17 11:15 08/04/17 11:14 A/P Assessment and Plan Hematemesis -Protonix drip -Status post EGD with injection and clipping of large vessel in duodenal ulcer. -Received 2 units PRBCs last night. Follow serial H&H and transfuse if needed to keep hemoglobin greater than 8 g percent -EGD 07/24/17 showed ulcer with visible vessel, status post cautery, clip x 3 epi injection had EGD 08/03/17 showed large duodenal ulcer with visible vessel, status post cautery, epi injection. Anemia wit status post PRBC x 2, Endoscopy done on 08/03/17. Findings include normal esophagus, normal stomach, duodenum in the bulb was a large duodenal ulcer with a visible vessel, injected and cauterized, clip was there from the previous endoscopy. Otherwise unremarkable. Noted scattered diverticula on CT scan. 08/02/17 advanced diet by GI specialist, switch to Protonix 40 mg BID, EGD in 2 months, -Diabetes mellitus -Hold metformin -Insulin sliding scale Hypertension -Hold antihypertensive meds due to acute GI bleed -Resume when indicated Bipolar disorder -Continue Flomax and lithium DVT GI prophylaxis -Rajinder's and SCDs -No pharmacological DVT prophylaxis due to acute GI bleed -Protonix IV twice daily Discharge Planning once cleared by GI specialist. Titus Beaver MD Aug 04, 2017 09:55
--- NOTE | 2017-08-04 11:48 | HHI.GIFU ---
Subjective Remarks Resting in the bed Using O2 at 2 L but no obvious shortness of breath Hemoglobin 8.2 no obvious bleeding Denies any nausea or vomiting, or abdominal pain (Deisi Escalona) Objective Vitals I&O Vital Signs Date Time Temp Pulse Resp B/P (MAP) Pulse Ox O2 Delivery O2 Flow Rate FiO2 08/04/17 09:34 98 Nasal Cannula 2.00 08/04/17 08:00 98.0 77 19 151/73 (99) 100 08/04/17 03:58 65 08/03/17 23:58 74 08/03/17 22:37 97.7 87 18 123/61 (81) 100 08/03/17 21:49 100 Nasal Cannula 2.00 08/03/17 20:31 99 Nasal Cannula 2.00 08/03/17 20:00 98.3 88 17 136/81 (99) 99 08/03/17 20:00 88 08/03/17 19:00 100 Nasal Cannula 3.00 08/03/17 18:00 68 08/03/17 16:00 68 08/03/17 16:00 98.4 68 17 152/74 (100) 99 08/03/17 14:00 66 08/03/17 12:00 71 08/03/17 12:00 98.8 71 17 140/71 (94) 99 I/O 08/03/17 08/03/17 08/03/17 08/04/17 08/04/17 08/04/17 07:00 15:00 23:00 07:00 15:00 23:00 Intake Total 3396 ml 200 ml 1060 ml 1252 ml Balance 3396 ml 200 ml 1060 ml 1252 ml Intake Oral 0 ml 0 ml 480 ml IV Total 1646 ml 1060 ml 772 ml Packed Cells 1600 ml Blood Product IV Normal Saline Flush 150 ml Other 200 ml # Voids 3 5 3 # Bowel Movements 0 0 0 Laboratory Laboratory Tests Test 08/03/17 15:19 08/04/17 06:32 White Blood Count 15.1 9.3 Red Blood Count 3.00 2.66 Hemoglobin 9.1 8.2 Hematocrit 26.8 24.4 Mean Corpuscular Volume 89.5 91.6 Mean Corpuscular Hemoglobin 30.2 30.9 Mean Corpuscular Hemoglobin Concent 33.8 33.7 Red Cell Distribution Width 15.5 15.5 Platelet Count 498 428 Mean Platelet Volume 7.3 7.4 Neutrophils (%) (Auto) 66.2 Lymphocytes (%) (Auto) 23.7 Monocytes (%) (Auto) 9.1 Eosinophils (%) (Auto) 0.5 Basophils (%) (Auto) 0.5 Neutrophils # (Auto) 10.0 Lymphocytes # (Auto) 3.6 Monocytes # (Auto) 1.4 Eosinophils # (Auto) 0.1 Basophils # (Auto) 0.1 CBC Comment DIFF FINAL Differential Comment Date/Time Source Procedure Growth Status 08/02/17 20:40 Urine Clean Catch Urine Culture - Preliminary Gram Negative Reji Resulted Imaging Last Impressions Abdomen/Pelvis CT 08/02/17 1851 Signed Impressions: Service Date/Time: July 20:54 - CONCLUSION: 1. No acute abnormality seen. 2. Scattered colonic diverticula without inflammatory change. Haris Gonzalez MD Chest X-Ray 08/02/17 8519 Signed Impressions: Service Date/Time: July 17:59 - CONCLUSION: No acute disease. No free air is seen. Haris Gonzalez MD Physical Exam HEENT: Pupils round and reactive to light; normocephalic; atraumatic; no jaundice NECK: Neck is supple CHEST: No Obvious shortness of breath or rhonchi, but using oxygen at 2 L as needed CARDIAC: Regular rate and rhythm ABDOMEN: Round, Soft, nondistended, nontender; no hepatosplenomegaly; bowel sounds are present in all four quadrants. EXTREMITIES: No clubbing, cyanosis, or edema. SKIN: Normal; no rash; no jaundice. Pale CULLET CRUSHER: No focal deficits; alert and oriented times two (Deisi Escalona) Assessment and Plan Plan ASSESSMENT - hematemesis, black tarry stool - onset yesterday. prior hx GIB. EGD 07/24/17 showed ulcer with visible vessel, s/p cautery, clips x 3 and epi inj. had EGD today 08/03/17 showed large duodenal ulcer with visible vessel, s/p cautery, epi inj. - anemia with drop in HH - hgb dropped from 10 to 8. now s/p PRBC x 2 Endoscopy done on 08/03/17. Findings include normal esophagus, normal stomach, duodenum in the bulb was a large duodenal ulcer with a visible vessel, injected and cauterized, clip was there from the previous endoscopy. Otherwise unremarkable. Noted scattered diverticula on CT scan. 08/02/17 08/04/17 patient is resting in the bed asymptomatic. No obvious nausea or vomiting or abdominal pain, appetite fair, would like to increase to solid food. discussed EGD findings PLAN: Diet, changed from clear liquid to heart healthy Supportive care Continue with Protonix 40 mg twice daily Monitor lab and transfuse as needed. Current hemoglobin 8.2 EGD in 2 months If any active bleeding patient will need interventional radiology for embolization Supportive care Monitor hemoglobin and labs pt seen by myself and Dr Harris and this note is on his behalf (Deisi Escalona) Physician Comments Patient seen and examined Agree with above Continue with current supportive care Monitor labs Patient tells me he was taken ranitidine as an outpatient problem than PPI I emphasized to the patient that he must continue on PPI twice daily for at least the next 3 months (Shoaib Harris MD) Deisi Escalona Aug 04, 2017 11:48 Shoaib Harris MD Aug 04, 2017 15:52
[2017-08-04] MEDS: cefTRIAXone INJ 1,000 MG in SODIUM CHLORIDE 0.9% INJ 100 ML IV SCH (14:29)
[2017-08-04 17:07] LABS: HEMATOCRIT 22.8 % (39.0-51.0); HEMOGLOBIN 7.6 GM/DL (13.0-17.0)
[2017-08-04] MEDS: TAMSULOSIN HCL 0.4 MG CAP PO SCH (20:36)
[2017-08-04] MEDS: FLUoxetine HCL 20 MG CAP PO SCH (20:36)
[2017-08-04] MEDS: ATORVASTATIN 40 MG TAB PO SCH (20:36)
[2017-08-04] MEDS: LITHIUM CARBONATE 300 MG CAP PO SCH (22:31)
[2017-08-05] VITALS (11 sets, daily range): BP systolic 122–175; BP diastolic 60–97; PULSE 78–100; RESP 16–18; TEMP 97.1–98.9; O2SAT 96–100
[2017-08-05] MEDS: RESP: ALBUTEROL 2.5 MG/IPRATROPIUM 0.5 MG NEB (SCH) INH ×4 (03:41→20:50)
[2017-08-05] MEDS: SODIUM CHLOR 0.9% 1000 ML INJ 1,000 ML IV SCH (05:10)
[2017-08-05] MEDS: SUCRALFATE 1 GM TAB PO SCH ×2 (05:10→17:49)
[2017-08-05 05:45] LABS: BICARBONATE 27.8 MEQ/L (21.0-32.0); CALCIUM 9.3 MG/DL (8.5-10.1); CREATININE 1.23 MG/DL (0.60-1.30)
[2017-08-05] MEDS: PANTOPRAZOLE SODIUM 40 MG VIAL IV PUSH SCH ×2 (08:00→20:33)
[2017-08-05] MEDS: INSULIN ASPART SUPPLEMENTAL SCALE SQ SCH ×4 (08:00→21:00)
[2017-08-05] MEDS: PANTOPRAZOLE INJ 80 MG in SODIUM CHLORIDE 0.9% INJ 100 ML IV SCH (10:03)
[2017-08-05] MEDS: ONDANSETRON HCL 4 MG/2 ML VIAL IV PUSH PRN (10:03)
[2017-08-05] MEDS: DOCUSATE SODIUM 50 MG/SENNA 8.6 MG TAB PO SCH ×2 (10:03→20:33)
[2017-08-05] MEDS: cefTRIAXone INJ 1,000 MG in SODIUM CHLORIDE 0.9% INJ 100 ML IV SCH (10:03)
--- NOTE | 2017-08-05 12:06 | HHI.GIFU ---
Subjective Remarks c/o nausea. No vomiting. Ate breakfast. Denies bleeding, abd pain. (Umm Weber) Objective Vitals I&O Vital Signs Date Time Temp Pulse Resp B/P (MAP) Pulse Ox O2 Delivery O2 Flow Rate FiO2 08/05/17 08:34 97 Nasal Cannula 2.00 08/05/17 08:00 97.8 81 17 138/68 (91) 100 08/05/17 05:15 Nasal Cannula 2.00 08/05/17 04:13 98.0 78 18 138/67 (90) 98 08/05/17 03:44 90 08/05/17 00:12 98.1 99 18 130/84 (99) 97 08/05/17 00:00 91 08/04/17 20:00 97.4 91 20 152/97 (115) 97 08/04/17 20:00 93 08/04/17 19:41 74 08/04/17 15:59 97 Room Air 08/04/17 15:42 98.2 95 19 145/73 (97) 100 I/O 08/04/17 08/04/17 08/04/17 08/05/17 08/05/17 08/05/17 07:00 15:00 23:00 07:00 15:00 23:00 Intake Total 1252 ml 1100 ml 780 ml Output Total 650 ml 1400 ml Balance 1252 ml 450 ml -620 ml Intake Oral 480 ml 780 ml IV Total 772 ml 1100 ml Output Urine Total 650 ml 1400 ml # Voids 3 # Bowel Movements 0 0 Laboratory Laboratory Tests Test 08/04/17 15:59 08/05/17 04:30 Hemoglobin 7.6 Hematocrit 22.8 Blood Urea Nitrogen 9 Creatinine 1.23 Random Glucose 102 Calcium Level 9.3 Sodium Level 147 Potassium Level 3.9 Chloride Level 117 Carbon Dioxide Level 27.8 Anion Gap 2 Estimat Glomerular Filtration Rate 58 Date/Time Source Procedure Growth Status 08/02/17 20:40 Urine Clean Catch Urine Culture - Final Escherichia Coli Complete Imaging Last Impressions Abdomen/Pelvis CT 08/02/171850 Signed Impressions: Service Date/Time: July 20:54 - CONCLUSION: 1. No acute abnormality seen. 2. Scattered colonic diverticula without inflammatory change. Haris Gonzalez MD Chest X-Ray 08/02/17 [id number] Signed Impressions: Service Date/Time: July 17:59 - CONCLUSION: No acute disease. No free air is seen. Haris Gonzalez MD Physical Exam HEENT: Pupils round and reactive to light; normocephalic; atraumatic; no jaundice CHEST: CTA CARDIAC: RRR ABDOMEN: Soft, nondistended, nontender; no hepatosplenomegaly; bowel sounds are present in all four quadrants. EXTREMITIES: No clubbing, cyanosis, or edema. SKIN: Normal; no rash; no jaundice. Pale IT SECURITY ADMINISTRATOR: No focal deficits; alert and oriented times two (Umm Weber) Assessment and Plan Plan ASSESSMENT - hematemesis, black tarry stool - onset yesterday. prior hx GIB. EGD 07/24/17 showed ulcer with visible vessel, s/p cautery, clips x 3 and epi inj. had EGD today 08/03/17 showed large duodenal ulcer with visible vessel, s/p cautery, epi inj. - anemia with drop in HH - hgb dropped from 10 to 8. now s/p PRBC x 2 Endoscopy done on 08/03/17. Findings include normal esophagus, normal stomach, duodenum in the bulb was a large duodenal ulcer with a visible vessel, injected and cauterized, clip was there from the previous endoscopy. Otherwise unremarkable. Noted scattered diverticula on CT scan. 08/02/17 08/04/17 patient is resting in the bed asymptomatic. No obvious nausea or vomiting or abdominal pain, appetite fair, would like to increase to solid food. discussed EGD findings 08/05/17 no bleeding, no abd pain. is c/o nausea but no vomiting. ate breakfast. no HH done today. PLAN: CBC in am ALISE BID protonix Monitor lab transfuse as needed. EGD in 2 months If any active bleeding patient will need interventional radiology for embolization Supportive care pt seen by myself and Dr Harris and this note is on his behalf (Umm Weber) Physician Comments Patient seen and examined Agree with above Continue with current supportive care Monitor labs (Shoaib Harris MD) Umm Weber Aug 05, 2017 12:06 Shoaib Harris MD Aug 05, 2017 18:54
--- NOTE | 2017-08-05 17:30 | HHI.PR ---
Subjective Remarks vocational rehabilitation specialist notes: 08/02: 71-year-old male patient from the senior care with previous history of gastric ulcers and GI bleeding and the last endoscopy 2 weeks ago, presents today because he had hematemesis and was nauseous and throwing up at the senior care facility. He denies any chest pains, shortness of breath, abdominal pains, diarrhea, or any other symptoms. 08/03: Underwent EGD with findings of large duodenal ulcer with visible vessel which was injected with epinephrine and clipped by GI. Hemoglobin remained stable. Received 2 units PRBCs last night. Drowsy following EGD at the time of my evaluation earlier today. 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 Hospitalist notes: 08/04: Stable seen in his bedroom, with consult of GI bleed, hematemesis, EGD showed ulcer with visible vessel, status post cautery, clip x 3 epi injection had EGD 08/03/17 showed large duodenal ulcer with visible vessel, status post cautery, epi injection. Anemia wit status post PRBC x 2, Endoscopy done on 08/03/17. Findings include normal esophagus, normal stomach, duodenum in the bulb was a large duodenal ulcer with a visible vessel, injected and cauterized, clip was there from the previous endoscopy. Otherwise unremarkable. Noted scattered diverticula on CT scan. 08/02/17 advanced diet by GI specialist, switch to Protonix 40 mg BID, EGD in 2 months, 08/05: Seen in his bedroom, No new episodes of bleeding, complaint of nausea but no vomit, as per GI specialist recommended to continue ALISE, PPIs BID, EGD in two months. if again comes active bleeding will need Interventional Radiology. Objective Vital Signs Date Time Temp Pulse Resp B/P (MAP) Pulse Ox O2 Delivery O2 Flow Rate FiO2 08/05/17 16:13 96 Nasal Cannula 2.00 08/05/17 12:00 98.8 100 16 122/60 (80) 98 08/05/17 08:34 97 Nasal Cannula 2.00 08/05/17 08:15 87 6.00 08/05/17 08:00 97.8 81 17 138/68 (91) 100 08/05/17 05:15 Nasal Cannula 2.00 08/05/17 04:13 98.0 78 18 138/67 (90) 98 08/05/17 03:44 90 08/05/17 00:12 98.1 99 18 130/84 (99) 97 08/05/17 00:00 91 08/04/17 20:00 97.4 91 20 152/97 (115) 97 08/04/17 20:00 93 08/04/17 19:41 74 I/O 08/04/17 08/04/17 08/04/17 08/05/17 08/05/17 08/05/17 07:00 15:00 23:00 07:00 15:00 23:00 Intake Total 1252 ml 1100 ml 780 ml Output Total 650 ml 1400 ml Balance 1252 ml 450 ml -620 ml Intake Oral 480 ml 780 ml IV Total 772 ml 1100 ml Output Urine Total 650 ml 1400 ml # Voids 3 # Bowel Movements 0 0 Result Diagram: 08/04/17 1559 08/05/17 0430 Imaging Last Impressions Abdomen/Pelvis CT 08/02/17 1851 Signed Impressions: Service Date/Time: July 20:54 - CONCLUSION: 1. No acute abnormality seen. 2. Scattered colonic diverticula without inflammatory change. Haris Gonzalez MD Chest X-Ray 08/02/17 3902 Signed Impressions: Service Date/Time: July 17:59 - CONCLUSION: No acute disease. No free air is seen. Haris Gonzalez MD Procedures EGD Other Results Laboratory Tests Test 08/02/17 18:00 08/02/17 20:40 08/02/17 21:25 08/03/17 03:02 Lipase 170 U/L Urine Color YELLOW Urine Turbidity CLOUDY Urine pH 5.5 Urine Specific [place] 1.016 Urine Protein 30 mg/dL Urine Glucose (UA) TRACE mg/dL Urine Ketones NEG mg/dL Urine Occult Blood MOD Urine Nitrite NEG Urine Bilirubin NEG Urine Urobilinogen LESS THAN 2.0 MG/DL Urine Leukocyte Esterase LARGE Urine RBC 17 /hpf Urine WBC /hpf Urine WBC Clumps MANY Urine Squamous Epithelial Cells 2 /hpf Urine Bacteria FEW /hpf Urine Hyaline Casts 20 /lpf Urine Mucus FEW /lpf Microscopic Urinalysis Comment CULTURE INDICATED Nasal Screen MRSA (PCR) MRSA NOT DETECTED Prothrombin Time 11.2 SEC Prothromb Time International Ratio 1.1 RATIO Activated Partial Thromboplast Time 22.2 SEC Lactic Acid Level 0.9 mmol/L Blood Urea Nitrogen 40 MG/DL Creatinine 1.99 MG/DL Random Glucose 115 MG/DL Total Protein 5.5 GM/DL Albumin 2.3 GM/DL Calcium Level 9.1 MG/DL Phosphorus Level 3.4 MG/DL Magnesium Level 2.0 MG/DL Alkaline Phosphatase 48 U/L Aspartate Amino Transf (AST/SGOT) 16 U/L Alanine Aminotransferase (ALT/SGPT) 21 U/L Total Bilirubin 1.1 MG/DL Sodium Level 143 MEQ/L Potassium Level 4.3 MEQ/L Chloride Level 110 MEQ/L Carbon Dioxide Level 29.3 MEQ/L Test 08/03/17 15:19 08/04/17 06:32 08/04/17 15:59 08/05/17 04:30 Neutrophils (%) (Auto) 66.2 % Lymphocytes (%) (Auto) 23.7 % Monocytes (%) (Auto) 9.1 % Eosinophils (%) (Auto) 0.5 % Basophils (%) (Auto) 0.5 % Neutrophils # (Auto) 10.0 TH/MM3 Lymphocytes # (Auto) 3.6 TH/MM3 Monocytes # (Auto) 1.4 TH/MM3 Eosinophils # (Auto) 0.1 TH/MM3 Basophils # (Auto) 0.1 TH/MM3 CBC Comment DIFF FINAL Differential Comment White Blood Count 9.3 TH/MM3 Red Blood Count 2.66 MIL/MM3 Mean Corpuscular Volume 91.6 FL Mean Corpuscular Hemoglobin 30.9 PG Mean Corpuscular Hemoglobin Concent 33.7 % Red Cell Distribution Width 15.5 % Platelet Count 428 TH/MM3 Mean Platelet Volume 7.4 FL Hemoglobin 7.6 GM/DL Hematocrit 22.8 % Blood Urea Nitrogen 9 MG/DL Creatinine 1.23 MG/DL Random Glucose 102 MG/DL Calcium Level 9.3 MG/DL Sodium Level 147 MEQ/L Potassium Level 3.9 MEQ/L Chloride Level 117 MEQ/L Carbon Dioxide Level 27.8 MEQ/L Anion Gap 2 MEQ/L Estimat Glomerular Filtration Rate 58 ML/MIN Objective Remarks GENERAL: No acute distress SKIN: Focused skin assessment warm/dry. HEAD: Atraumatic. Normocephalic. EYES: Pupils equal and round. No scleral icterus. No injection or drainage. ENT: No nasal bleeding or discharge. Mucous membranes pink and moist. NECK: Trachea midline. No JVD. Supple. CARDIOVASCULAR: Regular rate and rhythm. No murmur appreciated. RESPIRATORY: No accessory muscle use. Clear to auscultation. Breath sounds equal bilaterally. GASTROINTESTINAL: Abdomen soft, non-tender, nondistended. Hepatic and splenic margins not palpable. MUSCULOSKELETAL: No obvious deformities. No clubbing. No cyanosis. No edema. NEUROLOGICAL: Awake and alert. No obvious cranial nerve deficits. Motor with left-sided residual weakness Medications and IVs Current Medications Medications (Trade) Dose Ordered Sig/[place] Route Start Time Stop Time Status Last Admin (NS Flush) 2 ml UNSCH PRN IVF 08/02/17 18:00 (SandoSTATIN INJ) 50 mcg ONCE IV PUSH 08/02/17 19:30 08/02/17 20:23 (Lipitor) 40 mg HS PO 08/02/17 21:00 08/04/17 20:36 (PROzac) 40 mg HS PO 08/02/17 21:00 08/04/17 20:36 ([employer] Carbonate) 600 mg HS PO 08/02/17 21:00 08/04/17 22:31 (Carafate) 1 gm BIDAC PO 08/03/17 07:00 08/05/17 05:10 (Flomax) 0.4 mg HS PO 08/02/17 21:00 08/04/17 20:36 (D50w (Vial) Inj) 50 ml UNSCH PRN IV PUSH 08/02/17 19:45 (Glucagon Inj) 1 mg UNSCH PRN OTHER 08/02/17 19:45 (NovoLOG SUPPLEMENTAL SCALE) 1 ACHS SLIDING SCALE SQ 08/02/17 21:00 08/05/17 12:00 (NS Flush) 2 ml UNSCH PRN IV FLUSH 08/02/17 19:45 (NS Flush) 2 ml BID IV FLUSH 08/02/17 21:00 08/04/17 20:35 (Tylenol) 650 mg Q6H PRN PO 08/02/17 19:45 (Protonix Inj) 40 mg Q12H IV PUSH 08/02/17 20:00 08/05/17 08:00 (Zofran Inj) 4 mg Q6H PRN IV PUSH 08/02/17 19:45 08/05/17 10:03 (Duoneb Neb) 1 ampule Q6HR NEB INH 08/02/17 22:00 08/05/17 16:13 (Duoneb Neb) 1 ampule Q2HR NEB PRN INH 08/02/17 19:45 Miscellaneous Information 1 Q361D XX 08/02/17 19:45 08/02/17 21:15 (Chlorhexidine 2% Cloth) 3 pack Taper DAILY@04 TOP 08/03/17 04:00 07/30/18 03:59 08/02/17 21:30 (Chlorhexidine 2% Cloth) 3 pack UNSCH PRN TOP 08/02/17 19:45 (Alisha-Colace) 1 tab BID PO 08/02/17 21:00 08/05/17 10:03 (Milk Of Magnesia Liq) 30 ml Q12H PRN PO 08/02/17 19:45 (Senokot) 17.2 mg Q12H PRN PO 08/02/17 19:45 (Dulcolax Supp) 10 mg DAILY PRN RECTAL 08/02/17 19:45 (Lactulose Liq) 30 ml DAILY PRN PO 08/02/17 19:45 Ceftriaxone Sodium 1000 mg/ Sodium Chloride 100 ml @ 200 mls/hr Q24H IV 08/04/17 10:00 08/05/17 10:03 A/P Assessment and Plan Hematemesis -Protonix drip -Status post EGD with injection and clipping of large vessel in duodenal ulcer. -Received 2 units PRBCs last night. Follow serial H&H and transfuse if needed to keep hemoglobin greater than 8 g percent -EGD 07/24/17 showed ulcer with visible vessel, status post cautery, clip x 3 epi injection had EGD 08/03/17 showed large duodenal ulcer with visible vessel, status post cautery, epi injection. Anemia wit status post PRBC x 2, Endoscopy done on 08/03/17. Findings include normal esophagus, normal stomach, duodenum in the bulb was a large duodenal ulcer with a visible vessel, injected and cauterized, clip was there from the previous endoscopy. Otherwise unremarkable. Noted scattered diverticula on CT scan. 08/02/17 advanced diet by GI specialist, switch to Protonix 40 mg BID, EGD in 2 months, -Diabetes mellitus controlled with sliding scale. -Hold metformin -Insulin sliding scale Hypertension uncontrolled intermittently with no blood pressure medicine given. Bipolar disorder -Continue Flomax and lithium Obesity will need diet and exercise to improve his condition. DVT GI prophylaxis -Rajinder's and SCDs -No pharmacological DVT prophylaxis due to acute GI bleed -Protonix IV twice daily Discharge Planning Once cleared by GI specialist. Titus Beaver MD Aug 05, 2017 17:30
[2017-08-05] MEDS: SODIUM CHLORIDE 0.9% FLUSH 10 ML FLUSH IV FLUSH SCH ×2 (17:50→20:33)
[2017-08-05] MEDS: FLUoxetine HCL 20 MG CAP PO SCH (20:33)
[2017-08-05] MEDS: TAMSULOSIN HCL 0.4 MG CAP PO SCH (20:33)
[2017-08-05] MEDS: ATORVASTATIN 40 MG TAB PO SCH (20:33)
[2017-08-05] MEDS: LITHIUM CARBONATE 300 MG CAP PO SCH (20:37)
[2017-08-06] VITALS (9 sets, daily range): BP systolic 124–162; BP diastolic 71–87; PULSE 73–108; RESP 17–20; TEMP 98–98.6; O2SAT 96–100
[2017-08-06] MEDS: CHLORHEXIDINE GLUCONATE 2 % 1 PACK (2 CLOTHS) TOP SCH ×2 (03:03→20:53)
[2017-08-06] MEDS: RESP: ALBUTEROL 2.5 MG/IPRATROPIUM 0.5 MG NEB (SCH) INH ×4 (03:57→21:18)
[2017-08-06] MEDS: SUCRALFATE 1 GM TAB PO SCH ×2 (06:10→17:08)
[2017-08-06] MEDS: INSULIN ASPART SUPPLEMENTAL SCALE SQ SCH ×4 (07:53→20:44)
[2017-08-06 08:02] LABS: HEMATOCRIT 23.3 % (39.0-51.0); HEMOGLOBIN 8.1 GM/DL (13.0-17.0); MEAN CELL VOLUME 91.1 FL (80.0-100.0); MEAN CORPUSCULAR HEMOGLOBIN 31.5 PG (27.0-34.0); MEAN CORPUSCULAR HGB CONC 34.6 % (32.0-36.0); PLATELET COUNT 437 TH/MM3 (150-450); RED BLOOD COUNT 2.55 MIL/MM3 (4.50-5.90); RED CELL DISTRIBUTION WIDTH 15.1 % (11.6-17.2); WHITE BLOOD COUNT 8.8 TH/MM3 (4.0-11.0)
[2017-08-06] MEDS: cefTRIAXone INJ 1,000 MG in SODIUM CHLORIDE 0.9% INJ 100 ML IV SCH (08:53)
[2017-08-06] MEDS: PANTOPRAZOLE SODIUM 40 MG VIAL IV PUSH SCH ×2 (08:53→20:42)
[2017-08-06] MEDS: SODIUM CHLORIDE 0.9% FLUSH 10 ML FLUSH IV FLUSH SCH ×2 (08:53→20:44)
[2017-08-06] MEDS: DOCUSATE SODIUM 50 MG/SENNA 8.6 MG TAB PO SCH ×2 (08:53→20:43)
--- NOTE | 2017-08-06 14:34 | HHI.GIFU ---
Subjective Remarks Pt resting in bed in NAD. c/o nausea after eating his salad for lunch, "I didn' t like the salad." he did tolerate breakfast with no problems. There has been no vomiting. Night staff report dark hard BM. (Umm Wbeer) Objective Vitals I&O Vital Signs Date Time Temp Pulse Resp B/P (MAP) Pulse Ox O2 Delivery O2 Flow Rate FiO2 08/06/17 12:00 98.0 98 19 142/80 (100) 99 08/06/17 08:50 Nasal Cannula 2.00 08/06/17 08:33 99 Nasal Cannula 2.00 08/06/17 08:00 98.6 87 20 124/77 (93) 96 08/06/17 04:08 98.0 92 18 162/81 (108) 96 08/06/17 00:33 98.3 108 18 153/71 (98) 96 08/06/17 00:00 73 08/05/17 20:34 98.9 95 18 175/97 (123) 96 08/05/17 20:00 90 08/05/17 16:13 96 Nasal Cannula 2.00 08/05/17 16:00 97.1 88 18 166/79 (108) 98 I/O 08/05/17 08/05/17 08/05/17 08/06/17 08/06/17 08/06/17 07:00 15:00 23:00 07:00 15:00 23:00 Intake Total 780 ml 1200 ml 780 ml 480 ml Output Total 1400 ml 2350 ml 1800 ml Balance -620 ml -1150 ml -1020 ml 480 ml Intake Oral 780 ml 1200 ml 780 ml 480 ml Output Urine Total 1400 ml 2350 ml 1800 ml # Bowel Movements 0 1 Laboratory Laboratory Tests Test 08/06/17 07:30 White Blood Count 8.8 Red Blood Count 2.55 Hemoglobin 8.1 Hematocrit 23.3 Mean Corpuscular Volume 91.1 Mean Corpuscular Hemoglobin 31.5 Mean Corpuscular Hemoglobin Concent 34.6 Red Cell Distribution Width 15.1 Platelet Count 437 Mean Platelet Volume 7.0 Date/Time Source Procedure Growth Status 08/02/17 20:40 Urine Clean Catch Urine Culture - Final Escherichia Coli Complete Imaging Last Impressions Abdomen/Pelvis CT 08/02/17 1851 Signed Impressions: Service Date/Time: July 20:54 - CONCLUSION: 1. No acute abnormality seen. 2. Scattered colonic diverticula without inflammatory change. Haris Gonzalez MD Chest X-Ray 08/02/17 [id number] Signed Impressions: Service Date/Time: July 17:59 - CONCLUSION: No acute disease. No free air is seen. Haris Gonzalez MD Physical Exam HEENT: Pupils round and reactive to light; normocephalic; atraumatic; no jaundice CHEST: CTA CARDIAC: RRR ABDOMEN: Soft, nondistended, nontender; no hepatosplenomegaly; bowel sounds are present in all four quadrants. EXTREMITIES: No clubbing, cyanosis, or edema. SKIN: Normal; no rash; no jaundice. Pale COMMUNITY PLANNER: alert and oriented times two (Umm Weber) Assessment and Plan Plan ASSESSMENT - hematemesis, black tarry stool - onset yesterday. prior hx GIB. EGD 07/24/17 showed ulcer with visible vessel, s/p cautery, clips x 3 and epi inj. had EGD today 08/03/17 showed large duodenal ulcer with visible vessel, s/p cautery, epi inj. - anemia with drop in HH - hgb dropped from 10 to 8. now s/p PRBC x 2 Endoscopy done on 08/03/17. Findings include normal esophagus, normal stomach, duodenum in the bulb was a large duodenal ulcer with a visible vessel, injected and cauterized, clip was there from the previous endoscopy. Otherwise unremarkable. Noted scattered diverticula on CT scan. 08/02/17 08/04/17 patient is resting in the bed asymptomatic. No obvious nausea or vomiting or abdominal pain, appetite fair, would like to increase to solid food. discussed EGD findings 08/05/17 no bleeding, no abd pain. is c/o nausea but no vomiting. ate breakfast. no HH done today. 08/06/17 + black hard BM reported by night staff. c/o nausea but no vomiting, tolerating diet. HH stable. PLAN: ALISE BID protonix Monitor lab transfuse as needed. EGD in 2 months If any active bleeding patient will need interventional radiology for embolization Supportive care pt seen by myself and Chilo and this note is on his behalf (Umm Weber) Physician Comments Seen and examined with GLASSBLOWER, family in room. On Protonix, no bleeding, tolerating diet. Can dc home with gi fu. No NSAIDs. Thank you (Zachariah Woo MD) Umm Weber Aug 06, 2017 14:34 Zachariah Woo MD Aug 06, 2017 20:17
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
[2017-08-06] MEDS: CARVEDILOL 3.125 MG TAB PO SCH (18:23)
[2017-08-06] MEDS: LITHIUM CARBONATE 300 MG CAP PO SCH (20:43)
[2017-08-06] MEDS: FLUoxetine HCL 20 MG CAP PO SCH (20:43)
[2017-08-06] MEDS: ATORVASTATIN 40 MG TAB PO SCH (20:43)
[2017-08-06] MEDS: TAMSULOSIN HCL 0.4 MG CAP PO SCH (20:43)
[2017-08-07] VITALS (7 sets, daily range): BP systolic 110–152; BP diastolic 62–88; PULSE 78–114; RESP 16–18; TEMP 97.5–98.3; O2SAT 97–99
[2017-08-07] MEDS: SUCRALFATE 1 GM TAB PO SCH ×2 (06:23→17:56)
[2017-08-07] MEDS: INSULIN ASPART SUPPLEMENTAL SCALE SQ SCH ×4 (08:00→21:00)
[2017-08-07] MEDS: CARVEDILOL 3.125 MG TAB PO SCH (08:10)
[2017-08-07] MEDS: cefTRIAXone INJ 1,000 MG in SODIUM CHLORIDE 0.9% INJ 100 ML IV SCH (08:11)
[2017-08-07] MEDS: DOCUSATE SODIUM 50 MG/SENNA 8.6 MG TAB PO SCH ×2 (08:11→21:26)
[2017-08-07] MEDS: SODIUM CHLORIDE 0.9% FLUSH 10 ML FLUSH IV FLUSH SCH ×2 (08:11→21:27)
[2017-08-07] MEDS: PANTOPRAZOLE SODIUM 40 MG VIAL IV PUSH SCH ×2 (08:11→21:26)
--- NOTE | 2017-08-07 17:47 | HHI.PR ---
Subjective Remarks learning support specialist notes: 08/02: 71[facility]-old [facility] with previous history of gastric ulcers and GI bleeding and the last endoscopy 2 weeks ago, presents today because he had hematemesis and was nauseous and throwing up at the shelter facility. He denies any chest pains, shortness of breath, abdominal pains, diarrhea, or any other symptoms. 08/03: Underwent EGD with findings of large duodenal ulcer with visible vessel which was injected with epinephrine and clipped by GI. Hemoglobin remained stable. Received 2 units PRBCs last night. Drowsy following EGD at the time of my evaluation earlier today. 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 Hospitalist notes: 08/04: Stable seen in his bedroom, with consult of GI bleed, hematemesis, EGD showed ulcer with visible vessel, status post cautery, clip x 3 epi injection had EGD 08/03/17 showed large duodenal ulcer with visible vessel, status post cautery, epi injection. Anemia wit status post PRBC x 2, Endoscopy done on 08/03/17. Findings include normal esophagus, normal stomach, duodenum in the bulb was a large duodenal ulcer with a visible vessel, injected and cauterized, clip was there from the previous endoscopy. Otherwise unremarkable. Noted scattered diverticula on CT scan. 08/02/17 advanced diet by GI specialist, switch to Protonix 40 mg BID, EGD in 2 months, 08/05: Seen in his bedroom, No new episodes of bleeding, complaint of nausea but no vomit, as per GI specialist recommended to continue ALISE, PPIs BID, EGD in two months. if again comes active bleeding will need Interventional Radiology. 08/06: Seen in his bedroom recommended for discharge to SNF, difficult placement due to that the patient is been arrested in the past due to being a sexual Predator 08/07: Seen in his bedroom stable, no nausea, vomit or diarrhea. Objective Vital Signs Date Time Temp Pulse Resp B/P (MAP) Pulse Ox O2 Delivery O2 Flow Rate FiO2 08/07/17 12:31 Nasal Cannula 2.00 08/07/17 12:00 97.5 93 17 130/88 (102) 98 08/07/17 08:10 Nasal Cannula 2.00 08/07/17 08:00 97.9 78 16 152/74 (100) 99 08/07/17 00:00 98.1 84 18 135/62 (86) 97 08/06/17 21:20 98 Nasal Cannula 2.00 08/06/17 20:30 Nasal Cannula 2.00 08/06/17 20:00 98.4 95 18 155/87 (109) 100 I/O 08/06/17 08/06/17 08/06/17 08/07/17 08/07/17 08/07/17 06:59 14:59 22:59 06:59 14:59 22:59 Intake Total 780 ml 480 ml 960 ml Output Total 1800 ml 800 ml 675 ml Balance -1020 ml 480 ml 160 ml -675 ml Intake Oral 780 ml 480 ml 960 ml Output Urine Total 1800 ml 800 ml 675 ml # Bowel Movements 1 Result Diagram: 08/06/17 0730 08/05/17 0430 Imaging Last Impressions Abdomen/Pelvis CT 08/02/17 1851 Signed Impressions: Service Date/Time: July 20:54 - CONCLUSION: 1. No acute abnormality seen. 2. Scattered colonic diverticula without inflammatory change. Haris Gonzalez MD Chest X-Ray 08/02/17 [id number] Signed Impressions: Service Date/Time: July 17:59 - CONCLUSION: No acute disease. No free air is seen. Haris Gonzalez MD Procedures EGD Other Results Laboratory Tests Test 08/02/17 18:00 08/02/17 20:40 08/02/17 21:25 08/03/17 03:02 Lipase 170 U/L Urine Color YELLOW Urine Turbidity CLOUDY Urine pH 5.5 Urine Specific Freeman 1.016 Urine Protein 30 mg/dL Urine Glucose (UA) TRACE mg/dL Urine Ketones NEG mg/dL Urine Occult Blood MOD Urine Nitrite NEG Urine Bilirubin NEG Urine Urobilinogen LESS THAN 2.0 MG/DL Urine Leukocyte Esterase LARGE Urine RBC 17 /hpf Urine WBC /hpf Urine WBC Clumps MANY Urine Squamous Epithelial Cells 2 /hpf Urine Bacteria FEW /hpf Urine Hyaline Casts 20 /lpf Urine Mucus FEW /lpf Microscopic Urinalysis Comment CULTURE INDICATED Nasal Screen MRSA (PCR) MRSA NOT DETECTED Prothrombin Time 11.2 SEC Prothromb Time International Ratio 1.1 RATIO Activated Partial Thromboplast Time 22.2 SEC Lactic Acid Level 0.9 mmol/L Blood Urea Nitrogen 40 MG/DL Creatinine 1.99 MG/DL Random Glucose 115 MG/DL Total Protein 5.5 GM/DL Albumin 2.3 GM/DL Calcium Level 9.1 MG/DL Phosphorus Level 3.4 MG/DL Magnesium Level 2.0 MG/DL Alkaline Phosphatase 48 U/L Aspartate Amino Transf (AST/SGOT) 16 U/L Alanine Aminotransferase (ALT/SGPT) 21 U/L Total Bilirubin 1.1 MG/DL Sodium Level 143 MEQ/L Potassium Level 4.3 MEQ/L Chloride Level 110 MEQ/L Carbon Dioxide Level 29.3 MEQ/L Test 08/03/17 15:19 08/05/17 04:30 08/06/17 07:30 Neutrophils (%) (Auto) 66.2 % Lymphocytes (%) (Auto) 23.7 % Monocytes (%) (Auto) 9.1 % Eosinophils (%) (Auto) 0.5 % Basophils (%) (Auto) 0.5 % Neutrophils # (Auto) 10.0 TH/MM3 Lymphocytes # (Auto) 3.6 TH/MM3 Monocytes # (Auto) 1.4 TH/MM3 Eosinophils # (Auto) 0.1 TH/MM3 Basophils # (Auto) 0.1 TH/MM3 CBC Comment DIFF FINAL Differential Comment Blood Urea Nitrogen 9 MG/DL Creatinine 1.23 MG/DL Random Glucose 102 MG/DL Calcium Level 9.3 MG/DL Sodium Level 147 MEQ/L Potassium Level 3.9 MEQ/L Chloride Level 117 MEQ/L Carbon Dioxide Level 27.8 MEQ/L Anion Gap 2 MEQ/L Estimat Glomerular Filtration Rate 58 ML/MIN White Blood Count 8.8 TH/MM3 Red Blood Count 2.55 MIL/MM3 Hemoglobin 8.1 GM/DL Hematocrit 23.3 % Mean Corpuscular Volume 91.1 FL Mean Corpuscular Hemoglobin 31.5 PG Mean Corpuscular Hemoglobin Concent 34.6 % Red Cell Distribution Width 15.1 % Platelet Count 437 TH/MM3 Mean Platelet Volume 7.0 FL Objective Remarks GENERAL: No acute distress SKIN: Focused skin assessment warm/dry. HEAD: Atraumatic. Normocephalic. EYES: Pupils equal and round. No scleral icterus. No injection or drainage. ENT: No nasal bleeding or discharge. Mucous membranes pink and moist. NECK: Trachea midline. No JVD. Supple. CARDIOVASCULAR: Regular rate and rhythm. No murmur appreciated. RESPIRATORY: No accessory muscle use. Clear to auscultation. Breath sounds equal bilaterally. GASTROINTESTINAL: Abdomen soft, non-tender, nondistended. Hepatic and splenic margins not palpable. MUSCULOSKELETAL: No obvious deformities. No clubbing. No cyanosis. No edema. NEUROLOGICAL: Awake and alert. No obvious cranial nerve deficits. Motor with left-sided residual weakness Medications and IVs Current Medications Medications (Trade) Dose Ordered Sig/Carlton Route Start Time Stop Time Status Last Admin (SandoSTATIN INJ) 50 mcg ONCE IV PUSH 08/02/17 19:30 08/02/17 20:23 (Lipitor) 40 mg HS PO 08/02/17 21:00 08/06/17 20:43 (PROzac) 40 mg HS PO 08/02/17 21:00 08/06/17 20:43 ([place] Carbonate) 600 mg HS PO 08/02/17 21:00 08/06/17 20:43 (Carafate) 1 gm BIDAC PO 08/03/17 07:00 08/07/17 06:23 (Flomax) 0.4 mg HS PO 08/02/17 21:00 08/06/17 20:43 (D50w (Vial) Inj) 50 ml UNSCH PRN IV PUSH 08/02/17 19:45 (Glucagon Inj) 1 mg UNSCH PRN OTHER 08/02/17 19:45 (NovoLOG SUPPLEMENTAL SCALE) 1 ACHS SLIDING SCALE SQ 08/02/17 21:00 08/05/17 12:00 (NS Flush) 2 ml UNSCH PRN IV FLUSH 08/02/17 19:45 (NS Flush) 2 ml BID IV FLUSH 08/02/17 21:00 08/07/17 08:11 (Tylenol) 650 mg Q6H PRN PO 08/02/17 19:45 (Protonix Inj) 40 mg Q12H IV PUSH 08/02/17 20:00 08/07/17 08:11 (Zofran Inj) 4 mg Q6H PRN IV PUSH 08/02/17 19:45 08/05/17 10:03 (Duoneb Neb) 1 ampule Q2HR NEB PRN INH 08/02/17 19:45 Miscellaneous Information 1 Q361D XX 08/02/17 19:45 08/02/17 21:15 (Chlorhexidine 2% Cloth) 3 pack Taper DAILY@04 TOP 08/03/17 04:00 07/30/18 03:59 08/02/17 21:30 (Chlorhexidine 2% Cloth) 3 pack UNSCH PRN TOP 08/02/17 19:45 (Alisha-Colace) 1 tab BID PO 08/02/17 21:00 08/07/17 08:11 (Milk Of Magnesia Liq) 30 ml Q12H PRN PO 08/02/17 19:45 (Senokot) 17.2 mg Q12H PRN PO 08/02/17 19:45 (Dulcolax Supp) 10 mg DAILY PRN RECTAL 08/02/17 19:45 (Lactulose Liq) 30 ml DAILY PRN PO 08/02/17 19:45 Ceftriaxone Sodium 1000 mg/ Sodium Chloride 100 ml @ 200 mls/hr Q24H IV 08/04/17 10:00 08/07/17 08:11 (Coreg) 3.125 mg DAILY PO 08/06/17 19:00 08/07/17 08:10 A/P Assessment and Plan Hematemesis -Protonix drip -Status post EGD with injection and clipping of large vessel in duodenal ulcer. -Received 2 units PRBCs. Follow serial H&H and transfuse if needed to keep hemoglobin greater than 8 g percent -EGD 07/24/17 showed ulcer with visible vessel, status post cautery, clip x 3 epi injection had EGD 08/03/17 showed large duodenal ulcer with visible vessel, status post cautery, epi injection. Anemia wit status post PRBC x 2, Endoscopy done on 08/03/17. Findings include normal esophagus, normal stomach, duodenum in the bulb was a large duodenal ulcer with a visible vessel, injected and cauterized, clip was there from the previous endoscopy. Otherwise unremarkable. Noted scattered diverticula on CT scan. 08/02/17 advanced diet by GI specialist, switch to Protonix 40 mg BID, EGD in 2 months, no new signs of Hematemesis - Anemia with drop in HH - hgb dropped from 10 to 8. now s/p PRBC x 2. today has hemoglobin 7.9 -Diabetes mellitus controlled with sliding scale. -Hold metformin -Insulin sliding scale Hypertension uncontrolled intermittently with no blood pressure medicine given. started on Coreg 3.125 mg daily Bipolar disorder -Continue Flomax and lithium Obesity will need diet and exercise to improve his condition. Note yet cleared for discharge by GI specialist. DVT GI prophylaxis -Rajinder's and SCDs -No pharmacological DVT prophylaxis due to acute GI bleed -Protonix IV twice daily Discharge Planning Once cleared by GI specialist. Titus Beaver MD Aug 07, 2017 17:47
[2017-08-07] MEDS: FLUoxetine HCL 20 MG CAP PO SCH (21:27)
[2017-08-07] MEDS: LITHIUM CARBONATE 300 MG CAP PO SCH (21:27)
[2017-08-07] MEDS: TAMSULOSIN HCL 0.4 MG CAP PO SCH (21:27)
[2017-08-07] MEDS: ATORVASTATIN 40 MG TAB PO SCH (21:27)
[2017-08-07] MEDS: CHLORHEXIDINE GLUCONATE 2 % 1 PACK (2 CLOTHS) TOP SCH (21:28)
[2017-08-07] MEDS ORDERED: SODIUM CHLORID 0.9% 500 ML INJ 500 ML IV ONE (22:30)
--- NOTE | 2017-08-07 22:50 | HHI.PR ---
Addendum to Inpatient Note Addendum Reason: Additional Documentation Additional Information Halicat note S: Resident team was paged around 2200 for a Halicat. Upon arrival nursing staff notified us that the patient had experienced one episode of hematemesis. Majority of the blood was contained in a towel in the sink as well as some which could be seen on the patient and bed. The towel in the sink contained many clots, as well as partially digested food. The patient reported that he had thrown up one time. Denies any pain at this time. Denies additional nausea , lightheadedness, dizziness, changes in vision, shortness of breath, chest pain , palpitations, abdominal pain. Patient was alert and oriented during interview. O: Vitals BP: 138/85 P: 120 SPO2: 98% temperature: 97.8 Repeat BP approximately 15 minutes later: 105/69 GENERAL: Alert, laying in bed, visible blood in bed SKIN: Warm and dry. HEAD: Atraumatic. Normocephalic. EYES: Pupils equal and round. No scleral icterus. No injection or drainage. ENT: Blood around nares. Mucous membranes pink and moist. NECK: Trachea midline. No JVD. CARDIOVASCULAR: Regular rhythm, tachycardic. RESPIRATORY: No accessory muscle use. Clear to auscultation. Breath sounds equal bilaterally. GASTROINTESTINAL: Abdomen soft, non-tender, nondistended. MUSCULOSKELETAL: Extremities without clubbing, cyanosis, or edema. No obvious deformities. NEUROLOGICAL: Awake and alert. No obvious cranial nerve deficits. Motor grossly within normal limits. PSYCHIATRIC: Appropriate mood and affect; insight and judgment normal. A/P: 71-year-old male previously admitted with hematemesis, has had EGD with multiple clippings. No hematemesis for several days until tonight. One episode of hematemesis with multiple clots. Previous hemoglobin 8.1 yesterday. Currently denies any symptoms associated with hypovolemic shock. -stat CBC -500 mL fluid bolus, will perform a second 500 mL fluid bolus if CBC is not back by the end of the first one. Anticipate decreased hemoglobin and likely need for transfusion. -Transfuse blood as needed per CBC results. -Transfer to critical care Current patient status discussed with dewaxer, care transferred Paul Fair MD R1 Aug 07, 2017 22:50
[2017-08-07 23:22] LABS: HEMATOCRIT 23.8 % (39.0-51.0); HEMOGLOBIN 7.9 GM/DL (13.0-17.0); MEAN CELL VOLUME 91.2 FL (80.0-100.0); MEAN CORPUSCULAR HEMOGLOBIN 30.2 PG (27.0-34.0); MEAN CORPUSCULAR HGB CONC 33.2 % (32.0-36.0); MEAN PLATELET VOLUME 6.9 FL (7.0-11.0); PLATELET COUNT 495 TH/MM3 (150-450); RED BLOOD COUNT 2.61 MIL/MM3 (4.50-5.90); RED CELL DISTRIBUTION WIDTH 15.3 % (11.6-17.2); WHITE BLOOD COUNT 14.5 TH/MM3 (4.0-11.0)
[2017-08-07] MEDS: PANTOPRAZOLE INJ 80 MG in SODIUM CHLORIDE 0.9% INJ 100 ML IV SCH (23:31)
[2017-08-07] MEDS: ONDANSETRON HCL 4 MG/2 ML VIAL IV PUSH PRN (23:34)
--- NOTE | 2017-08-07 23:43 | HHI.CCPN ---
Subjective Remarks/Hospital Course 08/02: 71-year-old male patient from [facility] with previous history of gastric ulcers and GI bleeding and the last endoscopy 2 weeks ago, presents today because he had hematemesis and was nauseous and throwing up at the [facility] facility. He denies any chest pains, shortness of breath, abdominal pains, diarrhea, or any other symptoms. 08/03: Underwent EGD with findings of large duodenal ulcer with visible vessel which was injected with epinephrine and clipped by GI. Hemoglobin remained stable. Received 2 units PRBCs last night. Drowsy following EGD at the time of my evaluation earlier today. 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 08/07: Patient was on the MedSurg floor today when vomited copious amount of bright red blood. He became borderline hypotensive and tachycardic. He responded well to the bolus of IV fluids and was transferred back to ICU. Objective Vital Signs Date Time Temp Pulse Resp B/P (MAP) Pulse Ox O2 Delivery O2 Flow Rate FiO2 08/07/17 18:00 98 Nasal Cannula 2.00 08/07/17 16:00 97.9 83 17 143/83 (103) Intake and Output 08/07/17 08/07/17 08/08/17 08:00 16:00 00:00 Intake Total 375 ml Output Total 675 ml 675 ml Balance -675 ml -300 ml Result Diagram: 08/07/17 2305 08/05/17 0430 Imaging Last 24 hours Impressions Chest X-Ray 08/02/17 3039 Signed Impressions: Service Date/Time: July 17:59 - CONCLUSION: No acute disease. No free air is seen. Haris Gonzalez MD Objective Remarks GENERAL: Well-developed elderly male patient laying in bed in no acute distress , drowsy, arousable.. Left-sided residual weakness SKIN: Focused skin assessment warm/dry. HEAD: Atraumatic. Normocephalic. EYES: Pupils equal and round. No scleral icterus. No injection or drainage. ENT: No nasal bleeding or discharge. Mucous membranes pink and moist. NECK: Trachea midline. No JVD. Supple. CARDIOVASCULAR: Regular rate and rhythm. No murmur appreciated. RESPIRATORY: No accessory muscle use. Clear to auscultation. Breath sounds equal bilaterally. GASTROINTESTINAL: Abdomen soft, non-tender, nondistended. Hepatic and splenic margins not palpable. MUSCULOSKELETAL: No obvious deformities. No clubbing. No cyanosis. No edema. NEUROLOGICAL: Awake and alert. No obvious cranial nerve deficits. Motor with left-sided residual weakness A/P Assessment and Plan Hematemesis -Protonix drip -Status post EGD with injection and clipping of large vessel in duodenal ulcer. -H&H stable - will continue to monitor -Further management per gastroenterology Diabetes mellitus -Hold metformin while in the ICU -Insulin sliding scale Hypertension -Hold antihypertensive meds due to acute GI bleed -Resume when indicated Bipolar disorder -Continue Flomax and lithium DVT GI prophylaxis -Rajinder's and SCDs -No pharmacological DVT prophylaxis due to acute GI bleed -Protonix drip Critical Care: The total critical care time was 35 minutes. Time to perform other separately billable procedures was not included in the critical care time. Elroy Pike MD Aug 07, 2017 11:43 pm
[2017-08-08] VITALS (11 sets, daily range): BP systolic 80–173; BP diastolic 49–80; PULSE 75–118; RESP 14–21; TEMP 97.8–98.7; O2SAT 94–99
[2017-08-08] MEDS ORDERED: SODIUM CHLORID 0.9% 500 ML INJ 500 ML IV ONE (00:45)
[2017-08-08 05:57] LABS: AUTOMATED NEUTROPHIL # 9.9 TH/MM3 (1.8-7.7); BASOPHIL # 0.1 TH/MM3 (0-0.2); BASOPHIL % 0.4 % (0.0-2.0); EOSINOPHIL % 0.2 % (0.0-4.0); HEMATOCRIT 23.6 % (39.0-51.0); LYMPH % 15.8 % (9.0-44.0); MEAN CELL VOLUME 88.7 FL (80.0-100.0); MEAN CORPUSCULAR HEMOGLOBIN 30.1 PG (27.0-34.0); MEAN CORPUSCULAR HGB CONC 33.9 % (32.0-36.0); MEAN PLATELET VOLUME 7.1 FL (7.0-11.0); MONO % 5.1 % (0.0-8.0); MONOCYTE # 0.6 TH/MM3 (0-0.9); NEUT % 78.5 % (16.0-70.0); PLATELET COUNT 404 TH/MM3 (150-450); RED BLOOD COUNT 2.65 MIL/MM3 (4.50-5.90); RED CELL DISTRIBUTION WIDTH 15.4 % (11.6-17.2); WHITE BLOOD COUNT 12.6 TH/MM3 (4.0-11.0)
[2017-08-08] MEDS: PANTOPRAZOLE INJ 80 MG in SODIUM CHLORIDE 0.9% INJ 100 ML IV SCH ×2 (07:27→20:00)
[2017-08-08] MEDS: INSULIN ASPART SUPPLEMENTAL SCALE SQ SCH ×4 (08:00→20:00)
[2017-08-08] MEDS: cefTRIAXone INJ 1,000 MG in SODIUM CHLORIDE 0.9% INJ 100 ML IV SCH (09:05)
[2017-08-08] MEDS: ONDANSETRON HCL 4 MG/2 ML VIAL IV PUSH PRN (09:06)
[2017-08-08] MEDS: SUCRALFATE 1 GM TAB PO SCH ×2 (09:06→17:20)
[2017-08-08] MEDS: SODIUM CHLORIDE 0.9% FLUSH 10 ML FLUSH IV FLUSH SCH ×2 (09:07→19:58)
[2017-08-08] MEDS: CARVEDILOL 3.125 MG TAB PO SCH (09:07)
[2017-08-08] MEDS: DOCUSATE SODIUM 50 MG/SENNA 8.6 MG TAB PO SCH ×2 (09:07→19:59)
--- NOTE | 2017-08-08 11:22 | HHI.GIFU ---
Subjective Remarks GI reconsulted for GIB. Pt developed hematemesis and was transferred to [facility]. He admits continued black tarry stool. Last colonoscopy was [address] juan and was normal per pt. (Umm Weber) Objective Vitals I&O Vital Signs Date Time Temp Pulse Resp B/P (MAP) Pulse Ox O2 Delivery O2 Flow Rate FiO2 08/08/17 08:14 98 Nasal Cannula 2.00 08/08/17 04:00 99 08/08/17 04:00 98.4 99 14 123/68 (86) 99 08/08/17 03:37 97 Nasal Cannula 2.00 08/08/17 03:15 98 Nasal Cannula 2.00 08/08/17 01:36 98.4 111 18 80/53 96 08/08/17 00:38 98 Nasal Cannula 2.00 08/08/17 00:00 98.3 118 21 87/49 (62) 94 08/08/17 00:00 118 08/07/17 23:00 98 Room Air 08/07/17 23:00 114 08/07/17 22:45 98.3 113 16 110/79 (89) 97 08/07/17 21:00 Nasal Cannula 2.00 08/07/17 18:00 98 Nasal Cannula 2.00 08/07/17 16:00 97.9 83 17 143/83 (103) 99 08/07/17 12:31 Nasal Cannula 2.00 08/07/17 12:00 97.5 93 17 130/88 (102) 98 I/O 08/07/17 08/07/17 08/07/17 08/08/17 08/08/17 08/08/17 07:00 15:00 23:00 07:00 15:00 23:00 Intake Total 375 ml 1424 ml 20 ml Output Total 675 ml 675 ml 1200 ml Balance -675 ml -300 ml 224 ml 20 ml Intake Oral 375 ml IV Total 1059 ml 20 ml Packed Cells 330 ml Blood Product IV Normal Saline Flush 35 ml Output Urine Total 675 ml 675 ml 700 ml Emesis 500 ml # Voids 1 # Bowel Movements 0 Laboratory Laboratory Tests Test 08/07/17 23:05 08/08/17 05:09 White Blood Count 14.5 12.6 Red Blood Count 2.61 2.65 Hemoglobin 7.9 8.0 Hematocrit 23.8 23.6 Mean Corpuscular Volume 91.2 88.7 Mean Corpuscular Hemoglobin 30.2 30.1 Mean Corpuscular Hemoglobin Concent 33.2 33.9 Red Cell Distribution Width 15.3 15.4 Platelet Count 495 404 Mean Platelet Volume 6.9 7.1 Neutrophils (%) (Auto) 78.5 Lymphocytes (%) (Auto) 15.8 Monocytes (%) (Auto) 5.1 Eosinophils (%) (Auto) 0.2 Basophils (%) (Auto) 0.4 Neutrophils # (Auto) 9.9 Lymphocytes # (Auto) 2.0 Monocytes # (Auto) 0.6 Eosinophils # (Auto) 0.0 Basophils # (Auto) 0.1 CBC Comment DIFF FINAL Differential Comment Date/Time Source Procedure Growth Status 08/02/17 20:40 Urine Clean Catch Urine Culture - Final Escherichia Coli Complete Imaging Last Impressions Abdomen/Pelvis CT 08/02/17 1851 Signed Impressions: Service Date/Time: July 20:54 - CONCLUSION: 1. No acute abnormality seen. 2. Scattered colonic diverticula without inflammatory change. Haris Gonzalez MD Chest X-Ray 08/02/17 5729 Signed Impressions: Service Date/Time: July 17:59 - CONCLUSION: No acute disease. No free air is seen. Haris Gonzalez MD Physical Exam HEENT: Pupils round and reactive to light; normocephalic; atraumatic; no jaundice CHEST: CTA CARDIAC: RRR ABDOMEN: Soft, nondistended, nontender; no hepatosplenomegaly; bowel sounds are present in all four quadrants. EXTREMITIES: No clubbing, cyanosis, or edema. SKIN: no rash; no jaundice. Pale TRIAL MANAGER: alert (Umm Weber) Assessment and Plan Plan ASSESSMENT - hematemesis, black tarry stool - onset yesterday. prior hx GIB. EGD 07/24/17 showed ulcer with visible vessel, s/p cautery, clips x 3 and epi inj. had EGD today 08/03/17 showed large duodenal ulcer with visible vessel, s/p cautery, epi inj. - anemia with drop in HH - hgb dropped from 10 to 8. now s/p PRBC x 2 Endoscopy done on 08/03/17. Findings include normal esophagus, normal stomach, duodenum in the bulb was a large duodenal ulcer with a visible vessel, injected and cauterized, clip was there from the previous endoscopy. Otherwise unremarkable. Noted scattered diverticula on CT scan. 08/02/17 08/04/17 patient is resting in the bed asymptomatic. No obvious nausea or vomiting or abdominal pain, appetite fair, would like to increase to solid food. discussed EGD findings 08/05/17 no bleeding, no abd pain. is c/o nausea but no vomiting. ate breakfast. no HH done today. 08/06/17 + black hard BM reported by night staff. c/o nausea but no vomiting, tolerating diet. HH stable. 08/08/17 developed hematemesis and transferred to [facility], GI reconsulted. IR consult pending. PLAN: await IR consult poss repeat egd vs colonsocopy depending on results above BID protonix Monitor lab transfuse as needed. Supportive care pt seen by myself and Chilo and this note is on his behalf (Umm Weber) Physician Comments Seen and examined with RN IMCU, s/p GDA embolization. Clear liquid diet, monitor labs and for signs of bleeding. Bleeding scan if rebleeds. IV protonix. (Zachariah Woo MD) Umm Weber Aug 08, 2017 11:22 Zachariah Woo MD Aug 08, 2017 16:19
--- NOTE | 2017-08-08 11:25 | OTSOAPIP ---
TIME SESSION COMPLETED: AM TREATMENT TIME: 0 MINS. CHART REVIEWED. RECEIVED ORDERS FROM DR. OLEARY FOR OT CONSULT. PATIENT HAS HAD A CHANGE IN STATUS AND NOW IN INTENSIVE CARE SINCE ORDER WRITTEN. SPOKE WITH NURSE ELBERT AND DISCUSSED THAT OT WILL SIGN OFF AND WILL NEED NEW ORDERS WHEN STABLE. Therapist: DENIZ KAUR OT/L Signature on file
[2017-08-08] MEDS ORDERED: fentaNYL CITRATE 250 MCG/5 ML AMP ONE (11:46)
[2017-08-08] MEDS ORDERED: MIDAZOLAM HCL 5 MG/5 ML VIAL ONE (11:46)
[2017-08-08] MEDS ORDERED: VERAPAMIL HCL 5 MG/2 ML VIAL ONE (12:30)
[2017-08-08] MEDS ORDERED: HEPARIN SODIUM - IV 10,000 UNITS/10 ML VIAL ONE (12:31)
[2017-08-08] MEDS ORDERED: GELATIN 12 MM/7 MM FOAM I-ARTERIAL ONE (13:00)
[2017-08-08] MEDS ORDERED: IOHEXOL 350 MG/ML 50 ML BTL (for RAD DIAG) OTHER ONE (13:00)
[2017-08-08] MEDS ORDERED: NITROGLYCERIN 1000 MCG/5 ML VIAL OTHER ONE ×2 (13:02→13:41)
[2017-08-08] MEDS ORDERED: ceFAZolin 2 GM PREMIX 50 ML ONE (13:23)
--- NOTE | 2017-08-08 14:17 | HHI.CCPN ---
Subjective Remarks/Hospital Course 08/02: 71-[facility]-old male patient [facility] the [facility] with previous history of gastric ulcers and GI bleeding and the last endoscopy 2 weeks ago, presents today because he had hematemesis and was nauseous and throwing up at the senior care facility. He denies any chest pains, shortness of breath, abdominal pains, diarrhea, or any other symptoms. 08/03: Underwent EGD with findings of large duodenal ulcer with visible vessel which was injected with epinephrine and clipped by GI. Hemoglobin remained stable. Received 2 units PRBCs last night. Drowsy following EGD at the time of my evaluation earlier today. 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 RECONSULT 08/07: Patient was on the MedSurg floor today when vomited copious amount of bright red blood. He became borderline hypotensive and tachycardic. He responded well to the bolus of IV fluids and was transferred back to ICU. 08/08: Patient is S/P prophylactic embolization of the gastroduodenal artery via interventional radiology. Repeat CBC and BMP pending. Patient normotensive . Patient continues on Protonix infusion. Objective Vital Signs Date Time Temp Pulse Resp B/P (MAP) Pulse Ox O2 Delivery O2 Flow Rate FiO2 08/08/17 08:14 98 Nasal Cannula 2.00 08/08/17 08:00 85 08/08/17 04:00 98.4 14 123/68 (86) Intake and Output 08/08/17 08/08/17 08/09/17 08:00 16:00 00:00 Intake Total 944 ml Output Total 1200 ml Balance -256 ml Result Diagram: 08/08/17 0509 08/05/17 0430 Imaging Last 24 hours Impressions Chest X-Ray 08/02/17 [id number] Signed Impressions: Service Date/Time: July 17:59 - CONCLUSION: No acute disease. No free air is seen. Haris Gonzalez MD Objective Remarks GENERAL: Well-developed elderly male patient laying in bed in no acute distress , with complaints of back pain left-sided residual weakness SKIN: Focused skin assessment warm/dry. HEAD: Atraumatic. Normocephalic. EYES: Pupils equal and round. No scleral icterus. No injection or drainage. ENT: No nasal bleeding or discharge. Mucous membranes pink and moist. NECK: Trachea midline. No JVD. Supple. CARDIOVASCULAR: Regular rate and rhythm. No murmur appreciated. RESPIRATORY: No accessory muscle use. Clear to auscultation. Breath sounds equal bilaterally. GASTROINTESTINAL: Abdomen soft, non-tender, nondistended. Hepatic and splenic margins not palpable. MUSCULOSKELETAL: No obvious deformities. No clubbing. No cyanosis. No edema. NEUROLOGICAL: GCS 15. awake and alert. No obvious cranial nerve deficits. Motor with left-sided residual weakness A/P Assessment and Plan Hematemesis -Protonix infusion -Status post EGD with injection and clipping of large vessel in duodenal ulcer. -H&H stable - will continue to monitor -Further management /clear liquid diet resumption per gastroenterology -08/08 status post embolization of gastroduodenal artery -Follow-up repeat labs postprocedure Diabetes mellitus -Hold metformin while in the ICU -Insulin sliding scale Hypertension -Hold antihypertensive meds due to acute GI bleed -Resume when indicated Bipolar disorder -Continue Flomax and lithium DVT GI prophylaxis -Rajinder's and SCDs -No pharmacological DVT prophylaxis due to acute GI bleed -Protonix drip Critical Care: Level 2 follow-up. Planned transfer to [facility] in [facility] Physician Nikia Daily MD Aug 08, 2017 14:17
[2017-08-08 15:29] LABS: AUTOMATED NEUTROPHIL # 6.4 TH/MM3 (1.8-7.7); BASOPHIL # 0.1 TH/MM3 (0-0.2); BASOPHIL % 0.6 % (0.0-2.0); EOSINOPHIL # 0.1 TH/MM3 (0-0.4); EOSINOPHIL % 1.3 % (0.0-4.0); HEMATOCRIT 22.4 % (39.0-51.0); HEMOGLOBIN 7.7 GM/DL (13.0-17.0); LYMPH % 23.6 % (9.0-44.0); LYMPHOCYTE # 2.2 TH/MM3 (1.0-4.8); MEAN CELL VOLUME 89.2 FL (80.0-100.0); MEAN CORPUSCULAR HEMOGLOBIN 30.5 PG (27.0-34.0); MEAN CORPUSCULAR HGB CONC 34.2 % (32.0-36.0); MEAN PLATELET VOLUME 7.4 FL (7.0-11.0); MONO % 6.9 % (0.0-8.0); MONOCYTE # 0.7 TH/MM3 (0-0.9); NEUT % 67.6 % (16.0-70.0); PLATELET COUNT 413 TH/MM3 (150-450); RED BLOOD COUNT 2.51 MIL/MM3 (4.50-5.90); RED CELL DISTRIBUTION WIDTH 15.7 % (11.6-17.2); WHITE BLOOD COUNT 9.5 TH/MM3 (4.0-11.0)
[2017-08-08 15:37] LABS: CALCIUM 8.7 MG/DL (8.5-10.1); CHLORIDE 110 MEQ/L (98-107); SODIUM (NA) 143 MEQ/L (136-145)
[2017-08-08 15:54] LABS: ALBUMIN 2.3 GM/DL (3.4-5.0); ALKALINE PHOSPHATASE 54 U/L (45-117); ALT (GPT) 15 U/L (12-78); AST (GOT) 16 U/L (15-37); BICARBONATE 26.4 MEQ/L (21.0-32.0); BLOOD UREA NITROGEN 16 MG/DL (7-18); CREATININE 1.38 MG/DL (0.60-1.30); GLOMERULAR FILTRATION RATE 51 ML/MIN (>89); GLUCOSE,RANDOM 110 MG/DL (74-106); TOTAL BILIRUBIN ADULT 0.4 MG/DL (0.2-1.0); TOTAL PROTEIN 5.4 GM/DL (6.4-8.2)
--- NOTE | 2017-08-08 17:18 | RADRPT ---
EXAM DATE/TIME: 08/08/2017 12:06 [facility] COMPARISON: No previous studies available for comparison. INDICATIONS : 71-year-old male with history of recurrent upper GI hemorrhage following clipping of bleeding duodena l ulcer. Therefore, patient presents for angiography and prophylactic embolization of the gastroduode nal artery. MEDICAL HISTORY : GI bleed, Hematemesis, HTN, Diabetes, CVA, GERD, BPH SURGICAL HISTORY : Left hand surgery, Endoscopy with clipping of ulcer ENCOUNTER: Initial ACUITY: 1 week PAIN SCORE: 0/10 FLUORO TIME: 15 minutes IMAGE SERIES: 5 ACCESS SITE: Left Radial artery SEDATION TIME: 60 minutes CONTRAST: 1.) 100 cc Omnipaque (iohexol) 350 MEDICATION(S): 1.) 1.5 mg midazolam (Versed) IV 2.) 75 mcg fentanyl (Sublimaze) IV 3.) 2 g cefazolin (Ancef) IV Intra-procedural antibiotics were given as prescribed above. DEVICE(S): 1.) gastroduodenal artery 2D Interlock-35 [id number] embolic coil(s) 2.) gastroduodenal artery 035 [place] [id number] embolic coil(s) 3.) gastroduodenal artery 12-7MM Gelfoam 4.) Left radial artery Radial compression band [id number] PROCEDURE : 1. Ultrasound-guided puncture of the access site. 2. Conscious sedation with continuous EKG and Oximetry monitoring. 3. Selective catheter placement in the celiac artery was selected angiography 4. Selective catheter placement in the SMA with selective angiography 5. Coil and Gelfoam embolization of the gastroduodenal artery DISCUSSION: Monitored moderate conscious sedation was provided for this procedure with continued monitoring of pa tient consciousness and physiologic status provided by interventional radiology nurse throughout the procedure and documented. Patient was placed supine on the angiographic table. Ultrasound evaluation of the left radial artery demonstrated the artery to be patent. Single image was obtained and placed in PACS archive. Micropunc ture needle was advanced into the left radial artery under direct ultrasound guidance and subsequentl y exchanged for a slim 5 Nigerien sheath. The 4 Nigerien Dhruv catheter was then advanced into the celiac artery and angiography was performed. This did not demonstrate any contrast extravasation. There is standard celiac anatomy. Catheter was then advanced into the gastroduodenal artery. Angiography was p erformed again without evidence for contrast extravasation. Therefore, the GDA was embolized with Gel foam and two 6mm coils. Followup angiography demonstrated stasis of flow in the GDA. The catheter was then repositioned into the SMA and angiography was performed. Again, no evidence for contrast extrav asation. Catheters and wires were then removed. Hemostasis was then obtained by placement of a radial compression device. Patient tolerated the proce dure well. CONCLUSION: 1. Celiac and SMA angiography demonstrates standard anatomy without evidence for active hemorrhage. 2. Uncomplicated prophylactic coil and Gelfoam embolization of the GDA. Rocco Choudhury MD on August 08, 2017 at 17:11 Board Certified Radiologist. This report was verified electronically.
[2017-08-08 17:34] LABS: HEMATOCRIT 24.1 % (39.0-51.0); HEMOGLOBIN 8.1 GM/DL (13.0-17.0)
[2017-08-08] MEDS: LITHIUM CARBONATE 300 MG CAP PO SCH (19:59)
[2017-08-08] MEDS: ATORVASTATIN 40 MG TAB PO SCH (19:59)
[2017-08-08] MEDS: TAMSULOSIN HCL 0.4 MG CAP PO SCH (19:59)
[2017-08-08] MEDS: FLUoxetine HCL 20 MG CAP PO SCH (20:00)
[2017-08-09] VITALS (20 sets, daily range): BP systolic 146–162; BP diastolic 73–118; PULSE 70–96; RESP 14–23; TEMP 98.4–99.8; O2SAT 94–100
[2017-08-09] MEDS: CHLORHEXIDINE GLUCONATE 2 % 1 PACK (2 CLOTHS) TOP SCH (04:00)
[2017-08-09 04:59] LABS: MEAN CELL VOLUME 89.4 FL (80.0-100.0); MEAN CORPUSCULAR HEMOGLOBIN 30.3 PG (27.0-34.0); MEAN CORPUSCULAR HGB CONC 33.9 % (32.0-36.0); MEAN PLATELET VOLUME 7.1 FL (7.0-11.0); PLATELET COUNT 400 TH/MM3 (150-450); RED BLOOD COUNT 2.28 MIL/MM3 (4.50-5.90); RED CELL DISTRIBUTION WIDTH 15.9 % (11.6-17.2); WHITE BLOOD COUNT 12.4 TH/MM3 (4.0-11.0)
[2017-08-09 05:07] LABS: HEMATOCRIT 20.4 % (39.0-51.0); HEMOGLOBIN 6.9 GM/DL (13.0-17.0)
[2017-08-09 05:18] LABS: BICARBONATE 27.9 MEQ/L (21.0-32.0); CREATININE 1.32 MG/DL (0.60-1.30); MAGNESIUM 1.6 MG/DL (1.5-2.5)
[2017-08-09] MEDS ORDERED: SODIUM CHLOR 0.9% 250 ML INJ 250 ML IV ONE (05:45)
[2017-08-09] MEDS ORDERED: FUROSEMIDE 20 MG/2 ML VIAL IV PUSH ONE (05:45)
[2017-08-09] MEDS: PANTOPRAZOLE INJ 80 MG in SODIUM CHLORIDE 0.9% INJ 100 ML IV SCH ×2 (06:00→18:54)
[2017-08-09] MEDS: SUCRALFATE 1 GM TAB PO SCH ×2 (06:01→17:10)
[2017-08-09] MEDS: INSULIN ASPART SUPPLEMENTAL SCALE SQ SCH ×4 (08:00→19:28)
--- NOTE | 2017-08-09 08:11 | HHI.CCPN ---
Subjective Remarks/Hospital Course 08/02: 71-year-old [facility] with previous history of gastric ulcers and GI bleeding and the last endoscopy 2 weeks ago, presents today because he had hematemesis and was nauseous and [facility] up [facility]. He denies any chest pains, shortness of breath, abdominal pains, diarrhea, or any other symptoms. 08/03: Underwent EGD with findings of large duodenal ulcer with visible vessel which was injected with epinephrine and clipped by GI. Hemoglobin remained stable. Received 2 units PRBCs last night. Drowsy following EGD at the time of my evaluation earlier today. 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 RECONSULT 08/07: Patient was on the MedSurg floor today when vomited copious amount of bright red blood. He became borderline hypotensive and tachycardic. He responded well to the bolus of IV fluids and was transferred back to ICU. 08/08: Patient is S/P prophylactic embolization of gastroduodenal artery via interventional radiology. Repeat CBC and BMP pending. Patient normotensive . Patient continues on Protonix infusion. 08/09: T-max 99.4. Patient's hemoglobin was noted to be 6.9 early this a.m. Patient being transfused 2 units of packed red blood cells at this time. Patient continues to tolerate clear liquid diet. Hemodynamically stable. Objective Vital Signs Date Time Temp Pulse Resp B/P (MAP) Pulse Ox O2 Delivery O2 Flow Rate FiO2 08/09/17 06:10 98.9 89 14 154/78 96 08/08/17 19:00 Room Air 08/08/17 08:14 2.00 Intake and Output 08/09/17 08/09/17 08/10/17 08:00 16:00 00:00 Intake Total 750 ml Output Total 1250 ml Balance -500 ml Result Diagram: 08/09/17 0439 08/09/17 0439 Imaging Last 24 hours Impressions Chest X-Ray 08/02/17 1740 Signed Impressions: Service Date/Time: July 17:59 - CONCLUSION: No acute disease. No free air is seen. Haris Gonzalez MD Procedures 08/08: S/P angiography and prophylactic coil and embolization of gastroduodenal artery Objective Remarks GENERAL: Well-developed elderly male patient laying in bed in no acute distress , with complaints of back pain left-sided residual weakness SKIN: Focused skin assessment warm/dry. HEAD: Atraumatic. Normocephalic. EYES: Pupils equal and round. No scleral icterus. No injection or drainage. ENT: No nasal bleeding or discharge. Mucous membranes pink and moist. NECK: Trachea midline. No JVD. Supple. CARDIOVASCULAR: Regular rate and rhythm. No murmur appreciated. RESPIRATORY: No accessory muscle use. Clear to auscultation. Breath sounds equal bilaterally. GASTROINTESTINAL: Abdomen soft, non-tender, nondistended. Hepatic and splenic margins not palpable. MUSCULOSKELETAL: No obvious deformities. No clubbing. No cyanosis. No edema. NEUROLOGICAL: GCS 15. awake and alert. No obvious cranial nerve deficits. Motor with left-sided residual weakness, left facial droop A/P Assessment and Plan Hematemesis-resolved -Protonix infusion 8mg/hr -Status post EGD with injection and clipping of large vessel in duodenal ulcer. -H&H stable - will continue to monitor -Further management /clear liquid diet resumption per gastroenterology -08/08 S/P prophylactic embolization of gastroduodenal artery Acute blood loss anemia -Continue monitoring every 6 hours H&H -Hemoglobin this a.m. 6.9, patient to be transfused 2 units packed red blood cells follow-up posttransfusion CBC Diabetes mellitus -Hold metformin while in the ICU -Insulin sliding scale Hypertension -Hold antihypertensive meds due to acute GI bleed -Resume when indicated Bipolar disorder -Continue Prozac and [place] DVT GI prophylaxis -Rajinder's and SCDs -No pharmacological DVT prophylaxis due to acute GI bleed -Protonix drip Critical Care: Level 2 follow-up. Planned transfer to [place] Hospitalist suha [facility] Physician Nikia Daily MD Aug 09, 2017 08:11
[2017-08-09] MEDS: DOCUSATE SODIUM 50 MG/SENNA 8.6 MG TAB PO SCH ×2 (08:12→19:28)
[2017-08-09] MEDS: CARVEDILOL 3.125 MG TAB PO SCH (08:12)
[2017-08-09] MEDS: SODIUM CHLORIDE 0.9% FLUSH 10 ML FLUSH IV FLUSH SCH ×2 (08:14→19:28)
[2017-08-09] MEDS: cefTRIAXone INJ 1,000 MG in SODIUM CHLORIDE 0.9% INJ 100 ML IV SCH (10:17)
[2017-08-09 11:01] LABS: MEAN CELL VOLUME 88.7 FL (80.0-100.0); MEAN CORPUSCULAR HEMOGLOBIN 30.6 PG (27.0-34.0); MEAN CORPUSCULAR HGB CONC 34.5 % (32.0-36.0); MEAN PLATELET VOLUME 6.7 FL (7.0-11.0); PLATELET COUNT 261 TH/MM3 (150-450); RED BLOOD COUNT 2.23 MIL/MM3 (4.50-5.90); RED CELL DISTRIBUTION WIDTH 14.8 % (11.6-17.2); WHITE BLOOD COUNT 9.2 TH/MM3 (4.0-11.0)
[2017-08-09 11:09] LABS: HEMATOCRIT 19.8 % (39.0-51.0); HEMOGLOBIN 6.8 GM/DL (13.0-17.0)
--- NOTE | 2017-08-09 12:48 | HHI.GIFU ---
Subjective Remarks Pt resting in bed Denies nausea, vomiting, abdominal pain No BM Per RN despite continued drop in H/H (Joy Baird) Objective Vitals I&O Vital Signs Date Time Temp Pulse Resp B/P (MAP) Pulse Ox O2 Delivery O2 Flow Rate FiO2 08/09/17 11:44 99.4 77 21 154/86 96 08/09/17 10:08 100 08/09/17 08:35 99.3 83 18 150/83 94 08/09/17 08:00 99.3 84 20 151/77 (101) 98 08/09/17 06:10 98.9 89 14 154/78 96 08/09/17 06:02 99.4 90 15 151/74 98 08/09/17 06:00 86 08/09/17 04:00 98.8 86 16 152/73 (99) 96 08/09/17 04:00 86 08/09/17 03:27 96 08/09/17 02:00 88 08/09/17 00:41 97 08/09/17 00:00 98.4 96 16 146/76 (99) 97 08/09/17 00:00 91 08/08/17 22:00 85 08/08/17 20:00 85 08/08/17 20:00 98.7 85 16 148/73 (98) 96 08/08/17 19:00 97 Room Air 08/08/17 16:00 98.5 75 15 140/69 (92) 95 08/08/17 16:00 75 08/08/17 14:18 97.8 76 17 173/80 (111) 95 08/08/17 13:35 17 I/O 08/08/17 08/08/17 08/08/17 08/09/17 08/09/17 08/09/17 07:00 15:00 23:00 07:00 15:00 23:00 Intake Total 1424 ml 120 ml 1330 ml 750 ml 960 ml Output Total 1200 ml 675 ml 1250 ml 1500 ml Balance 224 ml 120 ml 655 ml -500 ml -540 ml Intake Oral 1180 ml 750 ml IV Total 1059 ml 120 ml 150 ml Packed Cells 330 ml 800 ml Blood Product IV Normal Saline Flush 35 ml 160 ml Output Urine Total 700 ml 675 ml 1250 ml 1500 ml Emesis 500 ml # Bowel Movements 0 0 Laboratory Laboratory Tests Test 08/08/17 14:11 08/08/17 16:45 08/09/17 04:39 08/09/17 10:44 White Blood Count 9.5 12.4 9.2 Red Blood Count 2.51 2.28 2.23 Hemoglobin 7.7 8.1 6.9 6.8 Hematocrit 22.4 24.1 20.4 19.8 Mean Corpuscular Volume 89.2 89.4 88.7 Mean Corpuscular Hemoglobin 30.5 30.3 30.6 Mean Corpuscular Hemoglobin Concent 34.2 33.9 34.5 Red Cell Distribution Width 15.7 15.9 14.8 Platelet Count 413 400 261 Mean Platelet Volume 7.4 7.1 6.7 Neutrophils (%) (Auto) 67.6 Lymphocytes (%) (Auto) 23.6 Monocytes (%) (Auto) 6.9 Eosinophils (%) (Auto) 1.3 Basophils (%) (Auto) 0.6 Neutrophils # (Auto) 6.4 Lymphocytes # (Auto) 2.2 Monocytes # (Auto) 0.7 Eosinophils # (Auto) 0.1 Basophils # (Auto) 0.1 CBC Comment DIFF FINAL Differential Comment Blood Urea Nitrogen 16 12 Creatinine 1.38 1.32 Random Glucose 110 105 Total Protein 5.4 Albumin 2.3 Calcium Level 8.7 9.0 Alkaline Phosphatase 54 Aspartate Amino Transf (AST/SGOT) 16 Alanine Aminotransferase (ALT/SGPT) 15 Total Bilirubin 0.4 Sodium Level 143 141 Potassium Level 3.8 3.5 Chloride Level 110 108 Carbon Dioxide Level 26.4 27.9 Anion Gap 7 5 Estimat Glomerular Filtration Rate 51 53 Magnesium Level 1.6 Date/Time Source Procedure Growth Status 08/02/17 20:40 Urine Clean Catch Urine Culture - Final Escherichia Coli Complete Imaging Last Impressions Abdomen Arteriogram 08/08/17 0000 Signed Impressions: Service Date/Time: Tuesday, August 08, 2017 12:06 - CONCLUSION: 1. Celiac and SMA angiography demonstrates standard anatomy without evidence for active hemorrhage. 2. Uncomplicated prophylactic coil and Gelfoam embolization of the GDA. Rocco Choudhury MD Abdomen/Pelvis CT 08/02/17 1851 Signed Impressions: Service Date/Time: July 20:54 - CONCLUSION: 1. No acute abnormality seen. 2. Scattered colonic diverticula without inflammatory change. Haris Gonzalez MD Chest X-Ray 08/02/17 3743 Signed Impressions: Service Date/Time: July 17:59 - CONCLUSION: No acute disease. No free air is seen. Haris Gonzalez MD Physical Exam HEENT: Normocephalic; atraumatic CHEST: Even/unlabored CARDIAC: RRR ABDOMEN: Soft, nondistended, nontender; bowel sounds active EXTREMITIES: No clubbing, cyanosis, or edema. SKIN: Pale PROCESS CONTROL TECHNICIAN: Alert and oriented x 3 (Joy Baird) Assessment and Plan Plan ASSESSMENT - Hematemesis, black tarry stool - onset yesterday. Prior hx GIB. EGD (07/02) Gastric ulcer in the antrum most likely the source of bleeding biopsy was done EGD (07/23/17) --> Ulcer antrum-8 mm , visible vessel-s/p epinephrine 1:10, cautery /gold probe , 3 clips applied NGT trauma Repeat EGD (08/03/17) --> Duodenal ulcer with stigmata showing a visible vessel S/P IR for angiogram with embolization --> Celiac and SMA angiography demonstrates standard anatomy without evidence for active hemorrhage. Uncomplicated prophylactic coil and Gelfoam embolization of the GDA. CT abdomen/pelvis WO IV contrast --> No acute abnormalities. Scattered colonic diverticula without inflammatory change. (4/5) Pt with continued drop in H/H despite continued blood transfusions. No source of obvious GIB. Denies emesis, last episode 2 days ago. No BM. Will order STAT NM GI bleeding scan and GS consult. Plan for EGD/colonoscopy in AM D/W Dr. Ventura. D/W RN. D/W Dr. Woo PLAN: Stat GI bleeding scan GS consult Monitor H/H Transfuse per [facility] Monitor for GIB Notify GI of obvious bleeding Repeat EGD with colonoscopy tomorrow Obtain consent GoLytely prep Clear liquids today NPO after MN Further recommendations based on findings of above Pt has been seen and examined by myself and Dr. Woo and this note is written on his behalf (Joy Baird) Physician Comments Seen and examined with [employer], no active bleeding reported but drop in H/H. STAT bleeding scan ordered for today. Repeat egd/colonoscopy planned for tomorrow. Monitor H/H and transfuse as needed. Discussed with Dr. Ventura. (Zachariah Woo MD) Joy Baird Aug 09, 2017 12:48 Zachariah Woo MD Aug 09, 2017 13:31
[2017-08-09] MEDS ORDERED: PEG (High)/E-LYTE SOLN 4000 ML BTL PO ONE (16:00)
--- NOTE | 2017-08-09 16:42 | RADRPT ---
EXAM DATE/TIME: 08/09/2017 13:57 [facility] COMPARISON: No previous studies available for comparison. INDICATIONS : Blood in stool. DOSE: 20.3 mCi Tc99m Ultratag labeled red blood cells IV IMAGIN hrs MEDICAL HISTORY : Diabetes mellitus type 2. SURGICAL HISTORY : Left hand surgery. ENCOUNTER: Initial ACUITY: 4 - 6 days PAIN SCALE: 3/10 LOCATION: Abdomen. TECHNIQUE: Following the modified in vitro labeling of autologous red cells, dynamic continuous images were acqu ired for the specified interval. FINDINGS: BIODISTRIBUTION: There is a very good labeling of red cells without significant uptake in the gastric wall. There is good delineation of the blood pool of the spleen and abdominal vessels. BLEEDING: No episodes of active GI bleeding are observed during specified interval of continuous observation. CONCLUSION: Negative GI bleeding scan. Aguilar Mcnally MD on August 09, 2017 at 16:38 Board Certified Radiologist. This report was verified electronically.
[2017-08-09 17:32] LABS: HEMATOCRIT 31.8 % (39.0-51.0); HEMOGLOBIN 10.8 GM/DL (13.0-17.0)
[2017-08-09] MEDS: ONDANSETRON HCL 4 MG/2 ML VIAL IV PUSH PRN ×2 (18:48→23:32)
--- NOTE | 2017-08-09 18:53 | MB ---
cc: Arben Montilla MD,Haris Marie, DATE: 08/09/2017 REASON FOR CONSULTATION: GI bleed. HISTORY OF PRESENT ILLNESS: This is a pleasant 71-year-old gentleman who was admitted to the hospital on the or of this month. He has been having problems with GI bleed and underwent endoscopy on the . He has had a fair number of procedures to stop the bleeding and watching. He recently had an arteriogram with embolization. Today, underwent a bleeding scan, showed no bleeding, but his hemoglobin and hematocrit took a little drop. They are planning on doing a colonoscopy and EGD tomorrow. They wanted surgery to standby just in case anything happen. They wanted my advice on the ulcer management as well. He had the scope on the that showed 8 mm ulcer with a visible vessel that was cauterized and clipped. Again, recently had an arteriogram with embolization and a recent bleeding scan. PAST MEDICAL HISTORY: He says he just has knee pain and was taking some Advil and ibuprofen for knee pain over time. He denies any other chronic medical problems, at least he states that, but in the records, he has some neurologic problems, had a CVA in the past, syncopal episode, cardiac disorder and has stress-induced asthma and has longstanding BPH. REVIEW OF SYSTEMS: He is in the intensive care unit. Presently, he is having a bowel movement. He does not look in any distress. He does not really complain of anything except being a little weak and tired. PHYSICAL EXAMINATION: GENERAL: He is hemodynamically stable with blood pressure 160/118, sats are 97. Pulses are good, temperature 99. NECK: Supple. CHEST: Clear. HEART: Regular rate. ABDOMEN: Obese, soft, without any surgical scars, without any rebound or guarding. No masses are appreciated. He is able to move all extremities. The nurses just cleaned him up after having a big bowel movement. LABORATORY DATA: His H and H this morning was 6 and 19, presently at 5:00, it was 10 and 31. Chemistry shows a creatinine of 1.3. Otherwise, everything is pretty good with the magnesium 1.6. Coags on the were all normal. From the computer and the blood bank, it looks like he has had 10 units of blood transfused over the last 6 days. He had a biopsy of his stomach on 07/02 that showed gastritis, negative for H pylori. He had a urine culture, which showed E. coli UTI. IMAGING STUDIES: He had a CT of the abdomen done on 08/02, just last month, and no obvious abnormality except for some colonic diverticula. Yesterday, he had an arteriogram with embolization and today, he had a bleeding scan with no evidence of any bleeding. On 07/20, he did have an ultrasound of his gallbladder, which showed a kidney stone. No gallstones. May of this year, he had a carotid ultrasound, which showed 50% stenosis of his carotids. He had a CT of his head in May of this year, which was normal. ASSESSMENT: A 71-year-old gentleman with a documented gastrointestinal bleed that appears to have been cauterized, clipped and embolized. Recently had a bleeding scan, which does not show any active bleeding. He did have a slow drop in his hemoglobin and hematocrit. He is to undergo a repeat endoscopy tomorrow from what the nurses report to me and a colonoscopy. PLAN: At this time, I will continue to follow him. I will watch what they find on his endoscopy. Hopefully, no surgical intervention needs to be done. He will be fine with maximal medical therapy. Arben Montilla MD JDB/NIK , 06:25 PM , 06:53 PM
[2017-08-09] MEDS: LITHIUM CARBONATE 300 MG CAP PO SCH (19:28)
[2017-08-09] MEDS: FLUoxetine HCL 20 MG CAP PO SCH (19:28)
[2017-08-09] MEDS: ATORVASTATIN 40 MG TAB PO SCH (19:28)
[2017-08-09] MEDS: TAMSULOSIN HCL 0.4 MG CAP PO SCH (19:28)
[2017-08-10] VITALS (13 sets, daily range): BP systolic 120–178; BP diastolic 61–96; PULSE 65–95; RESP 16–20; TEMP 97.6–98.7; O2SAT 91–98
[2017-08-10 02:33] LABS: HEMATOCRIT 32.6 % (39.0-51.0); HEMOGLOBIN 11.2 GM/DL (13.0-17.0)
[2017-08-10] MEDS: CHLORHEXIDINE GLUCONATE 2 % 1 PACK (2 CLOTHS) TOP SCH (04:30)
[2017-08-10] MEDS: PANTOPRAZOLE INJ 80 MG in SODIUM CHLORIDE 0.9% INJ 100 ML IV SCH ×2 (05:34→18:25)
[2017-08-10 06:15] LABS: HEMATOCRIT 33.9 % (39.0-51.0); HEMOGLOBIN 11.7 GM/DL (13.0-17.0)
[2017-08-10 06:26] LABS: INTERNATIONAL NORMALIZED RATIO 1.1 RATIO; PROTHROMBIN TIME - PATIENT 10.7 SEC (9.8-11.6)
[2017-08-10 06:38] LABS: MAGNESIUM 1.6 MG/DL (1.5-2.5); PHOSPHORUS 2.6 MG/DL (2.5-4.9)
[2017-08-10] MEDS: SUCRALFATE 1 GM TAB PO SCH ×2 (06:54→17:48)
[2017-08-10] MEDS: INSULIN ASPART SUPPLEMENTAL SCALE SQ SCH ×4 (07:52→21:00)
[2017-08-10] MEDS: cefTRIAXone INJ 1,000 MG in SODIUM CHLORIDE 0.9% INJ 100 ML IV SCH (07:53)
[2017-08-10] MEDS: SODIUM CHLORIDE 0.9% FLUSH 10 ML FLUSH IV FLUSH SCH ×2 (07:53→22:00)
[2017-08-10] MEDS: DOCUSATE SODIUM 50 MG/SENNA 8.6 MG TAB PO SCH ×2 (07:53→21:59)
[2017-08-10] MEDS: CARVEDILOL 3.125 MG TAB PO SCH (07:53)
[2017-08-10] MEDS ORDERED: PROPOFOL 200 MG/20 ML AMP IV ONE (12:00)
[2017-08-10] MEDS ORDERED: SUCCINYLCHOLINE CHLORIDE 100 MG/5 ML SYRINGE IV PUSH ONE (12:00)
[2017-08-10] MEDS ORDERED: LIDOCAINE HCL 1% PF 5 ML SYRINGE OTHER ONE (12:00)
--- NOTE | 2017-08-10 14:21 | HHI.PR ---
Subjective Remarks Follow-up for GI bleed, anemia. Patient is currently resting in bed. No acute concerns. He is undergoing colonoscopy preparation. However he is unable to do the prep very well. GI is aware of this. He is supposed to have endoscopic studies done today. Objective Vitals Vital Signs Date Time Temp Pulse Resp B/P (MAP) Pulse Ox O2 Delivery O2 Flow Rate FiO2 08/10/17 13:50 Room Air 08/10/17 13:50 98.9 79 15 179/86 (117) 96 08/10/17 13:50 79 08/10/17 10:00 77 08/10/17 08:00 95 08/10/17 08:00 97.8 95 19 178/96 (123) 98 08/10/17 07:00 98 Room Air 08/10/17 06:00 71 08/10/17 04:00 98.7 81 20 146/77 (100) 95 08/10/17 04:00 81 08/10/17 02:00 83 08/10/17 00:00 98.2 82 18 154/74 (100) 91 08/10/17 00:00 82 08/09/17 22:00 75 08/09/17 20:25 94 21 08/09/17 20:00 87 08/09/17 20:00 99.8 87 23 162/117 (132) 94 08/09/17 19:00 95 Room Air 08/09/17 18:00 85 08/09/17 16:00 99.1 85 18 160/118 (132) 97 08/09/17 16:00 85 08/09/17 14:46 74 18 154/82 94 I/O 08/09/17 08/09/17 08/09/17 08/10/17 08/10/17 08/10/17 07:00 15:00 23:00 07:00 15:00 23:00 Intake Total 750 ml 1410 ml 100 ml 2300 ml Output Total 1250 ml 1500 ml 1250 ml 850 ml Balance -500 ml -90 ml -1150 ml 1450 ml Intake Oral 750 ml 2200 ml IV Total 100 ml 100 ml Packed Cells 1200 ml Blood Product IV Normal Saline Flush 210 ml Output Urine Total 1250 ml 1500 ml 1250 ml 850 ml # Voids 1 # Bowel Movements 0 3 Result Diagram: 08/10/17 0555 08/09/17 0439 Imaging Last Impressions GI Bleed Scan Nuclear Medicine 08/09/17 0000 Signed Impressions: Service Date/Time: August 13:57 - CONCLUSION: Negative GI bleeding scan. Aguilar Mcnalyl MD Abdomen Arteriogram 08/08/17 0000 Signed Impressions: Service Date/Time: Tuesday, August 08, 2017 12:06 - CONCLUSION: 1. Celiac and SMA angiography demonstrates standard anatomy without evidence for active hemorrhage. 2. Uncomplicated prophylactic coil and Gelfoam embolization of the GDA. Rocco Choudhury MD Abdomen/Pelvis CT 08/02/17 1851 Signed Impressions: Service Date/Time: July 20:54 - CONCLUSION: 1. No acute abnormality seen. 2. Scattered colonic diverticula without inflammatory change. Haris Gonzalez MD Chest X-Ray 08/02/17 0309 Signed Impressions: Service Date/Time: July 17:59 - CONCLUSION: No acute disease. No free air is seen. Haris Gonzalez MD Objective Remarks GENERAL: Alert, NAD. SKIN: Warm and dry. HEAD: Normocephalic. EYES: No scleral icterus. No injection or drainage. NECK: Supple, trachea midline. No JVD or lymphadenopathy. CARDIOVASCULAR: Regular rate and rhythm without murmurs, gallops, or rubs. RESPIRATORY: Breath sounds equal bilaterally. No accessory muscle use. GASTROINTESTINAL: Abdomen soft, non-tender, nondistended. MUSCULOSKELETAL: No cyanosis, or edema. BACK: Nontender without obvious deformity. No CVA tenderness. Procedures 08/08: S/P angiography and prophylactic coil and embolization of gastroduodenal artery A/P Assessment and Plan Mr. Quezada is a pleasant 71-year-old male with a history of GI bleed who admitted to the hospital due to hematemesis, nausea and vomiting. He was initially managed in the ICU. He received 2 units of PRBCs upon admission. He underwent EGD which showed large duodenal ulcer with visible vessel which was injected with epinephrine and clipped by GI. He was briefly transferred to [facility] floor but returned to ICU due to copious amount of bright red blood in the vomitus. Patient was hypotensive and tachycardic. He underwent prophylactic embolization of gastroduodenal artery by interventional radiology on 08/08/2017. Patient received 2 more units of PRBCs on 08/09/2017. He has been hemodynamically stable and his hemoglobin has been stable around 11. Hematemesis-resolved Acute GI blood loss anemia Protonix infusion 8mg/hr Status post EGD with injection and clipping of large vessel in duodenal ulcer. H&H stable - will continue to monitor Further management /clear liquid diet resumption per gastroenterology 08/08 S/P prophylactic embolization of gastroduodenal artery Repeat EGD and colonoscopy planned for today for 10/2017. Acute blood loss anemia Will check H&H in the AM. Hgb 11.7 today. Diabetes mellitus Hold metformin while in the ICU Insulin sliding scale Hypertension Hold antihypertensive meds due to acute GI bleed Continue amlodipine 5 mg twice daily (home dose) Bipolar disorder -Continue Prozac and [place] DVT GI prophylaxis -Rajinder's and SCDs -No pharmacological DVT prophylaxis due to acute GI bleed -Protonix drip Full code. Alyx Finley DO Aug 10, 2017 2:21 pm
[2017-08-10] MEDS ORDERED: DO NOT ADM ANY ANTICOAGULANT DRUGS PRN (14:55)
--- NOTE | 2017-08-10 16:54 | HHI.PR ---
cc: Arben Montilla MD Subjective Subjective Notes DAILY PROGRESS NOTE FOR SURGICAL ATTENDING, DR. ARBEN MONTILLA Patient in the ICU Wants to know when he can eat something and hopefully go home soon Underwent endoscopy did not show any bleeding Objective Vitals/I&O Vital Signs Date Time Temp Pulse Resp B/P (MAP) Pulse Ox O2 Delivery O2 Flow Rate FiO2 08/10/17 16:00 69 08/10/17 15:15 98.8 18 152/72 (98) 99 Room Air 08/10/17 14:45 2 08/09/17 20:25 21 Labs Laboratory Tests Test 08/09/17 16:54 08/10/17 02:08 08/10/17 05:55 Hemoglobin 10.8 11.2 11.7 Hematocrit 31.8 32.6 33.9 Prothrombin Time 10.7 Prothromb Time International Ratio 1.1 Phosphorus Level 2.6 Magnesium Level 1.6 Date/Time Source Procedure Growth Status 08/02/17 20:40 Urine Clean Catch Urine Culture - Final Escherichia Coli Complete Radiology Last Impressions GI Bleed Scan Nuclear Medicine 08/09/17 0000 Signed Impressions: Service Date/Time: August 13:57 - CONCLUSION: Negative GI bleeding scan. Aguilar Mcnally MD Abdomen Arteriogram 08/08/17 0000 Signed Impressions: Service Date/Time: Tuesday, August 08, 2017 12:06 - CONCLUSION: 1. Celiac and SMA angiography demonstrates standard anatomy without evidence for active hemorrhage. 2. Uncomplicated prophylactic coil and Gelfoam embolization of the GDA. Rocco Choudhury MD Abdomen/Pelvis CT 08/02/17 1851 Signed Impressions: Service Date/Time: July 20:54 - CONCLUSION: 1. No acute abnormality seen. 2. Scattered colonic diverticula without inflammatory change. Haris Gonzalez MD Chest X-Ray 08/02/17 1749 Signed Impressions: Service Date/Time: July 17:59 - CONCLUSION: No acute disease. No free air is seen. Haris Gonzalez MD Cardiovascular: Regular Lungs: Clear Abdomen: Non-distended, Non-tender Extremities: Perfused A/P Problem List: (1) UGI bleed ICD Codes: K92.2 - UGI bleed Status: Acute (2) Syncope ICD Codes: R55 - Syncope and collapse (3) DM (diabetes mellitus) ICD Codes: E11.9 - Type 2 diabetes mellitus without complications (4) GI bleed ICD Codes: K92.2 - Gastrointestinal hemorrhage, unspecified Assessment and Plan 71-year-old gentleman who has a upper GI bleed from a ulcer that has been embolized clipped and cauterized as no evidence of bleeding on recent bleeding scan and the recent EGD Hemoglobin appears to be stable Continue aggressive medical management Attending Statement NOTE FOR SURGICAL ATTENDING, DR. ARBEN MONTILLA I attest that I had a [id number] encounter with the patient on the same day, and personally performed and documented my assessment and findings in the medical record. The following services were provided during this hospital visit: Chart data review, vital sign assessments/reviewing monitor data Review of consultations notes if present. Medication orders/review and/or management Ordering and/or reviewing lab tests Ordering and/or interpreting/reviewing x-rays and/or diagnostic studies Care of the patient and discussion of the patient with the care team Documentation time To help prompt me to consider important information that might be impacting today's encounter and assessment, information from prior notes written by myself or my colleagues may have been "brought forward/copy and pasted" into today's note. Problem Qualifiers (1) GI bleed: Qualified Codes: K92.0 - Hematemesis Arben Montilla MD Aug 10, 2017 16:54
[2017-08-10] MEDS ORDERED: cloNIDine HCL 0.1 MG TAB PO PRN (18:15)
[2017-08-10] MEDS: amLODIPine BESYLATE 5 MG TAB PO SCH (22:00)
[2017-08-10] MEDS: LITHIUM CARBONATE 300 MG CAP PO SCH (22:00)
[2017-08-10] MEDS: TAMSULOSIN HCL 0.4 MG CAP PO SCH (22:00)
[2017-08-10] MEDS: ATORVASTATIN 40 MG TAB PO SCH (22:00)
[2017-08-10] MEDS: FLUoxetine HCL 20 MG CAP PO SCH (22:00)
[2017-08-11] VITALS (12 sets, daily range): BP systolic 109–165; BP diastolic 55–77; PULSE 60–77; RESP 15–18; TEMP 96.4–98.8; O2SAT 92–95
[2017-08-11] MEDS: CHLORHEXIDINE GLUCONATE 2 % 1 PACK (2 CLOTHS) TOP SCH (04:00)
[2017-08-11] MEDS: PANTOPRAZOLE INJ 80 MG in SODIUM CHLORIDE 0.9% INJ 100 ML IV SCH (04:33)
[2017-08-11 05:46] LABS: HEMATOCRIT 30.9 % (39.0-51.0); HEMOGLOBIN 10.6 GM/DL (13.0-17.0)
[2017-08-11] MEDS: SUCRALFATE 1 GM TAB PO SCH ×2 (06:02→16:04)
[2017-08-11] MEDS: INSULIN ASPART SUPPLEMENTAL SCALE SQ SCH ×4 (07:46→21:00)
[2017-08-11] MEDS: amLODIPine BESYLATE 5 MG TAB PO SCH ×2 (08:09→21:45)
[2017-08-11] MEDS: DOCUSATE SODIUM 50 MG/SENNA 8.6 MG TAB PO SCH ×2 (08:09→21:45)
[2017-08-11] MEDS: CARVEDILOL 3.125 MG TAB PO SCH (08:09)
[2017-08-11] MEDS: SODIUM CHLORIDE 0.9% FLUSH 10 ML FLUSH IV FLUSH SCH ×2 (08:09→21:52)
[2017-08-11] MEDS: cefTRIAXone INJ 1,000 MG in SODIUM CHLORIDE 0.9% INJ 100 ML IV SCH (10:37)
[2017-08-11] MEDS: ONDANSETRON HCL 4 MG/2 ML VIAL IV PUSH PRN ×2 (13:13→22:06)
--- NOTE | 2017-08-11 13:51 | HHI.GIFU ---
GI Follow-up Note Consult Follow-up Subjective: Patient laying in bed comfortably, no new complaints except feeling hungry. No bleeding Objective: PHYSICAL EXAMINATION: Vitals signs stable No fever HEENT: Pupils round and reactive to light; normocephalic; atraumatic; no jaundice. Throat is clear. NECK: Neck is supple, no JVD, no lymphadenopathy. CHEST: Chest is clear to auscultation and percussion. CARDIAC: Regular rate and rhythm with no murmur gallop or rubs. ABDOMEN: Soft, nondistended, nontender; no hepatosplenomegaly; bowel sounds are present in all four quadrants. EXTREMITIES: No clubbing, cyanosis, or edema. SKIN: Normal; no rash; no jaundice. ECHOMETER ENGINEER: No focal deficits; alert and oriented times three. Available Data (labs, X- Rays, Procedues) : Last Impressions GI Bleed Scan Nuclear Medicine 08/09/17 0000 Signed Impressions: Service Date/Time: August 13:57 - CONCLUSION: Negative GI bleeding scan. Aguilar Mcnally MD Abdomen Arteriogram 08/08/17 0000 Signed Impressions: Service Date/Time: Tuesday, August 08, 2017 12:06 - CONCLUSION: 1. Celiac and SMA angiography demonstrates standard anatomy without evidence for active hemorrhage. 2. Uncomplicated prophylactic coil and Gelfoam embolization of the GDA. Rocco Choudhury MD Abdomen/Pelvis CT 08/02/17 1851 Signed Impressions: Service Date/Time: July 20:54 - CONCLUSION: 1. No acute abnormality seen. 2. Scattered colonic diverticula without inflammatory change. Haris Gonzalez MD Chest X-Ray 08/02/17 [id number] Signed Impressions: Service Date/Time: July 17:59 - CONCLUSION: No acute disease. No free air is seen. Haris Gonzalez MD Laboratory Tests Test 08/09/17 16:54 08/10/17 02:08 08/10/17 05:55 08/11/17 05:00 Hemoglobin 10.8 GM/DL 11.2 GM/DL 11.7 GM/DL 10.6 GM/DL Hematocrit 31.8 % 32.6 % 33.9 % 30.9 % Prothrombin Time 10.7 SEC Prothromb Time International Ratio 1.1 RATIO Phosphorus Level 2.6 MG/DL Magnesium Level 1.6 MG/DL Allergies Coded Allergies Type Severity Reaction Last Updated Verified codeine Allergy Severe MUSCULOSKELETAL ISSUES 08/02/17 Yes insulin,pork Allergy Severe Anaphylaxis 08/02/17 Yes insulin aspart Allergy Intermediate 08/02/17 Yes lactose Allergy Intermediate 08/02/17 Yes Active Scripts Medications Dose Route/Sig Max Daily Dose Days Date Category Dose Instructions Carafate (Sucralfate) 1 Gram Tab 1 Gm PO BIDAC 07/25/17 Rx Norvasc (Amlodipine Besylate) 5 Mg Tab 5 Mg PO BID 07/25/17 Rx Protonix (Pantoprazole Sodium) 40 Mg Tab 40 Mg PO BID 07/25/17 Rx Atorvastatin (Atorvastatin Calcium) 40 Mg Tab 40 Mg PO HS 07/12/17 Rx Plavix (Clopidogrel Bisulfate) 75 Mg Tab 75 Mg PO DAILY 07/12/17 Rx Proair Hfa 8.5 GM Inh (Albuterol Sulfate) 90 Mcg/Act Aer 2 Puff INH Q4-6H PRN 07/11/17 Reported 108 mcg/actuation Carvedilol 3.125 Mg Tab 3.125 Mg PO DAILY 07/11/17 Reported Metformin (Metformin HCl) 500 Mg Tab 500 Mg PO BIDPC 05/24/17 Reported Fluoxetine (Fluoxetine HCl) 40 Mg Cap 40 Cap PO HS 12/03/16 Reported Flomax (Tamsulosin HCl) 0.4 Mg Cap 0.4 Mg PO HS 12/03/16 Reported [place] Carbonate 600 Mg Cap 600 Mg PO HS 12/03/16 Reported ASSESSMENT/PLAN: Seen and examined, no bleeding . s/p egd with ablation yesterday. Colonoscopy not done due to inability to prep. Advance diet, can dc home with gi fu. Dc home on protonix 40mg daily. Discussed with Dr. Ventura. Thank you It was a pleasure seeing Ryan Quezada. Thank you for this consult. Entered by: Zachariah Lu MD Aug 11, 2017 13:51
--- NOTE | 2017-08-11 14:10 | HHI.PR ---
Subjective Remarks Follow-up for GI bleed, anemia. Patient is resting in bed. No acute concerns. No chest pain, SOB, fever, chills. No abdominal pain. Objective Vitals Vital Signs Date Time Temp Pulse Resp B/P (MAP) Pulse Ox O2 Delivery O2 Flow Rate FiO2 08/11/17 10:00 70 08/11/17 08:00 96.4 64 17 165/77 (106) 94 08/11/17 08:00 64 08/11/17 06:00 62 08/11/17 04:00 97.9 63 15 143/67 (92) 95 08/11/17 04:00 63 08/11/17 02:00 60 08/11/17 00:00 77 08/11/17 00:00 98.8 77 18 146/69 (94) 94 08/10/17 22:00 74 08/10/17 20:00 65 08/10/17 20:00 98.5 65 17 120/61 (80) 93 08/10/17 18:00 71 08/10/17 16:00 69 08/10/17 16:00 97.8 69 17 151/74 (99) 93 08/10/17 15:15 98.8 73 18 152/72 (98) 99 Room Air 08/10/17 15:00 74 18 130/60 (83) 98 Room Air 08/10/17 14:45 85 17 126/60 (82) 98 Nasal Cannula 2 08/10/17 14:44 98.0 88 17 126/58 (80) 98 Nasal Cannula 2 08/10/17 14:00 97.6 78 16 175/93 (120) 96 08/10/17 13:50 Room Air 08/10/17 13:50 98.9 79 15 179/86 (117) 96 08/10/17 13:50 79 I/O 08/10/17 08/10/17 08/10/17 08/11/17 08/11/17 08/11/17 07:00 15:00 23:00 07:00 15:00 23:00 Intake Total 2300 ml 100 ml 220 ml 820 ml Output Total 850 ml 950 ml 450 ml Balance 1450 ml 100 ml -730 ml 370 ml Intake Oral 2200 ml 120 ml 720 ml IV Total 100 ml 100 ml 100 ml Other 100 ml Output Urine Total 850 ml 950 ml 450 ml # Voids 1 4 # Bowel Movements 3 3 2 Result Diagram: 08/11/17 0500 08/09/17 0439 Objective Remarks GENERAL: Alert, NAD. SKIN: Warm and dry. HEAD: Normocephalic. EYES: No scleral icterus. No injection or drainage. NECK: Supple, trachea midline. No JVD or lymphadenopathy. CARDIOVASCULAR: Regular rate and rhythm without murmurs, gallops, or rubs. RESPIRATORY: Breath sounds equal bilaterally. No accessory muscle use. GASTROINTESTINAL: Abdomen soft, non-tender, nondistended. MUSCULOSKELETAL: No cyanosis, or edema. BACK: Nontender without obvious deformity. No CVA tenderness. Procedures 08/08: S/P angiography and prophylactic coil and embolization of gastroduodenal artery A/P Assessment and Plan Mr. Quezada is a pleasant 71-year-old male with a history of GI bleed who admitted to the hospital due to hematemesis, nausea and vomiting. He was initially managed in the ICU. He received 2 units of PRBCs upon admission. He underwent EGD which showed large duodenal ulcer with visible vessel which was injected with epinephrine and clipped by GI. He was briefly transferred to [facility] floor but returned to ICU due to copious amount of bright red blood in the vomitus. Patient was hypotensive and tachycardic. He underwent prophylactic embolization of gastroduodenal artery by interventional radiology on 08/08/2017. Patient received 2 more units of PRBCs on 08/09/2017. He has been hemodynamically stable and his hemoglobin has been stable around 11. Hematemesis-resolved Acute GI blood loss anemia Protonix infusion 8mg/hr Status post EGD with injection and clipping of large vessel in duodenal ulcer. H&H stable - will continue to monitor Further management /clear liquid diet resumption per gastroenterology 08/08 S/P prophylactic embolization of gastroduodenal artery Repeat EGD done on 08/10/2017 but Colonoscopy was not done due to poor prep. Acute blood loss anemia Hgb 11.7 --> 10.6 today. Will start checking H&H Q12hrs. Discussed with GI. If Hgb continues to drop, we will re-consult GI. D/C Protonix drip and start PO Protonix BID. Diabetes mellitus Hold metformin while in the ICU Insulin sliding scale Hypertension Hold antihypertensive meds due to acute GI bleed Continue amlodipine 5 mg twice daily (home dose) Bipolar disorder -Continue Prozac and [place] DVT GI prophylaxis -Rajinder's and SCDs -No pharmacological DVT prophylaxis due to acute GI bleed Full code. Alyx Finley DO Aug 11, 2017 2:10 pm
--- NOTE | 2017-08-11 14:41 | GIPROC ---
[facility] [address] [facility]. [facility] [address], [id number] EGD PROCEDURE REPORT EXAM DATE: 08/10/2017 PATIENT NAME: Ryan Quezada MR #: [id number] BIRTHDATE: 1945 ATTENDING: Zachariah Woo MD ORDER #: [id number] AIRPLANE FLIGHT ATTENDANT SUPERVISOR: Dae Weldon and Catherine Massey STATUS: inpatient INDICATIONS: The patient is a 71 yr old male here for an EGD due to acute post hemorrhagic anemia PROCEDURE PERFORMED: EGD w/ ablation MEDICATIONS: None and Per Anesthesia. TOPICAL ANESTHETIC: CONSENT: The patient understands the risks and benefits of the procedure and understands that these risks include, but are not limited to: sedation, allergic reaction, infection, perforation and/or bleeding. Alternative means of evaluation and treatment include, among others: physical exam, x-rays, and/or surgical intervention. The patient elects to proceed with this endoscopic procedure. medical equipment was checked for proper function. Hand hygiene and appropriate measures for infection prevention was taken. After the risks, benefits and alternatives of the procedure were thoroughly explained, Informed consent was verified, confirmed and timeout was successfully executed by the treatment team. The patient was anesthetized with topical anesthesia and the [id number] (Pedi C) endoscope was introduced through the mouth and advanced to the second portion of the duodenum. Retroflexed views revealed no abnormalities The gastroscope was then slowly withdrawn and removed. ESOPHAGUS: The mucosa of the esophagus appeared normal. STOMACH: There was mild gastritis in the gastric antrum. DUODENUM: The duodenal mucosa appeared normal in the 2nd part of the duodenum. Two ranging between 5-9mm in size non-bleeding and shallow ulcers with surrounding edema and a pigmented spot were found in the duodenal bulb. Argon plasma coagulation was applied to the sites. With complete hemostasis achieved. ADVERSE EVENTS: There were no complications. IMPRESSIONS: 1. The esophagus appeared normal 2. There was mild gastritis in the gastric antrum 3. Normal duodenal mucosa in the 2nd part of the duodenum 4. Two ranging between 5-9mm in size ulcers were found in the duodenal bulb; Argon plasma coagulation was applied to the sites; with complete hemostasis achieved 5. Retroflexed views revealed no abnormalities RECOMMENDATIONS: 1. Anti-reflux regimen 2. Continue PPI 3. Avoid NSAIDS 4. Colonoscopy PATIENT CONDITION: stable DISPOSITION: Inpatient REPEAT EXAM: Return 1 year EGD Zachariah Woo MD eSigned: Zachariah Woo MD 08/11/2017 2:41 PM cc: PATIENT NAME: Ryan Quezada MR#: [id number]
--- NOTE | 2017-08-11 17:12 | HHI.PR ---
cc: Arben Montilla MD Subjective Subjective Notes DAILY PROGRESS NOTE FOR SURGICAL ATTENDING, DR. ARBEN MONTILLA In the ICU would like more to eat Objective Vitals/I&O Vital Signs Date Time Temp Pulse Resp B/P (MAP) Pulse Ox O2 Delivery O2 Flow Rate FiO2 08/11/17 10:00 70 08/11/17 08:00 96.4 17 165/77 (106) 94 08/10/17 15:15 Room Air 08/10/17 14:45 2 08/09/17 20:25 21 Labs Laboratory Tests Test 08/11/17 05:00 Hemoglobin 10.6 Hematocrit 30.9 Date/Time Source Procedure Growth Status 08/02/17 20:40 Urine Clean Catch Urine Culture - Final Escherichia Coli Complete Radiology Last Impressions GI Bleed Scan Nuclear Medicine 08/09/17 0000 Signed Impressions: Service Date/Time: August 13:57 - CONCLUSION: Negative GI bleeding scan. Aguilar Mcnally MD Abdomen Arteriogram 08/08/17 0000 Signed Impressions: Service Date/Time: Tuesday, August 08, 2017 12:06 - CONCLUSION: 1. Celiac and SMA angiography demonstrates standard anatomy without evidence for active hemorrhage. 2. Uncomplicated prophylactic coil and Gelfoam embolization of the GDA. Rocco Choudhury MD Abdomen/Pelvis CT 08/02/17 1851 Signed Impressions: Service Date/Time: July 20:54 - CONCLUSION: 1. No acute abnormality seen. 2. Scattered colonic diverticula without inflammatory change. Haris Gonzalez MD Chest X-Ray 08/02/17 1749 Signed Impressions: Service Date/Time: July 17:59 - CONCLUSION: No acute disease. No free air is seen. Haris Gonzalez MD Cardiovascular: Regular Lungs: Clear Abdomen: Non-tender, Other Extremities: Perfused, SCD's on A/P Problem List: (1) Bleeding duodenal ulcer ICD Codes: K26.4 - Chronic or unspecified duodenal ulcer with hemorrhage Status: Acute (2) UGI bleed ICD Codes: K92.2 - UGI bleed Status: Resolved (3) Syncope ICD Codes: R55 - Syncope and collapse Status: Acute (4) DM (diabetes mellitus) ICD Codes: E11.9 - Type 2 diabetes mellitus without complications (5) GI bleed ICD Codes: K92.2 - Gastrointestinal hemorrhage, unspecified Status: Resolved Assessment and Plan 71-year-old gentleman who has a upper GI bleed from a ulcer that has been embolized clipped and cauterized as no evidence of bleeding on recent bleeding scan and the recent EGD Hemoglobin appears to be stable Continue aggressive medical management increase activities and diet as tolerated OK to start making plans for discharge fu with GI as arranged Attending Statement NOTE FOR SURGICAL ATTENDING, DR. ARBEN MONTILLA I attest that I had a [id number] encounter with the patient on the same day, and personally performed and documented my assessment and findings in the medical record. The following services were provided during this hospital visit: Chart data review, vital sign assessments/reviewing monitor data Review of consultations notes if present. Medication orders/review and/or management Ordering and/or reviewing lab tests Ordering and/or interpreting/reviewing x-rays and/or diagnostic studies Care of the patient and discussion of the patient with the care team Documentation time To help prompt me to consider important information that might be impacting today's encounter and assessment, Information from prior notes written by myself or my colleagues may have been "brought forward/copy and pasted" into today's note. Problem Qualifiers (1) GI bleed: Qualified Codes: K92.0 - Hematemesis Arben Montilla MD Aug 11, 2017 17:12
[2017-08-11 17:40] LABS: HEMATOCRIT 30.7 % (39.0-51.0); HEMOGLOBIN 10.4 GM/DL (13.0-17.0)
[2017-08-11] MEDS: PANTOPRAZOLE SOD 40 MG DELAYED RELEASE TAB PO SCH (21:44)
[2017-08-11] MEDS: LITHIUM CARBONATE 300 MG CAP PO SCH (21:44)
[2017-08-11] MEDS: FLUoxetine HCL 20 MG CAP PO SCH (21:45)
[2017-08-11] MEDS: ATORVASTATIN 40 MG TAB PO SCH (21:45)
[2017-08-11] MEDS: TAMSULOSIN HCL 0.4 MG CAP PO SCH (21:45)
[2017-08-12] VITALS (14 sets, daily range): BP systolic 124–169; BP diastolic 58–79; PULSE 58–102; RESP 11–18; TEMP 96.8–98.8; O2SAT 91–97
[2017-08-12] MEDS: CHLORHEXIDINE GLUCONATE 2 % 1 PACK (2 CLOTHS) TOP SCH (04:00)
[2017-08-12 06:02] LABS: HEMATOCRIT 32.2 % (39.0-51.0); HEMOGLOBIN 10.9 GM/DL (13.0-17.0)
[2017-08-12] MEDS: INSULIN ASPART SUPPLEMENTAL SCALE SQ SCH ×4 (08:00→21:00)
[2017-08-12] MEDS: SODIUM CHLORIDE 0.9% FLUSH 10 ML FLUSH IV FLUSH SCH ×2 (09:18→21:31)
[2017-08-12] MEDS: SUCRALFATE 1 GM TAB PO SCH ×2 (09:18→15:50)
[2017-08-12] MEDS: PANTOPRAZOLE SOD 40 MG DELAYED RELEASE TAB PO SCH ×2 (09:19→21:25)
[2017-08-12] MEDS: CARVEDILOL 3.125 MG TAB PO SCH (09:19)
[2017-08-12] MEDS: DOCUSATE SODIUM 50 MG/SENNA 8.6 MG TAB PO SCH ×2 (09:19→21:00)
[2017-08-12] MEDS: amLODIPine BESYLATE 5 MG TAB PO SCH ×2 (09:19→21:26)
[2017-08-12] MEDS: cefTRIAXone INJ 1,000 MG in SODIUM CHLORIDE 0.9% INJ 100 ML IV SCH (10:44)
[2017-08-12] MEDS: ONDANSETRON HCL 4 MG/2 ML VIAL IV PUSH PRN ×2 (10:53→21:31)
--- NOTE | 2017-08-12 14:28 | HHI.PR ---
cc: Sunday Donahue MD Subjective Subjective Notes tolerating diet but decreased po with some nausea, +bm no blood Objective Vitals/I&O Vital Signs Date Time Temp Pulse Resp B/P (MAP) Pulse Ox O2 Delivery O2 Flow Rate FiO2 08/12/17 14:00 71 08/12/17 12:00 98.8 14 169/77 (107) 95 08/10/17 15:15 Room Air 08/10/17 14:45 2 08/09/17 20:25 21 Labs Laboratory Tests Test 08/11/17 16:56 08/12/17 05:05 Hemoglobin 10.4 10.9 Hematocrit 30.7 32.2 Date/Time Source Procedure Growth Status 08/02/17 20:40 Urine Clean Catch Urine Culture - Final Escherichia Coli Complete Radiology Last Impressions GI Bleed Scan Nuclear Medicine 08/09/17 0000 Signed Impressions: Service Date/Time: August 13:57 - CONCLUSION: Negative GI bleeding scan. Aguilar Mcnally MD Abdomen Arteriogram 08/08/17 0000 Signed Impressions: Service Date/Time: Tuesday, August 08, 2017 12:06 - CONCLUSION: 1. Celiac and SMA angiography demonstrates standard anatomy without evidence for active hemorrhage. 2. Uncomplicated prophylactic coil and Gelfoam embolization of the GDA. Rocco Choudhury MD Abdomen/Pelvis CT 08/02/17 1851 Signed Impressions: Service Date/Time: July 20:54 - CONCLUSION: 1. No acute abnormality seen. 2. Scattered colonic diverticula without inflammatory change. Haris Gonzalez MD Chest X-Ray 08/02/17 4926 Signed Impressions: Service Date/Time: July 17:59 - CONCLUSION: No acute disease. No free air is seen. Haris Gonzalez MD Lungs: Clear Abdomen: Other (soft, mild ttp) A/P Problem List: (1) Bleeding duodenal ulcer ICD Codes: K26.4 - Chronic or unspecified duodenal ulcer with hemorrhage Status: Acute (2) UGI bleed ICD Codes: K92.2 - UGI bleed Status: Resolved (3) Syncope ICD Codes: R55 - Syncope and collapse Status: Acute (4) DM (diabetes mellitus) ICD Codes: E11.9 - Type 2 diabetes mellitus without complications (5) GI bleed ICD Codes: K92.2 - Gastrointestinal hemorrhage, unspecified Status: Acute Assessment and Plan 71-year-old gentleman who has a upper GI bleed from a ulcer that has been embolized clipped and cauterized as no evidence of bleeding on recent bleeding scan and the recent EGD Hemoglobin appears to be stable- 10.9 Continue aggressive medical management increase activities and diet as tolerated reg diet discharge planning fu with GI as arranged will continue to follow Problem Qualifiers (1) GI bleed: Qualified Codes: K92.0 - Hematemesis Sunday Donahue MD Aug 12, 2017 14:28
--- NOTE | 2017-08-12 16:14 | HHI.PR ---
Subjective Remarks Follow-up for GI bleed, anemia. Patient is doing well, resting in bed. No acute concerns. No fever, chills. Objective Vitals Vital Signs Date Time Temp Pulse Resp B/P (MAP) Pulse Ox O2 Delivery O2 Flow Rate FiO2 08/12/17 14:00 71 08/12/17 12:00 98.8 71 14 169/77 (107) 95 08/12/17 12:00 71 08/12/17 10:00 75 08/12/17 08:00 65 08/12/17 08:00 96.8 65 17 145/65 (91) 93 08/12/17 06:00 63 08/12/17 04:00 98.0 58 18 138/58 (84) 92 08/12/17 04:00 58 08/12/17 02:00 77 08/12/17 00:00 62 08/12/17 00:00 98.3 62 18 141/63 (89) 91 08/11/17 22:00 76 08/11/17 20:00 61 08/11/17 20:00 98.1 61 17 151/67 (95) 92 08/11/17 18:00 62 I/O 08/11/17 08/11/17 08/11/17 08/12/17 08/12/17 08/12/17 07:00 15:00 23:00 07:00 15:00 23:00 Intake Total 820 ml 200 ml 480 ml 100 ml Output Total 450 ml 350 ml 300 ml Balance 370 ml 200 ml 130 ml -300 ml 100 ml Intake Oral 720 ml 480 ml IV Total 100 ml 200 ml 100 ml Output Urine Total 450 ml 350 ml 300 ml # Voids 3 3 # Bowel Movements 2 2 0 Result Diagram: 08/12/17 0505 08/09/17 0439 Objective Remarks GENERAL: Alert, NAD. SKIN: Warm and dry. HEAD: Normocephalic. EYES: No scleral icterus. No injection or drainage. NECK: Supple, trachea midline. No JVD or lymphadenopathy. CARDIOVASCULAR: Regular rate and rhythm without murmurs, gallops, or rubs. RESPIRATORY: Breath sounds equal bilaterally. No accessory muscle use. GASTROINTESTINAL: Abdomen soft, non-tender, nondistended. MUSCULOSKELETAL: No cyanosis, or edema. BACK: Nontender without obvious deformity. No CVA tenderness. Procedures 08/08: S/P angiography and prophylactic coil and embolization of gastroduodenal artery A/P Assessment and Plan Mr. Quezada is a pleasant 71-year-old male with a history of GI bleed who admitted to the hospital due to hematemesis, nausea and vomiting. He was initially managed in the ICU. He received 2 units of PRBCs upon admission. He underwent EGD which showed large duodenal ulcer with visible vessel which was injected with epinephrine and clipped by GI. He was briefly transferred to [facility] floor but returned to ICU due to copious amount of bright red blood in the vomitus. Patient was hypotensive and tachycardic. He underwent prophylactic embolization of gastroduodenal artery by interventional radiology on 08/08/2017. Patient received 2 more units of PRBCs on 08/09/2017. He has been hemodynamically stable and his hemoglobin has been stable around 11. Hematemesis-resolved Acute GI blood loss anemia Protonix infusion 8mg/hr Status post EGD with injection and clipping of large vessel in duodenal ulcer. H&H stable - will continue to monitor Further management /clear liquid diet resumption per gastroenterology 08/08 S/P prophylactic embolization of gastroduodenal artery Repeat EGD done on 08/10/2017 but Colonoscopy was not done due to poor prep. Acute blood loss anemia Hgb 11.7 --> 10.6 --> 10.9 today. Continue Protonix 40mg BID. Diabetes mellitus Hold metformin while in the ICU Insulin sliding scale Hypertension Hold antihypertensive meds due to acute GI bleed Continue amlodipine 5 mg twice daily (home dose) Bipolar disorder -Continue Prozac and [place] DVT GI prophylaxis -Rajinder's and SCDs -No pharmacological DVT prophylaxis due to acute GI bleed Full code. Discharge plan: Discussed with RN who will contact daughter. PT recommends rehab. However, due to patient's history, rehab placement is a difficult option. After discussing with patient's daughter, we maybe able to discharge patient home with home health today or tomorrow. Alyx Finley DO Aug 12, 2017 16:14
[2017-08-12 17:40] LABS: HEMATOCRIT 26.4 % (39.0-51.0); HEMOGLOBIN 9.8 GM/DL (13.0-17.0)
[2017-08-12] MEDS: TAMSULOSIN HCL 0.4 MG CAP PO SCH (21:25)
[2017-08-12] MEDS: ATORVASTATIN 40 MG TAB PO SCH (21:26)
[2017-08-12] MEDS: FLUoxetine HCL 20 MG CAP PO SCH (21:26)
[2017-08-12] MEDS: LITHIUM CARBONATE 300 MG CAP PO SCH (21:27)
[2017-08-13] VITALS (17 sets, daily range): BP systolic 94–169; BP diastolic 55–87; PULSE 65–116; RESP 15–19; TEMP 98.4–99.2; O2SAT 92–98
[2017-08-13] MEDS: SUCRALFATE 1 GM TAB PO SCH ×2 (06:42→16:25)
[2017-08-13] MEDS: CHLORHEXIDINE GLUCONATE 2 % 1 PACK (2 CLOTHS) TOP SCH ×2 (06:43→23:46)
[2017-08-13] MEDS: ONDANSETRON HCL 4 MG/2 ML VIAL IV PUSH PRN (06:43)
[2017-08-13] MEDS: INSULIN ASPART SUPPLEMENTAL SCALE SQ SCH ×4 (08:00→21:00)
[2017-08-13] MEDS: amLODIPine BESYLATE 5 MG TAB PO SCH ×2 (09:14→23:45)
[2017-08-13] MEDS: PANTOPRAZOLE SOD 40 MG DELAYED RELEASE TAB PO SCH ×2 (09:14→21:00)
[2017-08-13] MEDS: DOCUSATE SODIUM 50 MG/SENNA 8.6 MG TAB PO SCH ×2 (09:14→21:00)
[2017-08-13] MEDS: CARVEDILOL 3.125 MG TAB PO SCH (09:14)
[2017-08-13] MEDS: cefTRIAXone INJ 1,000 MG in SODIUM CHLORIDE 0.9% INJ 100 ML IV SCH (09:15)
[2017-08-13] MEDS: SODIUM CHLORIDE 0.9% FLUSH 10 ML FLUSH IV FLUSH SCH ×2 (09:15→21:00)
[2017-08-13 12:50] LABS: HEMATOCRIT 25.4 % (39.0-51.0); HEMOGLOBIN 8.6 GM/DL (13.0-17.0)
[2017-08-13 18:23] LABS: HEMATOCRIT 25.1 % (39.0-51.0); HEMOGLOBIN 8.6 GM/DL (13.0-17.0)
--- NOTE | 2017-08-13 19:49 | HHI.PR ---
Subjective Remarks Follow-up for GI bleed, anemia. Patient is currently doing well, resting in bed. Objective Vitals Vital Signs Date Time Temp Pulse Resp B/P (MAP) Pulse Ox O2 Delivery O2 Flow Rate FiO2 08/13/17 18:00 80 08/13/17 16:00 74 16 103/57 (72) 93 08/13/17 16:00 99.0 74 16 103/57 (72) 93 08/13/17 16:00 74 08/13/17 14:00 66 08/13/17 13:04 96 08/13/17 12:00 65 08/13/17 12:00 99.2 65 19 100/55 (70) 95 08/13/17 10:00 72 08/13/17 08:00 98.9 86 18 123/65 (84) 96 08/13/17 08:00 86 08/13/17 06:00 95 18 142/64 (90) 08/13/17 06:00 95 08/13/17 05:00 86 18 94/57 (69) 08/13/17 05:00 86 08/13/17 04:00 87 08/13/17 04:00 98.6 87 19 96/56 (69) 08/13/17 03:00 93 18 99/60 (73) 08/13/17 03:00 93 08/13/17 02:01 116 08/13/17 02:01 116 19 169/87 (114) 08/13/17 01:00 85 08/13/17 01:00 85 18 103/59 (74) 08/13/17 00:00 85 08/13/17 00:00 98.4 85 15 136/64 (88) 08/12/17 23:00 89 18 128/73 (91) 96 08/12/17 23:00 89 08/12/17 22:00 83 08/12/17 22:00 83 14 148/73 (98) 97 08/12/17 21:00 91 08/12/17 21:00 91 15 143/77 (99) 95 08/12/17 20:00 84 08/12/17 20:00 98.8 84 14 124/74 (91) 97 I/O 08/12/17 08/12/17 08/12/17 08/13/17 08/13/17 08/13/17 07:00 15:00 23:00 07:00 15:00 23:00 Intake Total 100 ml 480 ml 240 ml 100 ml 225 ml Output Total 300 ml 425 ml 4850 ml 450 ml Balance -300 ml 100 ml 55 ml -4610 ml 100 ml -225 ml Intake Oral 480 ml 240 ml 225 ml IV Total 100 ml 100 ml Output Urine Total 300 ml 425 ml 4850 ml 450 ml # Voids 3 1 3 2 # Bowel Movements 0 1 6 0 Result Diagram: 08/13/17 1742 08/09/17 0439 Objective Remarks GENERAL: Alert, NAD. SKIN: Warm and dry. HEAD: Normocephalic. EYES: No scleral icterus. No injection or drainage. NECK: Supple, trachea midline. No JVD or lymphadenopathy. CARDIOVASCULAR: Regular rate and rhythm without murmurs, gallops, or rubs. RESPIRATORY: Breath sounds equal bilaterally. No accessory muscle use. GASTROINTESTINAL: Abdomen soft, non-tender, nondistended. MUSCULOSKELETAL: No cyanosis, or edema. BACK: Nontender without obvious deformity. No CVA tenderness. Procedures 08/08: S/P angiography and prophylactic coil and embolization of gastroduodenal artery A/P Assessment and Plan Mr. Quezada is a pleasant 71-year-old male with a history of GI bleed who admitted to the hospital due to hematemesis, nausea and vomiting. He was initially managed in the ICU. He received 2 units of PRBCs upon admission. He underwent EGD which showed large duodenal ulcer with visible vessel which was injected with epinephrine and clipped by GI. He was briefly transferred to [facility] floor but returned to ICU due to copious amount of bright red blood in the vomitus. Patient was hypotensive and tachycardic. He underwent prophylactic embolization of gastroduodenal artery by interventional radiology on 08/08/2017. Patient received 2 more units of PRBCs on 08/09/2017. He has been hemodynamically stable and his hemoglobin has been stable around 11. Hematemesis-resolved Acute GI blood loss anemia Will switch Protonix IV to PO BID. Status post EGD with injection and clipping of large vessel in duodenal ulcer. H&H dropping again 10.9 --> 9.8 --> 8.6. Currently on regular diet. 08/08 S/P prophylactic embolization of gastroduodenal artery Repeat EGD done on 08/10/2017 but Colonoscopy was not done due to poor prep. Acute blood loss anemia Hgb 11.7 --> 10.6 --> 10.9 ==> 8.6. May need to re-consult GI. Continue Protonix 40mg BID. Diabetes mellitus Hold metformin while in the ICU Insulin sliding scale Hypertension Hold antihypertensive meds due to acute GI bleed Continue amlodipine 5 mg twice daily (home dose) Bipolar disorder -Continue Prozac and [place] DVT GI prophylaxis -Rajinder's and SCDs -No pharmacological DVT prophylaxis due to acute GI bleed Full code. Will consult PT/OT. If [facility] does not accept patient, likely discharge home with daughter. Alyx Finley DO Aug 13, 2017 19:49
[2017-08-13] MEDS: TAMSULOSIN HCL 0.4 MG CAP PO SCH (23:45)
[2017-08-13] MEDS: LITHIUM CARBONATE 300 MG CAP PO SCH (23:45)
[2017-08-13] MEDS: ATORVASTATIN 40 MG TAB PO SCH (23:46)
[2017-08-13] MEDS: FLUoxetine HCL 20 MG CAP PO SCH (23:46)
[2017-08-14] VITALS (7 sets, daily range): BP systolic 131–145; BP diastolic 65–82; PULSE 18–89; RESP 18–20; TEMP 97.5–98.6; O2SAT 96–99
[2017-08-14] MEDS: INSULIN ASPART SUPPLEMENTAL SCALE SQ SCH (08:00)
[2017-08-14] MEDS: SUCRALFATE 1 GM TAB PO SCH ×2 (08:06→16:48)
[2017-08-14 09:13] LABS: HEMATOCRIT 25.3 % (39.0-51.0); HEMOGLOBIN 8.6 GM/DL (13.0-17.0)
[2017-08-14] MEDS: amLODIPine BESYLATE 5 MG TAB PO SCH ×2 (10:13→20:38)
[2017-08-14] MEDS: CARVEDILOL 3.125 MG TAB PO SCH (10:13)
[2017-08-14] MEDS: PANTOPRAZOLE SOD 40 MG DELAYED RELEASE TAB PO SCH ×2 (10:13→20:37)
[2017-08-14] MEDS: DOCUSATE SODIUM 50 MG/SENNA 8.6 MG TAB PO SCH ×2 (10:13→20:36)
[2017-08-14] MEDS: SODIUM CHLORIDE 0.9% FLUSH 10 ML FLUSH IV FLUSH SCH ×2 (10:14→20:38)
[2017-08-14] MEDS: ONDANSETRON HCL 4 MG/2 ML VIAL IV PUSH PRN (10:14)
[2017-08-14] MEDS: cefTRIAXone INJ 1,000 MG in SODIUM CHLORIDE 0.9% INJ 100 ML IV SCH (10:56)
--- NOTE | 2017-08-14 12:31 | HHI.PR ---
Subjective Remarks Follow-up GI bleed 08/14/17-patient seen and examined him a alert and oriented 3. H&H dropping however patient denies any current gross GI bleed Objective Vitals Vital Signs Date Time Temp Pulse Resp B/P (MAP) Pulse Ox O2 Delivery O2 Flow Rate FiO2 08/14/17 12:13 98.6 89 20 142/65 (90) 98 08/14/17 07:52 98.5 79 20 131/73 (92) 99 08/14/17 05:30 97.5 18 18 140/70 (93) 96 08/14/17 01:16 98.1 83 18 141/82 (101) 97 08/14/17 00:00 98.6 78 20 145/72 (96) 96 08/14/17 00:00 78 08/13/17 22:00 76 08/13/17 21:00 92 21 08/13/17 20:00 83 08/13/17 20:00 98.8 83 18 140/63 (88) 98 08/13/17 18:00 80 08/13/17 16:00 74 16 103/57 (72) 93 08/13/17 16:00 99.0 74 16 103/57 (72) 93 08/13/17 16:00 74 08/13/17 14:00 66 08/13/17 13:04 96 I/O 08/13/17 08/13/17 08/13/17 08/14/17 08/14/17 08/14/17 06:59 14:59 22:59 06:59 14:59 22:59 Intake Total 240 ml 100 ml 225 ml Output Total 4850 ml 450 ml 200 ml Balance -4610 ml 100 ml -225 ml -200 ml Intake Oral 240 ml 225 ml IV Total 100 ml Output Urine Total 4850 ml 450 ml 200 ml # Voids 3 2 1 # Bowel Movements 6 0 Result Diagram: 08/14/17 0850 Imaging Last Impressions GI Bleed Scan Nuclear Medicine 08/09/17 0000 Signed Impressions: Service Date/Time: August 13:57 - CONCLUSION: Negative GI bleeding scan. Aguilar Mcnally MD Abdomen Arteriogram 08/08/17 0000 Signed Impressions: Service Date/Time: Tuesday, August 08, 2017 12:06 - CONCLUSION: 1. Celiac and SMA angiography demonstrates standard anatomy without evidence for active hemorrhage. 2. Uncomplicated prophylactic coil and Gelfoam embolization of the GDA. Rocco Choudhury MD Abdomen/Pelvis CT 08/02/17 1851 Signed Impressions: Service Date/Time: July 20:54 - CONCLUSION: 1. No acute abnormality seen. 2. Scattered colonic diverticula without inflammatory change. Haris Gonzalez MD Chest X-Ray 08/02/17 9545 Signed Impressions: Service Date/Time: July 17:59 - CONCLUSION: No acute disease. No free air is seen. Haris Gonzalez MD Objective Remarks GENERAL: NAD SKIN: Warm and dry. HEAD: Normocephalic. EYES: No scleral icterus. No injection or drainage. NECK: Supple, trachea midline. No JVD or lymphadenopathy. CARDIOVASCULAR: Regular rate and rhythm without murmurs, gallops, or rubs. RESPIRATORY: Breath sounds equal bilaterally. No accessory muscle use. GASTROINTESTINAL: Abdomen soft, non-tender, nondistended. MUSCULOSKELETAL: No cyanosis, or edema. BACK: Nontender without obvious deformity. No CVA tenderness. Procedures 08/08: S/P angiography and prophylactic coil and embolization of gastroduodenal artery A/P Problem List: (1) Bleeding duodenal ulcer ICD Code: K26.4 - Chronic or unspecified duodenal ulcer with hemorrhage Status: Acute Assessment and Plan 71-year-old male with Hematemesis-resolved Acute GI blood loss anemia On Protonix PO BID. Status post EGD with injection and clipping of large vessel in duodenal ulcer. 08/08 S/P prophylactic embolization of gastroduodenal artery Repeat EGD done on 08/10/2017 but Colonoscopy was not done due to poor prep. Acute blood loss anemia Re-consult GI d/t decreasing H&H. Continue Protonix 40mg BID. Diabetes mellitus Resume metformin Insulin sliding scale Hypertension Continue amlodipine 5 mg twice daily Bipolar disorder Continue Prozac and [place] DVT GI prophylaxis -Rajinder's and SCDs -No pharmacological DVT prophylaxis due to acute GI bleed Phil Kaur MD Aug 14, 2017 12:31
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
[2017-08-14] MEDS: metFORMIN HCL 500 MG TAB PO SCH (18:04)
[2017-08-14 19:16] LABS: HEMATOCRIT 24.6 % (39.0-51.0); HEMOGLOBIN 8.4 GM/DL (13.0-17.0)
[2017-08-14] MEDS: ATORVASTATIN 40 MG TAB PO SCH (20:37)
[2017-08-14] MEDS: TAMSULOSIN HCL 0.4 MG CAP PO SCH (20:37)
[2017-08-14] MEDS: LITHIUM CARBONATE 300 MG CAP PO SCH (20:37)
[2017-08-14] MEDS: FLUoxetine HCL 20 MG CAP PO SCH (20:37)
[2017-08-15] VITALS (7 sets, daily range): BP systolic 119–158; BP diastolic 65–76; PULSE 74–87; RESP 16–20; TEMP 97.7–98.6; O2SAT 95–99
[2017-08-15] MEDS: CHLORHEXIDINE GLUCONATE 2 % 1 PACK (2 CLOTHS) TOP SCH (03:56)
[2017-08-15] MEDS: SUCRALFATE 1 GM TAB PO SCH ×2 (06:06→15:41)
[2017-08-15] MEDS: metFORMIN HCL 500 MG TAB PO SCH ×2 (09:00→17:56)
[2017-08-15] MEDS ORDERED: LACTATED RINGER'S 1000 ML IV PRN (10:00)
[2017-08-15] MEDS ORDERED: SODIUM CHLORID 0.9% 500 ML IV PRN (10:00)
[2017-08-15] MEDS ORDERED: CHLORHEXIDINE GLUCONATE 2 % 1 PACK (2 CLOTHS) TOPICAL PRN (10:00)
[2017-08-15] MEDS ORDERED: POVIDONE IODINE 5% (ANTISEPSIS KIT) 4 APPLICATIONS EACH NARE PRN (10:00)
[2017-08-15] MEDS ORDERED: METOPROLOL TARTRATE 25 MG TAB PO PRN (10:00)
[2017-08-15] MEDS ORDERED: EPINEPHrine HCL (1:10,000) 1 MG/10 ML SYRINGE SQ ONE (12:05)
--- NOTE | 2017-08-15 12:24 | PD.PROCEDR ---
GI Procedure PROCEDURE PERFORMED EGD with cautery and epinephrine injection INDICATION FOR PROCEDURE Worsening anemia probable GI bleed PROCEDURE: The procedure, risks and benefits were discussed with Patient/POA and informed consent was obtained. Anesthesia sedated Patient with Diprivan. Patient was placed in the left lateral decubitus position. EGD: The Pentax videoscope was introduced through the oropharynx and advanced to the second portion of the duodenum under direct visualization. Retroflexion was performed in the stomach. FINDINGS: The esophagus this was normal The stomach this was unremarkable except for an ulcer in the antrum in the prepyloric lesion this was covered partially by a fold and this is what I had perceived on previous endoscopy has possibly reflecting a duodenal bulb ulcer but this is exactly the same ulcer but it is in the antrum a clip was noted and beside the clip was a mckenzie spot suggestive of a blood vessel no blood or bleeding was seen this area was cauterized and injected with 6 cc of epinephrine the rest of the stomach was unremarkable The duodenum this to appear to be unremarkable and within normal limits ESTIMATED BLOOD LOSS: None SPECIMENS REMOVED: None COMPLICATIONS: None IMPRESSION: Antral ulcer with visible vessel PLAN: Supportive care Monitor labs and transfuse as needed Continue with PPI Consider iron supplementation EGD in 2 months Avoid NSAIDs and aspirin Shoaib Harris MD Aug 15, 2017 12:24
[2017-08-15] MEDS ORDERED: PROPOFOL 200 MG/20 ML AMP IV ONE (13:42)
--- NOTE | 2017-08-15 13:42 | HHI.PR ---
Subjective Remarks Follow-up GI bleed 08/14/17-patient seen and examined him a alert and oriented 3. H&H dropping however patient denies any current gross GI bleed 08/15/17-patient seen and examined, s/p panendoscopy. stable and denies any abdominal pain Objective Vitals Vital Signs Date Time Temp Pulse Resp B/P (MAP) Pulse Ox O2 Delivery O2 Flow Rate FiO2 08/15/17 12:17 97.0 98 18 160/75 (103) 100 08/15/17 08:00 98.1 75 18 144/66 (92) 98 08/15/17 04:43 97.9 87 20 158/74 (102) 98 08/15/17 00:34 97.7 85 16 134/75 (94) 95 08/14/17 20:04 97.7 77 20 144/68 (93) 97 08/14/17 16:29 97.6 72 20 145/74 (97) 96 I/O 08/14/17 08/14/17 08/14/17 08/15/17 08/15/17 08/15/17 07:00 15:00 23:00 07:00 15:00 23:00 Intake Total 480 ml 700 ml Output Total 200 ml Balance -200 ml 480 ml 700 ml Intake Oral 480 ml Other 700 ml Output Urine Total 200 ml # Voids 1 1 3 Result Diagram: 08/14/17 1835 Objective Remarks GENERAL: NAD SKIN: Warm and dry. HEAD: Normocephalic. EYES: No scleral icterus. No injection or drainage. NECK: Supple, trachea midline. No JVD or lymphadenopathy. CARDIOVASCULAR: Regular rate and rhythm without murmurs, gallops, or rubs. RESPIRATORY: Breath sounds equal bilaterally. No accessory muscle use. GASTROINTESTINAL: Abdomen soft, non-tender, nondistended. MUSCULOSKELETAL: No cyanosis, or edema. BACK: Nontender without obvious deformity. No CVA tenderness. Procedures 08/08: S/P angiography and prophylactic coil and embolization of gastroduodenal artery A/P Problem List: (1) Bleeding duodenal ulcer ICD Code: K26.4 - Chronic or unspecified duodenal ulcer with hemorrhage Status: Acute Assessment and Plan 71-year-old male with Hematemesis-resolved Acute GI blood loss anemia On Protonix PO BID. Status post EGD with injection and clipping of large vessel in duodenal ulcer. 08/08 S/P prophylactic embolization of gastroduodenal artery Repeat EGD done on 08/10/2017 but Colonoscopy was not done due to poor prep. patient is s/p Panendoscopy 08/15/17 pending biopsy report Acute blood loss anemia patient is s/p Panendoscopy 08/15/17 pending biopsy report Continue Protonix 40mg BID. Diabetes mellitus continue metformin Insulin sliding scale Hypertension Continue amlodipine 5 mg twice daily Bipolar disorder Continue Prozac and [place] DVT GI prophylaxis -Rajinder's and SCDs -No pharmacological DVT prophylaxis due to acute GI bleed Phil Kaur MD Aug 15, 2017 13:42
[2017-08-15] MEDS: cefTRIAXone INJ 1,000 MG in SODIUM CHLORIDE 0.9% INJ 100 ML IV SCH (13:45)
[2017-08-15] MEDS: PANTOPRAZOLE SOD 40 MG DELAYED RELEASE TAB PO SCH ×2 (13:46→21:30)
[2017-08-15] MEDS: CARVEDILOL 3.125 MG TAB PO SCH (13:46)
[2017-08-15] MEDS: DOCUSATE SODIUM 50 MG/SENNA 8.6 MG TAB PO SCH ×2 (13:46→21:30)
[2017-08-15] MEDS: amLODIPine BESYLATE 5 MG TAB PO SCH ×2 (13:46→21:30)
[2017-08-15] MEDS: SODIUM CHLORIDE 0.9% FLUSH 10 ML FLUSH IV FLUSH SCH ×2 (13:47→21:31)
[2017-08-15] MEDS: ONDANSETRON HCL 4 MG/2 ML VIAL IV PUSH PRN (15:41)
[2017-08-15] MEDS: LITHIUM CARBONATE 300 MG CAP PO SCH (21:30)
[2017-08-15] MEDS: ATORVASTATIN 40 MG TAB PO SCH (21:30)
[2017-08-15] MEDS: TAMSULOSIN HCL 0.4 MG CAP PO SCH (21:31)
[2017-08-15] MEDS: FLUoxetine HCL 20 MG CAP PO SCH (21:31)
[2017-08-16] VITALS (9 sets, daily range): BP systolic 109–131; BP diastolic 55–65; PULSE 78–93; RESP 16–20; TEMP 97.8–98.2; O2SAT 94–99
[2017-08-16] MEDS: CHLORHEXIDINE GLUCONATE 2 % 1 PACK (2 CLOTHS) TOP SCH (03:03)
[2017-08-16] MEDS: SUCRALFATE 1 GM TAB PO SCH ×2 (06:37→16:00)
[2017-08-16 08:24] LABS: HEMOGLOBIN 7.8 GM/DL (13.0-17.0); MEAN CELL VOLUME 90.3 FL (80.0-100.0); MEAN CORPUSCULAR HEMOGLOBIN 30.6 PG (27.0-34.0); MEAN CORPUSCULAR HGB CONC 33.9 % (32.0-36.0); MEAN PLATELET VOLUME 7.4 FL (7.0-11.0); PLATELET COUNT 315 TH/MM3 (150-450); RED BLOOD COUNT 2.55 MIL/MM3 (4.50-5.90); RED CELL DISTRIBUTION WIDTH 14.9 % (11.6-17.2); WHITE BLOOD COUNT 8.8 TH/MM3 (4.0-11.0)
[2017-08-16 08:52] LABS: CALCIUM 9.4 MG/DL (8.5-10.1); CREATININE 1.29 MG/DL (0.60-1.30)
[2017-08-16] MEDS: SODIUM CHLORIDE 0.9% FLUSH 10 ML FLUSH IV FLUSH SCH ×2 (09:00→20:45)
[2017-08-16] MEDS: cefTRIAXone INJ 1,000 MG in SODIUM CHLORIDE 0.9% INJ 100 ML IV SCH (09:25)
[2017-08-16] MEDS: PANTOPRAZOLE SOD 40 MG DELAYED RELEASE TAB PO SCH ×2 (09:29→21:08)
[2017-08-16] MEDS: CARVEDILOL 3.125 MG TAB PO SCH (09:29)
[2017-08-16] MEDS: DOCUSATE SODIUM 50 MG/SENNA 8.6 MG TAB PO SCH ×2 (09:29→21:07)
[2017-08-16] MEDS: metFORMIN HCL 500 MG TAB PO SCH ×2 (09:29→17:03)
[2017-08-16] MEDS: amLODIPine BESYLATE 5 MG TAB PO SCH ×2 (09:32→20:45)
--- NOTE | 2017-08-16 11:36 | HHI.PR ---
Subjective Remarks Follow-up GI bleed 08/14/17-patient seen and examined him a alert and oriented 3. H&H dropping however patient denies any current gross GI bleed 08/15/17-patient seen and examined, s/p panendoscopy. stable and denies any abdominal pain 08/16/17-patient seen and examined, H&H dropping however the patient denies any current bleeding Objective Vitals Vital Signs Date Time Temp Pulse Resp B/P (MAP) Pulse Ox O2 Delivery O2 Flow Rate FiO2 08/16/17 09:12 98.2 83 16 109/61 (77) 97 08/16/17 05:07 97.8 82 18 112/59 (76) 96 08/16/17 00:17 97.8 91 18 129/64 (85) 94 08/15/17 22:54 99 21 08/15/17 20:00 97.8 85 18 140/76 (97) 99 08/15/17 16:00 98.4 74 17 120/73 (89) 98 08/15/17 12:17 97.0 98 18 160/75 (103) 100 08/15/17 12:00 98.6 81 17 119/65 (83) 98 I/O 08/15/17 08/15/17 08/15/17 08/16/17 08/16/17 08/16/17 07:00 15:00 23:00 07:00 15:00 23:00 Intake Total 700 ml Balance 700 ml Other 700 ml # Voids 3 1 2 Result Diagram: 08/16/17 0751 08/16/17 0751 Objective Remarks GENERAL: NAD SKIN: Warm and dry. HEAD: Normocephalic. EYES: No scleral icterus. No injection or drainage. NECK: Supple, trachea midline. No JVD or lymphadenopathy. CARDIOVASCULAR: Regular rate and rhythm without murmurs, gallops, or rubs. RESPIRATORY: Breath sounds equal bilaterally. No accessory muscle use. GASTROINTESTINAL: Abdomen soft, non-tender, nondistended. MUSCULOSKELETAL: No cyanosis, or edema. BACK: Nontender without obvious deformity. No CVA tenderness. Procedures 08/08: S/P angiography and prophylactic coil and embolization of gastroduodenal artery A/P Problem List: (1) Bleeding duodenal ulcer ICD Code: K26.4 - Chronic or unspecified duodenal ulcer with hemorrhage Status: Acute Assessment and Plan 71-year-old male with Hematemesis-resolved Acute GI blood loss anemia On Protonix PO BID. Status post EGD with injection and clipping of large vessel in duodenal ulcer. 08/08 S/P prophylactic embolization of gastroduodenal artery Repeat EGD done on 08/10/2017 but Colonoscopy was not done due to poor prep. patient is s/p Panendoscopy 08/15/17 pending biopsy report Transfuse 1 unit PRBC today 08/16/17 as H/H 7.8/23.0 Check Iron study and treat accordingly Acute blood loss anemia patient is s/p Panendoscopy 08/15/17 pending biopsy report Continue Protonix 40mg BID. Diabetes mellitus continue metformin Insulin sliding scale Hypertension Continue amlodipine 5 mg twice daily Hypokalemia Give 60 mEq 1 potassium now Bipolar disorder Continue Prozac and [place] [employer] DVT GI prophylaxis -Rajinder's and SCDs -No pharmacological DVT prophylaxis due to acute GI bleed Phil Kaur MD Aug 16, 2017 11:36
[2017-08-16] MEDS ORDERED: POTASSIUM CHLORIDE 10 MEQ CONTROLLED RELEASE TAB PO ONE (11:45)
[2017-08-16] MEDS ORDERED: SODIUM CHLOR 0.9% 250 ML INJ 250 ML IV ONE (12:00)
--- NOTE | 2017-08-16 13:04 | HHI.GIFU ---
Subjective Remarks Pt resting in bed. No GI complaints. Denies bleeding. (Umm Weber) Objective Vitals I&O Vital Signs Date Time Temp Pulse Resp B/P (MAP) Pulse Ox O2 Delivery O2 Flow Rate FiO2 08/16/17 09:12 98.2 83 16 109/61 (77) 97 08/16/17 05:07 97.8 82 18 112/59 (76) 96 08/16/17 00:17 97.8 91 18 129/64 (85) 94 08/15/17 22:54 99 21 08/15/17 20:00 97.8 85 18 140/76 (97) 99 08/15/17 16:00 98.4 74 17 120/73 (89) 98 I/O 08/15/17 08/15/17 08/15/17 08/16/17 08/16/17 08/16/17 07:00 15:00 23:00 07:00 15:00 23:00 Intake Total 700 ml Balance 700 ml Other 700 ml # Voids 3 1 2 Laboratory Laboratory Tests Test 08/16/17 07:51 White Blood Count 8.8 Red Blood Count 2.55 Hemoglobin 7.8 Hematocrit 23.0 Mean Corpuscular Volume 90.3 Mean Corpuscular Hemoglobin 30.6 Mean Corpuscular Hemoglobin Concent 33.9 Red Cell Distribution Width 14.9 Platelet Count 315 Mean Platelet Volume 7.4 Blood Urea Nitrogen 7 Creatinine 1.29 Random Glucose 117 Calcium Level 9.4 Sodium Level 144 Potassium Level 3.4 Chloride Level 110 Carbon Dioxide Level 28.0 Anion Gap 6 Estimat Glomerular Filtration Rate 55 Date/Time Source Procedure Growth Status 08/02/17 20:40 Urine Clean Catch Urine Culture - Final Escherichia Coli Complete Imaging Last Impressions GI Bleed Scan Nuclear Medicine 08/09/17 0000 Signed Impressions: Service Date/Time: August 13:57 - CONCLUSION: Negative GI bleeding scan. Aguilar Mcnally MD Abdomen Arteriogram 08/08/17 0000 Signed Impressions: Service Date/Time: Tuesday, August 08, 2017 12:06 - CONCLUSION: 1. Celiac and SMA angiography demonstrates standard anatomy without evidence for active hemorrhage. 2. Uncomplicated prophylactic coil and Gelfoam embolization of the GDA. Rocco Choudhury MD Abdomen/Pelvis CT 08/02/17 [id number] Signed Impressions: Service Date/Time: July 20:54 - CONCLUSION: 1. No acute abnormality seen. 2. Scattered colonic diverticula without inflammatory change. Haris Gonzalez MD Chest X-Ray 08/02/17 [id number] Signed Impressions: Service Date/Time: July 17:59 - CONCLUSION: No acute disease. No free air is seen. Haris Gonzalez MD Physical Exam HEENT: Normocephalic; atraumatic CHEST: Even/unlabored CARDIAC: RRR ABDOMEN: Soft, nondistended, nontender; bowel sounds active EXTREMITIES: No clubbing, cyanosis, or edema. SKIN: Pale RAILWAY SIGNAL ELECTRICIAN: Alert and oriented x 3 (Umm Weber PAINTING SUPERVISOR) Assessment and Plan Plan Assessment: - Anemia with recent GIB PREVIOUS CLEMENTS Pt previously evaluated by our service- initially for reports of hematemesis EGD (August 03) --> duodenal ulcer with stigmata showing a visible vessel. CTA (08/08) --> Prophylactic coil and gelfoam embolization of the GDA. Celiac and SMA demonstrated standard anatomy without evidence for active hemorrhage. Another significant drop in H/H on August 09. At that time there were no reports of hematemesis, hematochezia, or melena. NM bleeding scan (08/09) --> negative. EGD (August 10) --> Esophagus appeared normal. Mild gastritis in the gastric antrum. Normal duodenal mucosa in the 2nd part of the duodenum. Two ranging between 5-9mm in size ulcers were found in the duodenal bulb, argon plasma coagulation was applied to site with complete hemostasis. Initially planning on colonoscopy, however pt did not take prep so unable to be done. RECONSULT for H/H trending down: H/H slowly trending down- currently 8.6/25.3- same as H/H yesterday Pt initially denied emesis- but then states he had emesis after eating yesterday Per RN, no report of emesis No [place] [facility] [place] from 08/12-08/13 Per RN, no reports of blood in stool GS was also previously following 08/16/17 s/p EGD found antral ulcer with visible vessel. hgb 7.8 today subtle decrease no obvious bleeding Plan: - await Hemoccult stool - Protonix BID - If further drop in H/H could consider colonoscopy- unable to do previously because pt did not take prep - outpt capsule endoscopy - Consider hematology consult - supportive care - EGD 2m - no NSAIDs - notify GI of active bleeding Pt has been seen and examined by myself and Dr. Villareal and this note is written on his behalf (Umm Weber) Plan Patient was seen and examined, agree with above-noted, we will monitor H&H and give packed RBC as needed, patient not interested in having a colonoscopy at this time (Marielle Villareal MD) Umm Weber Aug 16, 2017 13:04 Marielle Villareal MD Aug 16, 2017 16:46
[2017-08-16 14:19] LABS: IRON (FE) 28 MCG/DL (65-175); TOTAL IRON BINDING CAPACITY 280 MCG/DL (250-450)
[2017-08-16] MEDS: ONDANSETRON HCL 4 MG/2 ML VIAL IV PUSH PRN ×2 (15:18→20:59)
[2017-08-16] MEDS: diphenhydrAMINE HCL 25 MG CAP PO PRN (16:45)
[2017-08-16] MEDS: ACETAMINOPHEN 325 MG TAB PO PRN (16:45)
[2017-08-16] MEDS: LITHIUM CARBONATE 300 MG CAP PO SCH (20:45)
[2017-08-16] MEDS: FLUoxetine HCL 20 MG CAP PO SCH (21:00)
[2017-08-16] MEDS: TAMSULOSIN HCL 0.4 MG CAP PO SCH (21:07)
[2017-08-16] MEDS: ATORVASTATIN 40 MG TAB PO SCH (21:07)
[2017-08-17] VITALS: BP_SYST 82; PULSE 100; RESP 20; TEMP 97.2; O2SAT 96
[2017-08-17] MEDS ORDERED: PANTOPRAZOLE SODIUM 40 MG VIAL IV PUSH ONE
[2017-08-17] MEDS: CHLORHEXIDINE GLUCONATE 2 % 1 PACK (2 CLOTHS) TOP SCH (03:48)
[2017-08-17 04:00] VITALS: BP 127/87; PULSE 104; RESP 20; TEMP 98; O2SAT 97
[2017-08-17] MEDS: SUCRALFATE 1 GM TAB PO SCH ×2 (05:42→15:23)
[2017-08-17 07:54] VITALS: BP 122/66; PULSE 92; RESP 18; TEMP 97.3; O2SAT 98
[2017-08-17 08:13] LABS: BASOPHIL # 0.1 TH/MM3 (0-0.2); EOSINOPHIL # 0.2 TH/MM3 (0-0.4); EOSINOPHIL % 1.9 % (0.0-4.0); HEMATOCRIT 25.5 % (39.0-51.0); HEMOGLOBIN 8.6 GM/DL (13.0-17.0); LYMPH % 26.2 % (9.0-44.0); LYMPHOCYTE # 2.5 TH/MM3 (1.0-4.8); MEAN CELL VOLUME 89.6 FL (80.0-100.0); MEAN CORPUSCULAR HEMOGLOBIN 30.3 PG (27.0-34.0); MEAN CORPUSCULAR HGB CONC 33.8 % (32.0-36.0); MEAN PLATELET VOLUME 7.2 FL (7.0-11.0); MONO % 7.2 % (0.0-8.0); MONOCYTE # 0.7 TH/MM3 (0-0.9); NEUT % 63.7 % (16.0-70.0); PLATELET COUNT 350 TH/MM3 (150-450); RED BLOOD COUNT 2.84 MIL/MM3 (4.50-5.90); RED CELL DISTRIBUTION WIDTH 15.1 % (11.6-17.2); WHITE BLOOD COUNT 9.4 TH/MM3 (4.0-11.0)
[2017-08-17 08:43] LABS: BICARBONATE 28.9 MEQ/L (21.0-32.0); CALCIUM 9.6 MG/DL (8.5-10.1)
[2017-08-17 08:53] LABS: CREATININE 1.31 MG/DL (0.60-1.30)
[2017-08-17] MEDS: cefTRIAXone INJ 1,000 MG in SODIUM CHLORIDE 0.9% INJ 100 ML IV SCH (08:59)
[2017-08-17] MEDS: SODIUM CHLORIDE 0.9% FLUSH 10 ML FLUSH IV FLUSH SCH ×2 (09:00→21:00)
[2017-08-17] MEDS: CARVEDILOL 3.125 MG TAB PO SCH (09:05)
[2017-08-17] MEDS: amLODIPine BESYLATE 5 MG TAB PO SCH ×2 (09:06→21:00)
[2017-08-17] MEDS: DOCUSATE SODIUM 50 MG/SENNA 8.6 MG TAB PO SCH ×2 (09:06→21:00)
[2017-08-17] MEDS: PANTOPRAZOLE SOD 40 MG DELAYED RELEASE TAB PO SCH ×2 (09:06→21:00)
[2017-08-17] MEDS: metFORMIN HCL 500 MG TAB PO SCH ×2 (09:06→17:43)
--- NOTE | 2017-08-17 10:29 | HHI.PR ---
Subjective Remarks Follow-up GI bleed 08/14/17-patient seen and examined him a alert and oriented 3. H&H dropping however patient denies any current gross GI bleed 08/15/17-patient seen and examined, s/p panendoscopy. stable and denies any abdominal pain 08/16/17-patient seen and examined, H&H dropping however the patient denies any current bleeding 08/17/17-patient seen and examined, transfused 1 unit PRBC yesterday Objective Vitals Vital Signs Date Time Temp Pulse Resp B/P (MAP) Pulse Ox O2 Delivery O2 Flow Rate FiO2 08/17/17 07:54 97.3 92 18 122/66 (84) 98 08/17/17 04:00 98.0 104 20 127/87 (100) 97 08/17/17 00:00 97.2 100 20 82/ 96 08/16/17 20:00 98.0 93 18 114/55 (74) 98 08/16/17 16:52 97.9 84 18 131/65 08/16/17 16:00 97.9 84 18 131/65 (87) 96 08/16/17 13:16 94 21 08/16/17 12:00 98.0 78 20 121/58 (79) 99 I/O 08/16/17 08/16/17 08/16/17 08/17/17 08/17/17 08/17/17 07:00 15:00 23:00 07:00 15:00 23:00 Intake Total 1160 ml Output Total 1250 ml Balance 1160 ml -1250 ml Intake Oral 720 ml Packed Cells 400 ml Blood Product IV Normal Saline Flush 40 ml Output Urine Total 1250 ml # Voids 2 Result Diagram: 08/17/17 0738 08/17/17 0738 Objective Remarks GENERAL: NAD SKIN: Warm and dry. HEAD: Normocephalic. EYES: No scleral icterus. No injection or drainage. NECK: Supple, trachea midline. No JVD or lymphadenopathy. CARDIOVASCULAR: Regular rate and rhythm without murmurs, gallops, or rubs. RESPIRATORY: Breath sounds equal bilaterally. No accessory muscle use. GASTROINTESTINAL: Abdomen soft, non-tender, nondistended. MUSCULOSKELETAL: No cyanosis, or edema. BACK: Nontender without obvious deformity. No CVA tenderness. Procedures 08/08: S/P angiography and prophylactic coil and embolization of gastroduodenal artery A/P Problem List: (1) Bleeding duodenal ulcer ICD Code: K26.4 - Chronic or unspecified duodenal ulcer with hemorrhage Status: Acute Assessment and Plan 71-year-old male with Hematemesis-resolved Acute GI blood loss anemia On Protonix PO BID. Status post EGD with injection and clipping of large vessel in duodenal ulcer. 08/08 S/P prophylactic embolization of gastroduodenal artery Repeat EGD done on 08/10/2017 but Colonoscopy was not done due to poor prep. patient is s/p Panendoscopy 08/15/17 pending biopsy report Transfused 1 unit PRBC 08/16/17 and H/H stable Acute blood loss anemia patient is s/p Panendoscopy 08/15/17 pending biopsy report Continue Protonix 40mg BID. Diabetes mellitus continue metformin Insulin sliding scale Hypertension Continue amlodipine 5 mg twice daily Hypokalemia Resolved s/p replacement Bipolar disorder Continue Prozac and [place] DVT GI prophylaxis -Rajinder's and SCDs -No pharmacological DVT prophylaxis due to acute GI bleed Phil Kaur MD Aug 17, 2017 10:29
--- NOTE | 2017-08-17 10:33 | HHI.DS ---
Discharge Summary Admission Date Aug 02, 2017 at 19:44 Discharge Date: Aug 21, 2017 Admitting Diagnosis GI bleeding (1) Bleeding duodenal ulcer ICD Code: K26.4 - Chronic or unspecified duodenal ulcer with hemorrhage Status: Acute Procedures 08/08: S/P angiography and prophylactic coil and embolization of gastroduodenal artery Brief History - From Admission 71-year-old male patient [facility] the [facility] with previous history of gastric ulcers and GI bleeding and the last endoscopy 2 weeks ago, presents today because he had hematemesis and was nauseous and throwing up at the [facility] facility. He denies any chest pains, shortness of breath, abdominal pains, diarrhea, or any other symptoms. CBC/BMP: 08/17/17 0738 08/17/17 0738 Significant Findings Laboratory Tests Test 08/14/17 18:35 08/16/17 07:51 08/16/17 13:28 08/17/17 07:38 Hemoglobin 8.4 GM/DL (13.0-17.0) 7.8 GM/DL (13.0-17.0) 8.6 GM/DL (13.0-17.0) Hematocrit 24.6 % (39.0-51.0) 23.0 % (39.0-51.0) 25.5 % (39.0-51.0) Red Blood Count 2.55 MIL/MM3 (4.50-5.90) 2.84 MIL/MM3 (4.50-5.90) Random Glucose 117 MG/DL (74-106) Potassium Level 3.4 MEQ/L (3.5-5.1) Chloride Level 110 MEQ/L (98-107) 109 MEQ/L (98-107) Estimat Glomerular Filtration Rate 55 ML/MIN (>89) 54 ML/MIN (>89) Iron Level 28 MCG/DL (65-175) Percent Iron Saturation 10.0 % (20-50) Creatinine 1.31 MG/DL (0.60-1.30) Imaging Last Impressions GI Bleed Scan Nuclear Medicine 08/09/17 0000 Signed Impressions: Service Date/Time: August 13:57 - CONCLUSION: Negative GI bleeding scan. Aguilar Mcnally MD Abdomen Arteriogram 08/08/17 0000 Signed Impressions: Service Date/Time: Tuesday, August 08, 2017 12:06 - CONCLUSION: 1. Celiac and SMA angiography demonstrates standard anatomy without evidence for active hemorrhage. 2. Uncomplicated prophylactic coil and Gelfoam embolization of the GDA. Rocco Choudhury MD Abdomen/Pelvis CT 08/02/17 1851 Signed Impressions: Service Date/Time: July 20:54 - CONCLUSION: 1. No acute abnormality seen. 2. Scattered colonic diverticula without inflammatory change. Haris Gonzalez MD Chest X-Ray 08/02/17 1379 Signed Impressions: Service Date/Time: July 17:59 - CONCLUSION: No acute disease. No free air is seen. Haris Gonzalez MD PE at Discharge GENERAL: NAD SKIN: Warm and dry. HEAD: Normocephalic. EYES: No scleral icterus. No injection or drainage. NECK: Supple, trachea midline. No JVD or lymphadenopathy. CARDIOVASCULAR: Regular rate and rhythm without murmurs, gallops, or rubs. RESPIRATORY: Breath sounds equal bilaterally. No accessory muscle use. GASTROINTESTINAL: Abdomen soft, non-tender, nondistended. MUSCULOSKELETAL: No cyanosis, or edema. BACK: Nontender without obvious deformity. No CVA tenderness. Hospital Course While in the hospital, patient was treated for: Hematemesis-resolved Acute GI blood loss anemia Treated with PPI drip then switched to Protonix PO BID. Status post EGD with injection and clipping of large vessel in duodenal ulcer. 08/08 S/P prophylactic embolization of gastroduodenal artery patient had multiple EGDs as well as Panendoscopy since admission Transfused couple units PRBC Plavix on hold Acute blood loss anemia s/p multiple panendoscopies since admission Treated with PPI drip then switched to Protonix PO BID. Iron deficient anemia Treatment with Ferrous sulfate Consider Venofer infusion @[facility] Diabetes mellitus Treated with metformin ,Insulin sliding scale Hypertension Treated with amlodipine 5 mg twice daily Hypokalemia Resolved s/p replacement Bipolar disorder Treated with Prozac and [place] DVT GI prophylaxis -Rajinder's and SCDs -No pharmacological DVT prophylaxis due to acute GI bleed Pt Condition on Discharge: Stable Discharge Disposition: Rehab Inpatient Discharge Time: > 30 minutes Discharge Instructions DIET: Follow Instructions for: Diabetic Diet Activities you can perform: Regular-No Restrictions Other Activity Instructions: Follow PT recommendations at SNF Follow up Referrals: Gastroenterology PCP Follow-up - 2-3 Days New Medications: Ferrous Sulfate (Ferrous Sulfate) 325 Mg (65 Mg Iron) Tablet 325 MG PO BIDPC for Nutritional Supplement, #60 TAB 0 Refills Continued Medications: Albuterol 8.5 GM Inh (Proair Hfa 8.5 GM Inh) 90 Mcg/Act Aer 2 PUFF INH Q4-6H PRN for SHORTNESS OF BREATH, #1 INHALER 0 Refills 108 mcg/actuation Amlodipine (Norvasc) 5 Mg Tab 5 MG PO BID for Blood Pressure Management, #60 TAB Atorvastatin (Atorvastatin) 40 Mg Tab 40 MG PO HS for Cholesterol Management, #90 TAB 3 Refills Carvedilol (Carvedilol) 3.125 Mg Tab 3.125 MG PO DAILY, #60 TAB 0 Refills Fluoxetine (Fluoxetine) 40 Mg Cap 40 CAP PO HS, #30 CAP 0 Refills [place] Carbonate ([place] Carbonate) 600 Mg Cap 600 MG PO HS, CAP 0 Refills Metformin (Metformin) 500 Mg Tab 500 MG PO BIDPC for Blood Sugar Management, #60 TAB 0 Refills Pantoprazole (Protonix) 40 Mg Tab 40 MG PO BID for Ulcer Prevention, #60 TAB 3 Refills Sucralfate (Carafate) 1 Gram Tab 1 GM PO BIDAC for GIB, #60 TAB Tamsulosin (Flomax) 0.4 Mg Cap 0.4 MG PO HS for Manage Prostate Problems, #30 CAP 0 Refills Phil Kaur MD Aug 17, 2017 10:33
[2017-08-17] MEDS ORDERED: FERR325T18 PO (10:37)
[2017-08-17 12:10] VITALS: BP 135/68; PULSE 82; RESP 18; TEMP 98; O2SAT 99
--- NOTE | 2017-08-17 12:42 | HHI.GIFU ---
Subjective Remarks Pt resting in bed. Denies bleeding. No GI complaints. (Umm Weber) Objective Vitals I&O Vital Signs Date Time Temp Pulse Resp B/P (MAP) Pulse Ox O2 Delivery O2 Flow Rate FiO2 08/17/17 12:10 98.0 82 18 135/68 (90) 99 08/17/17 07:54 97.3 92 18 122/66 (84) 98 08/17/17 04:00 98.0 104 20 127/87 (100) 97 08/17/17 00:00 97.2 100 20 82/ 96 08/16/17 20:00 98.0 93 18 114/55 (74) 98 08/16/17 16:52 97.9 84 18 131/65 08/16/17 16:00 97.9 84 18 131/65 (87) 96 08/16/17 13:16 94 21 I/O 08/16/17 08/16/17 08/16/17 08/17/17 08/17/17 08/17/17 07:00 15:00 23:00 07:00 15:00 23:00 Intake Total 1160 ml Output Total 1250 ml Balance 1160 ml -1250 ml Intake Oral 720 ml Packed Cells 400 ml Blood Product IV Normal Saline Flush 40 ml Output Urine Total 1250 ml # Voids 2 Laboratory Laboratory Tests Test 08/16/17 13:28 08/17/17 07:38 Iron Level 28 Total Iron Binding Capacity 280 Percent Iron Saturation 10.0 White Blood Count 9.4 Red Blood Count 2.84 Hemoglobin 8.6 Hematocrit 25.5 Mean Corpuscular Volume 89.6 Mean Corpuscular Hemoglobin 30.3 Mean Corpuscular Hemoglobin Concent 33.8 Red Cell Distribution Width 15.1 Platelet Count 350 Mean Platelet Volume 7.2 Neutrophils (%) (Auto) 63.7 Lymphocytes (%) (Auto) 26.2 Monocytes (%) (Auto) 7.2 Eosinophils (%) (Auto) 1.9 Basophils (%) (Auto) 1.0 Neutrophils # (Auto) 6.0 Lymphocytes # (Auto) 2.5 Monocytes # (Auto) 0.7 Eosinophils # (Auto) 0.2 Basophils # (Auto) 0.1 CBC Comment DIFF FINAL Differential Comment Blood Urea Nitrogen 12 Creatinine 1.31 Random Glucose 94 Calcium Level 9.6 Sodium Level 143 Potassium Level 3.8 Chloride Level 109 Carbon Dioxide Level 28.9 Anion Gap 5 Estimat Glomerular Filtration Rate 54 Date/Time Source Procedure Growth Status 08/02/17 20:40 Urine Clean Catch Urine Culture - Final Escherichia Coli Complete Imaging Last Impressions GI Bleed Scan Nuclear Medicine 08/09/17 0000 Signed Impressions: Service Date/Time: August 13:57 - CONCLUSION: Negative GI bleeding scan. Aguilar Mcnally MD Abdomen Arteriogram 08/08/17 0000 Signed Impressions: Service Date/Time: Tuesday, August 08, 2017 12:06 - CONCLUSION: 1. Celiac and SMA angiography demonstrates standard anatomy without evidence for active hemorrhage. 2. Uncomplicated prophylactic coil and Gelfoam embolization of the GDA. Rocco Choudhury MD Abdomen/Pelvis CT 08/02/17 185 Signed Impressions: Service Date/Time: July 20:54 - CONCLUSION: 1. No acute abnormality seen. 2. Scattered colonic diverticula without inflammatory change. Haris Gonzalez MD Chest X-Ray 08/02/17 2259 Signed Impressions: Service Date/Time: July 17:59 - CONCLUSION: No acute disease. No free air is seen. Haris Gonzalez MD Physical Exam HEENT: Normocephalic; atraumatic CHEST: Even/unlabored CARDIAC: RRR ABDOMEN: Soft, nondistended, nontender; bowel sounds active EXTREMITIES: No clubbing, cyanosis, or edema. SKIN: Pale AVIONICS TECHNICIAN: Alert and oriented x 3 (Umm Weber SUPERVISOR JEWELRY DEPARTMENT) Assessment and Plan Plan Assessment: - Anemia with recent GIB PREVIOUS CLEMENTS Pt previously evaluated by our service- initially for reports of hematemesis EGD (August 03) --> duodenal ulcer with stigmata showing a visible vessel. CTA (08/08) --> Prophylactic coil and gelfoam embolization of the GDA. Celiac and SMA demonstrated standard anatomy without evidence for active hemorrhage. Another significant drop in H/H on August 09. At that time there were no reports of hematemesis, hematochezia, or melena. NM bleeding scan (08/09) --> negative. EGD (August 10) --> Esophagus appeared normal. Mild gastritis in the gastric antrum. Normal duodenal mucosa in the 2nd part of the duodenum. Two ranging between 5-9mm in size ulcers were found in the duodenal bulb, argon plasma coagulation was applied to site with complete hemostasis. Initially planning on colonoscopy, however pt did not take prep so unable to be done. RECONSULT for H/H trending down: H/H slowly trending down- currently 8.6/25.3- same as H/H yesterday Pt initially denied emesis- but then states he had emesis after eating yesterday Per RN, no report of emesis No BM since transfer from [facility] [place]- 7 BMs documented from 08/12-08/13 Per RN, no reports of blood in stool GS was also previously following 08/16/17 s/p EGD found antral ulcer with visible vessel. hgb 7.8 today subtle decrease no obvious bleeding 08/17/17 declining colonoscopy. received 1 unit prbc yesterday, hgb 8.6 today. no obvious GIB. PLAN - ALISE - monitor HH - transfuse as needed - supportive care - GI will sign off. please reconsult if needed pt seen by myself and Dr Villareal and this note is on his behalf (Umm Weber) Plan Patient was seen and examined, agree with above note, hemoglobin stable, patient denies and refused colonoscopy, he is waiting for placement since he is too weak to, we will follow-up as needed (Marielle Villareal MD) Umm Weber Aug 17, 2017 12:42 Marielle Villareal MD Aug 17, 2017 16:55
[2017-08-17 15:56] VITALS: BP 104/51; PULSE 91; RESP 18; TEMP 97.8; O2SAT 99
[2017-08-17] MEDS: ONDANSETRON HCL 4 MG/2 ML VIAL IV PUSH PRN (18:01)
[2017-08-17] MEDS ORDERED: PROMETHAZINE INJ 25 MG/ML VIAL IM ONE ×2 (19:30)
[2017-08-17 19:57] LABS: HEMATOCRIT 23.6 % (39.0-51.0); HEMOGLOBIN 7.8 GM/DL (13.0-17.0)
[2017-08-17] MEDS: FLUoxetine HCL 20 MG CAP PO SCH (21:00)
[2017-08-17] MEDS: TAMSULOSIN HCL 0.4 MG CAP PO SCH (21:00)
[2017-08-17] MEDS: LITHIUM CARBONATE 300 MG CAP PO SCH (21:00)
[2017-08-17] MEDS: ATORVASTATIN 40 MG TAB PO SCH (21:00)
--- NOTE | 2017-08-17 23:01 | RADRPT ---
EXAM DATE/TIME: 08/17/2017 21:05 [place] COMPARISON: No previous studies available for comparison. INDICATIONS : Blood in vomit. DOSE: 20.2 mCi Tc99m Ultratag labeled red blood cells IV IMAGIN Minutes. MEDICAL HISTORY : Diabetes mellitus type 2. SURGICAL HISTORY : Left hand surgery. ENCOUNTER: Initial ACUITY: 2 weeks PAIN SCALE: 3/10 LOCATION: Abdomen. TECHNIQUE: Following the modified in vitro labeling of autologous red cells, dynamic continuous images were acqu ired for the specified interval. FINDINGS: BIODISTRIBUTION: There is a very good labeling of red cells without significant uptake in the gastric wall. There is good delineation of the blood pool of the spleen and abdominal vessels. BLEEDING: No episodes of active GI bleeding are observed during specified interval of continuous observation. CONCLUSION: Normal examination. Arben Garcia MD on August 17, 2017 at 22:59 Board Certified Radiologist. This report was verified electronically.
[2017-08-17] MEDS: OCTREOTIDE INJ 500 MCG in SODIUM CHLORID 0.9% 500 ML INJ 499.5 ML IV SCH (23:25)
[2017-08-17] MEDS: diphenhydrAMINE HCL 25 MG CAP PO PRN (23:33)
[2017-08-17] MEDS: ACETAMINOPHEN 325 MG TAB PO PRN (23:34)
[2017-08-18] VITALS (11 sets, daily range): BP systolic 93–137; BP diastolic 62–91; PULSE 80–110; RESP 16–21; TEMP 97.1–98.2; O2SAT 95–99
[2017-08-18] MEDS: CHLORHEXIDINE GLUCONATE 2 % 1 PACK (2 CLOTHS) TOP SCH (04:00)
[2017-08-18] MEDS: OCTREOTIDE INJ 500 MCG in SODIUM CHLORID 0.9% 500 ML INJ 499.5 ML IV SCH ×2 (05:25→17:37)
[2017-08-18] MEDS: PANTOPRAZOLE INJ 80 MG in SODIUM CHLORIDE 0.9% INJ 100 ML IV SCH (06:07)
[2017-08-18 07:28] LABS: AUTOMATED NEUTROPHIL # 6.3 TH/MM3 (1.8-7.7); BASOPHIL # 0.1 TH/MM3 (0-0.2); BASOPHIL % 0.9 % (0.0-2.0); EOSINOPHIL # 0.2 TH/MM3 (0-0.4); HEMATOCRIT 26.9 % (39.0-51.0); HEMOGLOBIN 9.1 GM/DL (13.0-17.0); LYMPH % 28.1 % (9.0-44.0); LYMPHOCYTE # 2.9 TH/MM3 (1.0-4.8); MEAN CELL VOLUME 89.1 FL (80.0-100.0); MEAN CORPUSCULAR HEMOGLOBIN 30.2 PG (27.0-34.0); MEAN CORPUSCULAR HGB CONC 33.9 % (32.0-36.0); MEAN PLATELET VOLUME 7.4 FL (7.0-11.0); MONO % 8.4 % (0.0-8.0); MONOCYTE # 0.9 TH/MM3 (0-0.9); NEUT % 60.6 % (16.0-70.0); PLATELET COUNT 329 TH/MM3 (150-450); RED BLOOD COUNT 3.02 MIL/MM3 (4.50-5.90); RED CELL DISTRIBUTION WIDTH 14.2 % (11.6-17.2); WHITE BLOOD COUNT 10.5 TH/MM3 (4.0-11.0)
[2017-08-18] MEDS: metFORMIN HCL 500 MG TAB PO SCH ×2 (08:05→17:37)
[2017-08-18] MEDS: SODIUM CHLORIDE 0.9% FLUSH 10 ML FLUSH IV FLUSH SCH ×2 (08:05→21:03)
[2017-08-18] MEDS: amLODIPine BESYLATE 5 MG TAB PO SCH ×2 (08:06→21:01)
[2017-08-18] MEDS: CARVEDILOL 3.125 MG TAB PO SCH (08:06)
[2017-08-18] MEDS: DOCUSATE SODIUM 50 MG/SENNA 8.6 MG TAB PO SCH ×2 (08:06→21:03)
[2017-08-18] MEDS: PANTOPRAZOLE SOD 40 MG DELAYED RELEASE TAB PO SCH ×2 (08:08→21:03)
[2017-08-18] MEDS: SUCRALFATE 1 GM TAB PO SCH ×2 (08:08→17:36)
--- NOTE | 2017-08-18 10:06 | HHI.GIFU ---
Subjective Remarks Pt resting in bed. denies bleeding. Per RN no bleeding over night. (Umm Weber) Objective Vitals I&O Vital Signs Date Time Temp Pulse Resp B/P (MAP) Pulse Ox O2 Delivery O2 Flow Rate FiO2 08/18/17 08:37 97.3 83 18 129/74 (92) 99 08/18/17 05:58 97.1 80 16 122/70 96 08/18/17 04:00 98.0 83 18 97 08/18/17 03:30 97.9 89 16 115/65 96 08/18/17 02:58 82 16 103/68 96 08/18/17 02:00 97.9 91 18 103/65 (78) 96 08/18/17 00:25 97.5 107 18 93/62 95 08/18/17 00:00 97.8 110 21 131/74 (93) 97 08/18/17 00:00 97.8 110 18 131/74 97 08/17/17 15:56 97.8 91 18 104/51 (68) 99 08/17/17 12:10 98.0 82 18 135/68 (90) 99 I/O 08/17/17 08/17/17 08/17/17 08/18/17 08/18/17 08/18/17 07:00 15:00 23:00 07:00 15:00 23:00 Intake Total 480 ml 920 ml Output Total 1250 ml 450 ml Balance -1250 ml 480 ml -450 ml 920 ml Intake Oral 480 ml Packed Cells 800 ml Blood Product IV Normal Saline Flush 120 ml Output Urine Total 1250 ml 450 ml # Voids 2 # Bowel Movements 0 Laboratory Laboratory Tests Test 08/17/17 19:31 08/18/17 06:26 Hemoglobin 7.8 9.1 Hematocrit 23.6 26.9 White Blood Count 10.5 Red Blood Count 3.02 Mean Corpuscular Volume 89.1 Mean Corpuscular Hemoglobin 30.2 Mean Corpuscular Hemoglobin Concent 33.9 Red Cell Distribution Width 14.2 Platelet Count 329 Mean Platelet Volume 7.4 Neutrophils (%) (Auto) 60.6 Lymphocytes (%) (Auto) 28.1 Monocytes (%) (Auto) 8.4 Eosinophils (%) (Auto) 2.0 Basophils (%) (Auto) 0.9 Neutrophils # (Auto) 6.3 Lymphocytes # (Auto) 2.9 Monocytes # (Auto) 0.9 Eosinophils # (Auto) 0.2 Basophils # (Auto) 0.1 CBC Comment DIFF FINAL Differential Comment Date/Time Source Procedure Growth Status 08/02/17 20:40 Urine Clean Catch Urine Culture - Final Escherichia Coli Complete Imaging Last Impressions GI Bleed Scan Nuclear Medicine 08/17/17 0000 Signed Impressions: Service Date/Time: Thursday, August 17, 2017 21:05 - CONCLUSION: Normal examination. Arben Garcia MD Abdomen Arteriogram 08/08/17 0000 Signed Impressions: Service Date/Time: Tuesday, August 08, 2017 12:06 - CONCLUSION: 1. Celiac and SMA angiography demonstrates standard anatomy without evidence for active hemorrhage. 2. Uncomplicated prophylactic coil and Gelfoam embolization of the GDA. Rocco Choudhury MD Abdomen/Pelvis CT 08/02/17 1851 Signed Impressions: Service Date/Time: July 20:54 - CONCLUSION: 1. No acute abnormality seen. 2. Scattered colonic diverticula without inflammatory change. Haris Gonzalez MD Chest X-Ray 08/02/17 1749 Signed Impressions: Service Date/Time: July 17:59 - CONCLUSION: No acute disease. No free air is seen. Haris Gonzalez MD Physical Exam HEENT: Normocephalic; atraumatic CHEST: Even/unlabored CARDIAC: RRR ABDOMEN: Soft, nondistended, nontender; bowel sounds active EXTREMITIES: No clubbing, cyanosis, or edema. SKIN: Pale BEATER AND PULPER FEEDER: drowsy (Umm Weber LOAN SUPERVISOR) Assessment and Plan Plan Assessment: - Anemia with recent GIB PREVIOUS CLEMENTS Pt previously evaluated by our service- initially for reports of hematemesis EGD (August 03) --> duodenal ulcer with stigmata showing a visible vessel. CTA (08/08) --> Prophylactic coil and gelfoam embolization of the GDA. Celiac and SMA demonstrated standard anatomy without evidence for active hemorrhage. Another significant drop in H/H on August 09. At that time there were no reports of hematemesis, hematochezia, or melena. NM bleeding scan (08/09) --> negative. EGD (August 10) --> Esophagus appeared normal. Mild gastritis in the gastric antrum. Normal duodenal mucosa in the 2nd part of the duodenum. Two ranging between 5-9mm in size ulcers were found in the duodenal bulb, argon plasma coagulation was applied to site with complete hemostasis. Initially planning on colonoscopy, however pt did not take prep so unable to be done. RECONSULT for H/H trending down: H/H slowly trending down- currently 8.6/25.3- same as H/H yesterday Pt initially denied emesis- but then states he had emesis after eating yesterday Per RN, no report of emesis No BM since transfer from [facility] [place]- 7 BMs documented from 08/12-08/13 Per RN, no reports of blood in stool GS was also previously following 08/16/17 s/p EGD found antral ulcer with visible vessel. hgb 7.8 today subtle decrease no obvious bleeding 08/17/17 declining colonoscopy. received 1 unit prbc yesterday, hgb 8.6 today. no obvious GIB. 08/18/17 hgb dropped to 7.8, s/p 2 x prbc now 9.1 BLEED scan normal. no obvious bleeding PLAN - EGD 1100 today - obtain consent - NPO - monitor labs - transfuse as needed - further recs to follow pt seen by myself and Dr villareal and this note is on his behalf (Umm Weber) Plan Patient was seen and examined, agree with the above note, got consent from daughter, we will plan upper endoscopy stat today for possible active bleeding (Marielle Villareal MD) Umm Weber Aug 18, 2017 10:06 Marielle Villareal MD Aug 18, 2017 12:08
[2017-08-18] MEDS ORDERED: PHENYLEPH/NS 1000 MCG/10 ML SYR IV ONE (12:00)
[2017-08-18] MEDS ORDERED: PROPOFOL 200 MG/20 ML AMP IV ONE (12:00)
[2017-08-18] MEDS ORDERED: LIDOCAINE HCL 1% PF 5 ML SYRINGE OTHER ONE (12:00)
--- NOTE | 2017-08-18 12:18 | PD.PROCEDR ---
GI Procedure PROCEDURE PERFORMED EGD with bleeding control by injection and cautery INDICATION FOR PROCEDURE Bleeding gastric ulcer PROCEDURE: The procedure, risks and benefits were discussed with Mr. Quezada and informed consent was obtained. Anesthesia sedated him with Diprivan. He was placed in the left lateral decubitus position. EGD: The Pentax videoscope was introduced through the oropharynx and advanced to the second portion of the duodenum under direct visualization. Retroflexion was performed in the stomach. There was a large ulcer in the antrum with a clip but also adherent clot on it most likely consistent with a recent active bleed, this area was cauterized with gold probe multiple application and injected with 3 cc of epinephrine, no active bleeding at the end of the case ESTIMATED BLOOD LOSS: None SPECIMENS REMOVED: None COMPLICATIONS: None IMPRESSION: There was a large ulcer in the antrum with a clip but also adherent clot on it most likely consistent with a recent active bleed, this area was cauterized with gold probe multiple application and injected with 3 cc of epinephrine, no active bleeding at the end of the case Otherwise normal exam except severe gastritis PLAN: No NSAIDs Continue PPI Monitor H&H with packed RBC as needed If hemoglobin stable can start on clear liquids tonight and advance slowly Marielle Villareal MD Aug 18, 2017 12:18
--- NOTE | 2017-08-18 12:19 | HHI.PR ---
Subjective Remarks Follow-up GI bleed 08/14/17-patient seen and examined him a alert and oriented 3. H&H dropping however patient denies any current gross GI bleed 08/15/17-patient seen and examined, s/p panendoscopy. stable and denies any abdominal pain 08/16/17-patient seen and examined, H&H dropping however the patient denies any current bleeding 08/17/17-patient seen and examined, transfused 1 unit PRBC yesterday 08/18/17-patient seen and examined; patient had 1 episode of active GI bleed yesterday for which discharge was put on hold. None since then. Currently NPO pending EGD this AM Objective Vitals Vital Signs Date Time Temp Pulse Resp B/P (MAP) Pulse Ox O2 Delivery O2 Flow Rate FiO2 08/18/17 08:37 97.3 83 18 129/74 (92) 99 08/18/17 05:58 97.1 80 16 122/70 96 08/18/17 04:00 98.0 83 18 97 08/18/17 03:30 97.9 89 16 115/65 96 08/18/17 02:58 82 16 103/68 96 08/18/17 02:00 97.9 91 18 103/65 (78) 96 08/18/17 00:25 97.5 107 18 93/62 95 08/18/17 00:00 97.8 110 21 131/74 (93) 97 08/18/17 00:00 97.8 110 18 131/74 97 08/17/17 15:56 97.8 91 18 104/51 (68) 99 I/O 08/17/17 08/17/17 08/17/17 08/18/17 08/18/17 08/18/17 07:00 15:00 23:00 07:00 15:00 23:00 Intake Total 480 ml 920 ml Output Total 1250 ml 450 ml Balance -1250 ml 480 ml -450 ml 920 ml Intake Oral 480 ml Packed Cells 800 ml Blood Product IV Normal Saline Flush 120 ml Output Urine Total 1250 ml 450 ml # Voids 2 # Bowel Movements 0 Result Diagram: 08/18/17 0626 08/17/17 0738 Objective Remarks GENERAL: NAD SKIN: Warm and dry. HEAD: Normocephalic. EYES: No scleral icterus. No injection or drainage. NECK: Supple, trachea midline. No JVD or lymphadenopathy. CARDIOVASCULAR: Regular rate and rhythm without murmurs, gallops, or rubs. RESPIRATORY: Breath sounds equal bilaterally. No accessory muscle use. GASTROINTESTINAL: Abdomen soft, non-tender, nondistended. MUSCULOSKELETAL: No cyanosis, or edema. BACK: Nontender without obvious deformity. No CVA tenderness. Procedures 08/08: S/P angiography and prophylactic coil and embolization of gastroduodenal artery A/P Problem List: (1) Bleeding duodenal ulcer ICD Code: K26.4 - Chronic or unspecified duodenal ulcer with hemorrhage Status: Acute Assessment and Plan 71-year-old male with Hematemesis-resolved Acute GI blood loss anemia On Protonix Drip Status post EGD with injection and clipping of large vessel in duodenal ulcer. 08/08 S/P prophylactic embolization of gastroduodenal artery Repeat EGD done on 08/10/2017 but Colonoscopy was not done due to poor prep. patient is s/p Panendoscopy 08/15/17 pending biopsy report Transfused PRBC 08/16/17 and H/H stable Plan for EGD today 08/18/17 Acute blood loss anemia patient is s/p Panendoscopy 08/15/17 pending biopsy report Continue Protonix 40mg BID. Diabetes mellitus continue metformin Insulin sliding scale Hypertension Continue amlodipine 5 mg twice daily Hypokalemia Resolved s/p replacement Bipolar disorder Continue Prozac and [place] DVT GI prophylaxis -Rajinder's and SCDs -No pharmacological DVT prophylaxis due to acute GI bleed Phil Kaur MD Aug 18, 2017 12:19
[2017-08-18] MEDS ORDERED: EPINEPHrine HCL (1:10,000) 1 MG/10 ML SYRINGE OTHER ONE (12:38)
[2017-08-18] MEDS ORDERED: DO NOT ADM ANY ANTICOAGULANT DRUGS PRN (13:15)
[2017-08-18] MEDS: TAMSULOSIN HCL 0.4 MG CAP PO SCH (21:00)
[2017-08-18] MEDS: FLUoxetine HCL 20 MG CAP PO SCH (21:00)
[2017-08-18] MEDS: LITHIUM CARBONATE 300 MG CAP PO SCH (21:02)
[2017-08-18] MEDS: ATORVASTATIN 40 MG TAB PO SCH (21:03)
[2017-08-19] VITALS: BP 160/90; PULSE 97; RESP 18; TEMP 97.8; O2SAT 100
[2017-08-19] MEDS: OCTREOTIDE INJ 500 MCG in SODIUM CHLORID 0.9% 500 ML INJ 499.5 ML IV SCH ×3 (03:24→21:25)
[2017-08-19] MEDS: CHLORHEXIDINE GLUCONATE 2 % 1 PACK (2 CLOTHS) TOP SCH (03:24)
[2017-08-19 04:45] VITALS: BP 116/70; PULSE 82; RESP 18; TEMP 98.3; O2SAT 95
[2017-08-19] MEDS: PANTOPRAZOLE INJ 80 MG in SODIUM CHLORIDE 0.9% INJ 100 ML IV SCH ×2 (05:14→17:29)
[2017-08-19] MEDS: SUCRALFATE 1 GM TAB PO SCH ×2 (06:34→16:08)
[2017-08-19 08:30] VITALS: BP_SYST 130; BP_SYST 153; BP_DIAS 70; BP_DIAS 87; PULSE 85; PULSE 86; RESP 18; TEMP 97.7; TEMP 98.9; O2SAT 92; O2SAT 99
[2017-08-19] MEDS: DOCUSATE SODIUM 50 MG/SENNA 8.6 MG TAB PO SCH ×2 (08:58→22:25)
[2017-08-19] MEDS: PANTOPRAZOLE SOD 40 MG DELAYED RELEASE TAB PO SCH (08:58)
[2017-08-19] MEDS: amLODIPine BESYLATE 5 MG TAB PO SCH ×2 (08:58→22:24)
[2017-08-19] MEDS: CARVEDILOL 3.125 MG TAB PO SCH (08:58)
[2017-08-19] MEDS: SODIUM CHLORIDE 0.9% FLUSH 10 ML FLUSH IV FLUSH SCH ×2 (09:00→21:00)
[2017-08-19] MEDS: metFORMIN HCL 500 MG TAB PO SCH ×2 (09:01→17:29)
--- NOTE | 2017-08-19 11:03 | HHI.PR ---
Subjective Remarks Follow-up GI bleed 08/14/17-patient seen and examined him a alert and oriented 3. H&H dropping however patient denies any current gross GI bleed 08/15/17-patient seen and examined, s/p panendoscopy. stable and denies any abdominal pain 08/16/17-patient seen and examined, H&H dropping however the patient denies any current bleeding 08/17/17-patient seen and examined, transfused 1 unit PRBC yesterday 08/18/17-patient seen and examined; patient had 1 episode of active GI bleed yesterday for which discharge was put on hold. None since then. Currently NPO pending EGD this AM 08/19/17-patient seen and examined; s/p EGD on 08/18; stable this AM and no GI bleed Objective Vitals Vital Signs Date Time Temp Pulse Resp B/P (MAP) Pulse Ox O2 Delivery O2 Flow Rate FiO2 08/19/17 08:30 97.7 85 18 130/70 (90) 99 08/19/17 04:45 98.3 82 18 116/70 (85) 95 08/19/17 00:00 97.8 97 18 160/90 (113) 100 08/18/17 21:00 98.1 91 18 128/91 (103) 99 08/18/17 16:16 97.1 94 18 137/75 (95) 99 08/18/17 12:58 97.3 83 22 145/88 (107) 99 Nasal Cannula 2 08/18/17 12:45 73 17 111/55 (73) 100 Nasal Cannula 2 08/18/17 12:30 69 18 109/56 (73) 100 Nasal Cannula 2 08/18/17 12:16 97.1 73 18 94/52 (66) 100 Nasal Cannula 2 08/18/17 12:00 98.2 86 18 137/71 (93) 95 I/O 08/18/17 08/18/17 08/18/17 08/19/17 08/19/17 08/19/17 06:59 14:59 22:59 06:59 14:59 22:59 Intake Total 920 ml 30 ml 500 ml Balance 920 ml 30 ml 500 ml Intake Oral 30 ml IV Total 500 ml Packed Cells 800 ml Blood Product IV Normal Saline Flush 120 ml # Voids 5 3 # Bowel Movements 1 2 Result Diagram: 08/18/17 1738 08/17/17 0738 Objective Remarks GENERAL: NAD SKIN: Warm and dry. HEAD: Normocephalic. EYES: No scleral icterus. No injection or drainage. NECK: Supple, trachea midline. No JVD or lymphadenopathy. CARDIOVASCULAR: Regular rate and rhythm without murmurs, gallops, or rubs. RESPIRATORY: Breath sounds equal bilaterally. No accessory muscle use. GASTROINTESTINAL: Abdomen soft, non-tender, nondistended. MUSCULOSKELETAL: No cyanosis, or edema. BACK: Nontender without obvious deformity. No CVA tenderness. Procedures 08/08: S/P angiography and prophylactic coil and embolization of gastroduodenal artery A/P Problem List: (1) Bleeding duodenal ulcer ICD Code: K26.4 - Chronic or unspecified duodenal ulcer with hemorrhage Status: Acute Assessment and Plan 71-year-old male with Hematemesis-resolved Acute GI blood loss anemia On Protonix Drip Status post EGD with injection and clipping of large vessel in duodenal ulcer. 08/08 S/P prophylactic embolization of gastroduodenal artery Repeat EGD done on 08/10/2017 but Colonoscopy was not done due to poor prep. patient is s/p Panendoscopy 08/15/17 pending biopsy report Transfused PRBC 08/16/17 and H/H stable s/p EGD 08/18/17----->There was a large ulcer in the antrum with a clip but also adherent clot on it most likely consistent with a recent active bleed, this area was cauterized with gold probe multiple application Acute blood loss anemia patient is s/p Panendoscopy 08/15/17 pending biopsy report Continue Protonix drip. Diabetes mellitus continue metformin Insulin sliding scale Hypertension Continue amlodipine 5 mg twice daily Hypokalemia Resolved s/p replacement Bipolar disorder Continue Prozac and [place] DVT GI prophylaxis -Rajinder's and SCDs -No pharmacological DVT prophylaxis due to acute GI bleed Phil Kuar MD Aug 19, 2017 11:03
--- NOTE | 2017-08-19 11:59 | HHI.GIFU ---
Subjective Remarks PT is resting in bed having some epigastric pain, but no nausea, vomiting or bleeding. (Sandra Morse [employer]) Objective Vitals I&O Vital Signs Date Time Temp Pulse Resp B/P (MAP) Pulse Ox O2 Delivery O2 Flow Rate FiO2 08/19/17 08:30 97.7 85 18 130/70 (90) 99 08/19/17 04:45 98.3 82 18 116/70 (85) 95 08/19/17 00:00 97.8 97 18 160/90 (113) 100 08/18/17 21:00 98.1 91 18 128/91 (103) 99 08/18/17 16:16 97.1 94 18 137/75 (95) 99 08/18/17 12:58 97.3 83 22 145/88 (107) 99 Nasal Cannula 2 08/18/17 12:45 73 17 111/55 (73) 100 Nasal Cannula 2 08/18/17 12:30 69 18 109/56 (73) 100 Nasal Cannula 2 08/18/17 12:16 97.1 73 18 94/52 (66) 100 Nasal Cannula 2 08/18/17 12:00 98.2 86 18 137/71 (93) 95 I/O 08/18/17 08/18/17 08/18/17 08/19/17 08/19/17 08/19/17 07:00 15:00 23:00 07:00 15:00 23:00 Intake Total 920 ml 30 ml 500 ml Balance 920 ml 30 ml 500 ml Intake Oral 30 ml IV Total 500 ml Packed Cells 800 ml Blood Product IV Normal Saline Flush 120 ml # Voids 5 3 # Bowel Movements 1 2 Laboratory Laboratory Tests Test 08/18/17 17:38 Hemoglobin 9.1 Date/Time Source Procedure Growth Status 08/02/17 20:40 Urine Clean Catch Urine Culture - Final Escherichia Coli Complete Imaging Last Impressions GI Bleed Scan Nuclear Medicine 08/17/17 0000 Signed Impressions: Service Date/Time: Thursday, August 17, 2017 21:05 - CONCLUSION: Normal examination. Arben Garcia MD Abdomen Arteriogram 08/08/17 0000 Signed Impressions: Service Date/Time: Tuesday, August 08, 2017 12:06 - CONCLUSION: 1. Celiac and SMA angiography demonstrates standard anatomy without evidence for active hemorrhage. 2. Uncomplicated prophylactic coil and Gelfoam embolization of the GDA. Rocco Choudhury MD Abdomen/Pelvis CT 08/02/17 1851 Signed Impressions: Service Date/Time: July 20:54 - CONCLUSION: 1. No acute abnormality seen. 2. Scattered colonic diverticula without inflammatory change. Haris Gonzalez MD Chest X-Ray 08/02/17 1749 Signed Impressions: Service Date/Time: July 17:59 - CONCLUSION: No acute disease. No free air is seen. Haris Gonzalez MD Physical Exam HEENT: Normocephalic; atraumatic CHEST: Even/unlabored CARDIAC: RRR ABDOMEN: Soft, nondistended, nontender; bowel sounds active EXTREMITIES: No clubbing, cyanosis, or edema. SKIN: Pale [employer]: alert, and oriented (Sandra Morse) Assessment and Plan Plan Assessment: - Anemia with recent GIB PREVIOUS CLEMENTS Pt previously evaluated by our service- initially for reports of hematemesis EGD (August 03) --> duodenal ulcer with stigmata showing a visible vessel. CTA (08/08) --> Prophylactic coil and gelfoam embolization of the GDA. Celiac and SMA demonstrated standard anatomy without evidence for active hemorrhage. Another significant drop in H/H on August 09. At that time there were no reports of hematemesis, hematochezia, or melena. NM bleeding scan (08/09) --> negative. EGD (August 10) --> Esophagus appeared normal. Mild gastritis in the gastric antrum. Normal duodenal mucosa in the 2nd part of the duodenum. Two ranging between 5-9mm in size ulcers were found in the duodenal bulb, argon plasma coagulation was applied to site with complete hemostasis. Initially planning on colonoscopy, however pt did not take prep so unable to be done. RECONSULT for H/H trending down: H/H slowly trending down- currently 8.6/25.3- same as H/H yesterday Pt initially denied emesis- but then states he had emesis after eating yesterday Per RN, no report of emesis No [place] [facility] [place]/12-08/13 Per RN, no reports of blood in stool GS was also previously following 08/16/17 s/p EGD found antral ulcer with visible vessel. hgb 7.8 today subtle decrease no obvious bleeding 08/17/17 declining colonoscopy. received 1 unit prbc yesterday, hgb 8.6 today. no obvious GIB. 08/19/17 hh is 9.1 today, no bleeding, pt is doing good, appetite is good S/P EGD on 08/18/17 a large ulcer in the antrum this area was cauterized with gold probe multiple application and injected with 3 cc of epinephrine, no active bleeding at the end of the case PLAN - ALISE - GI will sign off. please reconsult if needed - F/u with GI as an OP - EGD in 2 months - Pt will need colonoscopy as well if agreeing pt seen by myself and Dr Villareal and this note is on his behalf (Sandra Morse) Plan Patient was seen and examined, agree with above note no sign of active bleeding , patient need to make sure that hemoglobin is stable, then can be discharged for rehab placement, follow-up as an outpatient as indicated above (Marielle Villareal MD) Sandra Morse Aug 19, 2017 11:59 Marielle Villareal MD Aug 19, 2017 15:22
[2017-08-19 12:00] VITALS: BP 129/60; PULSE 80; RESP 18; TEMP 97.8; O2SAT 99
[2017-08-19] MEDS: ONDANSETRON HCL 4 MG/2 ML VIAL IV PUSH PRN (16:09)
[2017-08-19 16:46] VITALS: BP 137/74; PULSE 78; RESP 18; TEMP 97.7; O2SAT 98
[2017-08-19 21:00] VITALS: BP 147/79; RESP 18; TEMP 97.5; O2SAT 95
[2017-08-19] MEDS: FLUoxetine HCL 20 MG CAP PO SCH (22:24)
[2017-08-19] MEDS: ATORVASTATIN 40 MG TAB PO SCH (22:24)
[2017-08-19] MEDS: LITHIUM CARBONATE 300 MG CAP PO SCH (22:24)
[2017-08-19] MEDS: TAMSULOSIN HCL 0.4 MG CAP PO SCH (22:25)
[2017-08-20] VITALS: BP 141/71; PULSE 95; RESP 18; TEMP 97.6; O2SAT 97
[2017-08-20] MEDS: PANTOPRAZOLE INJ 80 MG in SODIUM CHLORIDE 0.9% INJ 100 ML IV SCH (02:47)
[2017-08-20] MEDS: CHLORHEXIDINE GLUCONATE 2 % 1 PACK (2 CLOTHS) TOP SCH (03:54)
[2017-08-20 05:59] VITALS: BP 130/74; PULSE 86; RESP 18; TEMP 98.4; O2SAT 99
[2017-08-20] MEDS: SUCRALFATE 1 GM TAB PO SCH ×2 (06:11→18:32)
[2017-08-20 08:00] VITALS: BP 153/78; PULSE 89; RESP 18; TEMP 97.7; O2SAT 97
[2017-08-20] MEDS: SODIUM CHLORIDE 0.9% FLUSH 10 ML FLUSH IV FLUSH SCH ×2 (09:00→21:00)
--- NOTE | 2017-08-20 10:12 | HHI.PR ---
Subjective Remarks Follow-up GI bleed 08/14/17-patient seen and examined him a alert and oriented 3. H&H dropping however patient denies any current gross GI bleed 08/15/17-patient seen and examined, s/p panendoscopy. stable and denies any abdominal pain 08/16/17-patient seen and examined, H&H dropping however the patient denies any current bleeding 08/17/17-patient seen and examined, transfused 1 unit PRBC yesterday 08/18/17-patient seen and examined; patient had 1 episode of active GI bleed yesterday for which discharge was put on hold. None since then. Currently NPO pending EGD this AM 08/19/17-patient seen and examined; s/p EGD on 08/18; stable this AM and no GI bleed 08/20/17-patient seen and examined, no bleeding episodes reported over the past 48 hours and no acute event overnight. H&H pending this morning Objective Vitals Vital Signs Date Time Temp Pulse Resp B/P (MAP) Pulse Ox O2 Delivery O2 Flow Rate FiO2 08/20/17 05:59 98.4 86 18 130/74 (92) 99 08/20/17 00:00 97.6 95 18 141/71 (94) 97 08/19/17 21:00 97.5 18 147/79 (101) 95 08/19/17 16:46 97.7 78 18 137/74 (95) 98 08/19/17 12:00 97.8 80 18 129/60 (83) 99 I/O 08/19/17 08/19/17 08/19/17 08/20/17 08/20/17 08/20/17 07:00 15:00 23:00 07:00 15:00 23:00 Intake Total 500 ml 900 ml 220 ml Output Total 200 ml 100 ml Balance 500 ml 700 ml 120 ml Intake Oral 900 ml IV Total 500 ml 220 ml Output Urine Total 200 ml 100 ml # Voids 3 4 2 2 # Bowel Movements 1 Result Diagram: 08/18/17 1738 08/17/17 0738 Objective Remarks GENERAL: NAD SKIN: Warm and dry. HEAD: Normocephalic. EYES: No scleral icterus. No injection or drainage. NECK: Supple, trachea midline. No JVD or lymphadenopathy. CARDIOVASCULAR: Regular rate and rhythm without murmurs, gallops, or rubs. RESPIRATORY: Breath sounds equal bilaterally. No accessory muscle use. GASTROINTESTINAL: Abdomen soft, non-tender, nondistended. MUSCULOSKELETAL: No cyanosis, or edema. BACK: Nontender without obvious deformity. No CVA tenderness. Procedures 08/08: S/P angiography and prophylactic coil and embolization of gastroduodenal artery A/P Problem List: (1) Bleeding duodenal ulcer ICD Code: K26.4 - Chronic or unspecified duodenal ulcer with hemorrhage Status: Acute Assessment and Plan 71-year-old male with Hematemesis-resolved Acute GI blood loss anemia On Protonix Drip Status post EGD with injection and clipping of large vessel in duodenal ulcer. 08/08 S/P prophylactic embolization of gastroduodenal artery Repeat EGD done on 08/10/2017 but Colonoscopy was not done due to poor prep. patient is s/p Panendoscopy 08/15/17 pending biopsy report Transfused PRBC 08/16/17 and H/H stable s/p EGD 08/18/17----->There was a large ulcer in the antrum with a clip but also adherent clot on it most likely consistent with a recent active bleed, this area was cauterized with gold probe multiple application Currently on clear liquid diet and advance as tolerated Acute blood loss anemia patient is s/p Panendoscopy 08/15/17 pending biopsy report Continue Protonix drip. Diabetes mellitus continue metformin Insulin sliding scale Hypertension Continue amlodipine 5 mg twice daily Hypokalemia Resolved s/p replacement Bipolar disorder Continue Prozac and [place] DVT GI prophylaxis -Rajinder's and SCDs -No pharmacological DVT prophylaxis due to acute GI bleed Phil Kaur MD Aug 20, 2017 10:12
[2017-08-20] MEDS: CARVEDILOL 3.125 MG TAB PO SCH (10:13)
[2017-08-20] MEDS: DOCUSATE SODIUM 50 MG/SENNA 8.6 MG TAB PO SCH ×2 (10:13→22:36)
[2017-08-20] MEDS: metFORMIN HCL 500 MG TAB PO SCH ×2 (10:13→18:32)
[2017-08-20] MEDS: amLODIPine BESYLATE 5 MG TAB PO SCH ×2 (10:15→22:36)
[2017-08-20] MEDS: OCTREOTIDE INJ 500 MCG in SODIUM CHLORID 0.9% 500 ML INJ 499.5 ML IV SCH (10:19)
[2017-08-20 12:00] VITALS: BP 138/66; PULSE 70; RESP 18; TEMP 97.7; O2SAT 96
[2017-08-20 12:13] LABS: AUTOMATED NEUTROPHIL # 7.9 TH/MM3 (1.8-7.7); BASOPHIL # 0.1 TH/MM3 (0-0.2); BASOPHIL % 0.5 % (0.0-2.0); EOSINOPHIL # 0.2 TH/MM3 (0-0.4); EOSINOPHIL % 1.9 % (0.0-4.0); HEMATOCRIT 29.7 % (39.0-51.0); LYMPHOCYTE # 1.6 TH/MM3 (1.0-4.8); MEAN CELL VOLUME 90.6 FL (80.0-100.0); MEAN CORPUSCULAR HEMOGLOBIN 30.6 PG (27.0-34.0); MEAN CORPUSCULAR HGB CONC 33.8 % (32.0-36.0); MEAN PLATELET VOLUME 7.1 FL (7.0-11.0); MONO % 6.2 % (0.0-8.0); MONOCYTE # 0.6 TH/MM3 (0-0.9); NEUT % 76.4 % (16.0-70.0); PLATELET COUNT 462 TH/MM3 (150-450); RED BLOOD COUNT 3.28 MIL/MM3 (4.50-5.90); RED CELL DISTRIBUTION WIDTH 14.7 % (11.6-17.2); WHITE BLOOD COUNT 10.3 TH/MM3 (4.0-11.0)
[2017-08-20 16:00] VITALS: BP 137/88; PULSE 72; RESP 18; TEMP 99; O2SAT 96
[2017-08-20 20:00] VITALS: BP 140/66; PULSE 83; RESP 18; TEMP 98.2; O2SAT 96
[2017-08-20] MEDS: TAMSULOSIN HCL 0.4 MG CAP PO SCH (22:36)
[2017-08-20] MEDS: ATORVASTATIN 40 MG TAB PO SCH (22:36)
[2017-08-20] MEDS: FLUoxetine HCL 20 MG CAP PO SCH (22:37)
[2017-08-20] MEDS: LITHIUM CARBONATE 300 MG CAP PO SCH (22:37)
[2017-08-20] MEDS: PANTOPRAZOLE SOD 40 MG DELAYED RELEASE TAB PO SCH (22:37)
[2017-08-21] VITALS: BP 127/73; PULSE 86; RESP 18; TEMP 98.4; O2SAT 98
[2017-08-21] MEDS: ONDANSETRON HCL 4 MG/2 ML VIAL IV PUSH PRN (01:11)
[2017-08-21 04:00] VITALS: BP 146/80; PULSE 74; RESP 18; TEMP 98; O2SAT 98
[2017-08-21] MEDS: CHLORHEXIDINE GLUCONATE 2 % 1 PACK (2 CLOTHS) TOP SCH (04:00)
[2017-08-21] MEDS: SUCRALFATE 1 GM TAB PO SCH ×2 (06:00→09:38)
[2017-08-21 08:00] VITALS: BP 138/82; PULSE 101; RESP 18; TEMP 97.6; O2SAT 97
[2017-08-21] MEDS: CARVEDILOL 3.125 MG TAB PO SCH (09:38)
[2017-08-21] MEDS: amLODIPine BESYLATE 5 MG TAB PO SCH (09:40)
[2017-08-21] MEDS: PANTOPRAZOLE SOD 40 MG DELAYED RELEASE TAB PO SCH (09:40)
[2017-08-21] MEDS: DOCUSATE SODIUM 50 MG/SENNA 8.6 MG TAB PO SCH (09:40)
[2017-08-21] MEDS: metFORMIN HCL 500 MG TAB PO SCH (09:41)
[2017-08-21] MEDS: SODIUM CHLORIDE 0.9% FLUSH 10 ML FLUSH IV FLUSH SCH (09:41)
[2017-08-21 09:53] LABS: HEMATOCRIT 27.7 % (39.0-51.0); HEMOGLOBIN 9.5 GM/DL (13.0-17.0)
--- NOTE | 2017-08-21 11:42 | HHI.PR ---
Subjective Remarks Follow-up GI bleed 08/14/17-patient seen and examined him a alert and oriented 3. H&H dropping however patient denies any current gross GI bleed 08/15/17-patient seen and examined, s/p panendoscopy. stable and denies any abdominal pain 08/16/17-patient seen and examined, H&H dropping however the patient denies any current bleeding 08/17/17-patient seen and examined, transfused 1 unit PRBC yesterday 08/18/17-patient seen and examined; patient had 1 episode of active GI bleed yesterday for which discharge was put on hold. None since then. Currently NPO pending EGD this AM 08/19/17-patient seen and examined; s/p EGD on 08/18; stable this AM and no GI bleed 08/20/17-patient seen and examined, no bleeding episodes reported over the past 48 hours and no acute event overnight. H&H pending this morning August 21, 2017-patient seen and examined, H&H stable this morning. No bleeding over the past 72 hours. Objective Vitals Vital Signs Date Time Temp Pulse Resp B/P (MAP) Pulse Ox O2 Delivery O2 Flow Rate FiO2 08/21/17 08:00 97.6 101 18 138/82 (100) 97 08/21/17 04:00 98.0 74 18 146/80 (102) 98 08/21/17 00:00 98.4 86 18 127/73 (91) 98 08/20/17 20:00 98.2 83 18 140/66 (90) 96 08/20/17 16:00 99.0 72 18 137/88 (104) 96 08/20/17 12:00 97.7 70 18 138/66 (90) 96 I/O 08/20/17 08/20/17 08/20/17 08/21/17 08/21/17 08/21/17 06:59 14:59 22:59 06:59 14:59 22:59 Intake Total 220 ml Output Total 100 ml Balance -100 ml 220 ml IV Total 220 ml Output Urine Total 100 ml # Voids 2 5 Result Diagram: 08/21/17 0918 08/17/17 0738 Imaging Last Impressions GI Bleed Scan Nuclear Medicine 08/17/17 0000 Signed Impressions: Service Date/Time: Thursday, August 17, 2017 21:05 - CONCLUSION: Normal examination. Arben Garcia MD Abdomen Arteriogram 08/08/17 0000 Signed Impressions: Service Date/Time: Tuesday, August 08, 2017 12:06 - CONCLUSION: 1. Celiac and SMA angiography demonstrates standard anatomy without evidence for active hemorrhage. 2. Uncomplicated prophylactic coil and Gelfoam embolization of the GDA. Rocco Choudhury MD Abdomen/Pelvis CT 08/02/17 1851 Signed Impressions: Service Date/Time: July 20:54 - CONCLUSION: 1. No acute abnormality seen. 2. Scattered colonic diverticula without inflammatory change. Haris Gonzalez MD Chest X-Ray 08/02/17 5299 Signed Impressions: Service Date/Time: July 17:59 - CONCLUSION: No acute disease. No free air is seen. Haris Gonzalez MD Objective Remarks GENERAL: NAD SKIN: Warm and dry. HEAD: Normocephalic. EYES: No scleral icterus. No injection or drainage. NECK: Supple, trachea midline. No JVD or lymphadenopathy. CARDIOVASCULAR: Regular rate and rhythm without murmurs, gallops, or rubs. RESPIRATORY: Breath sounds equal bilaterally. No accessory muscle use. GASTROINTESTINAL: Abdomen soft, non-tender, nondistended. MUSCULOSKELETAL: No cyanosis, or edema. BACK: Nontender without obvious deformity. No CVA tenderness. Procedures 08/08: S/P angiography and prophylactic coil and embolization of gastroduodenal artery A/P Problem List: (1) Bleeding duodenal ulcer ICD Code: K26.4 - Chronic or unspecified duodenal ulcer with hemorrhage Status: Acute Assessment and Plan 71-year-old male with Hematemesis-resolved Acute GI blood loss anemia s/p Protonix Drip, and now on PPI BID Status post EGD with injection and clipping of large vessel in duodenal ulcer. 08/08 S/P prophylactic embolization of gastroduodenal artery Repeat EGD done on 08/10/2017 but Colonoscopy was not done due to poor prep. patient is s/p Panendoscopy 08/15/17 pending biopsy report Transfused PRBC 08/16/17 and H/H stable s/p EGD 08/18/17----->There was a large ulcer in the antrum with a clip but also adherent clot on it most likely consistent with a recent active bleed, this area was cauterized with gold probe multiple application Acute blood loss anemia patient is s/p Panendoscopy 08/15/17 pending biopsy report s/p Protonix drip. On PPI 40mg BID Diabetes mellitus continue metformin Insulin sliding scale Hypertension Continue amlodipine 5 mg twice daily Hypokalemia Resolved s/p replacement Bipolar disorder Continue Prozac and [place] DVT GI prophylaxis -Rajinder's and SCDs -No pharmacological DVT prophylaxis due to acute GI bleed Phil Kaur MD Aug 21, 2017 11:42
[2017-08-22] MEDS ORDERED: FLUO20CA12 PO (14:02)
[2017-08-22] MEDS ORDERED: METF500 PO (14:02)
[2017-08-22] MEDS ORDERED: TAMS5CAP PO (14:02)
[2017-08-22] MEDS ORDERED: LITH300C2 PO (14:02)
[2017-08-22] MEDS ORDERED: ONDA4TAB7 PO (14:02)
[2017-08-22] MEDS ORDERED: CARV3.125 PO (14:02)
[2017-08-22] MEDS ORDERED: FERR325T20 PO (14:02)
[2017-08-22] MEDS ORDERED: ATOR40TA16 PO (14:02)
[2017-08-22] MEDS ORDERED: CARA1TAB6 PO (14:02)
[2017-08-22] MEDS ORDERED: PANT40P IV PUSH (14:03)
== END 2017-08-21 14:42 | DRG 357 ==
LOC: NEPC 17:20 → NEDA 19:44 → HIME 21:05 → N07B 08-03 21:48 → HIMN 08-07 22:22 → N05A 08-14 00:41
PROVIDERS: ADMIT Hospitalist; ATTEND Hospitalist
PROC: 30233N1 Transfusion of Nonautologous Red Blood Cells into Peripheral Vein, Percutaneous Approach (ICD-10-PCS; 2017-08-02)
PROC: 3E0G8GC Introduction of Other Therapeutic Substance into Upper GI, Via Natural or Artificial Opening Endoscopic (ICD-10-PCS; 2017-08-03)
PROC: 0D598ZZ Destruction of Duodenum, Via Natural or Artificial Opening Endoscopic (ICD-10-PCS; 2017-08-03)
PROC: 0W3P8ZZ Control Bleeding in Gastrointestinal Tract, Via Natural or Artificial Opening Endoscopic (ICD-10-PCS; 2017-08-03)
PROC: 04L33ZZ Occlusion of Hepatic Artery, Percutaneous Approach (ICD-10-PCS; principal; 2017-08-08)
PROC: B4121ZZ Fluoroscopy of Hepatic Artery using Low Osmolar Contrast (ICD-10-PCS; 2017-08-08)
PROC: B4141ZZ Fluoroscopy of Superior Mesenteric Artery using Low Osmolar Contrast (ICD-10-PCS; 2017-08-08)
PROC: B41B1ZZ Fluoroscopy of Other Intra-Abdominal Arteries using Low Osmolar Contrast (ICD-10-PCS; 2017-08-08)
PROC: 0D598ZZ Destruction of Duodenum, Via Natural or Artificial Opening Endoscopic (ICD-10-PCS; 2017-08-10)
PROC: 3E0G8GC Introduction of Other Therapeutic Substance into Upper GI, Via Natural or Artificial Opening Endoscopic (ICD-10-PCS; 2017-08-15)
PROC: 0D578ZZ Destruction of Stomach, Pylorus, Via Natural or Artificial Opening Endoscopic (ICD-10-PCS; 2017-08-15)
PROC: 3E0G8GC Introduction of Other Therapeutic Substance into Upper GI, Via Natural or Artificial Opening Endoscopic (ICD-10-PCS; 2017-08-18)
PROC: 0D578ZZ Destruction of Stomach, Pylorus, Via Natural or Artificial Opening Endoscopic (ICD-10-PCS; 2017-08-18)
DX: K26.4 Chronic or unspecified duodenal ulcer with hemorrhage (principal); D62 Acute posthemorrhagic anemia; I95.9 Hypotension, unspecified; I69.354 Hemiplegia and hemiparesis following cerebral infarction affecting left non-dominant side; E11.9 Type 2 diabetes mellitus without complications; D50.0 Iron deficiency anemia secondary to blood loss (chronic); I10 Essential (primary) hypertension; E87.6 Hypokalemia; E66.9 Obesity, unspecified; F31.9 Bipolar disorder, unspecified; K25.4 Chronic or unspecified gastric ulcer with hemorrhage; K29.70 Gastritis, unspecified, without bleeding; N40.0 Benign prostatic hyperplasia without lower urinary tract symptoms; K57.30 Diverticulosis of large intestine without perforation or abscess without bleeding; J45.998 Other asthma; R11.2 Nausea with vomiting, unspecified; R00.0 Tachycardia, unspecified; R55 Syncope and collapse; Z79.84 Long term (current) use of oral hypoglycemic drugs; Z68.29 Body mass index [BMI] 29.0-29.9, adult
CPT/HCPCS: 36245; 36247; 36430; 37244; 71045; 74176; 75726; 75774; 76937; 78278; 80048; 80053; 81001; 82948; 83540; 83550; 83605; 83690; 83735; 84100; 85014; 85018; 85025; 85027; 85610; 85730; 86850; 86900; 86901; 86920; 87077; 87086; 87186; 87641; 94640; 94664; 96374; 96375; 99152; 99153; A9560; C1769; C1887; C1894; C9113; J0171; J0330; J0690; J0696; J1642; J1644; J1815; J1940; J2250; J2354; J2370; J2405; J2550; J3010; J7030; J7040; J7050; P9016; Q9967

== ENCOUNTER 2017-08-22 15:17 | Inpatient (IN) | payer OTHER, MEDICARE ==
[~2017-08-22] VITALS: Ht 170.2 cm; Wt 81.9 kg
[~2017-08-22 15:17] MED LIST changes: -ALBUAER3 INH; +CARV3.125 PO; +FERR325T18 PO; +FERR325T20 PO; +FLUO20CA12 PO; +LITH300C2 PO; +METF500 PO; +ONDA4TAB7 PO; +PANT40P IV PUSH
[2017-08-22 16:00] VITALS: BP 136/74; PULSE 83; RESP 16; TEMP 98; O2SAT 94
--- NOTE | 2017-08-22 16:24 | HHI.HP ---
HPI Service [facility] Hospitalists Primary Care Physician Unknown Admission Diagnosis GIB Diagnoses: (1) GI bleed Diagnosis: Principal (2) Hypotension Chief Complaint: "I was told there was bleeding" Travel History International Travel<30 Days: No Contact w/Intl Traveler <30 Da: No History of Present Illness Written by Lonnie Long, acting as scribe for Dr. Kaur on 08/22/17 at 16:24. 71-year-old male with PMH with of HTN, DM on metformin, GI bleed, CVA, BPH, left hand injury, and bipolar disorder on lithium and Prozac who was admitted to [place] inpatient rehab on 08/21 and today transferred to inpatient medical unit due to black tarry stools as well as hypotension. Patient was very recently admitted to inpatient medical [facility] here at [facility] due to nausea, vomiting, and hematemesis. He was seen by gastroenterology and on 08/03 underwent EGD which found large duodenal ulcers with visible vessel for which he received epinephrine injections as well as clippings. He was also transfused 2 units of PRBCs. On 08/07 patient underwent prophylactic embolization of the gastroduodenal artery in IR department. On 08/09 he was once again found to be anemic with hemoglobin of 6.9 and once again transfused with 2 units of PRBCs. Repeat EGD on 08/10 showed mild gastritis in the gastric atrium, normal duodenal leak mucosa, 2 duodenal ulcers found in the duodenal bulb, argon plasma coagulation was applied to the sites and hemostasis achieved. Colonoscopy was also planned however this was not done as patient refused. He underwent EGD again on 08/16 an antral ulcer was identified with visible vessel. On 08/18 EGD repeat revealed large ulcer in the atrium, this was cauterized with gold probe, and epinephrine. He was also treated with IV Protonix and Sandostatin. Patient was also treated for E. coli UTI and JADEN during his admission. He was cleared for discharge and transfer to [facility] rehab center on 08/21. Today patient had dark tarry stools and was also found to be hypotensive with lowest BP 88/60. He was symptomatic while sitting up in wheelchair with dizziness and nausea. Consult was placed for GI services [facility] Plans for upper GI study today, general surgery service is consulted. GI services recommended patient be transferred to the inpatient setting. Patient was transported to GI lab and apparently refused upper endoscopy per nursing as well as patient. He is now in the medical floor where he is seen and examined resting comfortably in bed. He is awake, alert, and oriented and answering questions appropriately. When questioned as to why he did not have procedure done patient reports "I just want to go home". He reports that his daughter is a nurse practitioner and he can go home. He reports nausea, no vomiting or abdominal pain/ discomfort. He denies any dizziness, lightheadedness, shortness of breath, chest pain, heart palpitations, headache, fevers or chills. He does report that while he was in rehab center he did have bloody stools, denies any hematemesis. Review of Systems Constitutional: DENIES: Dizziness Respiratory: DENIES: Hemoptysis, Shortness of breath Cardiovascular: DENIES: Chest pain, Palpitations, Syncope Gastrointestinal: COMPLAINS OF: Black stools, Bloody stools, Vomiting, DENIES: Abdominal pain, Nausea Except as stated in HPI: all other systems reviewed are Neg Past Family Social History Past Medical History Hypertension CVA GI bleed Diabetes mellitus Bipolar disorder BPH Past Surgical History Left hand surgery due to crush injury Multiple EGD procedures with clippings, and epinephrine injection Reported Medications Reported Meds & Active Scripts Active Protonix Inj (Pantoprazole Sodium) 40 Mg Inj 40 Mg IV PUSH Q12H 30 Days Ondansetron Odt 4 Mg Tab 4 Mg PO Q6H PRN 30 Days Glucophage (Metformin HCl) 500 Mg Tab 500 Mg PO BIDPC 30 Days Carafate (Sucralfate) 1 Gram Tab 1 Gm PO BIDAC 30 Days [place] Carbonate 300 Mg Cap 600 Mg PO HS 30 Days Fluoxetine (Fluoxetine HCl) 20 Mg Capsule 40 Mg PO HS 30 Days Coreg (Carvedilol) 3.125 Mg Tab 3.125 Mg PO Q12HR 30 Days Atorvastatin (Atorvastatin Calcium) 40 Mg Tab 40 Mg PO HS 30 Days Ferosul (Ferrous Sulfate) 325 Mg (65 Mg Iron) Tablet 325 Mg PO BIDPC 30 Days Flomax (Tamsulosin HCl) 0.4 Mg Cap 0.4 Mg PO HS 30 Days Ferrous Sulfate 325 Mg (65 Mg Iron) Tablet 325 Mg PO BIDPC Carafate (Sucralfate) 1 Gram Tab 1 Gm PO BIDAC Norvasc (Amlodipine Besylate) 5 Mg Tab 5 Mg PO BID Protonix (Pantoprazole Sodium) 40 Mg Tab 40 Mg PO BID Atorvastatin (Atorvastatin Calcium) 40 Mg Tab 40 Mg PO HS Plavix (Clopidogrel Bisulfate) 75 Mg Tab 75 Mg PO DAILY Reported Carvedilol 3.125 Mg Tab 3.125 Mg PO DAILY Metformin (Metformin HCl) 500 Mg Tab 500 Mg PO BIDPC Fluoxetine (Fluoxetine HCl) 40 Mg Cap 40 Cap PO HS Flomax (Tamsulosin HCl) 0.4 Mg Cap 0.4 Mg PO HS [place] Carbonate 600 Mg Cap 600 Mg PO HS Allergies: Coded Allergies: codeine (Verified Allergy, Severe, MUSCULOSKELETAL ISSUES, 08/21/17) insulin,pork (Verified Allergy, Severe, Anaphylaxis, 08/21/17) insulin aspart (Verified Allergy, Intermediate, 08/21/17) lactose (Verified Allergy, Intermediate, 08/21/17) LACTOSE INTOLERANT Family History Denies past family history Social History Denies any tobacco, alcohol, or illicit drug use. Physical Exam Physical Exam GENERAL: This is a well-nourished, well-developed patient, in no apparent distress. SKIN: No rashes, ecchymoses or lesions. Cool and dry. HEAD: Atraumatic. Normocephalic. EYES: Pupils equal round and reactive. Extraocular motions intact. No scleral icterus. No injection or drainage. ENT: Nose without bleeding, purulent drainage. Throat without erythema. Airway patent. NECK: Trachea midline. No JVD. Supple. CARDIOVASCULAR: Regular rate and rhythm without murmurs, gallops, or rubs. RESPIRATORY: Clear to auscultation. Breath sounds equal bilaterally. No wheezes , rales, or rhonchi. GASTROINTESTINAL: Abdomen soft, non-tender, nondistended. No hepato-splenomegaly , or palpable masses. No guarding. Active bowel sounds. MUSCULOSKELETAL: Extremities without clubbing, cyanosis, or edema. No joint tenderness, effusion, or edema noted. No calf tenderness. NEUROLOGICAL: Awake and alert, oriented 3. Cranial nerves II through XII grossly intact. Motor and sensory grossly within normal limits. 4/5 muscle strength in all muscle groups. Normal speech. Septic Shock Reassessment Septic shock perfusion: reassessment completed Caprini VTE Risk Assessment Caprini VTE Risk Assessment: Mod/High Risk (score >= 2) VTE Pharm Contraindication: High risk for bleeding Caprini Risk Assessment Model Point Value = 1 Point Value = 2 Point Value = 3 Point Value = 5 Age 41-60 Minor surgery BMI > 25 kg/m2 Swollen legs Varicose veins or History of unexplained or recurrent spontaneous Oral contraceptives or hormone replacement Sepsis (< 1 month) Serious lung disease, including pneumonia (< 1 month) Abnormal pulmonary function Acute myocardial infarction Congestive heart failure (< 1 month) History of inflammatory bowel disease Medical patient at bed rest Age 61-74 Arthroscopic surgery Major open surgery (> 45 min) Laparoscopic surgery (> 45 min) Malignancy Confined to bed (> 72 hours) Immobilizing plaster cast Central venous access Age >= 75 History of VTE Family history of VTE Factor V Leiden Prothrombin [id number] Lupus anticoagulant Anticardiolipin antibodies Elevated serum homocysteine Heparin-induced thrombocytopenia Other congenital or acquired thrombophilia Stroke (< 1 month) Elective arthroplasty Hip, pelvis, or leg fracture Acute spinal cord injury (< 1 month) Prophylaxis Regimen Total Risk Factor Score Risk Level Prophylaxis Regimen 0-1 Low Early ambulation 2 Moderate Order ONE of the following: *Sequential Compression Device (SCD) *Heparin 5000 units SQ BID 3-4 Higher Order ONE of the following medications: *Heparin 5000 units SQ TID *Enoxaparin/Lovenox 40 mg SQ daily (WT < 150 kg, CrCl > 30 mL/min) *Enoxaparin/Lovenox 30 mg SQ daily (WT < 150 kg, CrCl > 10-29 mL/min) *Enoxaparin/Lovenox 30 mg SQ BID (WT < 150 kg, CrCl > 30 mL/min) AND/OR *Sequential Compression Device (SCD) 5 or more Highest Order ONE of the following medications: *Heparin 5000 units SQ TID (Preferred with Epidurals) *Enoxaparin/Lovenox 40 mg SQ daily (WT < 150 kg, CrCl > 30 mL/min) *Enoxaparin/Lovenox 30 mg SQ daily (WT < 150 kg, CrCl > 10-29 mL/min) *Enoxaparin/Lovenox 30 mg SQ BID (WT < 150 kg, CrCl > 30 mL/min) AND *Sequential Compression Device (SCD) Assessment and Plan Problem List: (1) GI bleed ICD Code: K92.2 - Gastrointestinal hemorrhage, unspecified Status: Acute Assessment and Plan 71-year-old male with PMH with of HTN, DM on metformin, GI bleed, CVA, BPH, left hand injury, and bipolar disorder on lithium and Prozac. [facility] due with nausea, vomiting and hematemesis. Underwent multiple EGD's with cauterization, and epi. injections. He also also underwent prophylactic embolization of the gastroduodenal artery. Was discharged to [place] rehab on 08/21, however returns back to inpatient side due to black stool, and symptomatic hypotension. Upper GIB, acute Hematemesis [Bellow procedures done on prior admission] 07/13/17 - EGD found antrum ulcer with visible vessel s/p epi inj, cautery, clips 08/03/17 EGD found large duodenal ulcer 08/08/17 IR did GDA embolization 08/09/17 normal bleed scan 08/10/17 EGD found 2 duodenal ulcers s/p APC 08/15/17 EGD found antral ulcer with visible vessel s/p cautery, epi inj 08/17/17 normal bleed scan - Today's H/H 9.5/28.7, symptomatic hypotension with BP 88/60. Provided with 1 L of IV fluids -No admitted to medical unit, GI had plans for upper endoscopy today however patient had breakfast this morning and this was postponed per anesthesia. Discussed with , patient did not refuse. -GI consult placed, general surgery consult also placed. -N.p.o. after midnight, plans for upper scope tomorrow. GI okay for patient to have clear liquid diet for dinner. -Continue IV Protonix drip, p.o. Carafate, monitor vital signs and H&H -Will hold antihypertensives for the moment -IV Zofran for nausea Anemia, secondary to GIB -Continue oral ferrous sulfate replacement UTI, E. coli, resolved -Previously treated during hospital stay -Repeat UA while at [place] positive, culture pending. -CBC from today with no leukocytosis, patient has been afebrile. JADEN on CKD -Looking back since January 2014 patient's baseline creatinine is around 1.3 -This morning's creatinine 1.44, BUN 9, GFR 48 -Patient was provided with 1 L of IV fluids -Continue monitoring renal function closely, avoid nephrotoxins Hypokalemia, acute -Potassium level this morning level 3.3, p.o. replacement with 20 meq's of KCl -Recheck BMP tomorrow BPH, chronic -Continue Flomax Bipolar disorder -Continue Prozac 40 mg at bedtime and lithium carbonate 600 mg nightly Diabetes mellitus type 2, controlled -Hemoglobin A1c on 07/12/17 was 6.0 -Patient's random blood sugars during his hospitalization stay were never greater than 200 -Will hold off on metformin in light of JADEN if needed start Accu-Cheks with ISS DVT prophylaxis-SCDs, anticoagulation contraindicated due to GIB Discussed with , patient and nurse. This note was transcribed by nola Long. I, Dr. Phil Kaur personally performed the history, physical exam, and medical decision making; and confirmed the accuracy of the information in the transcribed note. Authenticated by Dr. Phil Kaur on 08/22/17 at 16:24. Code Status Full code Discussed Condition With Patient Physician Certification 2 Midnight Certification Type: Admission for Inpatient Services Order for Inpatient Services The services are ordered in accordance with Medicare regulations or non- Medicare payer requirements, as applicable. In the case of services not specified as inpatient-only, they are appropriately provided as inpatient services in accordance with the 2-midnight benchmark. Estimated LOS (days): 3 days is the estimated time the patient will need to remain in the hospital, assuming treatment plan goals are met and no additional complications. Post-Hospital Plan: Not yet determined Lonnie Long Aug 22, 2017 16:24 Phil Kaur MD Aug 22, 2017 16:25
[2017-08-22] MEDS ORDERED: ACETAMINOPHEN 325 MG TAB PO PRN (16:45)
[2017-08-22] MEDS ORDERED: NALOXONE HCL 0.4 MG/ML AMP IV PUSH PRN (16:45)
[2017-08-22] MEDS ORDERED: SODIUM CHLORIDE 0.9% FLUSH 10 ML FLUSH IV FLUSH PRN (16:45)
[2017-08-22] MEDS ORDERED: SENNOSIDES 8.6 MG TAB PO PRN (16:45)
[2017-08-22] MEDS ORDERED: BISACODYL 10 MG SUPP RECTAL PRN (16:45)
[2017-08-22] MEDS ORDERED: LACTULOSE SYRUP 20 GM/30 ML CUP PO PRN (16:45)
[2017-08-22] MEDS ORDERED: MAGNESIUM HYDROXIDE SUSP 30 ML CUP PO PRN (16:45)
[2017-08-22] MEDS: ONDANSETRON HCL 4 MG/2 ML VIAL IVP PRN (17:42)
[2017-08-22] MEDS ORDERED: metFORMIN HCL 500 MG TAB PO SCH (18:00)
[2017-08-22] MEDS: FERROUS SULFATE 325 MG (65 MG ELEMENTAL IRON) TAB PO SCH (18:00)
[2017-08-22] MEDS: DOCUSATE SODIUM 50 MG/SENNA 8.6 MG TAB PO SCH (21:00)
[2017-08-22] MEDS: ATORVASTATIN 40 MG TAB PO SCH (21:04)
[2017-08-22] MEDS: LITHIUM CARBONATE 300 MG CAP PO SCH (21:04)
[2017-08-22] MEDS: FLUoxetine HCL 20 MG CAP PO SCH (21:04)
[2017-08-22] MEDS: TAMSULOSIN HCL 0.4 MG CAP PO SCH (21:04)
[2017-08-22] MEDS: SODIUM CHLORIDE 0.9% FLUSH 10 ML FLUSH IV FLUSH SCH (21:05)
[2017-08-22 21:22] VITALS: BP 145/71; PULSE 90; TEMP 97.9; O2SAT 99
[2017-08-23] VITALS: BP 151/71; PULSE 100; RESP 17; TEMP 98.1; O2SAT 98
[2017-08-23] MEDS ORDERED: LACTATED RINGER'S 1000 ML IV PRN (00:45)
[2017-08-23] MEDS ORDERED: SODIUM CHLORID 0.9% 500 ML IV PRN (00:45)
[2017-08-23] MEDS ORDERED: POVIDONE IODINE 5% (ANTISEPSIS KIT) 4 APPLICATIONS EACH NARE PRN (00:45)
[2017-08-23] MEDS ORDERED: CHLORHEXIDINE GLUCONATE 2 % 1 PACK (2 CLOTHS) TOPICAL PRN (00:45)
[2017-08-23 04:00] VITALS: BP 137/74; PULSE 97; RESP 17; TEMP 98.3; O2SAT 99
[2017-08-23] MEDS: SUCRALFATE 1 GM TAB PO SCH ×2 (05:25→16:28)
[2017-08-23 07:06] LABS: AUTOMATED NEUTROPHIL # 5.8 TH/MM3 (1.8-7.7); BASOPHIL % 0.6 % (0.0-2.0); EOSINOPHIL # 0.2 TH/MM3 (0-0.4); EOSINOPHIL % 2.3 % (0.0-4.0); HEMATOCRIT 26.4 % (39.0-51.0); HEMOGLOBIN 8.8 GM/DL (13.0-17.0); LYMPH % 21.6 % (9.0-44.0); LYMPHOCYTE # 1.9 TH/MM3 (1.0-4.8); MEAN CELL VOLUME 90.1 FL (80.0-100.0); MEAN CORPUSCULAR HEMOGLOBIN 30.2 PG (27.0-34.0); MEAN CORPUSCULAR HGB CONC 33.5 % (32.0-36.0); MEAN PLATELET VOLUME 6.8 FL (7.0-11.0); MONO % 8.4 % (0.0-8.0); MONOCYTE # 0.7 TH/MM3 (0-0.9); NEUT % 67.1 % (16.0-70.0); PLATELET COUNT 515 TH/MM3 (150-450); RED BLOOD COUNT 2.93 MIL/MM3 (4.50-5.90); RED CELL DISTRIBUTION WIDTH 14.5 % (11.6-17.2); WHITE BLOOD COUNT 8.6 TH/MM3 (4.0-11.0)
[2017-08-23 07:34] LABS: BICARBONATE 26.7 MEQ/L (21.0-32.0); CALCIUM 9.2 MG/DL (8.5-10.1); CREATININE 1.38 MG/DL (0.60-1.30)
[2017-08-23 08:26] VITALS: BP 111/76; PULSE 82; RESP 18; TEMP 97.8; O2SAT 94
[2017-08-23] MEDS: SODIUM CHLORIDE 0.9% FLUSH 10 ML FLUSH IV FLUSH SCH ×2 (09:00→20:58)
[2017-08-23] MEDS: DOCUSATE SODIUM 50 MG/SENNA 8.6 MG TAB PO SCH ×2 (09:00→20:59)
[2017-08-23] MEDS: FERROUS SULFATE 325 MG (65 MG ELEMENTAL IRON) TAB PO SCH ×2 (09:00→19:22)
--- NOTE | 2017-08-23 11:18 | HHI.PR ---
Subjective Remarks In bed appears chronically ill. No n/v/d/c. Denies chest pain, With sob and feels tired. Objective Vitals Vital Signs Date Time Temp Pulse Resp B/P (MAP) Pulse Ox O2 Delivery O2 Flow Rate FiO2 08/23/17 09:57 Room Air 08/23/17 08:26 97.8 82 18 111/76 (88) 94 08/23/17 04:00 98.3 97 17 137/74 (95) 99 08/23/17 03:53 Room Air 08/23/17 00:00 98.1 100 17 151/71 (97) 98 08/23/17 00:00 Room Air 08/22/17 21:22 97.9 90 145/71 (95) 99 08/22/17 20:00 Room Air 08/22/17 16:00 98.0 83 16 136/74 (94) 94 I/O 08/22/17 08/22/17 08/22/17 08/23/17 08/23/17 08/23/17 07:00 15:00 23:00 07:00 15:00 23:00 Intake Total 120 ml Output Total 100 ml Balance 20 ml Intake Oral 120 ml Output Urine Total 100 ml Result Diagram: 08/23/17 0655 08/23/17 06 Objective Remarks GENERAL: This is a well-nourished, well-developed patient, in no apparent distress. CARDIOVASCULAR: Regular rate and rhythm without murmurs, gallops, or rubs. RESPIRATORY: Clear to auscultation. Breath sounds equal bilaterally. No wheezes , rales, or rhonchi. GASTROINTESTINAL: Abdomen soft, non-tender, nondistended. No hepato-splenomegaly , or palpable masses. No guarding. Active bowel sounds. MUSCULOSKELETAL: Extremities without clubbing, cyanosis, or edema. No joint tenderness, effusion, or edema noted. No calf tenderness. NEUROLOGICAL: Awake and alert, oriented 3. Cranial nerves II through XII grossly intact. Motor and sensory grossly within normal limits. 4/5 muscle strength in all muscle groups. Normal speech. A/P Problem List: (1) GI bleed ICD Code: K92.2 - Gastrointestinal hemorrhage, unspecified Status: Acute Assessment and Plan 71-year-old male with PMH with of HTN, DM on metformin, GI bleed, CVA, BPH, left hand injury, and bipolar disorder on lithium and Prozac. Originally presented to [facility] from [facility] on 08/02 due with nausea, vomiting and hematemesis. Underwent multiple EGD's with cauterization, and epi. injections. He also also underwent prophylactic embolization of the gastroduodenal artery. Was discharged to [place] [facility] on 08/21, however returns back to inpatient side due to black stool, and symptomatic hypotension. Upper GIB, acute Hematemesis [Bellow procedures done on prior admission] 07/13/17 - EGD found antrum ulcer with visible vessel s/p epi inj, cautery, clips 08/03/17 EGD found large duodenal ulcer 08/08/17 IR did GDA embolization 08/09/17 normal bleed scan 08/10/17 EGD found 2 duodenal ulcers s/p APC 08/15/17 EGD found antral ulcer with visible vessel s/p cautery, epi inj 08/17/17 normal bleed scan - H/H stable, symptomatic hypotension with BP 88/60. Provided with 1 L of IV fluids -GI had plans for upper endoscopy however patient had breakfast this morning and this was postponed per anesthesia. Discussed with , patient did not refuse. -GI consult placed, general surgery consult also placed. -N.p.o. after midnight, plans for upper scope tomorrow. GI okay for patient to have clear liquid diet for dinner. -Continue IV Protonix drip, p.o. Carafate, monitor vital signs and H&H -Will hold antihypertensives for the moment -IV Zofran for nausea Anemia, secondary to GIB -Continue oral ferrous sulfate replacement UTI, E. coli, resolved -Previously treated during hospital stay -Repeat UA while at [facility] positive, culture pending. -CBC from today with no leukocytosis, patient has been afebrile. JADEN on CKD -Looking back since January 2014 patient's baseline creatinine is around 1.3 -This morning's creatinine 1.44, BUN 9, GFR 48 -Patient was provided with 1 L of IV fluids -Continue monitoring renal function closely, avoid nephrotoxins Hypokalemia, acute -Potassium level this morning level 3.3, p.o. replacement with 20 meq's of KCl -Recheck BMP tomorrow BPH, chronic -Continue Flomax Bipolar disorder -Continue Prozac 40 mg at bedtime and lithium carbonate 600 mg nightly Diabetes mellitus type 2, controlled -Hemoglobin A1c on 07/12/17 was 6.0 -Patient's random blood sugars during his hospitalization stay were never greater than 200 -Will hold off on metformin in light of JADEN if needed start Accu-Cheks with ISS DVT prophylaxis-SCDs, anticoagulation contraindicated due to GIB Code Status Full code Discussed Condition With Patient, nurse DC pending improvement and clearance from constants. Sonal Ruiz MD Aug 23, 2017 11:18
[2017-08-23 11:23] VITALS: BP 142/75; PULSE 91; RESP 18; TEMP 98; O2SAT 100
--- NOTE | 2017-08-23 11:36 | PD.CONS ---
HPI History of Present Illness This is a 71 year old male with hx CVAm GIB, gastric ulcer who originally presented from his [facility] for hematem[facility]. He is well known to our service having had numerous EGDs for UGIB and gastric and duodenal ulcers, and a GDA embolization. GI consulted for GIB while pt at [facility]. Per report he had black tarry stool and has been complaining of nausea and dizziness, has been hypotensive. No adama blood observed in stool. Pt was [place] [facility] and is to have EGD today. He says he is feeling better today, less dizzy. He denies any black tarry stool today but acknowledges he was having some yesterday. PFSH Past Medical History Hypertension CVA GI bleed Diabetes mellitus Bipolar disorder BPH Past Surgical History Left hand surgery due to crush injury Multiple EGD procedures with clippings, and epinephrine injection Coded Allergies: codeine (Verified Allergy, Severe, MUSCULOSKELETAL ISSUES, 08/21/17) insulin,pork (Verified Allergy, Severe, Anaphylaxis, 08/21/17) insulin aspart (Verified Allergy, Intermediate, 08/21/17) lactose (Verified Allergy, Intermediate, 08/21/17) LACTOSE INTOLERANT Family History Denies past family history Social History Denies any tobacco, alcohol, or illicit drug use. GI Exam Vitals I&O Vital Signs Date Time Temp Pulse Resp B/P (MAP) Pulse Ox O2 Delivery O2 Flow Rate FiO2 08/23/17 11:23 98.0 91 18 142/75 (97) 100 08/23/17 09:57 Room Air 08/23/17 08:26 97.8 82 18 111/76 (88) 94 08/23/17 04:00 98.3 97 17 137/74 (95) 99 08/23/17 03:53 Room Air 08/23/17 00:00 98.1 100 17 151/71 (97) 98 08/23/17 00:00 Room Air 08/22/17 21:22 97.9 90 145/71 (95) 99 08/22/17 20:00 Room Air 08/22/17 16:00 98.0 83 16 136/74 (94) 94 I/O 08/22/17 08/22/17 08/22/17 08/23/17 08/23/17 08/23/17 07:00 15:00 23:00 07:00 15:00 23:00 Intake Total 120 ml Output Total 100 ml Balance 20 ml Intake Oral 120 ml Output Urine Total 100 ml Laboratory Test 08/23/17 06:55 White Blood Count 8.6 TH/MM3 Red Blood Count 2.93 MIL/MM3 Hemoglobin 8.8 GM/DL Hematocrit 26.4 % Mean Corpuscular Volume 90.1 FL Mean Corpuscular Hemoglobin 30.2 PG Mean Corpuscular Hemoglobin Concent 33.5 % Red Cell Distribution Width 14.5 % Platelet Count 515 TH/MM3 Mean Platelet Volume 6.8 FL Neutrophils (%) (Auto) 67.1 % Lymphocytes (%) (Auto) 21.6 % Monocytes (%) (Auto) 8.4 % Eosinophils (%) (Auto) 2.3 % Basophils (%) (Auto) 0.6 % Neutrophils # (Auto) 5.8 TH/MM3 Lymphocytes # (Auto) 1.9 TH/MM3 Monocytes # (Auto) 0.7 TH/MM3 Eosinophils # (Auto) 0.2 TH/MM3 Basophils # (Auto) 0.0 TH/MM3 CBC Comment DIFF FINAL Differential Comment Blood Urea Nitrogen 6 MG/DL Creatinine 1.38 MG/DL Random Glucose 95 MG/DL Calcium Level 9.2 MG/DL Sodium Level 144 MEQ/L Potassium Level 3.4 MEQ/L Chloride Level 111 MEQ/L Carbon Dioxide Level 26.7 MEQ/L Anion Gap 6 MEQ/L Estimat Glomerular Filtration Rate 51 ML/MIN Physical Examination HEENT: PERRL; normocephalic; atraumatic; no jaundice. CHEST: CTA CARDIAC: RRR ABDOMEN: Soft, nondistended, nontender; no hepatosplenomegaly; bowel sounds are present in all four quadrants. EXTREMITIES: No clubbing, cyanosis, or edema. SKIN: Normal; no rash; no jaundice. [employer]: alert Assessment and Plan Plan ASSESSMENT - UGIB - 2/2 gastric and dudoenal ulcers. GI reconsulted for black tarry stool , nausea, dizziness, hypotension. He is on BID protonix and carafate. GS consult appreciated with rec to minimize blood draws His procedures are as follows: 07/13/17 - EGD found antrum ulcer with visible vessel s/p epi inj, cautery, clips 08/03/17 EGD found large duodenal ulcer 08/08/17 IR did GDA embolization 08/09/17 normal bleed scan 08/10/17 EGD found 2 duodenal ulcers s/p APC 08/15/17 EGD found antral ulcer with visible vessel s/p cautery, epi inj 08/17/17 normal bleed scan - anemia - 2/2 above, symptomatic yesterday. Mild drop in HH overnight. PLAN - EGD today - monitor labs - further recs to follow depending on results EGD pt seen by myself and Dr Flores and this note is on her behalf Umm Weber Aug 23, 2017 11:36
[2017-08-23] MEDS ORDERED: LIDOCAINE HCL 1% PF 5 ML SYRINGE OTHER ONE (12:00)
[2017-08-23] MEDS ORDERED: SUCCINYLCHOLINE CHLORIDE 100 MG/5 ML SYRINGE IV PUSH ONE (12:00)
[2017-08-23] MEDS ORDERED: ESMOLOL HCL 100 MG/10 ML VIAL IV ONE (12:00)
[2017-08-23] MEDS ORDERED: PROPOFOL 200 MG/20 ML AMP IV ONE (12:00)
--- NOTE | 2017-08-23 13:36 | EKG ---
Date Performed: 08/23/2017 Time Performed: 00:12:32 PTAGE: 71 years EKG: Sinus rhythm with borderline 1st degree A-V block. Left axis deviation Left bundle branch block Possible inferior infarct - age undetermined Abnormal ECG Since the PREVIOUS TRACING , no significant change noted PREVIOUS TRACIN07/24/2017 19.26 DOCTOR: Brian Malave Interpretating Date/Time 08/23/2017 13:33:58
[2017-08-23] MEDS: ONDANSETRON HCL 4 MG/2 ML VIAL IVP PRN ×2 (14:08→20:59)
[2017-08-23] MEDS ORDERED: ONDANSETRON HCL 4 MG/2 ML VIAL IV PUSH PRN (14:15)
[2017-08-23] MEDS ORDERED: DO NOT ADM ANY ANTICOAGULANT DRUGS PRN (14:48)
[2017-08-23] MEDS ORDERED: *ONDANSETRON 4 MG VIAL PERIprocedural Use ONLY ONE (15:02)
--- NOTE | 2017-08-23 17:55 | HHI.PR ---
cc: Chuy Gamble MD Subjective Subjective Notes DAILY PROGRESS NOTE FOR SURGICAL ATTENDING, DR. CHUY GAMBLE No complaints No further bleeding Objective Vitals/I&O Vital Signs Date Time Temp Pulse Resp B/P (MAP) Pulse Ox O2 Delivery O2 Flow Rate FiO2 08/23/17 15:11 97.8 100 19 143/76 (98) 94 Nasal Cannula 2 Labs Laboratory Tests Test 08/23/17 06:55 08/23/17 17:10 White Blood Count 8.6 Red Blood Count 2.93 Hemoglobin 8.8 Hematocrit 26.4 Mean Corpuscular Volume 90.1 Mean Corpuscular Hemoglobin 30.2 Mean Corpuscular Hemoglobin Concent 33.5 Red Cell Distribution Width 14.5 Platelet Count 515 Mean Platelet Volume 6.8 Neutrophils (%) (Auto) 67.1 Lymphocytes (%) (Auto) 21.6 Monocytes (%) (Auto) 8.4 Eosinophils (%) (Auto) 2.3 Basophils (%) (Auto) 0.6 Neutrophils # (Auto) 5.8 Lymphocytes # (Auto) 1.9 Monocytes # (Auto) 0.7 Eosinophils # (Auto) 0.2 Basophils # (Auto) 0.0 CBC Comment DIFF FINAL Differential Comment Blood Urea Nitrogen 6 Creatinine 1.38 Random Glucose 95 Calcium Level 9.2 Sodium Level 144 Potassium Level 3.4 Chloride Level 111 Carbon Dioxide Level 26.7 Anion Gap 6 Estimat Glomerular Filtration Rate 51 Cardiovascular: Regular Lungs: Clear Abdomen: Non-distended, Non-tender Extremities: No edema A/P Assessment and Plan 71 year old male with recurrent GI bleeds -S/p EGD today---no active bleeding -Diet as tolerated -No acute General Surgery needs at this time Attending Statement NOTE FOR SURGICAL ATTENDING, DR. CHUY GAMBLE I agree with above assessment and plan. The exam, history, and the medical decision-making described in the above note were completed with the assistance of the mid-level provider. I reviewed and agree with the findings presented. I attest that I had a [id number] encounter with the patient on the same day, and personally performed and documented my assessment and findings in the medical record. The following services were provided during this hospital visit: Chart data review, vital sign assessments/reviewing monitor data Review of consultations notes if present. Medication orders/review and/or management Ordering and/or reviewing lab tests Ordering and/or interpreting/reviewing x-rays and/or diagnostic studies Care of the patient and discussion of the patient with the care team Documentation time To help prompt me to consider important information that might be impacting today's encounter and assessment, Information from prior notes written by myself or my colleagues may have been "brought forward/copy and pasted" into today's note. Julissa Evans/Debt And Budget Counselor FREDY Aug 23, 2017 17:55 Chuy Gamble MD Aug 23, 2017 18:32
[2017-08-23] MEDS: LITHIUM CARBONATE 300 MG CAP PO SCH (20:58)
[2017-08-23] MEDS: ATORVASTATIN 40 MG TAB PO SCH (20:58)
[2017-08-23] MEDS: FLUoxetine HCL 20 MG CAP PO SCH (20:59)
[2017-08-23] MEDS: TAMSULOSIN HCL 0.4 MG CAP PO SCH (20:59)
[2017-08-23] MEDS: PANTOPRAZOLE INJ 80 MG in SODIUM CHLORIDE 0.9% INJ 100 ML IV SCH (21:02)
[2017-08-23 21:30] VITALS: BP 153/78; PULSE 100; RESP 16; TEMP 97.9; O2SAT 97
[2017-08-23 23:45] VITALS: BP 133/76; PULSE 100; RESP 16; TEMP 97.9; O2SAT 97
[2017-08-24] VITALS (7 sets, daily range): BP systolic 127–172; BP diastolic 66–87; PULSE 80–102; RESP 16–20; TEMP 97.4–99.3; O2SAT 91–97
[2017-08-24] MEDS: PANTOPRAZOLE INJ 80 MG in SODIUM CHLORIDE 0.9% INJ 100 ML IV SCH (05:20)
[2017-08-24] MEDS: SUCRALFATE 1 GM TAB PO SCH ×2 (05:20→16:00)
[2017-08-24] MEDS: DOCUSATE SODIUM 50 MG/SENNA 8.6 MG TAB PO SCH ×2 (09:00→22:25)
[2017-08-24] MEDS: SODIUM CHLORIDE 0.9% FLUSH 10 ML FLUSH IV FLUSH SCH ×2 (09:00→21:00)
[2017-08-24] MEDS: FERROUS SULFATE 325 MG (65 MG ELEMENTAL IRON) TAB PO SCH ×2 (09:00→16:53)
--- NOTE | 2017-08-24 12:56 | HHI.GIFU ---
Subjective Remarks Patient is resting in the bed elevated elevated 30-35 Patient is eating lunch denies any dysphasia. Appetite fair Mild nausea noted, taking anti-emetics Denies any vomiting Mild gastric discomfort with light palpation (Deisi Escalona) Objective Vitals I&O Vital Signs Date Time Temp Pulse Resp B/P (MAP) Pulse Ox O2 Delivery O2 Flow Rate FiO2 08/24/17 11:20 97.4 102 18 172/66 (101) 96 08/24/17 07:29 97.4 86 18 146/81 (102) 97 08/24/17 07:20 97.6 80 20 143/75 (97) 91 08/24/17 04:40 98.7 88 16 127/81 (96) 96 08/24/17 04:00 Room Air 08/24/17 00:00 Room Air 08/23/17 23:45 97.9 100 16 133/76 (95) 97 08/23/17 21:30 97.9 100 16 153/78 (103) 97 08/23/17 20:00 Room Air 08/23/17 18:00 Room Air 08/23/17 15:11 97.8 100 19 143/76 (98) 94 Nasal Cannula 2 08/23/17 15:00 98 18 150/80 (103) 94 Nasal Cannula 2 08/23/17 14:49 97.8 95 20 157/83 (107) 93 Nasal Cannula 3 I/O 08/23/17 08/23/17 08/23/17 08/24/17 08/24/17 08/24/17 07:00 15:00 23:00 07:00 15:00 23:00 Intake Total 120 ml 400 ml 240 ml 340 ml Output Total 100 ml 1100 ml 650 ml Balance 20 ml 400 ml -860 ml -310 ml Intake Oral 120 ml 240 ml 240 ml IV Total 0 ml 100 ml Other 400 ml Output Urine Total 100 ml 1100 ml 650 ml # Bowel Movements 0 0 Laboratory Laboratory Tests Test 08/23/17 17:10 Physical Exam HEENT: Normocephalic; atraumatic; no jaundice. Facial color pale, speech is clear and understandable, oral cavity clean without food particles NECK: Neck is supple, CHEST: Chest mild diminished breath sounds in his bases CARDIAC: Heart rate varies between 86 and 102 ABDOMEN: Soft, mild minimal distention, gastric discomfort with light palpation , bowel sounds are present in all four quadrants. EXTREMITIES: No clubbing, cyanosis, or edema. SKIN: Pale, and turgor; no rash; no jaundice. SALES ASSISTANTS AND SALESPERSONS: Speech understandable, clear, oriented 3 for the most part (Deisi Escalona) Assessment and Plan Plan ASSESSMENT - UGIB - 2/2 gastric and dudoenal ulcers. GI reconsulted for black tarry stool , nausea, dizziness, hypotension. He is on BID protonix and carafate. GS consult appreciated with rec to minimize blood draws His procedures are as follows: 07/13/17 - EGD found antrum ulcer with visible vessel s/p epi inj, cautery, clips 08/03/17 EGD found large duodenal ulcer 08/08/17 IR did GDA embolization 08/09/17 normal bleed scan 08/10/17 EGD found 2 duodenal ulcers s/p APC 08/15/17 EGD found antral ulcer with visible vessel s/p cautery, epi inj 08/17/17 normal bleed scan - anemia - 2/2 above, symptomatic yesterday. Mild drop in HH overnight. 08/24/2017, EGD report pending, patient currently has some mild gastric discomfort with light palpation. Still notes occasional nausea but no vomiting. No dysphasia. Appetite fair tolerating solid food and liquids without cough Anemia, no obvious bleed at this time hemoglobin 8.8. Noted some mild tachycardia with increased activity PLAN -Await biopsies and report - monitor labs special attention to hemoglobin -PPI -Carafate -Iron supplements by mouth -Anti-emetics -Transfuse as necessary - further recs to follow depending on results EGD pt seen by myself and Dr Flores and this note is on her behalf (Deisi Escalona) Physician Comments agree with above (Shahrzad Flores MD) Deisi Escalona Aug 24, 2017 12:56 Shahrzad Flores MD Aug 24, 2017 16:36
[2017-08-24] MEDS: ONDANSETRON HCL 4 MG/2 ML VIAL IVP PRN ×2 (13:11→19:48)
--- NOTE | 2017-08-24 15:46 | HHI.PR ---
cc: Chuy Gamble MD Subjective Subjective Notes DAILY PROGRESS NOTE FOR SURGICAL ATTENDING, DR. CHUY GAMBLE "They keep putting my pills in applesauce!" Objective Vitals/I&O Vital Signs Date Time Temp Pulse Resp B/P (MAP) Pulse Ox O2 Delivery O2 Flow Rate FiO2 08/24/17 11:20 97.4 102 18 172/66 (101) 96 08/24/17 08:00 Room Air 2.00 Labs Laboratory Tests Test 08/23/17 17:10 Cardiovascular: Regular Lungs: Clear Abdomen: Non-distended, Non-tender Extremities: No edema A/P Assessment and Plan 71 year old male with recurrent GI bleeds -S/p EGD yesterday--no active bleeding -Diet as tolerated -No further reports of any bleeding -No acute General Surgery needs at this time -General Surgery will sign off; please call if needed Attending Statement NOTE FOR SURGICAL ATTENDING, DR. CHUY GAMBLE Patient seen Abdomen soft Tolerating diet Reviewed EGD Please call if needed I agree with above assessment and plan. The exam, history, and the medical decision-making described in the above note were completed with the assistance of the mid-level provider. I reviewed and agree with the findings presented. I attest that I had a [id number] encounter with the patient on the same day, and personally performed and documented my assessment and findings in the medical record. The following services were provided during this hospital visit: Chart data review, vital sign assessments/reviewing monitor data Review of consultations notes if present. Medication orders/review and/or management Ordering and/or reviewing lab tests Ordering and/or interpreting/reviewing x-rays and/or diagnostic studies Care of the patient and discussion of the patient with the care team Documentation time To help prompt me to consider important information that might be impacting today's encounter and assessment, Information from prior notes written by myself or my colleagues may have been "brought forward/copy and pasted" into today's note. Julissa Evans/Operations Program Manager BACK TENDER Aug 24, 2017 15:46 Chuy Gamble MD Aug 24, 2017 16:21
--- NOTE | 2017-08-24 19:36 | HHI.PR ---
Subjective Remarks Late entry the patient was seen earlier today. Patient denies any chest pain or shortness of breath at this time. She is pleasantly confused. Says she does not have appetite. Denies any nausea or vomiting. Patient is however telling me she does not want any procedures or other care . Will consult palliative care for goals of care. Objective Vitals Vital Signs Date Time Temp Pulse Resp B/P (MAP) Pulse Ox O2 Delivery O2 Flow Rate FiO2 08/24/17 15:35 99.3 96 18 135/87 (103) 97 08/24/17 11:20 97.4 102 18 172/66 (101) 96 08/24/17 08:00 96 Room Air 2.00 08/24/17 07:29 97.4 86 18 146/81 (102) 97 08/24/17 07:20 97.6 80 20 143/75 (97) 91 08/24/17 04:40 98.7 88 16 127/81 (96) 96 08/24/17 04:00 Room Air 08/24/17 00:00 Room Air 08/23/17 23:45 97.9 100 16 133/76 (95) 97 08/23/17 21:30 97.9 100 16 153/78 (103) 97 08/23/17 20:00 Room Air I/O 08/23/17 08/23/17 08/23/17 08/24/17 08/24/17 08/24/17 07:00 15:00 23:00 07:00 15:00 23:00 Intake Total 120 ml 400 ml 240 ml 340 ml 480 ml Output Total 100 ml 1100 ml 650 ml 650 ml Balance 20 ml 400 ml -860 ml -310 ml -170 ml Intake Oral 120 ml 240 ml 240 ml 480 ml IV Total 0 ml 100 ml Other 400 ml Output Urine Total 100 ml 1100 ml 650 ml 650 ml # Bowel Movements 0 0 Result Diagram: 08/23/17 0655 08/23/17654 Objective Remarks GENERAL: This is a well-nourished, well-developed patient, in no apparent distress. CARDIOVASCULAR: Regular rate and rhythm without murmurs, gallops, or rubs. RESPIRATORY: Clear to auscultation. Breath sounds equal bilaterally. No wheezes , rales, or rhonchi. GASTROINTESTINAL: Abdomen soft, non-tender, nondistended. No hepato-splenomegaly , or palpable masses. No guarding. Active bowel sounds. MUSCULOSKELETAL: Extremities without clubbing, cyanosis, or edema. No joint tenderness, effusion, or edema noted. No calf tenderness. NEUROLOGICAL: Awake and alert, oriented 3. Cranial nerves II through XII grossly intact. Motor and sensory grossly within normal limits. 4/5 muscle strength in all muscle groups. Normal speech. A/P Problem List: (1) GI bleed ICD Code: K92.2 - Gastrointestinal hemorrhage, unspecified Status: Acute Assessment and Plan 71-year-old male with PMH with of HTN, DM on metformin, GI bleed, CVA, BPH, left hand injury, and bipolar disorder on lithium and Prozac. Originally presented to [facility] from longterm on 08/02 due with nausea, vomiting and hematemesis. Underwent multiple EGD's with cauterization, and epi. injections. He also also underwent prophylactic embolization of the gastroduodenal artery. Was discharged to [facility] on 08/21, however returns back to inpatient side due to black stool, and symptomatic hypotension. Upper GIB, acute Hematemesis [Bellow procedures done on prior admission] 07/13/17 - EGD found antrum ulcer with visible vessel s/p epi inj, cautery, clips 08/03/17 EGD found large duodenal ulcer 08/08/17 IR did GDA embolization 08/09/17 normal bleed scan 08/10/17 EGD found 2 duodenal ulcers s/p APC 08/15/17 EGD found antral ulcer with visible vessel s/p cautery, epi inj 08/17/17 normal bleed scan - H/H stable, symptomatic hypotension with BP 88/60. Provided with 1 L of IV fluids -GI had plans for upper endoscopy however patient had breakfast this morning and this was postponed per anesthesia. Discussed with , patient did not refuse. -GI consult placed, general surgery consult also placed. -N.p.o. after midnight, plans for upper scope tomorrow. GI okay for patient to have clear liquid diet for dinner. -Continue IV Protonix drip, p.o. Carafate, monitor vital signs and H&H -Will hold antihypertensives for the moment -IV Zofran for nausea Anemia, secondary to GIB -Continue oral ferrous sulfate replacement UTI, E. coli, resolved -Previously treated during hospital stay -Repeat UA while at [facility] positive, culture pending. -CBC from today with no leukocytosis, patient has been afebrile. JADEN on CKD -Looking back since January 2014 patient's baseline creatinine is around 1.3 -This morning's creatinine 1.44, BUN 9, GFR 48 -Patient was provided with 1 L of IV fluids -Continue monitoring renal function closely, avoid nephrotoxins Hypokalemia, acute -Potassium level this morning level 3.3, p.o. replacement with 20 meq's of KCl -Recheck BMP tomorrow BPH, chronic -Continue Flomax Bipolar disorder -Continue Prozac 40 mg at bedtime and lithium carbonate 600 mg nightly Diabetes mellitus type 2, controlled -Hemoglobin A1c on 07/12/17 was 6.0 -Patient's random blood sugars during his hospitalization stay were never greater than 200 -Will hold off on metformin in light of JADEN if needed start Accu-Cheks with ISS DVT prophylaxis-SCDs, anticoagulation contraindicated due to GIB Code Status Full code Discussed Condition With Patient, nurse DC pending improvement and clearance from constants. Here for goals of care. Patient is me she does not want any more procedures or care. Sonal Ruiz MD Aug 24, 2017 19:36
--- NOTE | 2017-08-24 19:50 | HHI.PR ---
Subjective Remarks The patient was seen earlier today He is complaining of nausea. Not able to eat in the morning. No vomiting. No diarrhea Some mild epigastric pain . No fever or chills. Denies chest pain or sob. Appears chronically ill. Objective Vitals Vital Signs Date Time Temp Pulse Resp B/P (MAP) Pulse Ox O2 Delivery O2 Flow Rate FiO2 08/24/17 15:35 99.3 96 18 135/87 (103) 97 08/24/17 11:20 97.4 102 18 172/66 (101) 96 08/24/17 08:00 96 Room Air 2.00 08/24/17 07:29 97.4 86 18 146/81 (102) 97 08/24/17 07:20 97.6 80 20 143/75 (97) 91 08/24/17 04:40 98.7 88 16 127/81 (96) 96 08/24/17 04:00 Room Air 08/24/17 00:00 Room Air 08/23/17 23:45 97.9 100 16 133/76 (95) 97 08/23/17 21:30 97.9 100 16 153/78 (103) 97 08/23/17 20:00 Room Air I/O 08/23/17 08/23/17 08/23/17 08/24/17 08/24/17 08/24/17 07:00 15:00 23:00 07:00 15:00 23:00 Intake Total 120 ml 400 ml 240 ml 340 ml 480 ml Output Total 100 ml 1100 ml 650 ml 650 ml Balance 20 ml 400 ml -860 ml -310 ml -170 ml Intake Oral 120 ml 240 ml 240 ml 480 ml IV Total 0 ml 100 ml Other 400 ml Output Urine Total 100 ml 1100 ml 650 ml 650 ml # Bowel Movements 0 0 Result Diagram: 08/23/17 0655 08/23/17 06 Objective Remarks GENERAL: This is a well-nourished, well-developed patient, in no apparent distress. CARDIOVASCULAR: Regular rate and rhythm without murmurs, gallops, or rubs. RESPIRATORY: Clear to auscultation. Breath sounds equal bilaterally. No wheezes , rales, or rhonchi. GASTROINTESTINAL: Abdomen soft, non-tender, nondistended. No hepato-splenomegaly , or palpable masses. No guarding. Active bowel sounds. MUSCULOSKELETAL: Extremities without clubbing, cyanosis, or edema. No joint tenderness, effusion, or edema noted. No calf tenderness. NEUROLOGICAL: Awake and alert, oriented 3. Cranial nerves II through XII grossly intact. Motor and sensory grossly within normal limits. 4/5 muscle strength in all muscle groups. Normal speech. A/P Problem List: (1) GI bleed ICD Code: K92.2 - Gastrointestinal hemorrhage, unspecified Status: Acute Assessment and Plan 71-year-old male with PMH with of HTN, DM on metformin, GI bleed, CVA, BPH, left hand injury, and bipolar disorder on lithium and Prozac. Originally presented to [facility] from group home on 08/02 due with nausea, vomiting and hematemesis. Underwent multiple EGD's with cauterization, and epi. injections. He also also underwent prophylactic embolization of the gastroduodenal artery. Was discharged to [facility] on 08/21, however returns back to inpatient side due to black stool, and symptomatic hypotension. Upper GIB, acute Hematemesis Nausea Bellow procedures done on prior admission] 07/13/17 - EGD found antrum ulcer with visible vessel s/p epi inj, cautery, clips 08/03/17 EGD found large duodenal ulcer 08/08/17 IR did GDA embolization 08/09/17 normal bleed scan 08/10/17 EGD found 2 duodenal ulcers s/p APC 08/15/17 EGD found antral ulcer with visible vessel s/p cautery, epi inj 08/17/17 normal bleed scan - H/H stable, symptomatic hypotension with BP 88/60. Provided with 1 L of IV fluids -GI had plans for upper endoscopy however patient had breakfast this morning and this was postponed per anesthesia. Discussed with , patient did not refuse. -GI consult placed, general surgery consult also placed. -N.p.o. after midnight, plans for upper scope tomorrow. GI okay for patient to have clear liquid diet for dinner. -Continue IV Protonix drip, p.o. Carafate, monitor vital signs and H&H -Will hold antihypertensives for the moment -IV Zofran for nausea Anemia, secondary to GIB -Continue oral ferrous sulfate replacement UTI, E. coli, resolved -Previously treated during hospital stay -Repeat UA while at [facility] positive, culture pending. -CBC from today with no leukocytosis, patient has been afebrile. JADEN on CKD -Looking back since January 2014 patient's baseline creatinine is around 1.3 -This morning's creatinine 1.44, BUN 9, GFR 48 -Patient was provided with 1 L of IV fluids -Continue monitoring renal function closely, avoid nephrotoxins Hypokalemia, acute -Potassium level this morning level 3.3, p.o. replacement with 20 meq's of KCl -Recheck BMP tomorrow BPH, chronic -Continue Flomax Bipolar disorder -Continue Prozac 40 mg at bedtime and lithium carbonate 600 mg nightly Diabetes mellitus type 2, controlled -Hemoglobin A1c on 07/12/17 was 6.0 -Patient's random blood sugars during his hospitalization stay were never greater than 200 -Will hold off on metformin in light of JADEN if needed start Accu-Cheks with ISS DVT prophylaxis-SCDs, anticoagulation contraindicated due to GIB Code Status Full code Discussed Condition With Patient, nurse DC pending improvement and clearance from constants. With persistent nausea, GI ff Sonal Ruiz MD Aug 24, 2017 19:49
[2017-08-24] MEDS: TAMSULOSIN HCL 0.4 MG CAP PO SCH (22:25)
[2017-08-24] MEDS: ATORVASTATIN 40 MG TAB PO SCH (22:25)
[2017-08-24] MEDS: LITHIUM CARBONATE 300 MG CAP PO SCH (22:25)
[2017-08-24] MEDS: FLUoxetine HCL 20 MG CAP PO SCH (22:25)
[2017-08-25 05:24] VITALS: BP 157/78; PULSE 86; RESP 16; TEMP 97.8; O2SAT 98
[2017-08-25] MEDS: SUCRALFATE 1 GM TAB PO SCH (06:14)
[2017-08-25] MEDS: PANTOPRAZOLE INJ 80 MG in SODIUM CHLORIDE 0.9% INJ 100 ML IV SCH (06:16)
[2017-08-25 08:00] VITALS: BP 145/77; PULSE 88; RESP 16; TEMP 98; O2SAT 98
[2017-08-25] MEDS: DOCUSATE SODIUM 50 MG/SENNA 8.6 MG TAB PO SCH ×2 (08:02→21:12)
[2017-08-25] MEDS: SODIUM CHLORIDE 0.9% FLUSH 10 ML FLUSH IV FLUSH SCH ×2 (08:02→21:12)
[2017-08-25] MEDS: FERROUS SULFATE 325 MG (65 MG ELEMENTAL IRON) TAB PO SCH ×2 (08:02→16:35)
[2017-08-25 09:41] LABS: AUTOMATED NEUTROPHIL # 8.4 TH/MM3 (1.8-7.7); BASOPHIL # 0.1 TH/MM3 (0-0.2); BASOPHIL % 0.4 % (0.0-2.0); EOSINOPHIL # 0.1 TH/MM3 (0-0.4); EOSINOPHIL % 1.1 % (0.0-4.0); HEMOGLOBIN 9.9 GM/DL (13.0-17.0); LYMPH % 18.2 % (9.0-44.0); LYMPHOCYTE # 2.1 TH/MM3 (1.0-4.8); MEAN CELL VOLUME 90.4 FL (80.0-100.0); MEAN CORPUSCULAR HEMOGLOBIN 29.7 PG (27.0-34.0); MEAN CORPUSCULAR HGB CONC 32.9 % (32.0-36.0); MEAN PLATELET VOLUME 7.2 FL (7.0-11.0); MONO % 8.7 % (0.0-8.0); NEUT % 71.6 % (16.0-70.0); PLATELET COUNT 621 TH/MM3 (150-450); RED BLOOD COUNT 3.32 MIL/MM3 (4.50-5.90); RED CELL DISTRIBUTION WIDTH 14.8 % (11.6-17.2); WHITE BLOOD COUNT 11.7 TH/MM3 (4.0-11.0)
[2017-08-25 10:03] LABS: CALCIUM 9.7 MG/DL (8.5-10.1); CREATININE 1.33 MG/DL (0.60-1.30); MAGNESIUM 1.8 MG/DL (1.5-2.5)
--- NOTE | 2017-08-25 10:43 | HHI.GIFU ---
Subjective Remarks Pt resting in bed Answers yes/no questions States yes to some nausea, denies emesis Complaining of some mild epigastric pain States no BM today Objective Vitals I&O Vital Signs Date Time Temp Pulse Resp B/P (MAP) Pulse Ox O2 Delivery O2 Flow Rate FiO2 08/25/17 08:00 98.0 88 16 145/77 (99) 98 08/25/17 07:55 Room Air 08/25/17 05:24 97.8 86 16 157/78 (104) 98 08/24/17 23:55 97.5 101 18 131/75 (93) 97 08/24/17 20:00 98.4 88 18 145/76 (99) 97 08/24/17 15:35 99.3 96 18 135/87 (103) 97 08/24/17 11:20 97.4 102 18 172/66 (101) 96 I/O 08/24/17 08/24/17 08/24/17 08/25/17 08/25/17 08/25/17 07:00 15:00 23:00 07:00 15:00 23:00 Intake Total 340 ml 480 ml 338 ml Output Total 650 ml 650 ml 450 ml Balance -310 ml -170 ml -112 ml Intake Oral 240 ml 480 ml 240 ml IV Total 100 ml 98 ml Output Urine Total 650 ml 650 ml 450 ml # Bowel Movements 0 0 Laboratory Laboratory Tests Test 08/25/17 08:16 White Blood Count 11.7 Red Blood Count 3.32 Hemoglobin 9.9 Hematocrit 30.0 Mean Corpuscular Volume 90.4 Mean Corpuscular Hemoglobin 29.7 Mean Corpuscular Hemoglobin Concent 32.9 Red Cell Distribution Width 14.8 Platelet Count 621 Mean Platelet Volume 7.2 Neutrophils (%) (Auto) 71.6 Lymphocytes (%) (Auto) 18.2 Monocytes (%) (Auto) 8.7 Eosinophils (%) (Auto) 1.1 Basophils (%) (Auto) 0.4 Neutrophils # (Auto) 8.4 Lymphocytes # (Auto) 2.1 Monocytes # (Auto) 1.0 Eosinophils # (Auto) 0.1 Basophils # (Auto) 0.1 CBC Comment DIFF FINAL Differential Comment Blood Urea Nitrogen 5 Creatinine 1.33 Random Glucose 96 Calcium Level 9.7 Magnesium Level 1.8 Sodium Level 143 Potassium Level 3.6 Chloride Level 109 Carbon Dioxide Level 26.0 Anion Gap 8 Estimat Glomerular Filtration Rate 53 Physical Exam HEENT: Normocephalic; atraumatic CHEST: Even/unlabored CARDIAC: RRR ABDOMEN: Soft, mild epigastric TTP, bowel sounds active SKIN: Pale PAPER SORTER: Awake, answers yes and no questions Assessment and Plan Plan ASSESSMENT - Anemia with UGI bleeding Well known to our service: Previous work up: EGD (August 03) --> duodenal ulcer with stigmata showing a visible vessel. CTA (08/08) --> Prophylactic coil and gelfoam embolization of the GDA. Celiac and SMA demonstrated standard anatomy without evidence for active hemorrhage. Another significant drop in H/H on August 09. At that time there were no reports of hematemesis, hematochezia, or melena. NM bleeding scan (08/09) --> negative. EGD (August 10) --> Esophagus appeared normal. Mild gastritis in the gastric antrum. Normal duodenal mucosa in the 2nd part of the duodenum. Two ranging between 5-9mm in size ulcers were found in the duodenal bulb, argon plasma coagulation was applied to site with complete hemostasis. Initially planning on colonoscopy, however pt did not take prep so unable to be done. EGD (08/15) --> Antral ulcer with visible vessel (08/25) --> Pt with no continued obvious GIB. H/H improved, currently 9.9/30. Pt reports some nausea, denies emesis. Mild epigastric pain. EGD (08/23) --> Gastritis and Antral ulcer, non-bleeding. DC Protonix gtt, switch to Protonix PO BID DC Carafate PLAN - DC Protonix gtt - Protonix PO BID - DC Carafate - ALISE - GI will sign off, have pt follow up with GI after DC - Colonoscopy outpatient - If rebleeding, then will need surgical consult Patient has been seen and examined by myself and Dr. Soliman and this note is written on his behalf Joy Baird Aug 25, 2017 10:43
[2017-08-25 12:00] VITALS: BP 152/84; PULSE 95; RESP 18; TEMP 98.3; O2SAT 98
--- NOTE | 2017-08-25 14:13 | HHI.PR ---
Subjective Remarks Pt seen and examined. VS reviewed. States aside from mild epigastric pain and nausea he is otherwise feeling well. States he is nauseous because he doesn't like the hospital food. Denies CP, SOB, or further episodes of melena. Wants to go home and live with his daughter. Objective Vital Signs Date Time Temp Pulse Resp B/P (MAP) Pulse Ox O2 Delivery O2 Flow Rate FiO2 08/25/17 12:00 98.3 95 18 152/84 (106) 98 08/25/17 08:00 98.0 88 16 145/77 (99) 98 08/25/17 07:55 Room Air 08/25/17 05:24 97.8 86 16 157/78 (104) 98 08/24/17 23:55 97.5 101 18 131/75 (93) 97 08/24/17 20:00 98.4 88 18 145/76 (99) 97 08/24/17 15:35 99.3 96 18 135/87 (103) 97 I/O 08/24/17 08/24/17 08/24/17 08/25/17 08/25/17 08/25/17 07:00 15:00 23:00 07:00 15:00 23:00 Intake Total 340 ml 480 ml 338 ml 40 ml Output Total 650 ml 650 ml 450 ml Balance -310 ml -170 ml -112 ml 40 ml Intake Oral 240 ml 480 ml 240 ml IV Total 100 ml 98 ml 40 ml Output Urine Total 650 ml 650 ml 450 ml # Bowel Movements 0 0 Result Diagram: 08/25/17 0816 08/25/17 0816 Procedures EGD 08/23: Gastric and antral ulcer nonbleeding Objective Remarks GENERAL: Pale male sitting up in bed in NAD. SKIN: Warm and dry. HEENT: AT/NC. Pupils equal and round. MMM. NECK: Supple no tender LAD or JVD. HEART: RRR with 1/6 JOSÉ. LUNGS: CTAB without wheezes or crackles. ABDOMEN: +BS, soft, mild epigastric TTP. EXTREMITIES: No LE edema. NEURO: Awake and alert. Nonfocal. PSYCH: Appropriate mood and affect. A/P Assessment and Plan 71-year-old male with PMH with of HTN, DM, GI bleed, CVA, BPH, and bipolar disorder originally presented to [facility] from group home on 08/02 due with nausea, vomiting and hematemesis. He underwent multiple EGD's with cauterization , and epinephrine injections. He also also underwent prophylactic embolization of the gastroduodenal artery. He was discharged to [facility] on 08/21, however he returned back to inpatient on 08/23 due to melena and symptomatic hypotension. 1. Upper GI bleed - Recently admitted and on 08/03 underwent EGD showing large duodenal ulcers that were clipped and injected with epi. Also went prophylaci embolization of gastroduodenal artery on 08/07 - Repeat EGD on 08/10 after Hb further dropped showed gastritis and duodenal bulb ulcers that were coagulated - Repeat EGD on 08/16 showed antral ulcer - Bleeding scan on 08/17 was normal - Repeat EGD on 08/18 showed larger ulcer in the atrium that was cauterized and injected with epi - Transferred to [facility] on 08/21 and went back to the medical floor on 08/22 for hypotension and melena - GI consulted and patient underwent EGD again on 08/23 showing gastritis and antral ulcer - Protonix gtt discontinued toward and switched to PO BID - Carafate discontinued - GI signed off and recommend colonoscopy as outpatient; also states if pt has rebleeding will need surgical consent - Hemoglobin stable this morning at 9.9 - Monitor CBC - Zofran PRN 2. Anemia, secondary to GIB - Continue oral ferrous sulfate replacement 3. CKD - Avoid nephrotoxic agents and renally dose medications 4. Bipolar disorder - Continue home lithium and prozac 5. BPH - Continue home Flomax 6. HLD - Continue home statin DVT prophylxis: chemical anticoagulation C/I in setting of GI bleed. SCDs Will monitor another day or so to ensure no further bleeding and if patient remains stable he can go back to [facility] Eldridge MD Aug 25, 2017 14:13
[2017-08-25 16:00] VITALS: BP 132/78; PULSE 100; RESP 18; TEMP 97.7; O2SAT 100
[2017-08-25 20:00] VITALS: BP 141/86; PULSE 102; RESP 18; TEMP 98; O2SAT 98
[2017-08-25] MEDS: PANTOPRAZOLE SOD 40 MG DELAYED RELEASE TAB PO SCH (21:10)
[2017-08-25] MEDS: FLUoxetine HCL 20 MG CAP PO SCH (21:11)
[2017-08-25] MEDS: ATORVASTATIN 40 MG TAB PO SCH (21:11)
[2017-08-25] MEDS: TAMSULOSIN HCL 0.4 MG CAP PO SCH (21:11)
[2017-08-25] MEDS: LITHIUM CARBONATE 300 MG CAP PO SCH (21:11)
[2017-08-26] VITALS: BP 145/78; PULSE 92; RESP 18; TEMP 97.8; O2SAT 94
[2017-08-26 04:00] VITALS: BP 118/80; PULSE 92; RESP 18; TEMP 98.1; O2SAT 94
[2017-08-26 08:00] VITALS: BP 145/91; PULSE 84; RESP 20; TEMP 98; O2SAT 95
[2017-08-26] MEDS: DOCUSATE SODIUM 50 MG/SENNA 8.6 MG TAB PO SCH ×2 (08:43→20:31)
[2017-08-26] MEDS: FERROUS SULFATE 325 MG (65 MG ELEMENTAL IRON) TAB PO SCH ×2 (08:43→16:27)
[2017-08-26] MEDS: PANTOPRAZOLE SOD 40 MG DELAYED RELEASE TAB PO SCH ×2 (08:43→20:32)
[2017-08-26] MEDS: SODIUM CHLORIDE 0.9% FLUSH 10 ML FLUSH IV FLUSH SCH ×2 (08:44→20:32)
[2017-08-26 09:19] LABS: AUTOMATED NEUTROPHIL # 7.8 TH/MM3 (1.8-7.7); BASOPHIL # 0.1 TH/MM3 (0-0.2); BASOPHIL % 0.5 % (0.0-2.0); EOSINOPHIL # 0.2 TH/MM3 (0-0.4); EOSINOPHIL % 1.6 % (0.0-4.0); HEMATOCRIT 29.5 % (39.0-51.0); HEMOGLOBIN 9.9 GM/DL (13.0-17.0); LYMPH % 16.9 % (9.0-44.0); LYMPHOCYTE # 1.8 TH/MM3 (1.0-4.8); MEAN CELL VOLUME 89.8 FL (80.0-100.0); MEAN CORPUSCULAR HEMOGLOBIN 30.2 PG (27.0-34.0); MEAN CORPUSCULAR HGB CONC 33.6 % (32.0-36.0); MEAN PLATELET VOLUME 7.1 FL (7.0-11.0); MONO % 9.7 % (0.0-8.0); MONOCYTE # 1.1 TH/MM3 (0-0.9); NEUT % 71.3 % (16.0-70.0); PLATELET COUNT 583 TH/MM3 (150-450); RED BLOOD COUNT 3.29 MIL/MM3 (4.50-5.90); RED CELL DISTRIBUTION WIDTH 14.8 % (11.6-17.2); WHITE BLOOD COUNT 10.9 TH/MM3 (4.0-11.0)
[2017-08-26 09:41] LABS: BICARBONATE 26.9 MEQ/L (21.0-32.0); CALCIUM 9.7 MG/DL (8.5-10.1); CREATININE 1.33 MG/DL (0.60-1.30)
[2017-08-26] MEDS: ONDANSETRON HCL 4 MG/2 ML VIAL IVP PRN (09:48)
[2017-08-26 12:00] VITALS: BP 124/83; PULSE 98; RESP 20; TEMP 99.7; O2SAT 97
--- NOTE | 2017-08-26 13:57 | HHI.PR ---
Subjective Remarks Pt seen and examined. VS reviewed. Only complaint is nausea per the patient and he states he is only nauseous when the hospital food is in front of him because "it would make a dog nauseous." He denies abdominal pain, vomiting, melena, diarrhea, chest pain, shortness of breath. He is anxious to go home to his daughter's house. Per centimeter, she is working on obtaining nursing care at the home. Objective Vital Signs Date Time Temp Pulse Resp B/P (MAP) Pulse Ox O2 Delivery O2 Flow Rate FiO2 08/26/17 09:29 Room Air 08/26/17 08:00 98.0 84 20 145/91 (109) 95 08/26/17 04:00 98.1 92 18 118/80 (93) 94 08/26/17 00:00 97.8 92 18 145/78 (100) 94 08/25/17 20:00 98.0 102 18 141/86 (104) 98 08/25/17 20:00 Room Air 2.00 08/25/17 16:00 97.7 100 18 132/78 (96) 100 I/O 08/25/17 08/25/17 08/25/17 08/26/17 08/26/17 08/26/17 06:59 14:59 22:59 06:59 14:59 22:59 Intake Total 338 ml 40 ml 480 ml 450 ml Output Total 450 ml 800 ml 550 ml Balance -112 ml 40 ml -320 ml -100 ml Intake Oral 240 ml 480 ml 450 ml IV Total 98 ml 40 ml Output Urine Total 450 ml 800 ml 550 ml # Bowel Movements 0 0 Result Diagram: 08/26/17 0800 08/26/17 08 Procedures EGD 08/23: Gastric and antral ulcer nonbleeding Objective Remarks GENERAL: Pale male sitting up in bed in NAD. SKIN: Warm and dry. HEENT: AT/NC. Pupils equal and round. MMM. NECK: Supple no tender LAD or JVD. HEART: RRR with 1/6 JOSÉ. LUNGS: CTAB without wheezes or crackles. ABDOMEN: +BS, soft, mild epigastric TTP. EXTREMITIES: No LE edema. NEURO: Awake and alert. Nonfocal. PSYCH: Appropriate mood and affect. A/P Assessment and Plan 71-year-old male with PMH with of HTN, DM, GI bleed, CVA, BPH, and bipolar disorder originally [facility] [place] [facility] due with nausea, vomiting and hematemesis. He underwent multiple EGD's with cauterization , and epinephrine injections. He also also underwent prophylactic embolization of the gastroduodenal artery. He was discharged to [facility] on 08/21, however he returned back to inpatient on 08/23 due to melena and symptomatic hypotension. 1. Upper GI bleed - Recently admitted and on 08/03 underwent EGD showing large duodenal ulcers that were clipped and injected with epi. Also went prophylactic embolization of gastroduodenal artery on 08/07 - Repeat EGD on 08/10 after Hb further dropped showed gastritis and duodenal bulb ulcers that were coagulated - Repeat EGD on 08/16 showed antral ulcer - Bleeding scan on 08/17 was normal - Repeat EGD on 08/18 showed larger ulcer in the atrium that was cauterized and injected with epi - Transferred to [facility] on 08/21 and went back to the medical floor on 08/22 for hypotension and melena - GI consulted and patient underwent EGD again on 08/23 showing gastritis and antral ulcer - Protonix PO BID - GI signed off and recommend colonoscopy as outpatient; also states if pt has rebleeding will need surgical consent - Hemoglobin stable this morning at 9.9 - Monitor CBC - Zofran PRN 2. Anemia, secondary to GIB - Hemodynamically stable - Continue oral ferrous sulfate replacement 3. CKD - Avoid nephrotoxic agents and renally dose medications 4. Bipolar disorder - Continue home lithium and Prozac 5. BPH - Continue home Flomax 6. HLD - Continue home statin DVT prophylaxis: chemical anticoagulation C/I in setting of GI bleed. [facility] [place] Will monitor another day to ensure no more GI bleeding as patient has had multiple episodes in just a few weeks. If stable throughout the night, can be discharged tomorrow. Cannot return to [facility] or prior SNF due to legal history. Patient's daughter working on hiring a care provider Flakita Neville MD Aug 26, 2017 13:57
[2017-08-26 16:00] VITALS: BP 151/84; PULSE 96; RESP 20; TEMP 98.4; O2SAT 96
[2017-08-26 20:00] VITALS: BP 158/85; PULSE 99; RESP 18; TEMP 97.1; O2SAT 97
[2017-08-26] MEDS: TAMSULOSIN HCL 0.4 MG CAP PO SCH (20:31)
[2017-08-26] MEDS: FLUoxetine HCL 20 MG CAP PO SCH (20:32)
[2017-08-26] MEDS: LITHIUM CARBONATE 300 MG CAP PO SCH (20:32)
[2017-08-26] MEDS: ATORVASTATIN 40 MG TAB PO SCH (20:32)
[2017-08-27] VITALS: BP 138/77; PULSE 90; RESP 18; TEMP 96.5; O2SAT 99
[2017-08-27 04:00] VITALS: BP 132/80; PULSE 89; RESP 19; TEMP 98; O2SAT 96
[2017-08-27 07:18] LABS: AUTOMATED NEUTROPHIL # 8.3 TH/MM3 (1.8-7.7); BASOPHIL % 0.3 % (0.0-2.0); EOSINOPHIL # 0.2 TH/MM3 (0-0.4); EOSINOPHIL % 1.5 % (0.0-4.0); HEMATOCRIT 32.1 % (39.0-51.0); HEMOGLOBIN 10.5 GM/DL (13.0-17.0); LYMPH % 17.6 % (9.0-44.0); MEAN CELL VOLUME 89.5 FL (80.0-100.0); MEAN CORPUSCULAR HEMOGLOBIN 29.3 PG (27.0-34.0); MEAN CORPUSCULAR HGB CONC 32.7 % (32.0-36.0); MEAN PLATELET VOLUME 7.2 FL (7.0-11.0); MONO % 8.5 % (0.0-8.0); NEUT % 72.1 % (16.0-70.0); PLATELET COUNT 681 TH/MM3 (150-450); RED BLOOD COUNT 3.58 MIL/MM3 (4.50-5.90); RED CELL DISTRIBUTION WIDTH 14.4 % (11.6-17.2); WHITE BLOOD COUNT 11.5 TH/MM3 (4.0-11.0)
[2017-08-27 08:00] VITALS: BP 155/90; PULSE 102; RESP 18; TEMP 97.9; O2SAT 96
[2017-08-27] MEDS: SODIUM CHLORIDE 0.9% FLUSH 10 ML FLUSH IV FLUSH SCH ×2 (08:28→20:28)
[2017-08-27] MEDS: DOCUSATE SODIUM 50 MG/SENNA 8.6 MG TAB PO SCH ×2 (08:28→20:24)
[2017-08-27] MEDS: PANTOPRAZOLE SOD 40 MG DELAYED RELEASE TAB PO SCH ×2 (08:28→20:24)
[2017-08-27] MEDS: FERROUS SULFATE 325 MG (65 MG ELEMENTAL IRON) TAB PO SCH ×2 (08:28→17:11)
[2017-08-27] MEDS: ONDANSETRON HCL 4 MG/2 ML VIAL IVP PRN ×2 (08:32→21:11)
--- NOTE | 2017-08-27 11:26 | HHI.DCPOC ---
Discharge Care Plan Diagnosis: (1) GI bleed (2) Bleeding duodenal ulcer (3) HTN (hypertension) (4) JADEN (acute kidney injury) (5) Anemia (6) Bipolar disorder (7) Diabetes Goals to Promote Your Health * To prevent worsening of your condition and complications * To maintain your health at the optimal level Directions to Meet Your Goals Take your medications as prescribed Follow your dietary instruction Follow activity as directed Keep your appointments as scheduled Take your immunizations and boosters as scheduled If your symptoms worsen call your PCP, if no PCP go to Urgent Care Center or Emergency Room Smoking is Dangerous to Your Health. Avoid second hand smoke Call the 24-hour hour crisis hotline for domestic abuse at Flakita Neville MD Aug 27, 2017 11:26
[2017-08-27 12:00] VITALS: BP 124/83; PULSE 101; RESP 18; TEMP 97.4; O2SAT 96
[2017-08-27] MEDS ORDERED: PROT40TA PO (12:44)
--- NOTE | 2017-08-27 16:12 | HHI.FF ---
Face to Face Verification Diagnosis: (1) Weakness (2) GI bleed (3) HTN (hypertension) (4) Diabetes (5) Duodenal ulcer (6) JADEN (acute kidney injury) (7) Anemia Physical Therapy Order: Evaluate and Treat, Improve ambulation, Strength and gait training I have seen patient Ryan Quezada on 08/27/17. My clinical findings support the need for the requested home health care services because: Deconditioned w/ increased weakness High risk of falls I certify that my clinical findings support that this patient is homebound because: Unsteady gait/balance Flakita Neville MD Aug 27, 2017 16:12
[2017-08-27] MEDS ORDERED: HOSP BED1 (16:13)
--- NOTE | 2017-08-27 16:18 | HHI.DS ---
Discharge Summary Admission Date Aug 22, 2017 at 15:45 Discharge Date: Aug 27, 2017 Admitting Diagnosis GIB (1) GI bleed ICD Code: K92.2 - Gastrointestinal hemorrhage, unspecified Status: Acute Procedures EGD 08/23 showing gastritis and antral ulcer with no active bleeding Brief History - From Admission Written by Lonnie Long, acting as scribe for Dr. Kaur on 08/22/17 at 16:24. 71-year-old male with PMH with of HTN, DM on metformin, GI bleed, CVA, BPH, left hand injury, and bipolar disorder on lithium and Prozac who was admitted to [facility] on 08/21 and today transferred to inpatient medical unit due to black tarry stools as well as hypotension. Patient was very recently admitted to inpatient medical unit here at [facility] on 08/02 from snf due to nausea, vomiting, and hematemesis. He was seen by gastroenterology and on 08/03 underwent EGD which found large duodenal ulcers with visible vessel for which he received epinephrine injections as well as clippings. He was also transfused 2 units of PRBCs. On 08/07 patient underwent prophylactic embolization of the gastroduodenal artery in IR department. On 08/09 he was once again found to be anemic with hemoglobin of 6.9 and once again transfused with 2 units of PRBCs. Repeat EGD on 08/10 showed mild gastritis in the gastric atrium, normal duodenal leak mucosa, 2 duodenal ulcers found in the duodenal bulb, argon plasma coagulation was applied to the sites and hemostasis achieved. Colonoscopy was also planned however this was not done as patient refused. He underwent EGD again on 08/16 an antral ulcer was identified with visible vessel. On 08/18 EGD repeat revealed large ulcer in the atrium, this was cauterized with gold probe, and epinephrine. He was also treated with IV Protonix and Sandostatin. Patient was also treated for E. coli UTI and JADEN during his admission. He was cleared for discharge and transfer to [facility] rehab center on 08/21. Today patient had dark tarry stools and was also found to be hypotensive with lowest BP 88/60. He was symptomatic while sitting up in wheelchair with dizziness and nausea. Consult was placed for GI services [facility] Plans for upper GI study today, general surgery service is consulted. GI services recommended patient be transferred to the inpatient setting. Patient was transported to GI lab and apparently refused upper endoscopy per nursing as well as patient. He is now in the medical floor where he is seen and examined resting comfortably in bed. He is awake, alert, and oriented and answering questions appropriately. When questioned as to why he did not have procedure done patient reports "I just want to go home". He reports that his daughter is a nurse practitioner and he can go home. He reports nausea, no vomiting or abdominal pain/ discomfort. He denies any dizziness, lightheadedness, shortness of breath, chest pain, heart palpitations, headache, fevers or chills. He does report that while he was in rehab center he did have bloody stools, denies any hematemesis. CBC/BMP: 08/27/17 0500 08/26/17 0800 Significant Findings Laboratory Tests Test 08/25/17 08:16 08/26/17 08:00 08/27/17 05:00 08/27/17 12:10 White Blood Count 11.7 TH/MM3 (4.0-11.0) 11.5 TH/MM3 (4.0-11.0) Red Blood Count 3.32 MIL/MM3 (4.50-5.90) 3.29 MIL/MM3 (4.50-5.90) 3.58 MIL/MM3 (4.50-5.90) Hemoglobin 9.9 GM/DL (13.0-17.0) 9.9 GM/DL (13.0-17.0) 10.5 GM/DL (13.0-17.0) Hematocrit 30.0 % (39.0-51.0) 29.5 % (39.0-51.0) 32.1 % (39.0-51.0) Platelet Count 621 TH/MM3 (150-450) 583 TH/MM3 (150-450) 681 TH/MM3 (150-450) Neutrophils (%) (Auto) 71.6 % (16.0-70.0) 71.3 % (16.0-70.0) 72.1 % (16.0-70.0) Monocytes (%) (Auto) 8.7 % (0.0-8.0) 9.7 % (0.0-8.0) 8.5 % (0.0-8.0) Neutrophils # (Auto) 8.4 TH/MM3 (1.8-7.7) 7.8 TH/MM3 (1.8-7.7) 8.3 TH/MM3 (1.8-7.7) Monocytes # (Auto) 1.0 TH/MM3 (0-0.9) 1.1 TH/MM3 (0-0.9) 1.0 TH/MM3 (0-0.9) Blood Urea Nitrogen 5 MG/DL (7-18) 6 MG/DL (7-18) Creatinine 1.33 MG/DL (0.60-1.30) 1.33 MG/DL (0.60-1.30) Chloride Level 109 MEQ/L (98-107) Estimat Glomerular Filtration Rate 53 ML/MIN (>89) 53 ML/MIN (>89) PE at Discharge GENERAL: This is a well-nourished, well-developed patient, in no apparent distress. CARDIOVASCULAR: Regular rate and rhythm without murmurs, gallops, or rubs. RESPIRATORY: Clear to auscultation. Breath sounds equal bilaterally. No wheezes , rales, or rhonchi. GASTROINTESTINAL: Abdomen soft, non-tender, nondistended. No hepato-splenomegaly , or palpable masses. No guarding. Active bowel sounds. MUSCULOSKELETAL: Extremities without clubbing, cyanosis, or edema. No joint tenderness, effusion, or edema noted. No calf tenderness. NEUROLOGICAL: Awake and alert, oriented 3. Cranial nerves II through XII grossly intact. Motor and sensory grossly within normal limits. 4/5 muscle strength in all muscle groups. Normal speech. Pt update on day of discharge Wants to go home. Voices no complaints. Denies CP, SOB, abdominal pain, N/V. No further episodes of melena. Hospital Course 71-year-old male with PMH with of HTN, DM, GI bleed, CVA, BPH, and bipolar disorder originally presented to [facility] from snf on 08/02 due with nausea, vomiting and hematemesis. He underwent multiple EGD's with cauterization , and epinephrine injections. He also also underwent prophylactic embolization of the gastroduodenal artery. He was discharged to [facility] on 08/21, however he returned back to inpatient on 08/23 due to melena and symptomatic hypotension. - Recently admitted and on 08/03 underwent EGD showing large duodenal ulcers that were clipped and injected with epi. Also went prophylactic embolization of gastroduodenal artery on 08/07 - Repeat EGD on 08/10 after Hb further dropped showed gastritis and duodenal bulb ulcers that were coagulated - Repeat EGD on 08/16 showed antral ulcer - Bleeding scan on 08/17 was normal - Repeat EGD on 08/18 showed larger ulcer in the atrium that was cauterized and injected with epi - Transferred to [facility] on 08/21 and went back to the medical floor on 08/22 for hypotension and melena - GI consulted and patient underwent EGD again on 08/23 showing gastritis and antral ulcer - Protonix PO BID - GI signed off and recommend colonoscopy as outpatient; also states if pt has rebleeding will need surgical consult - H&H stabilized - Plavix was held given recurrent GI bleeds Unfortunately, he was denied from returning to [facility] and denied from multiple SNFs due to prior legal background. He was discharged in stable condition on with [facility]. Pt Condition on Discharge: Stable Discharge Disposition: Discharge Home Discharge Time: > 30 minutes Discharge Instructions DIET: Follow Instructions for: Diabetic Diet Activities you can perform: Regular-No Restrictions Follow up Referrals: Appointment for Follow Up Gastroenterology - 1 Month PCP Follow-up - 1 Week PCP Follow-up - 1 Week @ [facility] New Medications: Hospital Bed - Electric ([facility] Bed - Electric) 1 Ea Ea EA .XX DIRECTED, #1 Continued Medications: Amlodipine (Norvasc) 5 Mg Tab 5 MG PO BID for Blood Pressure Management, #60 TAB Atorvastatin (Atorvastatin) 40 Mg Tab 40 MG PO HS for Cholesterol Management, #90 TAB 3 Refills Carvedilol (Coreg) 3.125 Mg Tab 3.125 MG PO Q12HR for 30 Days, TAB Ferrous Sulfate (Ferrous Sulfate) 325 Mg (65 Mg Iron) Tablet 325 MG PO BIDPC for Nutritional Supplement, #60 TAB 0 Refills Fluoxetine (Fluoxetine) 40 Mg Cap 40 CAP PO HS, #30 CAP 0 Refills Allison Carbonate (Allison Carbonate) 600 Mg Cap 600 MG PO HS, CAP 0 Refills Metformin (Metformin) 500 Mg Tab 500 MG PO BIDPC for Blood Sugar Management, #60 TAB 0 Refills Ondansetron Odt (Ondansetron Odt) 4 Mg Tab 4 MG PO Q6H PRN for NAUSEA for 30 Days, #120 TAB Pantoprazole (Protonix) 40 Mg Tab 40 MG PO BID for Ulcer Prevention, #60 TAB 1 Refill (This prescription has been renewed) Tamsulosin (Flomax) 0.4 Mg Cap 0.4 MG PO HS for Manage Prostate Problems, #30 CAP 0 Refills Discontinued Medications: Clopidogrel (Plavix) 75 Mg Tab 75 MG PO DAILY for Blood Clot Prevention, #30 TAB 11 Refills Sucralfate (Carafate) 1 Gram Tab 1 GM PO BIDAC for 30 Days, TAB Flakita Neville MD Aug 27, 2017 16:18
[2017-08-27] MEDS: ATORVASTATIN 40 MG TAB PO SCH (20:24)
[2017-08-27] MEDS: FLUoxetine HCL 20 MG CAP PO SCH (20:24)
[2017-08-27] MEDS: LITHIUM CARBONATE 300 MG CAP PO SCH (20:24)
[2017-08-27] MEDS: TAMSULOSIN HCL 0.4 MG CAP PO SCH (20:24)
[2017-08-27 20:29] VITALS: BP 150/89; PULSE 98; RESP 19; TEMP 98.2; O2SAT 97
--- NOTE | 2017-08-27 22:00 | HHI.PR ---
Subjective Remarks Not seen Objective Vitals Vital Signs Date Time Temp Pulse Resp B/P (MAP) Pulse Ox O2 Delivery O2 Flow Rate FiO2 08/27/17 20:29 98.2 98 19 150/89 (109) 97 08/27/17 12:00 97.4 101 18 124/83 (97) 96 08/27/17 08:00 97.9 102 18 155/90 (111) 96 08/27/17 08:00 Room Air 08/27/17 04:00 98.0 89 19 132/80 (97) 96 08/27/17 00:00 Room Air 08/27/17 00:00 96.5 90 18 138/77 (97) 99 I/O 08/26/17 08/26/17 08/26/17 08/27/17 08/27/17 08/27/17 07:00 15:00 23:00 07:00 15:00 23:00 Intake Total 450 ml 360 ml 900 ml 600 ml 240 ml Output Total 550 ml 200 ml 850 ml 450 ml 50 ml Balance -100 ml 160 ml 50 ml 150 ml 190 ml Intake Oral 450 ml 360 ml 900 ml 600 ml 240 ml Output Urine Total 550 ml 200 ml 850 ml 450 ml 50 ml # Voids 1 # Bowel Movements 0 0 0 1 Result Diagram: 08/27/17 0500 08/26/17 0800 Objective Remarks GENERAL: Pale male sitting up in bed in [employer]. SKIN: Warm and dry. HEENT: AT/NC. Pupils equal and round. MMM. NECK: Supple no tender LAD or JVD. HEART: RRR with 1/6 JOSÉ. LUNGS: CTAB without wheezes or crackles. ABDOMEN: +BS, soft, mild epigastric TTP. EXTREMITIES: No LE edema. NEURO: Awake and alert. Nonfocal. PSYCH: Appropriate mood and affect. Procedures EGD 08/23 showing gastritis and antral ulcer with no active bleeding A/P Problem List: (1) GI bleed ICD Code: K92.2 - Gastrointestinal hemorrhage, unspecified Status: Acute Assessment and Plan 71-year-old male with PMH with of HTN, DM, GI bleed, CVA, BPH, and bipolar disorder originally presented to [facility] from [facility] on [facility] due with nausea, vomiting and hematemesis. He underwent multiple EGD's with cauterization , and epinephrine injections. He also also underwent prophylactic embolization of the gastroduodenal artery. He was discharged to [facility] on 08/21, however he returned back to inpatient on 08/23 due to melena and symptomatic hypotension. 1. Upper GI bleed - Recently admitted and on 08/03 underwent EGD showing large duodenal ulcers that were clipped and injected with epi. Also went prophylactic embolization of gastroduodenal artery on 08/07 - Repeat EGD on 08/10 after Hb further dropped showed gastritis and duodenal bulb ulcers that were coagulated - Repeat EGD on 08/16 showed antral ulcer - Bleeding scan on 08/17 was normal - Repeat EGD on 08/18 showed larger ulcer in the atrium that was cauterized and injected with epi - Transferred to [facility] on 08/21 and went back to the medical floor on 08/22 for hypotension and melena - GI consulted and patient underwent EGD again on 08/23 showing gastritis and antral ulcer - Protonix PO BID - GI signed off and recommend colonoscopy as outpatient; also states if pt has rebleeding will need surgical consent - Hemoglobin stable this morning at 9.9 - Monitor CBC - Zofran PRN 2. Anemia, secondary to GIB - Hemodynamically stable - Continue oral ferrous sulfate replacement 3. CKD - Avoid nephrotoxic agents and renally dose medications 4. Bipolar disorder - Continue home lithium and Prozac 5. BPH - Continue home Flomax 6. HLD - Continue home statin DVT prophylaxis: chemical anticoagulation C/I in setting of GI bleed[facility] Will monitor another day to ensure no more GI bleeding as patient has had multiple episodes in just a few weeks. If stable throughout the night, can be discharged tomorrow. Cannot return to [facility] or prior SNF due to legal history. Patient's daughter working on hiring a care provider Problem Qualifiers (1) GI bleed: Qualified Codes: K25.4 - Chronic or unspecified gastric ulcer with hemorrhage Herb Galvan MD Aug 27, 2017 22:00
[2017-08-28] VITALS (7 sets, daily range): BP systolic 113–154; BP diastolic 63–82; PULSE 88–109; RESP 17–20; TEMP 97.4–99; O2SAT 94–97
[2017-08-28] MEDS: DOCUSATE SODIUM 50 MG/SENNA 8.6 MG TAB PO SCH ×2 (07:47→20:17)
[2017-08-28] MEDS: FERROUS SULFATE 325 MG (65 MG ELEMENTAL IRON) TAB PO SCH ×2 (07:47→17:01)
[2017-08-28] MEDS: PANTOPRAZOLE SOD 40 MG DELAYED RELEASE TAB PO SCH ×2 (07:47→20:17)
[2017-08-28] MEDS: SODIUM CHLORIDE 0.9% FLUSH 10 ML FLUSH IV FLUSH SCH ×2 (07:47→20:17)
--- NOTE | 2017-08-28 09:49 | HHI.PR ---
Subjective Remarks F/u GIB. No further bleeding. Food not good ow no complaints dw RN Objective Vitals Vital Signs Date Time Temp Pulse Resp B/P (MAP) Pulse Ox O2 Delivery O2 Flow Rate FiO2 08/28/17 08:06 97.7 92 20 144/80 (101) 96 08/28/17 08:00 Room Air 08/28/17 04:00 97.9 97 17 142/76 (98) 95 08/28/17 04:00 Room Air 08/28/17 00:00 Room Air 08/28/17 00:00 97.4 107 18 113/63 (80) 94 08/27/17 20:29 98.2 98 19 150/89 (109) 97 08/27/17 20:25 Room Air 08/27/17 12:00 97.4 101 18 124/83 (97) 96 I/O 08/27/17 08/27/17 08/27/17 08/28/17 08/28/17 08/28/17 06:59 14:59 22:59 06:59 14:59 22:59 Intake Total 900 ml 600 ml 240 ml 120 ml Output Total 850 ml 450 ml 50 ml 300 ml Balance 50 ml 150 ml 190 ml -180 ml Intake Oral 900 ml 600 ml 240 ml 120 ml Output Urine Total 850 ml 450 ml 50 ml 300 ml # Voids 1 2 # Bowel Movements 0 1 1 Result Diagram: 08/27/17 0500 08/26/17 0800 Objective Remarks GENERAL: Pale male sitting up in bed in [facility]. SKIN: Warm and dry. HEENT: AT/NC. Pupils equal and round. MMM. NECK: Supple no tender LAD or JVD. HEART: RRR with 1/6 JOSÉ. LUNGS: CTAB without wheezes or crackles. ABDOMEN: +BS, soft, nontender. EXTREMITIES: No LE edema. NEURO: Awake and alert. Generalized weakness PSYCH: Appropriate mood and affect. Procedures EGD 08/23 showing gastritis and antral ulcer with no active bleeding A/P Problem List: (1) GI bleed ICD Code: K92.2 - Gastrointestinal hemorrhage, unspecified Status: Acute Assessment and Plan 71-year-old male with PMH with of HTN, DM, GI bleed, CVA, BPH, and bipolar disorder originally presented to [facility] from [facility] on 08/02 due with nausea, vomiting and hematemesis. He underwent multiple EGD's with cauterization , and epinephrine injections. He also also underwent prophylactic embolization of the gastroduodenal artery. He was discharged to [facility] on 08/21, however he returned back to inpatient on 08/23 due to melena and symptomatic hypotension. 1. Upper GI bleed - Recently admitted and on 08/03 underwent EGD showing large duodenal ulcers that were clipped and injected with epi. Also went prophylactic embolization of gastroduodenal artery on 08/07 - Repeat EGD on 08/10 after Hb further dropped showed gastritis and duodenal bulb ulcers that were coagulated - Repeat EGD on 08/16 showed antral ulcer - Bleeding scan on 08/17 was normal - Repeat EGD on 08/18 showed larger ulcer in the atrium that was cauterized and injected with epi - Transferred to [facility] on 08/21 and went back to the medical floor on 08/22 for hypotension and melena - GI consulted and patient underwent EGD again on 08/23 showing gastritis and antral ulcer - Protonix PO BID - GI signed off and recommend colonoscopy as outpatient; also states if pt has rebleeding will need surgical consult - Hemoglobin stable - Monitor CBC. Stool H pylori ab pending - Zofran PRN 2. Anemia, secondary to GIB - Hemodynamically stable - Continue oral ferrous sulfate replacement 3. CKD stage 3 - Avoid nephrotoxic agents and renally dose medications 4. Bipolar disorder - Continue home lithium and Prozac 5. BPH - Continue home Flomax 6. HLD - Continue home statin DVT prophylaxis: chemical anticoagulation C/I in setting of GI bleed. [facility] Discharge Planning He is stable throughout the night, can be discharged today. Cannot return to [facility] or prior SNF due to legal history. Patient's daughter will be hiring a care provider. Wont take him home unless DMe delivered Problem Qualifiers (1) GI bleed: Qualified Codes: K25.4 - Chronic or unspecified gastric ulcer with hemorrhage Herb Galvan MD Aug 28, 2017 09:49
[2017-08-28 15:50] LABS: ENDOMYSIAL AB SCREEN ND (NEGATIVE); ENDOMYSIAL AB TITER ND (<1:5)
--- NOTE | 2017-08-28 17:00 | HHI.DS ---
Discharge Summary Admission Date Aug 22, 2017 at 15:45 Discharge Date: Aug 29, 2017 Admitting Diagnosis GIB (1) GI bleed ICD Code: K92.2 - Gastrointestinal hemorrhage, unspecified Diagnosis: Principal Status: Acute Procedures EGD 08/23 showing gastritis and antral ulcer with no active bleeding Brief History - From Admission Written by Lonnie Long, acting as scribe for Dr. Kaur on 08/22/17 at 16:24. 71-year-old male with PMH with of HTN, DM on metformin, GI bleed, CVA, BPH, left hand injury, and bipolar disorder on lithium and Prozac who was admitted to [facility] inpatient rehab on 08/21 and today transferred to inpatient medical unit due to black tarry stools as well as hypotension. Patient was very recently admitted to inpatient medical unit here at [facility] on 08/02 from halfway due to nausea, vomiting, and hematemesis. He was seen by gastroenterology and on 08/03 underwent EGD which found large duodenal ulcers with visible vessel for which he received epinephrine injections as well as clippings. He was also transfused 2 units of PRBCs. On 08/07 patient underwent prophylactic embolization of the gastroduodenal artery in IR department. On 08/09 he was once again found to be anemic with hemoglobin of 6.9 and once again transfused with 2 units of PRBCs. Repeat EGD on 08/10 showed mild gastritis in the gastric atrium, normal duodenal leak mucosa, 2 duodenal ulcers found in the duodenal bulb, argon plasma coagulation was applied to the sites and hemostasis achieved. Colonoscopy was also planned however this was not done as patient refused. He underwent EGD again on 08/16 an antral ulcer was identified with visible vessel. On 08/18 EGD repeat revealed large ulcer in the atrium, this was cauterized with gold probe, and epinephrine. He was also treated with IV Protonix and Sandostatin. Patient was also treated for E. coli UTI and JADEN during his admission. He was cleared for discharge and transfer to [facility] rehab center on 08/21. Today patient had dark tarry stools and was also found to be hypotensive with lowest BP 88/60. He was symptomatic while sitting up in wheelchair with dizziness and nausea. Consult was placed for GI services while patient was [facility] in [facility]. Plans for upper GI study today, general surgery service is consulted. GI services recommended patient be transferred to the inpatient setting. Patient was transported to GI lab and apparently refused upper endoscopy per nursing as well as patient. He is now in the medical floor where he is seen and examined resting comfortably in bed. He is awake, alert, and oriented and answering questions appropriately. When questioned as to why he did not have procedure done patient reports "I just want to go home". He reports that his daughter is a nurse practitioner and he can go home. He reports nausea, no vomiting or abdominal pain/ discomfort. He denies any dizziness, lightheadedness, shortness of breath, chest pain, heart palpitations, headache, fevers or chills. He does report that while he was in rehab center he did have bloody stools, denies any hematemesis. CBC/BMP: 08/27/17 0500 08/26/17 0800 Significant Findings Laboratory Tests Test 08/26/17 08:00 08/27/17 05:00 08/27/17 12:10 Red Blood Count 3.29 MIL/MM3 (4.50-5.90) 3.58 MIL/MM3 (4.50-5.90) Hemoglobin 9.9 GM/DL (13.0-17.0) 10.5 GM/DL (13.0-17.0) Hematocrit 29.5 % (39.0-51.0) 32.1 % (39.0-51.0) Platelet Count 583 TH/MM3 (150-450) 681 TH/MM3 (150-450) Neutrophils (%) (Auto) 71.3 % (16.0-70.0) 72.1 % (16.0-70.0) Monocytes (%) (Auto) 9.7 % (0.0-8.0) 8.5 % (0.0-8.0) Neutrophils # (Auto) 7.8 TH/MM3 (1.8-7.7) 8.3 TH/MM3 (1.8-7.7) Monocytes # (Auto) 1.1 TH/MM3 (0-0.9) 1.0 TH/MM3 (0-0.9) Blood Urea Nitrogen 6 MG/DL (7-18) Creatinine 1.33 MG/DL (0.60-1.30) Estimat Glomerular Filtration Rate 53 ML/MIN (>89) White Blood Count 11.5 TH/MM3 (4.0-11.0) PE at Discharge GENERAL: male sitting up in bed in NAD. SKIN: Warm and dry. HEENT: AT/NC. Pupils equal and round. MMM. NECK: Supple no tender LAD or JVD. HEART: RRR with 1/6 JOSÉ. LUNGS: CTAB without wheezes or crackles. ABDOMEN: +BS, soft, nontender. EXTREMITIES: No LE edema. NEURO: Awake and alert. Generalized weakness PSYCH: Appropriate mood and affect. Hospital Course 71-year-old male with PMH with of HTN, DM, GI bleed, CVA, BPH, and bipolar disorder originally presented to [facility] from halfway on 08/02 due with nausea, vomiting and hematemesis. He underwent multiple EGD's with cauterization , and epinephrine injections. He also also underwent prophylactic embolization of the gastroduodenal artery. He was discharged to [facility] on 08/21, however he returned back to inpatient on 08/23 due to melena and symptomatic hypotension. 1. Upper GI bleed - Recently admitted and on 08/03 underwent EGD showing large duodenal ulcers that were clipped and injected with epi. Also went prophylactic embolization of gastroduodenal artery on 08/07 - Repeat EGD on 08/10 after Hb further dropped showed gastritis and duodenal bulb ulcers that were coagulated - Repeat EGD on 08/16 showed antral ulcer - Bleeding scan on 08/17 was normal - Repeat EGD on 08/18 showed larger ulcer in the atrium that was cauterized and injected with epi - Transferred to [facility] on 08/21 and went back to the medical floor on 08/22 for hypotension and melena - GI consulted and patient underwent EGD again on 08/23 showing gastritis and antral ulcer - Protonix PO BID - GI signed off and recommend colonoscopy as outpatient; also states if pt has rebleeding will need surgical consult - Hemoglobin stable - Monitor CBC. Stool H pylori ab pending - Zofran PRN 2. Anemia, secondary to GIB. No further bleeding - Hemodynamically stable - Continue oral ferrous sulfate replacement 3. CKD stage 3. Stable - Avoid nephrotoxic agents and renally dose medications 4. Bipolar disorder - Continue home lithium and Prozac 5. BPH - Continue home Flomax 6. HLD - Continue home statin DVT prophylaxis: chemical anticoagulation C/I in setting of GI bleed. SCDs Discharge Planning He is stable throughout the night, can be discharged. Cannot return to [facility] or prior SNF due to legal history. Patient's daughter will be hiring a care provider. Wont take him home unless DMe delivered Pt Condition on Discharge: Stable Discharge Disposition: Discharge Home Discharge Time: > 30 minutes Discharge Instructions DIET: Follow Instructions for: Diabetic Diet Activities you can perform: Regular-No Restrictions Follow up Referrals: Appointment for Follow Up Gastroenterology - 1 Month PCP Follow-up - 1 Week PCP Follow-up - 1 Week @ [facility] New Medications: Hospital Bed - Electric (Hospital Bed - Electric) 1 Ea Ea EA .XX DIRECTED, #1 Continued Medications: Amlodipine (Norvasc) 5 Mg Tab 5 MG PO BID for Blood Pressure Management, #60 TAB Atorvastatin (Atorvastatin) 40 Mg Tab 40 MG PO HS for Cholesterol Management, #90 TAB 3 Refills Carvedilol (Coreg) 3.125 Mg Tab 3.125 MG PO Q12HR for 30 Days, TAB Ferrous Sulfate (Ferrous Sulfate) 325 Mg (65 Mg Iron) Tablet 325 MG PO BIDPC for Nutritional Supplement, #60 TAB 0 Refills Fluoxetine (Fluoxetine) 40 Mg Cap 40 CAP PO HS, #30 CAP 0 Refills [place] Carbonate ([place] Carbonate) 600 Mg Cap 600 MG PO HS, CAP 0 Refills Metformin (Metformin) 500 Mg Tab 500 MG PO BIDPC for Blood Sugar Management, #60 TAB 0 Refills Ondansetron Odt (Ondansetron Odt) 4 Mg Tab 4 MG PO Q6H PRN for NAUSEA for 30 Days, #120 TAB Pantoprazole (Protonix) 40 Mg Tab 40 MG PO BID for Ulcer Prevention, #60 TAB 1 Refill (This prescription has been renewed) Tamsulosin (Flomax) 0.4 Mg Cap 0.4 MG PO HS for Manage Prostate Problems, #30 CAP 0 Refills Discontinued Medications: Clopidogrel (Plavix) 75 Mg Tab 75 MG PO DAILY for Blood Clot Prevention, #30 TAB 11 Refills Sucralfate (Carafate) 1 Gram Tab 1 GM PO BIDAC for 30 Days, TAB Herb Galvan MD Aug 28, 2017 17:00
[2017-08-28] MEDS: ONDANSETRON HCL 4 MG/2 ML VIAL IVP PRN (20:15)
[2017-08-28] MEDS: ATORVASTATIN 40 MG TAB PO SCH (20:17)
[2017-08-28] MEDS: LITHIUM CARBONATE 300 MG CAP PO SCH (20:17)
[2017-08-28] MEDS: TAMSULOSIN HCL 0.4 MG CAP PO SCH (20:17)
[2017-08-28] MEDS: FLUoxetine HCL 20 MG CAP PO SCH (20:17)
[2017-08-29 01:00] VITALS: BP 130/69; PULSE 110; RESP 18; TEMP 98.7; O2SAT 97
[2017-08-29 04:26] VITALS: BP 119/67; PULSE 95; RESP 18; TEMP 97.7; O2SAT 94
[2017-08-29 08:10] VITALS: BP 138/72; PULSE 85; RESP 18; TEMP 98.2; O2SAT 96
[2017-08-29] MEDS: SODIUM CHLORIDE 0.9% FLUSH 10 ML FLUSH IV FLUSH SCH (09:00)
[2017-08-29] MEDS: PANTOPRAZOLE SOD 40 MG DELAYED RELEASE TAB PO SCH (09:38)
[2017-08-29] MEDS: DOCUSATE SODIUM 50 MG/SENNA 8.6 MG TAB PO SCH (09:38)
[2017-08-29] MEDS: FERROUS SULFATE 325 MG (65 MG ELEMENTAL IRON) TAB PO SCH ×2 (09:38→17:54)
[2017-08-29] MEDS ORDERED: COMMODE BEDSIDE1 MI1 (11:34)
[2017-08-29] MEDS ORDERED: WHEEMIS3 (11:34)
[2017-08-29 11:55] VITALS: BP 124/76; PULSE 102; RESP 18; TEMP 98.4; O2SAT 95
--- NOTE | 2017-08-29 15:19 | HHI.PR ---
Subjective Remarks Follow-up CVA. Patient has residual left-sided weakness. Stable for discharge awaiting DME. Discussed with nursing and case management Objective Vitals Vital Signs Date Time Temp Pulse Resp B/P (MAP) Pulse Ox O2 Delivery O2 Flow Rate FiO2 08/29/17 11:55 98.4 102 18 124/76 (92) 95 08/29/17 08:10 98.2 85 18 138/72 (94) 96 08/29/17 07:00 Room Air 08/29/17 04:26 97.7 95 18 119/67 (84) 94 08/29/17 04:00 Room Air 08/29/17 01:00 98.7 110 18 130/69 (89) 97 08/29/17 00:00 Room Air 08/28/17 20:16 98.9 105 20 133/76 (95) 95 08/28/17 20:15 Room Air 08/28/17 16:30 97.7 92 20 144/80 (101) 96 08/28/17 16:06 97.9 109 20 133/67 (89) 97 I/O 08/28/17 08/28/17 08/28/17 08/29/17 08/29/17 08/29/17 07:00 15:00 23:00 07:00 15:00 23:00 Intake Total 120 ml 380 ml Output Total 300 ml 700 ml Balance -180 ml 380 ml -700 ml Intake Oral 120 ml 380 ml Output Urine Total 300 ml 700 ml # Voids 2 3 # Bowel Movements 1 0 Result Diagram: 08/27/17 0500 08/26/17 0800 Objective Remarks GENERAL: male sitting up in bed in [facility]. SKIN: Warm and dry. HEENT: AT/NC. Pupils equal and round. MMM. NECK: Supple no tender LAD or JVD. HEART: RRR with 1/6 JOSÉ. LUNGS: CTAB without wheezes or crackles. ABDOMEN: +BS, soft, nontender. EXTREMITIES: No LE edema. NEURO: Awake and alert. Generalized weakness worse on the left upper and lower extremities PSYCH: Appropriate mood and affect. Procedures EGD 08/23 showing gastritis and antral ulcer with no active bleeding A/P Problem List: (1) GI bleed ICD Code: K92.2 - Gastrointestinal hemorrhage, unspecified Status: Acute Assessment and Plan 71-year-old male with PMH with of HTN, DM, GI bleed, CVA, BPH, and bipolar disorder originally presented to [place] from group home on 08/02 due with nausea, vomiting and hematemesis. He underwent multiple EGD's with cauterization , and epinephrine injections. He also also underwent prophylactic embolization of the gastroduodenal artery. He was discharged to [facility] rehab on 08/21, however he returned back to inpatient on 08/23 due to melena and symptomatic hypotension. 1. Upper GI bleed - Recently admitted and on 08/03 underwent EGD showing large duodenal ulcers that were clipped and injected with epi. Also went prophylactic embolization of gastroduodenal artery on 08/07 - Repeat EGD on 08/10 after Hb further dropped showed gastritis and duodenal bulb ulcers that were coagulated - Repeat EGD on 08/16 showed antral ulcer - Bleeding scan on 08/17 was normal - Repeat EGD on 08/18 showed larger ulcer in the atrium that was cauterized and injected with epi - Transferred to [facility] on 08/21 and went back to the medical floor on 08/22 for hypotension and melena - GI consulted and patient underwent EGD again on 08/23 showing gastritis and antral ulcer - Protonix PO BID - GI signed off and recommend colonoscopy as outpatient; also states if pt has rebleeding will need surgical consult - Hemoglobin stable - Monitor CBC. Stool H pylori ab pending - Zofran PRN 2. Anemia, secondary to GIB. No further bleeding - Hemodynamically stable - Continue oral ferrous sulfate replacement 3. CKD stage 3. Stable - Avoid nephrotoxic agents and renally dose medications 4. Bipolar disorder - Continue home lithium and Prozac 5. BPH - Continue home Flomax 6. HLD - Continue home statin DVT prophylaxis: chemical anticoagulation C/I in setting of GI bleed. SCDs Discharge Planning He is stable throughout the night, can be discharged. Cannot return to [facility] or prior SNF due to legal history. Patient's daughter will be hiring a care provider. Wont take him home unless DMe delivered Problem Qualifiers (1) GI bleed: Qualified Codes: K25.4 - Chronic or unspecified gastric ulcer with hemorrhage Herb Galvan MD Aug 29, 2017 15:19
[2017-08-29] MEDS: ONDANSETRON HCL 4 MG/2 ML VIAL IVP PRN (16:17)
[2017-08-29 16:28] VITALS: BP 162/82; PULSE 103; RESP 18; TEMP 98.1; O2SAT 97
== END 2017-08-29 19:22 | disposition home or self-care (01) | DRG 378 ==
LOC: N04B 15:45
PROVIDERS: ADMIT Internal Medicine; ATTEND Internal Medicine
PROC: 0DJ08ZZ Inspection of Upper Intestinal Tract, Via Natural or Artificial Opening Endoscopic (ICD-10-PCS; principal; 2017-08-23 14:23)
DX: K92.2 Gastrointestinal hemorrhage, unspecified (principal); N17.9 Acute kidney failure, unspecified; I69.354 Hemiplegia and hemiparesis following cerebral infarction affecting left non-dominant side; E11.22 Type 2 diabetes mellitus with diabetic chronic kidney disease; Z79.84 Long term (current) use of oral hypoglycemic drugs; I12.9 Hypertensive chronic kidney disease with stage 1 through stage 4 chronic kidney disease, or unspecified chronic kidney disease; N18.3 Chronic kidney disease, stage 3 (moderate); D50.0 Iron deficiency anemia secondary to blood loss (chronic); Z79.02 Long term (current) use of antithrombotics/antiplatelets; K25.9 Gastric ulcer, unspecified as acute or chronic, without hemorrhage or perforation; K44.9 Diaphragmatic hernia without obstruction or gangrene; F31.9 Bipolar disorder, unspecified; N40.0 Benign prostatic hyperplasia without lower urinary tract symptoms; E78.5 Hyperlipidemia, unspecified; E87.6 Hypokalemia
CPT/HCPCS: 76937; 80048; 82784; 82941; 82948; 83516; 83735; 85025; 87338; 93005; C9113; J0330; J2405; J7120

== ENCOUNTER 2017-10-18 15:05 | Emergency (ER) | payer OTHER ==
[~2017-10-18 15:05] MED LIST changes: +COMMODE BEDSIDE1 MI1; +HOSP BED1; -PLAV75TA29 PO; +WHEEMIS3
[2017-10-18 15:26] VITALS: BP 118/71; PULSE 110; RESP 16; TEMP 98; O2SAT 98
[2017-10-18] MEDS ORDERED: SODIUM CHLOR 0.9% 1000 ML INJ 1,000 ML IV SCH (15:38)
--- NOTE | 2017-10-18 15:44 | PD ---
HPI . Altered mental status Chief Complaint: Altered Mental Status Time Seen by Provider: 15:29 Travel History International Travel<30 days: No Contact w/Intl Traveler<30days: No Traveled to known affect area: No History of Present Illness HPI This patient is brought in ambulatory by his daughter with a chief complaint of altered mental status. Onset was a few days ago. It has been getting progressively worse since that time. Symptoms are mild to moderate. No modifying factors. The daughter states that he is drinking well but has had decreased urinary output. She has not noticed a fever. She reports no known GI bleeding. His daughter has later reported that he suffers from gastroparesis. He has occasional emesis associated with gastroparesis. He also has decreased p.o. intake secondary to his gastroparesis. PFSH Past Medical History Hx Anticoagulant Therapy: Yes (ASA [id number]) Arthritis: No Asthma: No Bipolar Disorder: Yes Anxiety: No Depression: Yes Heart Rhythm Problems: No Cancer: No Cardiovascular Problems: Yes High Cholesterol: No Chest Pain: No Congestive Heart Failure: No COPD: No Cerebrovascular Accident: Yes Diabetes: Yes Diminished Hearing: No Endocrine: Yes (DM II) Gastrointestinal Disorders: Yes (GERD) GERD: Yes Genitourinary: Yes Hiatal Hernia: No Hypertension: Yes Immune Disorder: No Implanted Vascular Access Dvce: No Kidney Stones: No Musculoskeletal: Yes (Impaired balance ) Neurologic: Yes Psychiatric: Yes Reproductive: No Respiratory: Yes Migraines: No Renal Failure: No Seizures: No Sleep Apnea: No Thyroid Disease: No Ulcer: Yes Past Surgical History Abdominal Surgery: No Cardiac Surgery: No Ear Surgery: No Endocrine Surgery: No Eye Surgery: No Genitourinary Surgery: No Gynecologic Surgery: No Neurologic Surgery: No Oral Surgery: No Pacemaker: No Thoracic Surgery: No Tonsillectomy: Yes Social History Alcohol Use: No Tobacco Use: No Substance Use: No Allergies-Medications (Allergen,Severity, Reaction): Coded Allergies: codeine (Verified Allergy, Severe, MUSCULOSKELETAL ISSUES, 08/21/17) insulin,pork (Verified Allergy, Severe, Anaphylaxis, 08/21/17) insulin aspart (Verified Allergy, Intermediate, 08/21/17) lactose (Verified Allergy, Intermediate, 08/21/17) LACTOSE INTOLERANT Reported Meds & Prescriptions Reported Meds & Active Scripts Active Zofran (Ondansetron HCl) 4 Mg Tab 4 Mg PO Q6HR PRN Wheelchair (Device) 1 Mis Mis Ea .XX DIRECTED Commode Bedside (Device) 1 Mis Mis Ea .XX DIRECTED Hospital Bed - Electric 1 Ea Ea Ea .XX DIRECTED Protonix (Pantoprazole Sodium) 40 Mg Tab 40 Mg PO BID Ondansetron Odt 4 Mg Tab 4 Mg PO Q6H PRN 30 Days Coreg (Carvedilol) 3.125 Mg Tab 3.125 Mg PO Q12HR 30 Days Atorvastatin (Atorvastatin Calcium) 40 Mg Tab 40 Mg PO HS 30 Days Norvasc (Amlodipine Besylate) 5 Mg Tab 5 Mg PO BID Atorvastatin (Atorvastatin Calcium) 40 Mg Tab 40 Mg PO HS Reported Scopolamine Patch 72 HR (Scopolamine) 1 Mg Patch 1 Patch T-DERMAL Q72H [place]chol 5 Mg Tab 5 Mg PO WITH MEALS Metformin (Metformin HCl) 500 Mg Tab 500 Mg PO BIDPC Fluoxetine (Fluoxetine HCl) 40 Mg Cap 40 Cap PO HS Flomax (Tamsulosin HCl) 0.4 Mg Cap 0.4 Mg PO HS [place] Carbonate 600 Mg Cap 600 Mg PO HS Review of Systems Except as stated in HPI: all other systems reviewed are Neg Physical Exam Narrative GENERAL: The patient is awake. SKIN: warm/dry. HEAD: Normocephalic. Atraumatic. EYES: Pupils equal and round. Extraocular movements are intact. ENT: Mucous membranes pink. Dry. NECK: Supple. Full range of motion without pain.. CARDIOVASCULAR: Regular rate and rhythm. Heart sounds are normal. RESPIRATORY: No accessory muscle use. Clear to auscultation. Breath sounds equal bilaterally. GASTROINTESTINAL: Abdomen soft. Nontender. Bowel sounds present. Nondistended. MUSCULOSKELETAL: No obvious deformities. Normal muscle tone. NEUROLOGICAL: Awake and alert. No obvious cranial nerve deficits. Motor grossly within normal limits. Normal speech. PSYCHIATRIC: Appropriate mood and affect; insight and judgment normal. Data Data Last Documented VS Vital Signs Date Time Temp Pulse Resp B/P (MAP) Pulse Ox O2 Delivery O2 Flow Rate FiO2 10/18/17 18:41 77 17 125/86 (99) 100 Room Air 10/18/17 15:26 98.0 Orders Orders Electrocardiogram (10/18/17 15:38) Complete Blood Count With Diff (10/18/17 15:38) Comprehensive Metabolic Panel (10/18/17 15:38) Troponin I (6/14/18 15:38) Urinalysis - C+S If Indicated (10/18/17 15:38) Lactic Acid Sepsis Protocol (10/18/17 15:38) Blood Culture (10/18/17 15:38) Chest, Single Ap (10/18/17 15:38) Blood Glucose (10/18/17 15:38) Ecg Monitoring (10/18/17 15:38) Iv Access Insert/Monitor (10/18/17 15:38) Cath For Specimen (10/18/17 15:38) Oximetry (10/18/17 15:38) Sodium Chloride 0.9% Flush (Ns Flush) (10/18/17 15:45) Sodium Chlor 0.9% 1000 Ml Inj (Ns 1000 M (10/18/17 15:38) Sodium Chlor 0.9% 1000 Ml Inj (Ns 1000 M (10/18/17 15:45) Ct Brain W/O Iv Contrast(Rout) (10/18/17 17:07) Sodium Chlor 0.9% 1000 Ml Inj (Ns 1000 M (10/18/17 18:15) Sodium Chlor 0.9% 1000 Ml Inj (Ns 1000 M (10/18/17 18:15) Labs Laboratory Tests Test 10/18/17 16:00 10/18/17 17:15 White Blood Count 9.4 TH/MM3 Red Blood Count 4.11 MIL/MM3 Hemoglobin 11.2 GM/DL Hematocrit 35.5 % Mean Corpuscular Volume 86.3 FL Mean Corpuscular Hemoglobin 27.2 PG Mean Corpuscular Hemoglobin Concent 31.6 % Red Cell Distribution Width 15.2 % Platelet Count 462 TH/MM3 Mean Platelet Volume 7.4 FL Neutrophils (%) (Auto) 69.2 % Lymphocytes (%) (Auto) 20.1 % Monocytes (%) (Auto) 8.4 % Eosinophils (%) (Auto) 1.5 % Basophils (%) (Auto) 0.8 % Neutrophils # (Auto) 6.5 TH/MM3 Lymphocytes # (Auto) 1.9 TH/MM3 Monocytes # (Auto) 0.8 TH/MM3 Eosinophils # (Auto) 0.1 TH/MM3 Basophils # (Auto) 0.1 TH/MM3 CBC Comment DIFF FINAL Differential Comment Blood Urea Nitrogen 8 MG/DL Creatinine 1.67 MG/DL Random Glucose 106 MG/DL Total Protein 7.1 GM/DL Albumin 3.0 GM/DL Calcium Level 10.2 MG/DL Alkaline Phosphatase 77 U/L Aspartate Amino Transf (AST/SGOT) 19 U/L Alanine Aminotransferase (ALT/SGPT) 18 U/L Total Bilirubin 0.8 MG/DL Sodium Level 141 MEQ/L Potassium Level 3.9 MEQ/L Chloride Level 108 MEQ/L Carbon Dioxide Level 23.8 MEQ/L Anion Gap 9 MEQ/L Estimat Glomerular Filtration Rate 41 ML/MIN Lactic Acid Level 1.6 mmol/L Troponin I LESS THAN 0.02 NG/ML Urine Color Straw Urine Turbidity CLEAR Urine pH 7.0 Urine Specific [place] 1.004 Urine Protein NEG mg/dL Urine Glucose (UA) NEG mg/dL Urine Ketones NEG mg/dL Urine Occult Blood NEG Urine Nitrite NEG Urine Bilirubin NEG Urine Leukocyte Esterase NEG Urine RBC LESS THAN 1 /hpf Urine WBC 3 /hpf Microscopic Urinalysis Comment CATH-CULT NOT IND MDM Medical Decision Making Medical Screen Exam Complete: Yes Emergency Medical Condition: Yes Interpretation(s) EKG shows a sinus rhythm with a left bundle branch block. Differential Diagnosis Differential diagnosis of altered mental status includes but is not limited to infection, electrolyte abnormality, neurological event, intoxication, encephalitis, meningitis Narrative Course This patient is brought in by his family with a chief complaint of altered mental status and decreased urinary output. Clinically, he looks dehydrated. I have ordered 2 L of fluid. CBC & BMP Diagram 10/18/17 16:00 Total Protein 7.1, Albumin 3.0 L, Calcium Level 10.2 H, Alkaline Phosphatase 77 , Aspartate Amino Transf (AST/SGOT) 19, Alanine Aminotransferase (ALT/SGPT) 18, Total Bilirubin 0.8 LA 1.6 trop < 0.02 UA neg His mucous membranes are still pretty dry. He gave us a urine sample but it is very small. I am going to give him 2 more liters of fluid. Last Impressions Head CT 10/18/17 1707 Signed Impressions: CONCLUSION: 1. Old right basal ganglia and old right occipital infarct. 2. Right parietal infarct of indeterminate age. 3. Cerebral atrophy and chronic ischemic small vessel vasculopathy. Chest X-Ray 10/18/17 1538 Signed Impressions: CONCLUSION: No acute cardiopulmonary findings. Similar to previous dated 08/02/2017. The CT was done at the daughter's request. He does not have symptoms of an acute stroke. He has global weakness. He will be discharged home with a prescription for Zofran. Diagnosis Primary Impression: Dehydration Med/Other Pt SpecificInfo: Prescription(s) given Scripts Ondansetron (Zofran) 4 Mg Tab 4 MG PO Q6HR Y for NAUSEA OR VOMITING, #30 TAB 0 Refills Prov: Sona De León MD 10/18/17 Disposition: 01 DISCHARGE HOME Condition: Stable Sona De León MD Oct 18, 2017 15:44
[2017-10-18] MEDS ORDERED: SODIUM CHLORIDE 0.9% FLUSH 10 ML FLUSH IV FLUSH PRN (15:45)
[2017-10-18] MEDS ORDERED: SODIUM CHLOR 0.9% 1000 ML INJ 1,000 ML IV ONE ×3 (15:45→18:15)
[2017-10-18 16:12] VITALS: O2SAT 97
--- NOTE | 2017-10-18 16:25 | RADRPT ---
EXAM DATE: 10/18/2017 4:12 PM EDT AGE/SEX: 72 years / Male INDICATIONS: Altered mental status per daughter, and nOt following directions for 3 days CLINICAL DATA: This is the patient's initial encounter. Patient reports that signs and symptoms have been present for 3 days and indicates a pain score of Nonresponsive. MEDICAL/SURGICAL HISTORY: . stroke a couple of months ago. . none known COMPARISON: [facility] [place], CHEST SINGLE AP, 08/02/2017. . FINDINGS: A single AP view of the chest demonstrates the lungs to be symmetrically aerated without evidence of mass, infiltrate or effusion. The cardiomediastinal contours are unremarkable. Osseous structures a re intact. CONCLUSION: No acute cardiopulmonary findings. Similar to previous dated 08/02/2017. Electronically signed by: Matt Owens MD 10/18/2017 4:24 PM EDT
[2017-10-18 16:34] LABS: AUTOMATED NEUTROPHIL # 6.5 TH/MM3 (1.8-7.7); BASOPHIL # 0.1 TH/MM3 (0-0.2); BASOPHIL % 0.8 % (0.0-2.0); EOSINOPHIL # 0.1 TH/MM3 (0-0.4); EOSINOPHIL % 1.5 % (0.0-4.0); HEMATOCRIT 35.5 % (39.0-51.0); HEMOGLOBIN 11.2 GM/DL (13.0-17.0); LYMPH % 20.1 % (9.0-44.0); LYMPHOCYTE # 1.9 TH/MM3 (1.0-4.8); MEAN CELL VOLUME 86.3 FL (80.0-100.0); MEAN CORPUSCULAR HEMOGLOBIN 27.2 PG (27.0-34.0); MEAN CORPUSCULAR HGB CONC 31.6 % (32.0-36.0); MEAN PLATELET VOLUME 7.4 FL (7.0-11.0); MONO % 8.4 % (0.0-8.0); MONOCYTE # 0.8 TH/MM3 (0-0.9); NEUT % 69.2 % (16.0-70.0); PLATELET COUNT 462 TH/MM3 (150-450); RED BLOOD COUNT 4.11 MIL/MM3 (4.50-5.90); RED CELL DISTRIBUTION WIDTH 15.2 % (11.6-17.2); WHITE BLOOD COUNT 9.4 TH/MM3 (4.0-11.0)
[2017-10-18 17:01] LABS: ALT (GPT) 18 U/L (12-78); AST (GOT) 19 U/L (15-37); BICARBONATE 23.8 MEQ/L (21.0-32.0); BLOOD UREA NITROGEN 8 MG/DL (7-18); CALCIUM 10.2 MG/DL (8.5-10.1); CHLORIDE 108 MEQ/L (98-107); CREATININE 1.67 MG/DL (0.60-1.30); GLOMERULAR FILTRATION RATE 41 ML/MIN (>89); GLUCOSE,RANDOM 106 MG/DL (74-106); SODIUM (NA) 141 MEQ/L (136-145)
[2017-10-18 17:05] LABS: ALKALINE PHOSPHATASE 77 U/L (45-117); TOTAL BILIRUBIN ADULT 0.8 MG/DL (0.2-1.0); TOTAL PROTEIN 7.1 GM/DL (6.4-8.2); TROPONIN I LESS THAN 0.02 NG/ML (0.02-0.05)
[2017-10-18 17:45] LABS: BILIRUBIN, URINE NEG (NEG); BLOOD, URINE NEG (NEG); GLUCOSE,URINE NEG (NEG); KETONE, URINE NEG (NEG); NITRITE,URINE NEG (NEG); URINE COLOR Straw (YELLW/STRAW); URINE LEUKOCYTE ESTERASE NEG (NEG)
[2017-10-18] MEDS ORDERED: BETH5TAB2 PO (17:56)
[2017-10-18] MEDS ORDERED: SCOP1PAT2 T-DERMAL (17:57)
[2017-10-18 18:41] VITALS: BP 125/86; PULSE 77; RESP 17; O2SAT 100
--- NOTE | 2017-10-18 18:51 | RADRPT ---
EXAM DATE: 10/18/2017 6:36 PM EDT AGE/SEX: 72 years / Male INDICATIONS: Altered mental status. CLINICAL DATA: This is the patient's initial encounter. Patient reports that signs and symptoms have been present for 1 day and indicates a pain score of 0/10. MEDICAL/SURGICAL HISTORY: Cerebrovascular disease. Hypertension. Diabetes. None. RADIATION DOSE: 64.63 CTDI (mGy) COMPARISON: [facility] [place], CT BRAIN W/O CONTRAST, 07/20/2017. . TECHNIQUE: CT of the head without contrast. Using automated exposure control and adjustment of the mA and/or kV according to patient size, radiation dose was kept as low as reasonably achievable to ob tain optimal diagnostic quality images. FINDINGS: Cerebrum: Cerebral atrophy. Old right basal ganglia infarct. Old right occipital infarct. Area of lo w-density in the right parietal lobe parafalcine region. There is low-density throughout the white ma tter. No evidence of midline shift, mass lesion or hemorrhage . No extraaxial fluid collections are seen. Posterior Fossa: The cerebellum and brainstem are intact. The 4th ventricle is midline. The cerebe llopontine angle is unremarkable. Extracranial: The visualized portion of the orbits is intact. Skull: The calvaria is intact. No evidence of skull fracture. CONCLUSION: 1. Old right basal ganglia and old right occipital infarct. 2. Right parietal infarct of indeterminate age. 3. Cerebral atrophy and chronic ischemic small vessel vasculopathy. Electronically signed by: Phil Crawford MD 10/18/2017 6:50 PM EDT
[2017-10-18] MEDS ORDERED: ZOFR4TAB PO (18:52)
--- NOTE | 2017-10-18 20:55 | EKG ---
Date Performed: 10/18/2017 Time Performed: 14:39:08 PTAGE: 72 years EKG: Sinus rhythm LEFT AXIS DEVIATION LEFT BUNDLE BRANCH BLOCK ABNORMAL ECG PREVIOUS TRACING : 08/23/2017 00.12 No significant change from previous tracing noted. DOCTOR: Issac Jackson Interpretating Date/Time 10/18/2017 20:53:39
== END 2017-10-18 19:51 | disposition home or self-care (01) ==
LOC: NEPE 15:05
DX: E86.0 Dehydration (principal); R53.1 Weakness; R41.82 Altered mental status, unspecified; R94.31 Abnormal electrocardiogram [ECG] [EKG]; K31.84 Gastroparesis; E11.9 Type 2 diabetes mellitus without complications; I10 Essential (primary) hypertension; K21.9 Gastro-esophageal reflux disease without esophagitis; F31.9 Bipolar disorder, unspecified; Z79.82 Long term (current) use of aspirin; Z79.84 Long term (current) use of oral hypoglycemic drugs; Z87.448 Personal history of other diseases of urinary system; Z86.79 Personal history of other diseases of the circulatory system; Z86.69 Personal history of other diseases of the nervous system and sense organs
CPT/HCPCS: 70450; 71045; 80053; 81001; 83605; 84484; 85025; 87040; 93005; 96360; 96361; 99285; J7030